=== PATIENT | female | born 1940 | race Caucasian/White ===

== ENCOUNTER 2021-02-04 16:30 | Emergency (ER) | payer OTHER, MEDICARE ==
[~2021-02-04] VITALS: Ht 162 cm; Wt 75.0 kg
[2021-02-04] MEDS ORDERED: ASPIRIN 81 MG CHEW (CHILDREN'S ASA) PO ONE (16:45)
[2021-02-04 16:58] LABS: HEMATOCRIT 46 % (35-52); HEMOGLOBIN 15.5 g/dL (11.5-16.0); MEAN CORPUSCULAR HEMOGLOBIN 29 pg (25-34); MEAN CORPUSCULAR HGB CONC 34 g/dL (32-36); MEAN CORPUSCULAR VOLUME 86 fL (80-99); MEAN PLATELET VOLUME 10.8 fL (9.0-12.2); PLATELET COUNT 238 10^3/uL (130-400); WHITE BLOOD COUNT 13.5 10^3/uL (4.3-11.0)
[2021-02-04 16:59] LABS: BASOPHILS % (AUTO) 0 % (0-10); EOSINOPHILS % (AUTO) 0 % (0-10); LYMPHOCYTES # (AUTO) 1.3 X 10^3 (1.0-4.0); LYMPHOCYTES % (AUTO) 10 % (12-44); MONOCYTES # (AUTO) 1.5 X 10^3 (0.0-1.0); MONOCYTES % (AUTO) 11 % (0-12); NEUTROPHILS # (AUTO) 10.5 X 10^3 (1.8-7.8); NEUTROPHILS % (AUTO) 78 % (42-75)
[2021-02-04] MEDS ORDERED: HEParin 1000 UNIT/ML (10ML VIAL) FOR BOLUS IV ONE (16:59)
--- NOTE | 2021-02-04 16:59 | ED Chest Pain ---
General Chief Complaint: Chest Pain Stated Complaint: CHEST PAIN Source: patient, family (son) Exam Limitations: other (dementia) History of Present Illness Date Seen by Provider: Feb 04, 2021 Time Seen by Provider: 16:31 Initial Comments 80-year-old female presenting from clinic of local physician. She has complaint of chest pain that has been off and on for a while now. She has dementia and cannot be specific about when the pain started. She is complaining of the pain going into her left arm at times. She has no nausea, vomiting, shortness of breath, diaphoresis. She has a history of diabetes, high blood pressure, high cholesterol, dementia. Her son presents with her to help provide history. She is smiling and jovial and does not seem to be having a lot of pain or discomfort from her chest pain. Location: other (Left-sided chest) Radiation: arms (Left arm) ASA po SHEET METAL INSTALLER: No NTG SL SHEET METAL INSTALLER: No Associated Symptoms: No abdominal pain, No back pain, No diaphoresis, No dizziness, No edema; fatigue; No fever/chills, No headache, No heartburn, No nausea/vomiting, No rash, No shortness of breath, No swelling/lump in chest Allergies and Home Medications Allergies Coded Allergies: No Known Drug Allergies (Unverified , 02/04/21) Patient Home Medication List Home Medication List Reviewed: Yes Review of Systems Review of Systems Constitutional: No chills, No fever EENTM: No Symptoms Reported Respiratory: No Symptoms Reported Cardiovascular: See HPI Gastrointestinal: No Symptoms Reported Genitourinary: No Symptoms Reported Musculoskeletal: no symptoms reported Skin: no symptoms reported Psychiatric/Neurological: Other (Dementia) Endocrine: No Symptoms Reported Hematologic/Lymphatic: Denies Blood Clots Past Mcevpfe-Aohyvj-Owpedg Hx Patient Social History Tobacco Use?: No Past Medical History Respiratory: No Cardiac: Yes High Cholesterol, Hypertension Neurological: Yes Dementia Endocrine: Yes Diabetes, Non-Insulin dep Physical Exam Vital Signs Vital Signs - First Documented 02/04/21 02/04/21 16:56 17:00 Temp 36.1 Pulse 105 Resp 20 B/P (MAP) 112/66 (81) Pulse Ox 96 O2 Delivery Room Air O2 Flow Rate 2.00 Capillary Refill : Height, Weight, BMI Height: '" Weight: lbs. oz. kg; BMI Method: General Appearance: No Apparent Distress, WD/WN HEENT: PERRL/EOMI, Pharynx Normal Neck: Full Range of Motion, Normal Inspection, Non Tender, Supple; No Carotid Bruit Respiratory: Chest Non Tender, Lungs Clear, Normal Breath Sounds Cardiovascular: Regular Rate, Rhythm, Normal Peripheral Pulses Gastrointestinal: Normal Bowel Sounds, No Pulsatile Mass, Non Tender, Soft Rectal: Deferred Extremity: Normal Capillary Refill, Normal Inspection, No Pedal Edema Neurologic/Psychiatric: Alert Skin: Normal Color, Warm/Dry Critical Care Note Critical Care Total Time (minutes) 45 minutes Progress 45 minutes of critical care time was spent in direct care of the patient. This time excludes separately billable procedures. The time was spent obtaining history from the patient and family, reviewing records, ordering lab and reviewing results, ordering interventions and reviewing response, discussion with consultants, documentation in the chart. Patient was at risk of cardiovascular compromise and coding or due to acute STEMI. She required immediate and constant care and management of her condition to arrange transfer to the [facility]. Progress/Results/Core Measures Results/Orders Lab Results Laboratory Tests Test 02/04/21 16:50 Range/Units White Blood Count 13.5 H 4.3-11.0 10^3/uL Red Blood Count 5.33 H 3.80-5.11 10^6/uL Hemoglobin 15.5 11.5-16.0 g/dL Hematocrit 46 35-52 % Mean Corpuscular Volume 86 80-99 fL Mean Corpuscular Hemoglobin 29 25-34 pg Mean Corpuscular Hemoglobin Concent 34 32-36 g/dL Red Cell Distribution Width 13.2 10.0-14.5 % Platelet Count 238 130-400 10^3/uL Mean Platelet Volume 10.8 9.0-12.2 fL Immature Granulocyte % (Auto) 0 % Neutrophils (%) (Auto) 78 H 42-75 % Lymphocytes (%) (Auto) 10 L 12-44 % Monocytes (%) (Auto) 11 0-12 % Eosinophils (%) (Auto) 0 0-10 % Basophils (%) (Auto) 0 0-10 % Neutrophils # (Auto) 10.5 H 1.8-7.8 X 10^3 Lymphocytes # (Auto) 1.3 1.0-4.0 X 10^3 Monocytes # (Auto) 1.5 H 0.0-1.0 X 10^3 Eosinophils # (Auto) 0.0 0.0-0.3 10^3/uL Basophils # (Auto) 0.0 0.0-0.1 10^3/uL Immature Granulocyte # (Auto) 0.1 0.0-0.1 10^3/uL Prothrombin Time 12.8 12.2-14.7 SEC INR Comment 0.9 0.8-1.4 Activated Partial Thromboplast Time 26 24-35 SEC Sodium Level 129 L 135-145 MMOL/L Potassium Level 3.6 3.6-5.0 MMOL/L Chloride Level 92 L 98-107 MMOL/L Carbon Dioxide Level 23 21-32 MMOL/L Anion Gap 14 5-14 MMOL/L Blood Urea Nitrogen 26 H 7-18 MG/DL Creatinine 0.66 0.60-1.30 MG/DL Estimat Glomerular Filtration Rate 86 BUN/Creatinine Ratio 39 Glucose Level 198 H 70-105 MG/DL Calcium Level 9.5 8.5-10.1 MG/DL Corrected Calcium 9.7 8.5-10.1 MG/DL Magnesium Level 2.0 1.6-2.4 MG/DL Total Bilirubin 0.8 0.1-1.0 MG/DL Aspartate Amino Transf (AST/SGOT) 42 H 5-34 U/L Alanine Aminotransferase (ALT/SGPT) 28 0-55 U/L Alkaline Phosphatase 96 40-136 U/L Troponin I 4.21 *H <0.30 NG/ML Pro-B-Type Natriuretic Peptide 8391.0 H <75.0 PG/ML Total Protein 7.5 6.4-8.2 GM/DL Albumin 3.7 3.2-4.5 GM/DL My Orders Orders - JC DIXON MD Cbc With Automated Diff (02/04/21 16:43) Magnesium (02/04/21 16:43) Chest 1 View Ap/Pa Only (02/04/21 14:45) Ekg Tracing (02/04/21 16:43) Comprehensive Metabolic Panel (02/04/21 16:43) Protime With Inr (02/04/21 16:43) Partial Thromboplastin Time (02/04/21 16:43) O2 (02/04/21 16:43) Monitor-Rhythm Ecg Trace Only (02/04/21 16:43) Aspirin Chewable Tablet (Baby Aspirin Ch (02/04/21 16:45) Ed Iv/Invasive Line Start (02/04/21 16:43) Troponin I Fs (02/04/21 16:43) Probnp Fs (02/04/21 16:43) Heparin Drip 90486 Unit/500ml (Heparin (02/04/21 17:00) Heparin (Bolus Per Protocol) (Heparin (B (02/04/21 16:59) Morphine Injection (Morphine Injection (02/04/21 17:00) Ondansetron Injection (Zofran Injectio (02/04/21 17:00) Medications Given in ED Current Medications Medications Dose Ordered Sig/Rayray Route Start Time Stop Time Status Last Admin Dose Admin Aspirin 324 mg ONCE ONCE PO 02/04/21 16:45 02/04/21 16:46 DC 02/04/21 16:59 324 MG Heparin Sodium (Porcine) 4,500 unit 1659 ONCE IV 02/04/21 16:59 02/04/21 17:01 DC 02/04/21 17:11 4,500 UNIT Heparin Sodium/ Dextrose 500 ml @ 0 mls/hr Q0M ONCE IV 02/04/21 17:00 02/04/21 17:01 DC 02/04/21 17:11 18 MLS/HR Vital Signs/I&O 02/04/21 02/04/21 02/04/21 02/04/21 16:56 16:56 17:00 17:21 Temp 36.1 36.1 Pulse 105 91 Resp 20 18 B/P (MAP) 112/66 (81) 103/50 Pulse Ox 96 99 99 O2 Delivery Room Air Room Air Nasal Cannula Nasal Cannula O2 Flow Rate 2.00 2.00 Progress Progress Note #1: Progress Note Electrocardiogram shows STEMI with ST elevation in tombstone in leads V1 through V5. When discussed with patient's son he requested to go to [facility] in [place]. Will contact them but in the meantime order heparin, aspirin, labs, chest x-ray. Progress Note #2: Time: 16:45 Progress Note Discussed with die operator on-call Dr. De La Garza at [facility] in [place]. He accepted the patient for transfer to go straight to the [facility] Aud[facility] and have back County Auditor activated. Per Dr. De La Garza Hold off on Plavix or Brilinta but give heparin and aspirin. Progress Note #3: Time: 16:55 Progress Note called back to update transfer center that pt has a history of diabetes in addition to htn and dementia. Helicopter en route for transport and should ar rive around 1720. Order a dose of Morphine 2 mg and Zofran 4 mg for pt. Progress Note #4: Time: 17:32 Progress Note [facility] transport here for patient. Labs show mild elevation of WBC. Chemistry with mild hyponatremia of 129, Glucose of 198. Troponin elevated to 4.21 and proBNP of 8,391. CXR with left pleural effusion and atele ctasis/infiltrate in base. small nodule in right lung that would be helpful to compare to prior imaging if available. Pt reports chest pain is gone when asked by [employer] staff. Initial ECG Impression Date: Feb 04, 2021 Initial ECG Impression Time: 16:34 Initial ECG Rate: 96 Initial ECG Rhythm: Normal Sinus Initial ECG Comparisson: No Previous ECG Available Comment Normal sinus rhythm with left anterior fascicular block and left ventricular hypertrophy. Heart rate is 96 bpm. OH interval 142 ms. Extensive anterior infarction with ST elevation and tombstone appearance in leads V1 through V5. QT interval 352 ms QTc interval 445 ms. There is no prior tracing available for comparison. Diagnostic Imaging Diagonstic Imaging: Xray Plain Films/CT/US/NM/MRI: chest Comments No acute infiltrate on my review of 1 view film of chest. possible mild pleural effusion left base. NAME: CLEM RUEDA REC#: [id number] PT STATUS: REG ER : 1940 PHYSICIAN: JC DIXON MD ADMIT DATE: 02/04/21/ER FS Draft Date of Exam:02/04/21 CHEST 1 VIEW AP/PA ONLY INDICATION: Chest pain. COMPARISON: None available. TECHNIQUE: Single frontal chest dated February 04, 2021. FINDINGS: The cardiac silhouette is within normal limits in size. No significant pulmonary vascular congestion. Calcified mediastinal and right hilar lymph nodes are present. Small left basilar pleural-parenchymal opacity. 6 mm nodular density is noted overlying the right midlung. No significant right pleural effusion. No pneumothorax. Scattered osseous degenerative changes without acute osseous abnormality. IMPRESSION: 1. Small left basilar pleural-parenchymal opacity, felt to relate to a combination of pleural fluid with adjacent atelectasis and/or infiltrate. 2. 6 mm nodular density overlying the right midlung. This is favored to relate to a calcified granuloma. Comparison made to prior imaging is recommended. If no prior imaging is available, nonemergent frontal and lateral radiographs of the chest could help to further evaluate. Dictated on workstation # [id number] Dict: 02/04/21 1735 Trans: 02/04/21 1738 [facility] [id number] Interpreted by: AURY TATE MD Electronically signed by: Reviewed: Reviewed by Me Departure Impression Primary Impression: Acute ST-elevation myocardial infarction Qualified Codes: I21.3 - ST elevation (STEMI) myocardial infarction of unspecified site Disposition: SHT-TRM HOSP Condition: Critical Transfer Transfer Reason: Patient preference Time Spoke to Accepting Phy: 16:45 Transfer Progress Notes d/w Dr. De La Garza, [employer] operations vice president, accepted pt and activated [facility] Aud[facility] for when pt arrives. Give Aspirin and Heparin. Hold off on Plavix or Brilinta for now. Transfer Facility: [facility] in [place], [place] Method of Transfer: Air Departure-Patient Inst. Referrals: TREY DENTON DO (PCP/Family) Primary Care Physician JC DIXON MD Feb 04, 2021 16:59
[2021-02-04] MEDS ORDERED: HEParin DRIP 25000 UNIT/500ML 500 ML IV ONE (17:00)
[2021-02-04] MEDS ORDERED: morphine INJ 10 MG/ML 1ML (SYR OR VIAL) IVP STA (17:00)
[2021-02-04] MEDS ORDERED: ONDANSETRON 4 MG/2 ML (SDV) Z0FRAN IVP STA (17:00)
[2021-02-04 17:21] VITALS: BP 103/50
[2021-02-04 17:26] LABS: INR 0.9 (0.8-1.4); PROTHROMBIN TIME PATIENT 12.8 SEC (12.2-14.7)
[2021-02-04 17:30] LABS: CALCIUM 9.5 MG/DL (8.5-10.1); CREATININE SERUM 0.66 MG/DL (0.60-1.30); POTASSIUM 3.6 MMOL/L (3.6-5.0)
[2021-02-04 17:31] LABS: ALBUMIN 3.7 GM/DL (3.2-4.5); BILIRUBIN,TOTAL 0.8 MG/DL (0.1-1.0); TOTAL PROTEIN 7.5 GM/DL (6.4-8.2)
--- NOTE | 2021-02-04 17:39 | Diagnostic Imaging Report ---
INDICATION: Chest pain. COMPARISON: None available. TECHNIQUE: Single frontal chest dated February 04, 2021. FINDINGS: The cardiac silhouette is within normal limits in size. No significant pulmonary vascular congestion. Calcified mediastinal and right hilar lymph nodes are present. Small left basilar pleural-parenchymal opacity. 6 mm nodular density is noted overlying the right midlung. No significant right pleural effusion. No pneumothorax. Scattered osseous degenerative changes without acute osseous abnormality. IMPRESSION: 1. Small left basilar pleural-parenchymal opacity, felt to relate to a combination of pleural fluid with adjacent atelectasis and/or infiltrate. 2. 6 mm nodular density overlying the right midlung. This is favored to relate to a calcified granuloma. Comparison made to prior imaging is recommended. If no prior imaging is available, nonemergent frontal and lateral radiographs of the chest could help to further evaluate. Dictated by: Dictated on workstation # [id number]
== END 2021-02-04 17:44 | disposition short-term general hospital (02) ==
LOC: ER FS 16:34
DX: I21.3 ST elevation (STEMI) myocardial infarction of unspecified site (principal); I10 Essential (primary) hypertension; E11.9 Type 2 diabetes mellitus without complications; F03.90 Unspecified dementia, unspecified severity, without behavioral disturbance, psychotic disturbance, mood disturbance, and anxiety
CPT/HCPCS: 36415; 71045; 80053; 83735; 83880; 84484; 85025; 85610; 85730; 93005; 93041; 99291

== ENCOUNTER 2021-02-14 12:42 | Emergency (ER) | payer MEDICARE, OTHER ==
[~2021-02-14] VITALS: Ht 167.7 cm; Wt 72.6 kg
[2021-02-14] MEDS ORDERED: ONDANSETRON 4 MG/2 ML (SDV) Z0FRAN ONE (12:54)
[2021-02-14] MEDS ORDERED: ONDANSETRON 4 MG/2 ML (SDV) Z0FRAN IVP ONE (13:00)
[2021-02-14] MEDS ORDERED: NS IV 1000 ML 1,000 ML IV SCH (13:00)
[2021-02-14 13:06] LABS: BASOPHILS # (AUTO) 0.1 10^3/uL (0.0-0.1); BASOPHILS % (AUTO) 1 % (0-10); EOSINOPHILS # (AUTO) 0.1 10^3/uL (0.0-0.3); EOSINOPHILS % (AUTO) 2 % (0-10); HEMATOCRIT 42 % (35-52); HEMOGLOBIN 12.8 g/dL (11.5-16.0); LYMPHOCYTES # (AUTO) 1.4 X 10^3 (1.0-4.0); LYMPHOCYTES % (AUTO) 17 % (12-44); MEAN CORPUSCULAR HEMOGLOBIN 29 pg (25-34); MEAN CORPUSCULAR HGB CONC 31 g/dL (32-36); MEAN CORPUSCULAR VOLUME 94 fL (80-99); MEAN PLATELET VOLUME 11.3 fL (9.0-12.2); MONOCYTES # (AUTO) 0.7 X 10^3 (0.0-1.0); MONOCYTES % (AUTO) 8 % (0-12); NEUTROPHILS % (AUTO) 72 % (42-75); PLATELET COUNT 306 10^3/uL (130-400); WHITE BLOOD COUNT 8.3 10^3/uL (4.3-11.0)
--- NOTE | 2021-02-14 13:24 | ED General ---
General Chief Complaint: Abdominal/GI Problems Stated Complaint: GENERAL WEAKNESS; DIARRHEA History of Present Illness Date Seen by Provider: Feb 14, 2021 Time Seen by Provider: 13:10 Initial Comments 80-year-old female presents by private vehicle (her grandson). Concerned that she is "just not acting right and unable to care for herself. She does not at home. Today was found at home and she had soiled herself from recent diarrhea and had not cleaned herself up. She was unable to make it to the bathroom. Recent past medical history of having a STEMI and [facility] [place] to [facility] and had 3 stents (just discharged home 1 week ago). Grandson states that she has not been acting right since then, is not sure if she is taking her medications but she is certainly not able to do her activities of daily living as she had been previously. Patient denies chest pain or shortness of air. Does admit that she has had some diarrhea and weakness, otherwise is pleasantly confused and not sure why she is her Allergies and Home Medications Allergies Coded Allergies: No Known Drug Allergies (Unverified , 02/04/21) Patient Home Medication List Home Medication List Reviewed: Yes Review of Systems Review of Systems Constitutional: No fever; weakness EENTM: no symptoms reported Respiratory: no symptoms reported; No cough, No short of breath Cardiovascular: No chest pain, No edema, No palpitations Gastrointestinal: abdominal pain (note on exam (pt did not complain of pain)), diarrhea; No jaundice; loss of appetite; No nausea, No vomiting Musculoskeletal: no symptoms reported Skin: No change in color, No rash Psychiatric/Neurological: Depressed; Denies Headache, Denies Seizure; Weakness Past Nrinmxo-Mlcujz-Bguhwy Hx Patient Social History Tobacco Use?: No Past Medical History Respiratory: No Cardiac: Yes High Cholesterol, Hypertension Neurological: Yes Dementia Endocrine: Yes Diabetes, Non-Insulin dep Physical Exam Vital Signs Vital Signs - First Documented 02/14/21 12:45 Temp 35.6 Pulse 111 Resp 13 B/P (MAP) 159/83 (108) Pulse Ox 95 O2 Delivery Room Air Capillary Refill : Height, Weight, BMI Height: '" Weight: lbs. oz. kg; 28.00 BMI Method: General Appearance: No Apparent Distress, Chronically ill HEENT: PERRL/EOMI, Normal ENT Inspection Neck: Non Tender, Supple Respiratory: Chest Non Tender, Lungs Clear, Normal Breath Sounds, No Accessory Muscle Use, No Respiratory Distress Cardiovascular: No Edema, No Gallop, No JVD Gastrointestinal: Non Tender, Soft Back: Normal Inspection, No CVA Tenderness Extremity: Normal Capillary Refill, Normal Inspection, Non Tender Neurologic/Psychiatric: Alert, No Motor/Sensory Deficits, Disoriented, Motor Weakness Skin: Normal Color, Warm/Dry Focused Exam Lactate Level 02/14/21 13:40: Lactic Acid Level 1.63 Lactic Acid Level Laboratory Tests Test 02/14/21 13:40 Lactic Acid Level 1.63 MMOL/L (0.50-2.00) Progress/Results/Core Measures Suspected Sepsis SIRS Temperature: Pulse: Respiratory Rate: Laboratory Tests 02/14/21 13:00: White Blood Count 8.3 Blood Pressure / Mean: 02/14/21 13:40: Lactic Acid Level 1.63 Laboratory Tests 02/14/21 13:00: Creatinine 0.56L, Platelet Count 306, Total Bilirubin 0.6 Results/Orders Lab Results Laboratory Tests Test 02/14/21 13:00 02/14/21 13:10 02/14/21 13:40 02/14/21 14:58 Range/Units White Blood Count 8.3 4.3-11.0 10^3/uL Red Blood Count 4.45 3.80-5.11 10^6/uL Hemoglobin 12.8 11.5-16.0 g/dL Hematocrit 42 35-52 % Mean Corpuscular Volume 94 80-99 fL Mean Corpuscular Hemoglobin 29 25-34 pg Mean Corpuscular Hemoglobin Concent 31 L 32-36 g/dL Red Cell Distribution Width 13.0 10.0-14.5 % Platelet Count 306 130-400 10^3/uL Mean Platelet Volume 11.3 9.0-12.2 fL Immature Granulocyte % (Auto) 0 % Neutrophils (%) (Auto) 72 42-75 % Lymphocytes (%) (Auto) 17 12-44 % Monocytes (%) (Auto) 8 0-12 % Eosinophils (%) (Auto) 2 0-10 % Basophils (%) (Auto) 1 0-10 % Neutrophils # (Auto) 6.0 1.8-7.8 X 10^3 Lymphocytes # (Auto) 1.4 1.0-4.0 X 10^3 Monocytes # (Auto) 0.7 0.0-1.0 X 10^3 Eosinophils # (Auto) 0.1 0.0-0.3 10^3/uL Basophils # (Auto) 0.1 0.0-0.1 10^3/uL Immature Granulocyte # (Auto) 0.0 0.0-0.1 10^3/uL Sodium Level 132 L 135-145 MMOL/L Potassium Level 4.3 3.6-5.0 MMOL/L Chloride Level 99 98-107 MMOL/L Carbon Dioxide Level 21 21-32 MMOL/L Anion Gap 12 5-14 MMOL/L Blood Urea Nitrogen 11 7-18 MG/DL Creatinine 0.56 L 0.60-1.30 MG/DL Estimat Glomerular Filtration Rate 104 BUN/Creatinine Ratio 20 Glucose Level 244 H 70-105 MG/DL Calcium Level 9.0 8.5-10.1 MG/DL Corrected Calcium 9.7 8.5-10.1 MG/DL Total Bilirubin 0.6 0.1-1.0 MG/DL Aspartate Amino Transf (AST/SGOT) 21 5-34 U/L Alanine Aminotransferase (ALT/SGPT) 14 0-55 U/L Alkaline Phosphatase 116 40-136 U/L Troponin I < 0.30 <0.30 NG/ML Total Protein 6.9 6.4-8.2 GM/DL Albumin 3.1 L 3.2-4.5 GM/DL Lipase 65 8-78 U/L Lactic Acid Level 1.63 0.50-2.00 MMOL/L Urine Color YELLOW Urine Clarity SLIGHTLY CLOUDY Urine pH 6.0 5-9 Urine Specific [place] 1.015 L 1.016-1.022 Urine Protein NEGATIVE NEGATIVE Urine Glucose (UA) 2+ H NEGATIVE Urine Ketones TRACE H NEGATIVE Urine Nitrite NEGATIVE NEGATIVE Urine Bilirubin NEGATIVE NEGATIVE Urine Urobilinogen 0.2 < = 1.0 MG/DL Urine Leukocyte Esterase TRACE H NEGATIVE Urine RBC (Auto) 1+ H NEGATIVE Urine RBC NONE /HPF Urine WBC 10-25 H /HPF Urine Squamous Epithelial Cells 10-25 H /HPF Urine Crystals NONE /LPF Urine Bacteria LARGE H /HPF Urine Casts NONE /LPF Urine Mucus LARGE H /LPF Urine Culture Indicated YES My Orders Orders - ROVENSTINEDORIS DO Ed Iv/Invasive Line Start (02/14/21 12:54) Cbc With Automated Diff (02/14/21 12:54) Comprehensive Metabolic Panel (02/14/21 12:54) Ondansetron Injection (Zofran Injectio (02/14/21 13:00) Ns Iv 1000 Ml (Sodium Chloride 0.9%) (02/14/21 13:00) Ondansetron Injection (Zofran Injectio (02/14/21 12:54) Cbc With Automated Diff (02/14/21 13:12) Urinalysis (02/14/21 13:12) Lactic Acid Analyzer (02/14/21 13:12) Lipase (02/14/21 13:12) Coronavirus Sars-Cov-2 So 2019 (02/14/21 13:17) Acute Abd Series (02/14/21 13:23) Troponin I Fs (02/14/21 13:34) Ct Head Wo (02/14/21 14:15) Urine Culture (02/14/21 14:58) Medications Given in ED Current Medications Medications Dose Ordered Sig/Rayray Route Start Time Stop Time Status Last Admin Dose Admin Ondansetron HCl 4 mg ONCE ONCE IVP 02/14/21 13:00 02/14/21 13:01 DC 02/14/21 13:00 4 MG Vital Signs/I&O 02/14/21 12:45 Temp 35.6 Pulse 111 Resp 13 B/P (MAP) 159/83 (108) Pulse Ox 95 O2 Delivery Room Air Capillary Refill : Progress Note : Progress Note Spoke to patient's son who is her POA and knows her very well. He does admit that she has been weak, but states that she is able to care for herself and is able to get up and use the restroom. She does wear depends because she does have urinary accidents and he is aware that she has diarrhea. He does not feel that she needs assisted living or [place] [facility] care at this time. He says he checks on her twice a day every day and that his grandson checks on her twice a week. Discussed relatively normal labs without any acute or significant findings. Recommended follow-up with her PCP this week for physical evaluation and advised discussing possible home health care if deemed necessary. ECG Initial ECG Impression Date: Feb 14, 2021 Initial ECG Impression Time: 13:25 Initial ECG Rate: 75 Initial ECG Rhythm: Normal Sinus Comment anteroseptal infarct- Diagnostic Imaging Diagonstic Imaging: Xray Plain Films/CT/US/NM/MRI: chest Comments COMPARISON: No comparison available. FINDINGS: There is age-related global volume loss. There are microvascular changes in the deep white matter. There is a tiny low-density remote appearing lacune within the deep white matter of the left sommer radiata. There are no findings of territorial loss of mckeon-white differentiation. There is no hemorrhage, mass effect or hydrocephalus. There is no abnormal extra-axial collection. The basilar cisterns appear patent. The posterior fossa demonstrates no acute process. The mastoid air cells appear clear. The middle ears appear clear. The paranasal sinuses are clear, where visualized. Orbital contents are unremarkable. There is no calvarial abnormality. IMPRESSION: Age-related global volume loss with background microvascular changes within the white matter. There are no CT findings of an acute intracranial abnormality. Dictated on workstation # [id number] Dict: 02/14/21 1436 Trans: 02/14/21 1500 [facility] [id number] Interpreted by: SURINDER TORRES MD Electronically signed by: Departure Impression Primary Impression: Weakness Additional Impressions: Physical debility Diarrhea Qualified Codes: R19.7 - Diarrhea, unspecified Disposition: 30 STILL A PATIENT Condition: Stable Admissions Decision to Admit Reason: Admit from ER (General) Decision to Admit/Date: Feb 14, 2021 Time/Decision to Admit Time: 13:23 Departure-Patient Inst. Decision time for Depature: 15:11 Referrals: TREY REGALADO DO (PCP/Family) Primary Care Physician Patient Instructions: Weakness ED Add. Discharge Instructions: Follow up with Dr Regalaod this week for a physical evaluation. Ask Dr Mayorga about any needs for HOME HEALTH assistance or considerations of assisted living. All discharge instructions reviewed with patient and/or family. Voiced understanding. DORIS CARTAGENA DO Feb 14, 2021 13:24
[2021-02-14 13:25] LABS: ALBUMIN 3.1 GM/DL (3.2-4.5); BILIRUBIN,TOTAL 0.6 MG/DL (0.1-1.0); CREATININE SERUM 0.56 MG/DL (0.60-1.30); POTASSIUM 4.3 MMOL/L (3.6-5.0); TOTAL PROTEIN 6.9 GM/DL (6.4-8.2)
--- NOTE | 2021-02-14 14:08 | Diagnostic Imaging Report ---
EXAMINATION: Acute abdominal series with AP chest. Comparison is made with the chest radiograph from 02/04/2021. FINDINGS: There is a calcified granuloma within the right lung. There are stable interstitial changes. There is no new infiltrate or consolidation. There is no effusion or pneumothorax. Heart size is prominent but unchanged. Pulmonary vascularity appears appropriate. The bowel gas pattern appears nonobstructed. There are no findings of unexpected abdominal calcifications. There is a lumbar levoscoliosis. No acute osseous abnormalities are evident IMPRESSION: 1. Stable radiographic appearance of the chest. No acute cardiopulmonary process evident. 2. Nonobstructive bowel gas pattern without free air. Dictated by: Dictated on workstation # [id number]
--- NOTE | 2021-02-14 15:00 | Diagnostic Imaging Report ---
PROCEDURE: CT head without contrast. TECHNIQUE: Multiple contiguous axial images were obtained through the brain without the use of intravenous contrast. Auto Exposure Controls were utilized during the CT exam to meet ALARA standards for radiation dose reduction. INDICATION: Generalized weakness and dizziness. Mental status changes. COMPARISON: No comparison available. FINDINGS: There is age-related global volume loss. There are microvascular changes in the deep white matter. There is a tiny low-density remote appearing lacune within the deep white matter of the left sommer radiata. There are no findings of territorial loss of mckeon-white differentiation. There is no hemorrhage, mass effect or hydrocephalus. There is no abnormal extra-axial collection. The basilar cisterns appear patent. The posterior fossa demonstrates no acute process. The mastoid air cells appear clear. The middle ears appear clear. The paranasal sinuses are clear, where visualized. Orbital contents are unremarkable. There is no calvarial abnormality. IMPRESSION: Age-related global volume loss with background microvascular changes within the white matter. There are no CT findings of an acute intracranial abnormality. Dictated by: Dictated on workstation # [id number]
[2021-02-14 15:08] LABS: BACTERIA,URINE LARGE /HPF; BILIRUBIN,URINE NEGATIVE (NEGATIVE); CLARITY,URINE SLIGHTLY CLOUDY; COLOR,URINE YELLOW; GLUCOSE, URINE (UA) 2+ (NEGATIVE); KETONES,URINE TRACE (NEGATIVE); LEUKOCYTE ESTERASE ,URINE TRACE (NEGATIVE); NITRITE,URINE NEGATIVE (NEGATIVE); PROTEIN,URINE NEGATIVE (NEGATIVE)
[2021-02-14 15:20] VITALS: BP 105/40
== END 2021-02-14 15:20 | disposition still patient (30) ==
LOC: EDUNIT# 12:42 → ER FS 12:44
DX: R53.1 Weakness (principal); R53.81 Other malaise; R19.7 Diarrhea, unspecified; I10 Essential (primary) hypertension; F03.90 Unspecified dementia, unspecified severity, without behavioral disturbance, psychotic disturbance, mood disturbance, and anxiety; E11.9 Type 2 diabetes mellitus without complications; Z20.822 Contact with and (suspected) exposure to COVID-19
CPT/HCPCS: 36415; 70450; 74022; 80053; 81000; 83605; 83690; 84484; 85025; 87077; 87088; 87186; 87635; 87636; 93005

== ENCOUNTER 2021-12-12 18:23 | Emergency (ER) | payer MEDICARE, OTHER ==
[2021-12-12] MEDS ORDERED: CEPHALEXIN 250 MG (KEFLEX) CAP PO STA (19:16)
[2021-12-12] MEDS ORDERED: CEPH500T PO (19:20)
--- NOTE | 2021-12-12 19:20 | ED General ---
General Chief Complaint: Skin/Wound Problems Stated Complaint: LEG WOUNDS Nursing Triage Note: Pt presents with a left leg ulcer that she has been seeing wound care for in [place]. Pt states she removed her dressing that she had on her leg because it had maggots on it. Source of Information: Patient Exam Limitations: No Limitations History of Present Illness Date Seen by Provider: Dec 12, 2021 Time Seen by Provider: 18:35 Initial Comments 81-year-old female coming in due to a left leg wound is been going on for quite some time. She follows with wound care in [place]. She change her dressing today and saw maggots on it so presented here. Denies any fever, redness spreading up her leg that is worsening, but the redness and the wound does seem worse to her and it does have a scent to it. She is not been on any antibiotics for some time. Allergies and Home Medications Allergies Coded Allergies: No Known Drug Allergies (Unverified , 02/04/21) Patient Home Medication List Home Medication List Reviewed: Yes Review of Systems Review of Systems Constitutional: No fever EENTM: No blurred vision Respiratory: no symptoms reported Cardiovascular: no symptoms reported Gastrointestinal: no symptoms reported Genitourinary: no symptoms reported Musculoskeletal: no symptoms reported Skin: see HPI Psychiatric/Neurological: No Symptoms Reported Hematologic/Lymphatic: No Symptoms Reported Immunological/Allergic: no symptoms reported All Other Systems Reviewed Negative Unless Noted: Yes Past Gdvdieu-Ftxfah-Uyiogx Hx Patient Social History Tobacco Use?: No Use of E-Cig and/or Vaping dev: No Substance use?: No Alcohol Use?: No Pt feels they are or have been: No Past Medical History Surgeries: No Respiratory: No Cardiac: Yes High Cholesterol, Hypertension Neurological: Yes Dementia Endocrine: Yes Diabetes, Non-Insulin dep Physical Exam Vital Signs Vital Signs - First Documented 12/12/21 18:47 Temp 36.8 Pulse 90 Resp 18 B/P (MAP) 152/51 (84) Pulse Ox 98 O2 Delivery Room Air Capillary Refill : Less Than 3 Seconds Height, Weight, BMI Height: '" Weight: lbs. oz. kg; 25.00 BMI Method: General Appearance: No Apparent Distress, WD/WN HEENT: PERRL/EOMI, Normal ENT Inspection, Pharynx Normal Neck: Full Range of Motion, Normal Inspection, Non Tender, Supple Respiratory: Chest Non Tender, Lungs Clear, Normal Breath Sounds, No Accessory Muscle Use, No Respiratory Distress Cardiovascular: Regular Rate, Rhythm, No Edema, Normal Peripheral Pulses Gastrointestinal: Normal Bowel Sounds, Non Tender, Soft Back: Normal Inspection Extremity: Normal Capillary Refill, Normal Range of Motion, Non Tender, No Calf Tenderness, No Pedal Edema, Other (Left leg with erythema and superficial ulceration with a foul odor to it with some redness spreading slightly upper calf, no maggots seen) Neurologic/Psychiatric: Alert, No Motor/Sensory Deficits, Normal Mood/Affect Skin: Normal Color, Warm/Dry Lymphatic: No Adenopathy Progress/Results/Core Measures Suspected Sepsis SIRS Temperature: Pulse: 90 Respiratory Rate: 18 Blood Pressure 152 /51 Mean: 84 Results/Orders Vital Signs/I&O 12/12/21 18:47 Temp 36.8 Pulse 90 Resp 18 B/P (MAP) 152/51 (84) Pulse Ox 98 O2 Delivery Room Air Capillary Refill : Less Than 3 Seconds Blood Pressure Mean: 84 Progress Note : Progress Note 81-year-old female presenting for wound check since she saw maggots on her wound on her left leg earlier. I see no maggots today. It does appear like there is some cellulitic changes so we will start her on antibiotics. She has follow-up with her wound doctor in a couple days. Vitals are otherwise within normal limits and she is not systemically ill. Departure Impression Primary Impression: Cellulitis Qualified Codes: L03.116 - Cellulitis of left lower limb Disposition: HOME, SELF-CARE Condition: Stable Departure-Patient Inst. Decision time for Depature: 19:19 Referrals: TREY DENTON DO (PCP) Primary Care Physician Patient Instructions: Cellulitis (Skin Infection), Adult (DC) Add. Discharge Instructions: You will take antibiotics 4 times a day, the prescription is at [facility]. Follow-up with your wound care doctor on Tuesday and they will tell you to either stay on the antibiotics or stop them. Scripts Cephalexin (Cephalexin) 500 Mg Tablet 500 MG PO QID for 7 Days, #28 TAB Prov: JUSTICE JACK MD 12/12/21 JUSTICE JACK MD Dec 12, 2021 19:20
[2021-12-12 19:30] VITALS: BP 152/51
== END 2021-12-12 19:31 | disposition home or self-care (01) ==
LOC: EDUNIT# 18:23 → ER FS 18:24
DX: L03.116 Cellulitis of left lower limb (principal)
CPT/HCPCS: 99283

== ENCOUNTER 2023-04-14 23:48 | Inpatient (IN) | payer MEDICARE, OTHER ==
[~2023-04-14 23:48] MED LIST: CEPH500T PO
[2023-04-15] VITALS (16 sets, daily range): BP systolic 102–183; BP diastolic 56–93
[2023-04-15] MEDS ORDERED: NS IV 1000 ML 1,000 ML IV SCH
[2023-04-15] MEDS ORDERED: LIDOCAINE UROJET 2% GEL 10 ML PKG TOP ONE
[2023-04-15] MEDS ORDERED: fentaNYL INJECTION 100 MCG/2 ML VIAL IVP STA ×2 (01:35)
[2023-04-15 01:43] LABS: ALBUMIN 3.5 GM/DL (3.2-4.5); BASOPHILS # (AUTO) 0.1 10^3/uL (0.0-0.1); BASOPHILS % (AUTO) 0 % (0-10); EOSINOPHILS # (AUTO) 0.1 10^3/uL (0.0-0.3); EOSINOPHILS % (AUTO) 1 % (0-10); HEMATOCRIT 42 % (35-52); HEMOGLOBIN 13.9 g/dL (11.5-16.0); LYMPHOCYTES # (AUTO) 1.5 10^3/uL (1.0-4.0); LYMPHOCYTES % (AUTO) 12 % (12-44); MEAN CORPUSCULAR HEMOGLOBIN 29 pg (25-34); MEAN CORPUSCULAR HGB CONC 33 g/dL (32-36); MEAN CORPUSCULAR VOLUME 88 fL (80-99); MEAN PLATELET VOLUME 10.7 fL (9.0-12.2); MONOCYTES # (AUTO) 0.8 10^3/uL (0.0-1.0); MONOCYTES % (AUTO) 7 % (0-12); NEUTROPHILS # (AUTO) 9.6 10^3/uL (1.8-7.8); NEUTROPHILS % (AUTO) 79 % (42-75); PLATELET COUNT 179 10^3/uL (130-400); WHITE BLOOD COUNT 12.1 10^3/uL (4.3-11.0)
[2023-04-15 01:44] LABS: POTASSIUM 3.6 MMOL/L (3.6-5.0)
[2023-04-15 01:45] LABS: CALCIUM 8.6 MG/DL (8.5-10.1); PROTHROMBIN TIME PATIENT 13.4 SEC (12.2-14.7)
[2023-04-15 01:46] LABS: TOTAL PROTEIN 6.4 GM/DL (6.4-8.2)
[2023-04-15 01:48] LABS: BILIRUBIN,TOTAL 0.5 MG/DL (0.1-1.0)
[2023-04-15 01:50] LABS: CREATININE SERUM 0.8 MG/DL (0.60-1.30)
[2023-04-15 01:52] LABS: MAGNESIUM 1.8 MG/DL (1.6-2.4)
[2023-04-15 02:18] LABS: BILIRUBIN,URINE NEGATIVE (NEGATIVE); CLARITY,URINE CLEAR; COLOR,URINE YELLOW; GLUCOSE, URINE (UA) 3+ (NEGATIVE); KETONES,URINE TRACE (NEGATIVE); LEUKOCYTE ESTERASE ,URINE NEGATIVE (NEGATIVE); NITRITE,URINE NEGATIVE (NEGATIVE); PROTEIN,URINE NEGATIVE (NEGATIVE)
[2023-04-15 02:19] LABS: AMORPHOUS SEDIMENT,UR RARE AMOR PHOSPHATE /LPF; BACTERIA,URINE NEGATIVE /HPF
--- NOTE | 2023-04-15 02:27 | ED Fall/Injury ---
General Chief Complaint: Trauma-Non Activation Stated Complaint: FALL/RT HIP PAIN Nursing Triage Note: TO ED VIA [facility] FROM [facility] IN [place], [place]. NO REPORT FROM THIS FACILITY. PER EMS PT WAS FOUND ON TILE FLOOR C/O RIGHT HIP PAIN. 2OG IV ESTABLISHED TO RIGHT HAND EN ROUTE AND EMS GAVE FENTANYL 50 MCG IV AND ZOFRAN 4 MG IV EN ROUTE. PT ASKED TO DESCRIBE WHAT HAPPENED AND STATES, "I FELL FLAT ON MY ASS ON THE FLOOR". UNKNOWN LAST WELL TIME. Source: patient ([facility]), snf records History of Present Illness Date Seen by Provider: Apr 14, 2023 Time Seen by Provider: 23:50 Initial Comments PT ARRIVES VIA EMS FROM [facility] IN [place], [place] PT C/O RIGHT HIP PAIN PT HAD AN UNWITNESSED FALL AT FACILITY, SHE REPORTEDLY WAS FOUND ON THE FLOOR IN SITTING POSITION BY STAFF. LAST KNOWN WELL TIME IS UNKNOWN PT STATES "I FELL FLAT ON MY ASS ON THE FLOOR" --STATES SHE DOES NOT REMEMBER WHAT SHE WAS DOING WHEN SHE FELL SHE DENIES ANY HEAD OR NECK OR BACK PAIN SHE DENIES HITTING HER HEAD DENIES PARESTHESIAS NO CHEST PAIN OR SHORTNESS OF BREATH NO ABDOMINAL PAIN OR NAUSEA/VOMITING NO HEAD PAIN OR DIZZINESS NO ARM PAIN EMS GAVE 50 MCG FENTANYL AND 4 MG ZOFRAN PRIOR TO ARRIVAL PT WITH DEMENTIA, HTN, HYPERLIPIDEMIA, DIABETES, CEREBROVASCULAR DX WITH PRIOR CVA, EDEMA AND ARTHRITIS SHE IS ON PLAVIX PT KNOWS SHE FELL, DOES NOT RECALL EVENTS PRIOR TO FALLING SHE IS ORIENTED TO PERSON, GROSSLY ORIENTED TO SITUATION, ORIENTED TO PLACE. POOR MEMORY, BUT IS NOT OVERLY CONFUSED. PCP: DR. DENTON [place] Allergies and Home Medications Allergies Coded Allergies: No Known Drug Allergies (Unverified , 02/04/21) Patient Home Medication List Home Medication List Reviewed: Yes Cephalexin (Cephalexin) 500 Mg Tablet, 500 MG PO QID Prescribed by: JUSTICE JACK on 12/12/211919 Review of Systems Review of Systems Constitutional: see HPI Respiratory: no symptoms reported Cardiovascular: no symptoms reported Gastrointestinal: no symptoms reported Genitourinary: no symptoms reported Musculoskeletal: see HPI Skin: no symptoms reported Psychiatric/Neurological: See HPI Past Kuwvrzd-Djvwfj-Lprwko Hx Patient Social History Tobacco Use?: No Smoking Status: Never a Smoker Smokeless Tobacco Frequency: Never a User Use of E-Cig and/or Vaping dev: No Use of E-Cig and/or Vaping Jay: Never a User Substance use?: No Alcohol Use?: No Past Medical History Surgeries: Yes (CARDIAC STENTS 2020) Cardiac, Coronary Stent, Gallbladder Respiratory: No Cardiac: Yes (STEMI 01/2021--[place] [place] [facility]) Coronary Artery Disease, Heart Attack, High Cholesterol, Hypertension 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 oz. kg; 25.00 BMI Method: General Appearance: WD/WN, no apparent distress HEENT: PERRL/EOMI, other (EDENTULOUS) Neck: non-tender, normal inspection Cardiovascular: normal peripheral pulses, regular rate, rhythm, no murmur Respiratory: chest non-tender, normal breath sounds, no respiratory distress, no accessory muscle use Peripheral Pulses: 2+ Dorsalis Pedis (R), 2+ Left Dors-Pedis (L), 2+ Radial Pulses (R), 2+ Radial Pulses (L) Gastrointestinal: normal bowel sounds, non tender, soft Back: no CVA tenderness, no vertebral tenderness Extremities: no calf tenderness, normal capillary refill, other (RIGHT HIP TENDERNESS, WITH SHORTENING AND EXTERNAL ROTATION OF RIGHT LEG; MILD TENDERNESS TO RIGHT KNEE. TRACE EDEMA BILATERALLY. FEET PINK AND WARM WITH 2+ PULSES BILATERALLY AND GOOD CAPILARRY REFILL. DISTAL MOTOR/SENSORY INTACT. ARMS NON- TENDER WITH NORMAL ROM AND SENSORY/VASCULAR INTACT. ) Neurologic/Psychiatric: publicity agent II-XII nml as tested, no motor/sensory deficits, alert, normal mood/affect, other (POOR MEMORY, BUT ORIENTED TO PERSON, PLACE, GROSSLY ORIENTED TO SITUATION. SPEECH CLEAR AND APPROPRIATE. ) Skin: normal color, warm/dry [place] Coma Score Best Eye Response: (4) Open Spontaneously Best Verbal Response: (5) Oriented Best Motor Response: (6) Obeys Commands [place] Total: 15 Progress/Results/Core Measures Results/Orders Lab Results Laboratory Tests Test 04/15/23 01:19 04/15/23 02:00 Range/Units White Blood Count 12.1 H 4.3-11.0 10^3/uL Red Blood Count 4.80 3.80-5.11 10^6/uL Hemoglobin 13.9 11.5-16.0 g/dL Hematocrit 42 35-52 % Mean Corpuscular Volume 88 80-99 fL Mean Corpuscular Hemoglobin 29 25-34 pg Mean Corpuscular Hemoglobin Concent 33 32-36 g/dL Red Cell Distribution Width 13.3 10.0-14.5 % Platelet Count 179 130-400 10^3/uL Mean Platelet Volume 10.7 9.0-12.2 fL Immature Granulocyte % (Auto) 1 % Neutrophils (%) (Auto) 79 H 42-75 % Lymphocytes (%) (Auto) 12 12-44 % Monocytes (%) (Auto) 7 0-12 % Eosinophils (%) (Auto) 1 0-10 % Basophils (%) (Auto) 0 0-10 % Neutrophils # (Auto) 9.6 H 1.8-7.8 10^3/uL Lymphocytes # (Auto) 1.5 1.0-4.0 10^3/uL Monocytes # (Auto) 0.8 0.0-1.0 10^3/uL Eosinophils # (Auto) 0.1 0.0-0.3 10^3/uL Basophils # (Auto) 0.1 0.0-0.1 10^3/uL Immature Granulocyte # (Auto) 0.1 0.0-0.1 10^3/uL Prothrombin Time 13.4 12.2-14.7 SEC INR Comment 1.0 0.8-1.4 Activated Partial Thromboplast Time 26 24-35 SEC Sodium Level 139 135-145 MMOL/L Potassium Level 3.6 3.6-5.0 MMOL/L Chloride Level 103 98-107 MMOL/L Carbon Dioxide Level 22 21-32 MMOL/L Anion Gap 14 5-14 MMOL/L Blood Urea Nitrogen 13 7-18 MG/DL Creatinine 0.80 0.60-1.30 MG/DL Estimat Glomerular Filtration Rate 73 BUN/Creatinine Ratio 16 Glucose Level 206 H 70-105 MG/DL Calcium Level 8.6 8.5-10.1 MG/DL Corrected Calcium 9.0 8.5-10.1 MG/DL Magnesium Level 1.8 1.6-2.4 MG/DL Total Bilirubin 0.5 0.1-1.0 MG/DL Aspartate Amino Transf (AST/SGOT) 25 5-34 U/L Alanine Aminotransferase (ALT/SGPT) 30 0-55 U/L Alkaline Phosphatase 86 40-136 U/L Total Protein 6.4 6.4-8.2 GM/DL Albumin 3.5 3.2-4.5 GM/DL Urine Color YELLOW Urine Clarity CLEAR Urine pH 7.0 5-9 Urine Specific [place] 1.015 L 1.016-1.022 Urine Protein NEGATIVE NEGATIVE Urine Glucose (UA) 3+ H NEGATIVE Urine Ketones TRACE H NEGATIVE Urine Nitrite NEGATIVE NEGATIVE Urine Bilirubin NEGATIVE NEGATIVE Urine Urobilinogen 0.2 < = 1.0 MG/DL Urine Leukocyte Esterase NEGATIVE NEGATIVE Urine RBC (Auto) TRACE H NEGATIVE Urine RBC NONE /HPF Urine WBC NONE /HPF Urine Crystals PRESENT H /LPF Urine Amorphous Sediment RARE DEMARCUS PHOSPHATE H /LPF Urine Bacteria NEGATIVE /HPF Urine Casts NONE /LPF Urine Mucus NEGATIVE /LPF Urine Culture Indicated NO My Orders Orders - ZAC WINTER DO Ct Head/Cervical Spine Wo (04/15/23 00:00) Ct Thoracic/Lumbar Spine Wo (04/15/23 00:00) Chest 1 View, Ap/Pa Only (04/15/23 00:00) Femur, Right, 2 Views (04/15/23 00:00) Pelvis With Right Hip 2-3views (04/15/23:00) Cbc And Automated Diff (04/15/23:00) Comprehensive Metabolic Panel (04/15/23 00:00) Magnesium (04/15/23 00:00) Protime With Inr (04/15/23 00:00) Partial Thromboplastin Time (04/15/23 00:00) Ua Culture If Indicated (04/15/23 00:00) Ed Iv/Invasive Line Start (04/15/23 00:00) Ns Iv 1000 Ml (Ns Iv 1000 Ml) (04/15/23 00:00) Fentanyl Injection (Fentanyl Injection (04/15/23 00:00) Catheter(Urinary) Insert & Ass ,15 (04/15/23 00:00) Lidocaine 2% (Urojet) (Lidocaine 2% (Uro (04/15/23 00:00) Fentanyl Injection (Fentanyl Injection (04/15/23 01:35) Morphine Injection (Morphine Injection (04/15/23 03:15) Medications Given in ED Current Medications Medications Dose Ordered Sig/Rayray Route Start Time Stop Time Status Last Admin Dose Admin Lidocaine HCl 10 ml ONCE ONCE TOP 04/15/23 00:00 04/15/23 00:03 DC 04/15/23 01:08 10 ML Morphine Sulfate 4 mg ONCE ONCE IVP 04/15/23 03:15 04/15/23 03:16 DC 04/15/23 03:22 4 MG Vital Signs/I&O 04/14/23 04/14/23 04/14/23 04/15/23 23:50 23:50 23:50 03:25 Temp 36.0 36.0 36.0 Pulse 69 69 77 Resp 16 16 16 B/P (MAP) 178/77 (110) 178/77 (110) 140/93 Pulse Ox 90 90 96 O2 Delivery Room Air Room Air Room Air Room Air Blood Pressure Mean: 110 Progress Progress Note : Progress Note VITALS ON ARRIVAL: TEMP 36.0=96/8, HR 96, RR 16 BP 178/77, O2 SAT 100% ON ROOM AIR GIVEN: -IV FLUIDS -FENTANYL FOR PAIN LABS: -CBC -CMP -PT/PTT/INR -UA CXR--UNREMARKABLE, PENDING RADIOLOGIST REVIEW PELVIS/RIGHT HIP AND RIGHT FEMUR XRAYS--SUBCAPITAL RIGHT HIP FRACTURE--PENDING RADIOLOGIST REVIEW CT HEAD/CERVICAL SPINE--NO ACUTE PROCESS CT THORACIC /LUMBAR SPINE--, AGE-INDETERMINATE T 2 WEDGE COMPRESSION ; L1 COMPRESSION FRACTURE, DEGENERATIVE CHANGES OF SPINE NO DETERIORATION IN PT'S CONDITION DURING ER STAY REVIEWED INTERMEDIATE PAPERS, PRIOR RECORDS--3 ER VISITS. DISCUSSED TEST RESULTS WITH PT AND SON, WHO IS DPOA, AND NEED FOR ADMIT AND SURGERY AND PT AND SON AGREE TO PLAN Diagnostic Imaging Comments CXR--NO ACUTE PROCESS, PENDING RADIOLOGIST REVIEW PELVIS/RIGHT HIP AND RIGHT FEMUR XRAYS--SUBCAPITAL FRACTURE RIGHT HIP, PENDING RADIOLOGIST REVIEW CT HEAD--NO ACUTE FINDINGS, PER [facility] VIA FAX AT 0205 CT THORACIC/LUMBAR SPINE--PER [facility] VIA FAX AT 0205 -AGE INDETERMINATE WEDGING OF T 2 -L1 VERTEBRAL PLANA WITH RETROPULSION CAUSING MILD SPINAL CANAL STENOSIS -SEVERE BILATERAL L1 AND L1 FORAMINAL STENOSIS FROM THE FRACTURE DEFORMITY OF L1 Reviewed: Reviewed by Me Departure Communication (Admissions) 0206--SPOKE WITH DR. CONNER, ORTHOPEDIC SURGEON. ADVISES TO ADMIT TO MEDICINE, HE WILL PLAN ON TAKING TO SURGERY LATER TODAY 0207--SPOKE WITH DR. BOSTON, HOSPITALIST, ACCEPTS PT FOR ADMIT. Impression Primary Impression: Unwitnessed fall Additional Impressions: Closed right hip fracture NIDDM HTN (hypertension) Dementia History of ST elevation myocardial infarction (STEMI) Hx of heart artery stent History of cerebrovascular disease Compression fracture of L1 vertebra Disposition: ADMITTED INPATIENT Condition: Stable Admissions Decision to Admit Reason: Admit from ER (Trauma) Decision to Admit/Date: Apr 15, 2023 Time/Decision to Admit Time: 02:10 Departure-Patient Inst. Referrals: TREY DENTON DO (PCP/Family) Primary Care Physician ZAC WINTER DO Apr 15, 2023 02:27
[2023-04-15] MEDS ORDERED: morphine INJ 4 MG/ML 1 ML (VIAL/SYRINGE) IVP ONE (03:15)
[2023-04-15] MEDS ORDERED: RT-ALBUTEROL SULF 2.5 MG/3 ML PRE-MIX VIAL INH PRN (04:30)
[2023-04-15] MEDS ORDERED: ONDANSETRON INJECTION 4 MG/2 ML (SDV) IV PRN (04:30)
[2023-04-15] MEDS: D5 1/2NS + KCL 20 MEQ/L 1000ML 1,000 ML IV SCH ×3 (05:21→17:38)
[2023-04-15] MEDS: fentaNYL INJECTION 100 MCG/2 ML VIAL IV PRN ×3 (05:21→11:33)
--- NOTE | 2023-04-15 06:46 | Progress Note-Pre Operative ---
Pre-Operative Progress Note Date of Available H&P: Apr 15, 2023 Date H&P Reviewed: Apr 15, 2023 Time H&P Reviewed: 06:46 Changes from last HP none Pre-Operative Diagnosis: right femoral neck fracture JEFF CONNER MD Apr 15, 2023 06:46
--- NOTE | 2023-04-15 06:47 | Progress Note-Post Operative ---
Post-Operative Progess Note Surgeon (s)/Carton Machine Operator (s) Surgeon JEFF CONNER MD Carton Machine Operator: Mack Garzon Pre-Operative Diagnosis right femoral neck fracture Post-Operative Diagnosis right femoral neck fracture Procedure & Operative Findings Date of Procedure 04/15/23 Procedure Performed/Findings right hip bipolar replacement Anesthesia Type GETA Estimated Blood Loss Estimated blood loss (mL): 100ml Specimens/Packing Specimens Removed femoral head Packing: none JEFF CONNER MD Apr 15, 2023 06:47
--- NOTE | 2023-04-15 08:20 | Diagnostic Imaging Report ---
PROCEDURE: CT head and CT cervical spine without contrast. TECHNIQUE: Multiple contiguous axial images were obtained through the brain and cervical spine without the use of intravenous contrast. Sagittal and coronal reformations through the cervical spine were then performed. Auto Exposure Controls were utilized during the CT exam to meet ALARA standards for radiation dose reduction. INDICATION: Fall, back pain, right hip pain. Compared with the head and cervical CT 02/14/2021. FINDINGS: Head: Stable mild senescent cortical atrophy and periventricular white matter disease unchanged from prior. No hydrocephalus with ventricular calibers remaining congruent with the degree of sulcation. No hemorrhage and no acute extra-axial fluid collection. No focal nor generalized cerebral edema. No findings of an elevation of intracerebral pressures. The basilar cisterns are patent. There is no sulcal effacement. Orbits, sinuses and calvarium nonacute. No change. Cervical spine: There are degenerative changes to the discs, endplates and facets throughout the cervical spine. Alignment within normal limits. No cervical spinal fracture or paravertebral hemorrhage. The carotid, atherosclerotic vascular calcifications, the craniocervical relationship unremarkable. The central skull base intact. There is somewhat well marginated and sclerotic superior endplate concavity at the T2 level without adjacent edema or fluid collection, favored to be old but I have no priors at this level to confirm its chronicity. IMPRESSION: CT head: Stable chronic mild senescent changes with no hemorrhage, fracture or acute finding. Cervical spine: 1. Significant cervical spinal degenerative changes but no cervical spinal fracture or traumatic malalignment. 2. Sclerotic, marginated and likely old mild T2 superior endplate compression. Dictated by: Dictated on workstation # [id number]
--- NOTE | 2023-04-15 08:26 | Diagnostic Imaging Report ---
PROCEDURE: CT thoracic and lumbar spine without contrast. TECHNIQUE: Multiple contiguous axial images were obtained through the thoracic and lumbar spine without the use of intravenous contrast. Sagittal and coronal reformations were then performed. All CT scans use one or more of the following dose optimizing techniques: automated exposure control, MA and/or KvP adjustment based on a patient size and exam type, or iterative reconstruction. INDICATION: Fall, complaining of back pain. CT thoracic spine: There is normal thoracic kyphotic curvature. There appears to be very mild central compression involving the T2 vertebral body, age indeterminate. No retropulsion is identified. Remaining thoracic vertebrae demonstrate normal stature. There is generalized thoracic spondylosis with variable disc space narrowing and marginal spurring. CT lumbar spine: Curvature of the lumbar spine is normal. There is a vertebral plana involving the L1 vertebral body with retropulsion. Age of this is indeterminate. Remaining lumbar vertebrae demonstrate normal stature. There is generalized degenerative disc disease with variable disc space narrowing and marginal spurring. There is vacuum disc at multiple levels. Aorta is heavily calcified but nonaneurysmal. IMPRESSION: 1. Mild central compression T2 vertebral body superior endplate, age indeterminate. If there is concern for acuity, MRI would be useful for further evaluation. 2. Significant compression deformity involving L1 vertebral body which is vertebral plana. There is some retropulsion present. No other significant abnormality is detected. Dictated by: Dictated on workstation # [id number]
--- NOTE | 2023-04-15 08:29 | Diagnostic Imaging Report ---
Indication: Fall, pain. Findings: No focal consolidation, effusion, pneumothorax or convincing free pleural fluid volume. There is trace basilar atelectasis and chronic benign granulomatous calcifications. Impression: No acute-appearing abnormality. Dictated by: Dictated on workstation # [id number]
--- NOTE | 2023-04-15 08:40 | Diagnostic Imaging Report ---
INDICATION: Fall with right hip pain. COMPARISON: None FINDINGS: Frontal radiographic view of the pelvis and 2 dedicated radiograph views of the right hip were obtained. There is acute-appearing subcapital fracture involving the proximal right femur. There is moderate overlap at the fracture site. Femoral acetabular joint space remains intact. Left hip included portions left femur also intact. No additional acute fracture of the osseous pelvis is seen. No unexpected radiopaque foreign bodies are identified. IMPRESSION: Acute fracture of the proximal right femur. Dictated by: Dictated on workstation # [id number]
--- NOTE | 2023-04-15 08:42 | Diagnostic Imaging Report ---
INDICATION: Fall. Hip pain. COMPARISON: None FINDINGS: Multiple radiographic views of the right femur were obtained and show acute appearing subcapital fracture of the proximal right femur. There is moderate overlap of the fracture fragments. Femoral acetabular joint space remains intact. Right knee joint appears appropriate as well. Note is made of diffuse calcified arteriosclerosis. No unexpected radiopaque foreign bodies are seen. IMPRESSION: 1. Acute fracture of the proximal right femur. Dictated by: Dictated on workstation # [id number]
--- NOTE | 2023-04-15 08:48 | History & Physical-Hospitalist ---
SARA HOBBS 04/15/23 0848: History of Present Illness HPI/Chief Complaint Pt is an 82 y/o female presenting to the ER this morning after an unwitnessed fall in the [facility] in [place], [place]. Pt has dementia and can recall some but not all of her past history and events concerning her injury. EMS reported that they found her seated on the tile floor with a complaint of R hip pain. She stated at the time that she fell on her bottom. Today, she reports continued R hip pain, worse where the hip fits into her socket. She has records from her correction stating a past hx of dementia, HTN, hx of STEMI, hx of a CVA, diabetes, and an L1 compression fracture. She is scheduled with Dr. Gaines for R hip surgery today at 2 PM. Her son has durable power of tax associate attorney and was present on pt arrival via EMS. Source: patient, family, EMS notes reviewed Exam Limitations: clinical condition, physical impairment Date Seen 04/15/23 Time Seen by a Provider: 08:47 Attending Physician Gino Regalado DO PCP Admitting Physician: Alejo Hull MD Attending Physician: Alejo Hull MD Referring Physician Date of Admission Apr 15, 2023 at 03:35 Home Medications & Allergies Home Medications Reviewed patient Home Medication Reconciliation performed by pharmacy medication reconciliations blow mold technician and/or nursing. Patients Allergies have been reviewed. Allergies Allergies Coded Allergies No Known Drug Allergies (Unverified02/04/21) Past Frozrfn-Fhopht-Vfqdak Hx Patient Social History Number of Children: 5 Employed/Student: retired Tobacco Use?: No Smoking Status: Never a Smoker Smokeless Tobacco Frequency: Never a User Use of E-Cig and/or Vaping dev: No Use of E-Cig and/or Vaping Jay: Never a User Substance use?: No Alcohol Use?: No Pt feels they are or have been: No Immunizations Up To Date Tetanus Booster (TDap): More Than 5 Years Hepatitis A: No Hepatitis B: No Current Status status: No status: No Advance Directives: Yes Advance Directive Location: [facility] Communicates: Verbally Primary Language: Samoan Preferred Spoken Language: Samoan Is interpretation needed?: No Sensory deficits: Vision impairment Past Medical History Surgeries: Cardiac, Coronary Stent, Gallbladder Coronary Artery Disease, Heart Attack, High Cholesterol, Hypertension Dementia, Stroke 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 History: Menopausal Gall Bladder Disease Arthritis, Chronic Back Pain Diabetes, Non-Insulin dep Blood Disorders: No Family Medical History No Pertinent Family Hx Review of Systems Constitutional: No chills, No fever EENTM: No epistaxis, No nose pain, No throat pain Respiratory: No cough, No hemoptysis, No short of breath Cardiovascular: No chest pain, No palpitations Gastrointestinal: No abdominal pain, No hematemesis Genitourinary: No decreased output, No discharge Musculoskeletal: back pain, joint pain (R hip and R knee) Skin: No dryness, No lesions, No rash Psychiatric/Neurological: Denies Anxiety, Denies Headache Physical Exam Physical Exam Vital Signs Vital Signs - First Documented 04/15/23 03:42 O2 Flow Rate 2.00 Capillary Refill : Less Than 3 Seconds Height, Weight, BMI Height: '" Weight: lbs. oz. kg; 25.00 BMI Method: General Appearance: No Apparent Distress, Chronically ill Eyes: Bilateral Eye Normal Inspection Neck: Normal Inspection, Non Tender Respiratory: Chest Non Tender, Lungs Clear Cardiovascular: Regular Rate, Rhythm, No Gallop, No JVD Gastrointestinal: Non Tender, Soft Extremity: Inflammation, Swelling, Other (Tender R hip to palpation. R leg is externally rotated and shorter than the L leg) Neurologic/Psychiatric: Alert, No Motor/Sensory Deficits, Normal Mood/Affect Skin: Normal Color, Warm/Dry; No Ecchymosis Results Results/Procedures Labs Laboratory Tests 04/15/23 01:19 Patient resulted labs reviewed. Assessment/Plan Assessment and Plan Right subcapital femoral neck fracture - Surgery today with Dr. Gaines - Given 2000 mg cefazolin IV once prior to surgery - Fentanyl 50 mcg every 2 hrs PRN for pain control - PT and OT referrals HTN - On carvedilol Diabetes - Start sliding scale insulin - Continue Farxiga CAD - On Plavix but holding for surgery CVA - On Plavix but holding for surgery KELLY MUSA MD 04/15/23 1157: Assessment/Plan Admission Diagnosis Right hip fracture Admission Status: Inpatient Order (span 2 midnights) Reason for Inpatient Admission: see below Assessment and Plan Patient admitted to the hospital secondary to a right hip fracture from but seems to be a mechanical fall. History is somewhat limited by her dementia but she lives in a facility in [place] was found on the ground as she states she "fell on her ass." In the ER she was found to have a right hip fracture and was admitted for surgical evaluation. Dr. Gaines has been consulted and plans to take patient to the OR later today. Per in NSQIP given her comorbidities she is low to intermediate risk with her biggest risk being discharged to a nursing facility. It seems reasonable to proceed with surgery given this ultimate risk assessment deferred to surgeon and anesthesia team. We will continue pain regimen. We will start physical therapy and Occupational Therapy postop. We will continue her home medicines as appropriate now start sliding scale insulin. She does take Plavix at home and appears but we will stop this for surgery. Supervisory-Addendum Brief Verification & Attestation Participated in pt care: history, MDM, physical Personally performed: exam, history, MDM, supervision of care Care discussed with: Medical Student Procedures: n/a Results interpretation: Verified all documentation Verification and Attestation of Medical Student E/M Service A medical student performed and documented this service in my presence. I revie wed and verified all information documented by the medical student and made modifications to such information, when appropriate. I personally performed the physical exam and medical decision making. Kelly Musa, Apr 15, 2023,11:52 SARA HOBBS Apr 15, 2023 08:48 KELLY MUSA MD Apr 15, 2023 11:57
--- NOTE | 2023-04-15 10:03 | CONSULTATION REPORT ---
DATE OF SERVICE: 04/15/2023 REASON FOR CONSULTATION: Right hip fracture. HISTORY OF PRESENT ILLNESS: The patient is an 82-year-old detention resident, who was brought in from an outside facility and was found to have a right subcapital femoral neck fracture. She reports that she fell. This was unwitnessed. She denies antecedent pain. REVIEW OF SYSTEMS: No recent chest pain, shortness of breath or dysuria. ALLERGIES: No known drug allergies. SOCIAL HISTORY: The patient denies alcohol and tobacco use. PAST MEDICAL HISTORY: Significant for coronary artery disease, hypercholesterolemia, hypertension. PAST SURGICAL HISTORY: Laparoscopic cholecystectomy and coronary stent placement. PHYSICAL EXAMINATION: The right lower extremity is shortened and externally rotated. She has symmetric pulses. She has intact dorsiflexion and plantarflexion of the toes. Sensation is intact to light touch distally. IMPRESSION: Displaced right femoral neck fracture. PLAN: Right hip bipolar replacement. The risks, benefits, options, ramifications and recovery were discussed with the patient. She understands and wishes to proceed. Job ID: [id number] DocumentID: [id number] Dictated Date: 04/15/2023 06:45:47 Granular Operator Date: 04/15/2023 10:01:00 Dictated By: JEFF CONNER MD
[2023-04-15] MEDS ORDERED: BUPIVACAINE 0.5% 30 ML VIAL ONE (12:27)
[2023-04-15] MEDS ORDERED: LIDOCAINE PF 2% 5 ML VIAL ONE (12:55)
[2023-04-15] MEDS ORDERED: ONDANSETRON INJECTION 4 MG/2 ML (SDV) ONE (12:55)
[2023-04-15] MEDS ORDERED: proPOfol INJECTION 200 MG/20 ML VIAL IV ONE (12:55)
[2023-04-15] MEDS ORDERED: SEVOFLURANE (ULTANE) 15 ML INHAL SOLN ONE ×2 (12:55→14:23)
[2023-04-15] MEDS ORDERED: fentaNYL INJECTION 100 MCG/2 ML VIAL ONE (12:56)
[2023-04-15] MEDS ORDERED: ROCURONIUM 50 MG/5 ML VIAL IV ONE (12:56)
[2023-04-15] MEDS ORDERED: LACTATED RINGERS 1,000 ML 1,000 ML IV PRN (13:00)
[2023-04-15] MEDS ORDERED: ONDANSETRON INJECTION 4 MG/2 ML (SDV) IVP PRN ×2 (13:15→14:45)
[2023-04-15] MEDS ORDERED: NALOXONE 0.4 MG/ML 1 ML VIAL IV PRN (13:15)
[2023-04-15] MEDS ORDERED: ceFAZolin INJECTION 2,000 MG ONE (13:15)
[2023-04-15] MEDS ORDERED: fentaNYL INJECTION 100 MCG/2 ML VIAL IVP PRN (13:15)
[2023-04-15] MEDS ORDERED: IBUP-2473 PO (13:22)
[2023-04-15] MEDS ORDERED: ACET-2267 PO (13:22)
[2023-04-15] MEDS ORDERED: DAPA10TA PO (13:22)
[2023-04-15] MEDS ORDERED: LISI2.5T13 PO (13:22)
[2023-04-15] MEDS ORDERED: OLN5T PO (13:22)
[2023-04-15] MEDS ORDERED: CLOP75TA28 PO (13:22)
[2023-04-15] MEDS ORDERED: FURO40TA4 PO (13:22)
[2023-04-15] MEDS ORDERED: ATOR40TA70 PO (13:22)
[2023-04-15] MEDS ORDERED: DONE10TA41 PO (13:22)
[2023-04-15] MEDS ORDERED: MIRT-69 PO (13:22)
[2023-04-15] MEDS ORDERED: LORA-404 PO (13:22)
[2023-04-15] MEDS ORDERED: CARV3.122 PO (13:22)
[2023-04-15] MEDS ORDERED: DULA4.5P SQ (13:22)
[2023-04-15] MEDS ORDERED: GLIP5TAB23 PO (13:22)
[2023-04-15] MEDS ORDERED: POTA15TA PO (13:22)
[2023-04-15] MEDS ORDERED: HYDR-3820 PO (13:22)
[2023-04-15] MEDS ORDERED: BUPIVACAINE 0.5% 30 ML VIAL INJ ONE (13:40)
[2023-04-15] MEDS ORDERED: ceFAZolin INJECTION 2,000 MG in NS (IVPB) 50 ML 50 ML IV ONE (13:45)
[2023-04-15] MEDS ORDERED: MEPERIDINE INJ 50 MG/ML VIAL IVP ONE (14:45)
[2023-04-15] MEDS ORDERED: fentaNYL INJECTION 100 MCG/2 ML VIAL IVP ONE (14:45)
[2023-04-15] MEDS ORDERED: morphine INJ 10 MG/ML 1ML (SYR OR VIAL) IVP ONE (14:45)
--- NOTE | 2023-04-15 15:21 | Diagnostic Imaging Report ---
HIP, RIGHT (SINGLE VIEW) INDICATION: Right hip arthroplasty COMPARISON: Earlier same day at 12:49 AM FINDINGS AND IMPRESSION: Right hip hemiarthroplasty has been performed. The components are in alignment and there is no acute periprosthetic fracture. Dictated by: Dictated on workstation # [id number]
--- NOTE | 2023-04-15 15:23 | Physical Therapy Progress Note ---
Therapy Progress Note Pt still in surgery at 1515 on 04/15/23. Verbal WBAT status received from Mack Garzon. LIZZIE HINTON PT Apr 15, 2023 15:23
[2023-04-15] MEDS: inSUlin ASPART 1 UNIT/0.01 ML (PER UNIT) SC SCH ×2 (17:38→20:30)
[2023-04-15] MEDS: ceFAZolin INJECTION 2,000 MG in NS (IVPB) 50 ML 50 ML IV SCH (20:24)
[2023-04-15] MEDS ORDERED: LORazepam 0.5 MG TABLET PO PRN (20:30)
[2023-04-15] MEDS ORDERED: NON-FORMULARY MEDICATION 1 EA EA (Mirtazapine 30 MG) PO SCH (21:00)
[2023-04-15] MEDS ORDERED: NON-FORMULARY MEDICATION 1 EA EA (Olanzapine 5 MG) PO SCH (21:00)
[2023-04-15] MEDS: DONEPEZIL 10 MG TABLET PO SCH ×2 (21:48→22:56)
--- NOTE | 2023-04-15 22:19 | OPERATIVE REPORT ---
DATE OF SERVICE: 04/15/2023 PREOPERATIVE DIAGNOSIS: Closed displaced right femoral neck fracture. POSTOPERATIVE DIAGNOSIS: Closed displaced right femoral neck fracture. PROCEDURE: Right hip bipolar replacement. SURGEON: Hai Conner MD DOG TRACK KENNEL MANAGER: Mack Garzon, who assisted throughout the procedure and closed the incision. ANESTHESIA: General endotracheal by Mack Stout CRNA. ESTIMATED BLOOD LOSS: 100 mL. DRAINS: None. COMPLICATIONS: None. POSTOPERATIVE PLAN: Routine protocol. MATERIALS: Synthes pressfit 7 stem with a standard neck and 48 mm liner. STATEMENT OF MEDICAL NECESSITY: The patient is an 82-year-old female who fell last evening and presented to the emergency department where she was found to have a displaced right femoral neck fracture. The patient and her son were counseled regarding treatment options and elected to proceed with surgical intervention. DESCRIPTION OF PROCEDURE: After risks and benefits of the procedure were discussed and questions were answered and informed consent was signed and placed on chart, the operative site was confirmed in the preoperative holding area initialed by surgeon. The patient was then transferred to the operating room. After adequate levels of general endotracheal anesthetic were obtained, a timeout was called, confirming the operative site. The patient was carefully placed in the left lateral decubitus position, being careful to place an axillary roll and pad all bony prominences. The right lower extremity was then prepped and draped in the usual sterile fashion. A longitudinal incision was made and the anterior lateral approach was utilized. Iliotibial band was incised in line with the incision. The underlying soft tissues were carefully dissected. The abductor and capsule were released leaving a 2 cm cuff for later reattachment. The femoral neck was cut at the proper length using a broach as a guide. The femoral head was removed without difficulty and sized to a size 48. The joint was copiously irrigated with pulse lavage. The proximal femur was then prepared first with a box chisel followed T-handle reamer and sequential broaches up to a size 7. The 7 was used as a trial with a standard neck and a 48 mm liner. The hip was reduced after inspecting for any loose bodies. The hip was taken through range of motion with no instability noted. Full range of motion noted without any impingement or instability noted. Full range of motion was noted. The hip was then redislocated and the trials were removed. The joint was further irrigated with pulse lavage and the prosthesis was placed in 15 degrees of anteversion with excellent fill obtained. The superior surface was irrigated and dried and the head liner was placed. The joint was further irrigated and inspected for loose bodies. No loose bodies were noted. The hip was reduced and taken through range of motion. No impingement was noted. Full range of motion noted with no instability. Further pulse lavage was used and a total of 450 mL of irrisept was used throughout the procedure. The calcar was closely inspected with no fracture lines noted. The wound was further irrigated. The capsule and abductors were reapproximated using a #5 Tevdek in figure-of-8 interrupted fashion with excellent repair obtained. The wound was further irrigated. The iliotibial band was closed in a running fashion with #1 Vicryl. Subcutaneous tissues were irrigated using a total of 3 liters throughout the procedure. 0 Vicryl was used for deep subcutaneous layer, 3-0 Vicryl for the superficial subcutaneous layer, jevon used on the skin. A soft dressing was applied. The patient was transferred to recovery room awake and stable condition. Job ID: [id number] DocumentID: [id number] Dictated Date: 04/15/2023 14:38:11 Digital Photographer Date: 04/15/2023 22:16:00 Dictated By: HAI CONNER MD
[2023-04-15] MEDS: HYDROcodone/ACETAMINOPHEN 7.5 MG/325 MG TABLET PO PRN (22:57)
[2023-04-16] VITALS (7 sets, daily range): BP systolic 82–107; BP diastolic 41–58
[2023-04-16] MEDS: ceFAZolin INJECTION 2,000 MG in NS (IVPB) 50 ML 50 ML IV SCH (03:50)
[2023-04-16 05:39] LABS: HEMATOCRIT 33 % (35-52); HEMOGLOBIN 10.6 g/dL (11.5-16.0); MEAN CORPUSCULAR HEMOGLOBIN 29 pg (25-34); MEAN CORPUSCULAR HGB CONC 32 g/dL (32-36); MEAN CORPUSCULAR VOLUME 90 fL (80-99); MEAN PLATELET VOLUME 10.7 fL (9.0-12.2); PLATELET COUNT 171 10^3/uL (130-400); WHITE BLOOD COUNT 9.3 10^3/uL (4.3-11.0)
[2023-04-16 05:40] LABS: POTASSIUM 3.9 MMOL/L (3.6-5.0)
[2023-04-16 05:41] LABS: CALCIUM 8.1 MG/DL (8.5-10.1)
[2023-04-16 05:45] LABS: CREATININE SERUM 0.73 MG/DL (0.60-1.30)
[2023-04-16] MEDS: D5 1/2NS + KCL 20 MEQ/L 1000ML 1,000 ML IV SCH (05:45)
[2023-04-16] MEDS: inSUlin ASPART 1 UNIT/0.01 ML (PER UNIT) SC SCH ×4 (05:45→21:41)
--- NOTE | 2023-04-16 07:28 | Progress Note ---
Standard Progress Note Progress Notes/Assess & Plan Date Seen by a Provider: Apr 16, 2023 Time Seen by a Provider: 07:14 Progress/Assessment & Plan no complaints radiograph--HW well positioned without fracture Vital Signs Date Time Temp Pulse Resp B/P (MAP) Pulse Ox O2 Delivery O2 Flow Rate FiO2 04/16/23 07:00 96 04/16/23 04:00 36.2 65 17 97/58 (71) 98 Nasal Cannula 4.00 04/16/23 01:00 80 04/15/23 23:28 37.1 89 16 102/56 (71) 99 Nasal Cannula 4.00 04/15/23 20:34 Nasal Cannula 4.00 04/15/23 19:40 36.1 86 18 104/66 (79) 98 Nasal Cannula 4.00 04/15/23 19:00 86 04/15/23 16:41 36.2 71 19 110/70 (83) 98 Nasal Cannula 4.00 04/15/23 15:40 36.2 20 137/69 (91) 92 Nasal Cannula 4.00 04/15/23 15:40 Nasal Cannula 4.00 04/15/23 15:30 OxyMask 3.00 04/15/23 15:30 20 137/69 (91) 93 OxyMask 3.00 04/15/23 15:20 20 167/76 (106) 97 OxyMask 3.00 04/15/23 15:15 OxyMask 3.00 04/15/23 15:10 20 167/76 (106) 97 OxyMask 3.00 04/15/23 15:00 OxyMask 6.00 04/15/23 15:00 20 171/81 (111) 98 OxyMask 6.00 04/15/23 14:50 20 167/82 (110) 98 OxyMask 6.00 04/15/23 14:45 OxyMask 6.00 04/15/23 14:40 20 148/76 (100) 99 OxyMask 6.00 04/15/23 14:37 36.2 20 133/68 (89) 100 OxyMask 6.00 04/15/23 14:37 OxyMask 6.00 04/15/23 12:40 79 04/15/23 12:07 36.2 67 18 121/64 (83) 95 Nasal Cannula 2.00 04/15/23 08:14 94 Nasal Cannula 2.00 04/15/23 08:00 94 Nasal Cannula 2.00 04/15/23 07:46 36.7 83 16 136/73 (94) 95 Nasal Cannula 2.00 I & O 04/16/23 07:00 Intake Total 2200 ml Output Total 1925 ml Balance 275 ml Laboratory Tests Test 04/15/23 11:15 04/15/23 16:51 04/15/23 20:26 04/16/23 04:56 Range/Units Glucometer 226 H 242 H 196 H 197 H 70-110 MG/DL Test 04/16/23 04:57 Range/Units White Blood Count 9.3 4.3-11.0 10^3/uL Red Blood Count 3.66 L 3.80-5.11 10^6/uL Hemoglobin 10.6 #L 11.5-16.0 g/dL Hematocrit 33 L 35-52 % Mean Corpuscular Volume 90 80-99 fL Mean Corpuscular Hemoglobin 29 25-34 pg Mean Corpuscular Hemoglobin Concent 32 32-36 g/dL Red Cell Distribution Width 13.4 10.0-14.5 % Platelet Count 171 130-400 10^3/uL Mean Platelet Volume 10.7 9.0-12.2 fL Sodium Level 136 135-145 MMOL/L Potassium Level 3.9 3.6-5.0 MMOL/L Chloride Level 105 98-107 MMOL/L Carbon Dioxide Level 21 21-32 MMOL/L Anion Gap 10 5-14 MMOL/L Blood Urea Nitrogen 10 7-18 MG/DL Creatinine 0.73 0.60-1.30 MG/DL Estimat Glomerular Filtration Rate 81 BUN/Creatinine Ratio 14 Glucose Level 200 H 70-105 MG/DL Calcium Level 8.1 L 8.5-10.1 MG/DL RLE--intact DF and PF of toes and ankle intact sensation to light touch throughout pulses equal s/p R hip bipolar mobilize return to [place] when medically able JEFF CONNER MD Apr 16, 2023 07:28
[2023-04-16] MEDS: glipiZIDE 5 MG TABLET PO SCH (07:51)
[2023-04-16] MEDS: ENOXAPARIN 40 MG/0.4 ML SYRINGE SC SCH (07:51)
[2023-04-16] MEDS: carvediloL 3.125 MG TABLET PO SCH ×2 (07:51→17:59)
[2023-04-16] MEDS: HYDROcodone/ACETAMINOPHEN 7.5 MG/325 MG TABLET PO PRN ×3 (07:55→21:39)
[2023-04-16] MEDS: EMPAGLIFLOZIN 10 MG TABLET PO SCH (07:55)
--- NOTE | 2023-04-16 08:14 | Physical Therapy Evaluation ---
PT Evaluation-General Medical Diagnosis Admission Date Apr 15, 2023 at 03:35 Medical Diagnosis: (R) femur fracture Onset Date: Apr 15, 2023 Therapy Diagnosis Therapy Diagnosis: difficulty walking Precautions Precautions/Isolations: Fall Prevention, Standard Precautions Weight Bear Status Weight Bearing/Tolerated Full Weight Bearing Referral Physician: Liana Reason for Referral: Evaluation/Treatment Social History Home: Single Level Current Living Status: Alone PT Steps Into Home: 2 Prior Prior Level of Function SCALE: Activities may be completed with or without assistive devices. 7-Dzaikucggr-zyvfynq completes the activity by him/herself with no assistance fr om a helper. 5-Set-up or Clean-up Assistance-helper sets up or cleans up; patient completes activity. [place] assists only prior to or following the activity. 4-Supervision or Touching Assistance-helper provides verbal cues and/or touching/steadying and/or contact guard assistance as patient completes activity. Assistance may be provided throughout the activity or intermittently. 3-Partial/Moderate Assistance-helper does LESS THAN HALF the effort. [place] lifts, holds or supports trunk or limbs, but provides less than half the effort. 2-Substantial/Maximal Assistance-helper does MORE THAN HALF the effort. [place] lifts or holds trunk or limbs and provides more than half the effort. 7-Ibhupdvmi-oqokmt does ALL the effort. Patient does none of the effort to complete the activity. Or, the assistance of 2 or more helpers is required for the patient to complete the activity. If activity was not attempted, code reason: 7-Patient Refused. 9-Not Applicable-not attempted and the patient did not perform the activity before the current illness, exacerbation or injury. 10-Not Attempted due to Environmental Limitations-(lack of equipment, weather restraints, etc.). 88-Not Attempted due to Medical Conditions or Safety Concerns. Bed Mobility: 6 Transfers (B,C,W/C): 6 Gait: 6 Stairs: 6 Stairs: Independent Prior Devices Use: Walker Prior Device Use: cane and walker PT Evaluation-Current Subjective The patient states that she fell at home however she appears to have some confusion and possibly a poor historian. Pain Numeric Pain Scale: 5-Moderate Pain Location: Right Location Body Site: Hip Objective Patient Orientation: Person, Place, Situation ROM/Strength ROM Upper Extremities WFL ROM Lower Extremities 20 degrees (R) hip flexion, 10 degrees (R) hip abduction Transfers Roll Left to Right (QC): 3 Lying to Sitting/Side of Bed(Q: 3 Sit to Stand (QC): 3 Chair/Mux-os-Niukb Xfer(QC): 3 Gait Does the Patient Walk?: Yes Mode of Locomotion: Walk Anticipated Mode of Locomotion: Walk Walk 10 feet (QC): 88 Walk 50 ft with 2 Turns(QC): 88 Walk 150 ft (QC): 88 Walking 10ft/uneven surface-QC: 88 Distance: 1' Gait Assistive Device: Handheld Assist Comments/Gait Description Patient was only able to transfer to a chair secondary to low blood pressure and lightheadedness. Balance Sitting Static: Fair Sitting Dynamic: Fair Standing Static: Poor Standing Dynamic: Poor Assessment/Needs 82 y.o. female s/p (R) femur fracture and ORIF. The patient has significant functional mobility limitations which require skilled therapy. Rehab Potential: Good PT Short Term Goals Short Term Goals Time Frame: Apr 20, 2023 Roll Left & Right: 4 Sit to lyin Lying to sitting on side of be: 4 Sit to stand: 4 Chair/zqz-lb-aaclt transfer: 4 Toilet transfer: 4 Car transfer: 4 Walk 10 feet: 4 Walk 50 feet with two turns: 4 PT Fdc Goals Heater Planer Operator Goals PT Fdc Goals Time Frame: Apr 23, 2023 Roll Left & Right (QC): 6 Sit to Lying (QC): 6 Lying-Sitting on Side/Bed(QC): 6 Sit to Stand (QC): 6 Chair/Stg-vf-Oygpj Xfer(QC): 6 Toilet Transfer (QC): 6 Car Transfer (QC): 6 Does the Patient Walk: Yes Walk 10 feet (QC): 6 Walk 50ft with 2 Turns (QC): 6 Walk 150 ft (QC): 6 Walking 10ft on Uneven Surface: 6 1 Step (curb) (QC): 6 4 Steps (QC): 6 PT Plan Problem List Problem List: Activity Tolerance, Functional Strength, Safety, Balance, Gait, Transfer, Bed Mobility, ROM Treatment/Plan Treatment Plan: Continue Plan of Care Treatment Plan: Bed Mobility, Education, Functional Activity Madelin, Functional Strength, Gait, Safety, Therapeutic Exercise, Transfers Treatment Duration: Apr 23, 2023 Frequency: 11 times per week Estimated Hrs Per Day: 1 hour per day Patient and/or Family Agrees t: Yes Time Time In: 745 Time Out: 810 DATE: Apr 16, 2023 Total Billed Treatment Time: 25 Total Billed Treatment 1, EV Low complexity x 25' WEST SMITH PT Apr 16, 2023 08:14
[2023-04-16] MEDS ORDERED: DOCUSATE SODIUM 100 MG CAPSULE PO PRN (10:15)
--- NOTE | 2023-04-16 11:19 | Progress Note - Hospitalist ---
SARA HOBBS 04/16/23 1119: Subjective HPI/CC On Admission Pt is an 82 y/o female presenting to the ER this morning after an unwitnessed fall [facility] in [place], [place]. Pt has dementia and can recall some but not all of her past history and events concerning her injury. EMS reported that they found her seated on the tile floor with a complaint of R hip pain. She stated at the time that she fell on her bottom. Today, she reports co ntinued R hip pain, worse where the hip fits into her socket. She has records from her care home stating a past hx of dementia, HTN, hx of STEMI, hx of a CVA, diabetes, and an L1 compression fracture. She is scheduled with Dr. Gaines for R hip surgery today at 2 PM. Her son has durable power of associate attorney and was present on pt arrival via EMS. Subjective/Events-last exam Pt states that her pain is under control following her R hip surgery yesterday w/ Dr. Gaines. Reports that she has been feeling tired, sleepy, and cold lately. D/t patient's dementia, some specifics in her hx are unclear or difficult to obtain. Denies fever, chills, SOB, palpitations or chest pain. PT note indicated that she is only able to walk 1 step and that she was only able to transfer to a chair during their evaluation d/t low BP and dizziness. Her lisinopril was held this morning d/t hypotension (94/57). Objective Exam Vital Signs Vital Signs Date Time Temp Pulse Resp B/P (MAP) Pulse Ox O2 Delivery O2 Flow Rate FiO2 04/16/23 08:19 18 107/58 (74) 93 Room Air 04/16/23 07:46 35.9 81 3.00 Capillary Refill : Less Than 3 SecondsLess Than 3 Seconds General Appearance: No Apparent Distress, Chronically ill HEENT: PERRL/EOMI Neck: Normal Inspection Respiratory: Chest Non Tender, Lungs Clear, Normal Breath Sounds, No Accessory Muscle Use, No Respiratory Distress Cardiovascular: Regular Rate, Rhythm, Normal Peripheral Pulses Gastrointestinal: Non Tender, Soft Extremity: Normal Capillary Refill, Normal Inspection, No Pedal Edema, Swelling (along R lateral hip) Neurologic/Psychiatric: No Alert, No Oriented x3; No Motor/Sensory Deficits, Disoriented Skin: Normal Color, Warm/Dry Results/Procedures Lab Laboratory Tests 04/16/23 04:57 Patient resulted labs reviewed. Assessment/Plan Assessment and Plan Assess & Plan/Chief Complaint Right subcapital femoral neck fracture s/p ORIF with Dr. Gaines 04/15/2023 - Fentanyl 50 mcg every 2 hrs PRN for pain control - Add bowel regimen for constipation control - IS - PT and OT referrals. Encourage activity as tolerated. HTN - Continue carvedilol 3.125 mg BID PO - Hold lisinopril d/t hypotension Diabetes - Continue sliding scale insulin - Continue Glipizide 2.5 mg/d PO - Continue Farxiga 10 mg/d PO Dementia - Continue donepezil 10 mg/d PO Bipolar - Continue Olanzapine 5 mg/d PO - Continue mirtazapine 30 mg/d PO CAD - Restart plavix 75mg/d PO CVA - Restart plavix 75mg/d PO KELLY MUSA MD 04/16/23 1331: Assessment/Plan Assessment and Plan Assess & Plan/Chief Complaint Patient reports being ok just cold and thristy this morning. Helped her get a drink. No other complaints. Sleepier today than yesterday. PT/OT ordered. Will restart her plavix. BPs a little low this AM so will hold home antihypertens norm. Supervisory-Addendum Brief Verification & Attestation Participated in pt care: history, MDM, physical Personally performed: exam, history, MDM, supervision of care Care discussed with: Medical Student Procedures: n/a Results interpretation: Verified all documentation Verification and Attestation of Medical Student E/M Service A medical student performed and documented this service in my presence. I reviewed and verified all information documented by the medical student and made modifications to such information, when appropriate. I personally performed the physical exam and medical decision making. Kelly Musa, Apr 16, 2023,13:29 SARA HOBBS Apr 16, 2023 11:19 KELLY MUSA MD Apr 16, 2023 13:31
[2023-04-16] MEDS ORDERED: CLOPIDOGREL 75 MG TABLET PO NR (14:00)
[2023-04-16] MEDS: NS IV 1000 ML 1,000 ML IV SCH ×2 (14:07→21:42)
--- NOTE | 2023-04-16 16:26 | Anesthesia-General Post-Op ---
General Patient Condition Mental Status/LOC: Same as Preop Cardiovascular: Satisfactory Nausea/Vomiting: Absent Respiratory: Satisfactory Pain: Controlled Complications: Absent Post Op Complications Complications None Follow Up Care/Instructions Patient Instructions None needed. Anesthesia/Patient Condition Patient Condition Patient is doing fair. RN reported soft blood pressure thus fluid bolus was given and they're monitoring. Otherwise, stable vital signs, with no apparent adverse anesthesia problems. Patient drowsy from pain medication and unable to provide clear answers. Report received from KWAKU Dotson. GILBERT MARTIN CRNA Apr 16, 2023 16:26
[2023-04-16] MEDS: DONEPEZIL 10 MG TABLET PO SCH (21:39)
[2023-04-16] MEDS: OLANZapine 2.5 MG TABLET PO SCH (21:39)
[2023-04-16] MEDS: MIRTAZAPINE 15 MG TABLET PO SCH (21:39)
[2023-04-17 03:18] VITALS: BP 101/70
[2023-04-17] MEDS: inSUlin ASPART 1 UNIT/0.01 ML (PER UNIT) SC SCH ×4 (05:33→20:19)
[2023-04-17 06:27] LABS: HEMOGLOBIN 9.1 g/dL (11.5-16.0)
--- NOTE | 2023-04-17 07:24 | Progress Note ---
Standard Progress Note Progress Notes/Assess & Plan Date Seen by a Provider: Apr 17, 2023 Time Seen by a Provider: 07:14 Progress/Assessment & Plan no complaints radiograph--HW well positioned without fracture Vital Signs Date Time Temp Pulse Resp B/P (MAP) Pulse Ox O2 Delivery O2 Flow Rate FiO2 04/16/23 07:00 96 04/16/23 04:00 36.2 65 17 97/58 (71) 98 Nasal Cannula 4.00 04/16/23 01:00 80 04/15/23 23:28 37.1 89 16 102/56 (71) 99 Nasal Cannula 4.00 04/15/23 20:34 Nasal Cannula 4.00 04/15/23 19:40 36.1 86 18 104/66 (79) 98 Nasal Cannula 4.00 04/15/23 19:00 86 04/15/23 16:41 36.2 71 19 110/70 (83) 98 Nasal Cannula 4.00 04/15/23 15:40 36.2 20 137/69 (91) 92 Nasal Cannula 4.00 04/15/23 15:40 Nasal Cannula 4.00 04/15/23 15:30 OxyMask 3.00 04/15/23 15:30 20 137/69 (91) 93 OxyMask 3.00 04/15/23 15:20 20 167/76 (106) 97 OxyMask 3.00 04/15/23 15:15 OxyMask 3.00 04/15/23 15:10 20 167/76 (106) 97 OxyMask 3.00 04/15/23 15:00 OxyMask 6.00 04/15/23 15:00 20 171/81 (111) 98 OxyMask 6.00 04/15/23 14:50 20 167/82 (110) 98 OxyMask 6.00 04/15/23 14:45 OxyMask 6.00 04/15/23 14:40 20 148/76 (100) 99 OxyMask 6.00 04/15/23 14:37 36.2 20 133/68 (89) 100 OxyMask 6.00 04/15/23 14:37 OxyMask 6.00 04/15/23 12:40 79 04/15/23 12:07 36.2 67 18 121/64 (83) 95 Nasal Cannula 2.00 04/15/23 08:14 94 Nasal Cannula 2.00 04/15/23 08:00 94 Nasal Cannula 2.00 04/15/23 07:46 36.7 83 16 136/73 (94) 95 Nasal Cannula 2.00 I & O 04/16/23 07:00 Intake Total 2200 ml Output Total 1925 ml Balance 275 ml Laboratory Tests Test 04/15/23 11:15 04/15/23 16:51 04/15/23 20:26 04/16/23 04:56 Range/Units Glucometer 226 H 242 H 196 H 197 H 70-110 MG/DL Test 04/16/23 04:57 Range/Units White Blood Count 9.3 4.3-11.0 10^3/uL Red Blood Count 3.66 L 3.80-5.11 10^6/uL Hemoglobin 10.6 #L 11.5-16.0 g/dL Hematocrit 33 L 35-52 % Mean Corpuscular Volume 90 80-99 fL Mean Corpuscular Hemoglobin 29 25-34 pg Mean Corpuscular Hemoglobin Concent 32 32-36 g/dL Red Cell Distribution Width 13.4 10.0-14.5 % Platelet Count 171 130-400 10^3/uL Mean Platelet Volume 10.7 9.0-12.2 fL Sodium Level 136 135-145 MMOL/L Potassium Level 3.9 3.6-5.0 MMOL/L Chloride Level 105 98-107 MMOL/L Carbon Dioxide Level 21 21-32 MMOL/L Anion Gap 10 5-14 MMOL/L Blood Urea Nitrogen 10 7-18 MG/DL Creatinine 0.73 0.60-1.30 MG/DL Estimat Glomerular Filtration Rate 81 BUN/Creatinine Ratio 14 Glucose Level 200 H 70-105 MG/DL Calcium Level 8.1 L 8.5-10.1 MG/DL RLE--intact DF and PF of toes and ankle intact sensation to light touch throughout pulses equal s/p R hip bipolar mobilize return to [place] when medically able Final Diagnosis no complaints Vital Signs Date Time Temp Pulse Resp B/P (MAP) Pulse Ox O2 Delivery O2 Flow Rate FiO2 04/17/23 07:00 91 04/17/23 03:18 36.4 77 18 101/70 (80) 98 Nasal Cannula 5.00 04/17/23 00:22 96 04/16/23 23:31 36.8 95 18 82/42 (55) 97 Nasal Cannula 5.00 04/16/23 20:16 37.4 96 18 95/56 (69) 97 Nasal Cannula 3.00 04/16/23 20:00 Room Air 04/16/23 19:35 Nasal Cannula 2.00 04/16/23 19:04 99 04/16/23 16:23 36.4 61 16 93/41 (58) 97 Nasal Cannula 3.00 04/16/23 12:32 86 04/16/23 12:06 36.3 78 16 87/53 (64) 91 Room Air 04/16/23 08:19 18 107/58 (74) 93 Room Air 04/16/23 08:00 Room Air 04/16/23 07:46 35.9 81 16 94/57 (69) 95 Nasal Cannula 3.00 I & O 04/17/23 07:00 Intake Total 620 ml Output Total 1100 ml Balance -480 ml Laboratory Tests Test 04/16/23 11:05 04/16/23 16:41 04/16/23 20:50 04/17/23 05:31 Range/Units Glucometer 226 H 148 H 192 H 139 H 70-110 MG/DL Test 04/17/23 06:05 Range/Units Hemoglobin 9.1 L 11.5-16.0 g/dL Hematocrit 28 L 35-52 % R hip incision without erythema or warmth slight bleeding noted inferiorly no calf tenderness s/p R hip bipolar mobilize to [place] when medically able JEFF CONNER MD Apr 17, 2023 07:24
[2023-04-17 07:38] VITALS: BP 116/72
[2023-04-17] MEDS: glipiZIDE 5 MG TABLET PO SCH (07:52)
[2023-04-17] MEDS: CLOPIDOGREL 75 MG TABLET PO SCH (07:52)
[2023-04-17] MEDS: ENOXAPARIN 40 MG/0.4 ML SYRINGE SC SCH (07:55)
[2023-04-17] MEDS: EMPAGLIFLOZIN 10 MG TABLET PO SCH (08:01)
[2023-04-17] MEDS: carvediloL 3.125 MG TABLET PO SCH (08:05)
--- NOTE | 2023-04-17 08:34 | Physical Therapy Daily Note ---
PT Daily Note-Current Subjective States that she is doing okay. Pain Section J - Health Conditions 1. Rarely or not at all 2. Occasionally 3. Frequently 4. Almost constantly 8. Unable to answer Pain Effect on Sleep: 8 Pain Interference with Therapy: 8 Pain Interference w/Day-to-Day: 8 Mental Status Patient Orientation: Person, Confused Transfers SCALE: Activities may be completed with or without assistive devices. 3-Vrhbiqyryv-foocslw completes the activity by him/herself with no assistance from a helper. 5-Set-up or Clean-up Assistance-helper sets up or cleans up; patient completes activity. [place] assists only prior to or following the activity. 4-Supervision or Touching Assistance-helper provides verbal cues and/or touching/steadying and/or contact guard assistance as patient completes activity. Assistance may be provided throughout the activity or intermittently. 3-Partial/Moderate Assistance-helper does LESS THAN HALF the effort. [place] lifts, holds or supports trunk or limbs, but provides less than half the effort. 2-Substantial/Maximal Assistance-helper does MORE THAN HALF the effort. [place] lifts or holds trunk or limbs and provides more than half the effort. 1-Jivattzzv-tzxckb does ALL the effort. Patient does none of the effort to complete the activity. Or, the assistance of 2 or more helpers is required for the patient to complete the activity. If activity was not attempted, code reason: 7-Patient Refused. 9-Not Applicable-not attempted and the patient did not perform the activity before the current illness, exacerbation or injury. 10-Not Attempted due to Environmental Limitations-(lack of equipment, weather restraints, etc.). 88-Not Attempted due to Medical Conditions or Safety Concerns. Roll Left & Right (QC): 3 Sit to Lying (QC): 3 Lying to Sitting/Side of Bed(Q: 3 Sit to Stand (QC): 3 Chair/Asj-ru-Yvjgw Xfer(QC): 3 Weight Bearing Weight Bearing/Tolerated Full Weight Bearing Gait Training Does the Patient Walk?: Yes Distance: 3' Walk 10 feet (QC): 88 Walk 50 ft with 2 Turns(QC): 88 Walk 150 ft (QC): 88 Gait Persons Needed: 1 Gait Assistive Device: Handheld Assist Exercises Supine Ex: Quad Set, Glut sets Supine Reps: 20 Seated Therapy Exercises: Ankle pumps, Long arc quads Seated Reps: 20 Assessment Current Status: Fair Progress Patient tolerated treatment better today however she continues to be confused. Unable to determine if this is baseline mentation. PT Short Term Goals Short Term Goals Time Frame: Apr 20, 2023 Roll Left & Right: 4 Sit to lyin Lying to sitting on side of be: 4 Sit to stand: 4 Chair/xpx-ve-dxlgg transfer: 4 Toilet transfer: 4 Car transfer: 4 Walk 10 feet: 4 Walk 50 feet with two turns: 4 PT Nursing Home Goals Pressurised Container Filler Goals PT Nursing Home Goals Time Frame: Apr 23, 2023 Roll Left & Right (QC): 6 Sit to Lying (QC): 6 Lying-Sitting on Side/Bed(QC): 6 Sit to Stand (QC): 6 Chair/Jnt-fn-Acbwo Xfer(QC): 6 Toilet Transfer (QC): 6 Car Transfer (QC): 6 Does the Patient Walk: Yes Walk 10 feet (QC): 6 Walk 50ft with 2 Turns (QC): 6 Walk 150 ft (QC): 6 Walking 10ft on Uneven Surface: 6 1 Step (curb) (QC): 6 4 Steps (QC): 6 PT Plan Treatment/Plan Treatment Plan: Continue Plan of Care Treatment Plan: Bed Mobility, Education, Functional Activity Madelin, Functional Strength, Gait, Safety, Therapeutic Exercise, Transfers Treatment Duration: Apr 23, 2023 Frequency: 11 times per week Estimated Hrs Per Day: 1 hour per day Patient and/or Family Agrees t: Yes Time Time In: 810 Time Out: 825 DATE: Apr 17, 2023 Total Billed Treatment Time: 15 Total Billed Treatment Josue, [facility] PT Apr 17, 2023 08:34
[2023-04-17] MEDS: NS IV 1000 ML 1,000 ML IV SCH (08:36)
[2023-04-17] MEDS ORDERED: ACETAMINOPHEN 500 MG TABLET PO PRN (08:45)
--- NOTE | 2023-04-17 10:11 | Progress Note - Hospitalist ---
Subjective HPI/CC On Admission Date Seen by Provider: Apr 17, 2023 Time Seen by Provider: 10:05 Pt is an 82 y/o female presenting to the ER this morning after an unwitnessed fall [facility] [place], [place]. Pt has dementia and can recall some but not all of her past history and events concerning her injury. EMS rep orted that they found her seated on the tile floor with a complaint of R hip pain. She stated at the time that she fell on her bottom. Today, she reports continued R hip pain, worse where the hip fits into her socket. She has records from her [facility] stating a past hx of dementia, HTN, hx of STEMI, hx of a CVA, diabetes, and an L1 compression fracture. She is scheduled with Dr. Gaines for R hip surgery today at 2 PM. Her son has durable power of gardener and was present on pt arrival via EMS. Subjective/Events-last exam Pt reports that her pain is under decent control. Pt appears more alert than yesterday and states that some of the pain medication makes her feel very drowsy. Pt is unable to recall if she has been working with PT and moving around at all. In PT note, it states that she has walked 3 steps. Objective Exam Vital Signs Vital Signs Date Time Temp Pulse Resp B/P (MAP) Pulse Ox O2 Delivery O2 Flow Rate FiO2 04/17/23 07:38 36.4 64 16 116/72 (87) 97 Nasal Cannula 4.50 Capillary Refill : Less Than 3 SecondsLess Than 3 Seconds General Appearance: No Apparent Distress, Chronically ill HEENT: PERRL/EOMI, Normal ENT Inspection Neck: Normal Inspection, Non Tender Respiratory: Lungs Clear, Normal Breath Sounds, No Accessory Muscle Use, No Respiratory Distress Cardiovascular: Regular Rate, Rhythm, No Gallop, No JVD, Normal Peripheral Pulses Gastrointestinal: Normal Bowel Sounds, Non Tender, Soft Extremity: Normal Capillary Refill, Normal Inspection, No Pedal Edema, Inflammation Neurologic/Psychiatric: No Alert, No Oriented x3; No Motor/Sensory Deficits, Disoriented Skin: Normal Color, Warm/Dry; No Ecchymosis, No Erythema, No Rash Lymphatic: No Adenopathy Results/Procedures Lab Laboratory Tests 04/17/23 06:05 Patient resulted labs reviewed. Assessment/Plan Assessment and Plan Assess & Plan/Chief Complaint Right subcapital femoral neck fracture s/p ORIF with Dr. Gaines 04/15/2023 - Fentanyl 50 mcg every 2 hrs PRN for pain control - Add Tylenol 500 mg q4 hrs PRN - Avoid hydrocodone as it increases confusion/drowsiness in patient - Add bowel regimen for constipation control - IS - Continue PT and encourage increased activity as tolerated HTN - Hold carvedilol - Hold lisinopril d/t hypotension Diabetes - Continue sliding scale insulin - Continue Glipizide 2.5 mg/d PO - Continue Farxiga 10 mg/d PO Dementia - Continue donepezil 10 mg/d PO Bipolar - Continue Olanzapine 5 mg/d PO - Continue mirtazapine 30 mg/d PO CAD - Continue plavix 75mg/d PO CVA - Continue plavix 75mg/d PO SARA HOBBS Apr 17, 2023 10:11
[2023-04-17 11:32] VITALS: BP 95/57
[2023-04-17 15:18] VITALS: BP 110/51
[2023-04-17] MEDS: MIRTAZAPINE 15 MG TABLET PO SCH (20:02)
[2023-04-17] MEDS: OLANZapine 2.5 MG TABLET PO SCH (20:02)
[2023-04-17] MEDS: HYDROcodone/ACETAMINOPHEN 7.5 MG/325 MG TABLET PO PRN (20:02)
[2023-04-17] MEDS: DONEPEZIL 10 MG TABLET PO SCH (20:02)
[2023-04-17 20:10] VITALS: BP 115/56
[2023-04-18 00:29] VITALS: BP 128/79
[2023-04-18 04:01] VITALS: BP 98/61
[2023-04-18 05:48] LABS: HEMOGLOBIN 9.3 g/dL (11.5-16.0)
[2023-04-18] MEDS: inSUlin ASPART 1 UNIT/0.01 ML (PER UNIT) SC SCH ×2 (06:40→12:17)
[2023-04-18 08:05] VITALS: BP 122/59
[2023-04-18] MEDS: glipiZIDE 5 MG TABLET PO SCH (08:40)
[2023-04-18] MEDS: CLOPIDOGREL 75 MG TABLET PO SCH (08:40)
[2023-04-18] MEDS: ENOXAPARIN 40 MG/0.4 ML SYRINGE SC SCH (08:40)
[2023-04-18] MEDS: EMPAGLIFLOZIN 10 MG TABLET PO SCH (08:43)
--- NOTE | 2023-04-18 11:32 | Progress Note ---
Standard Progress Note Progress Notes/Assess & Plan Date Seen by a Provider: Apr 18, 2023 Time Seen by a Provider: 11:31 Progress/Assessment & Plan no complaints radiograph--HW well positioned without fracture Vital Signs Date Time Temp Pulse Resp B/P (MAP) Pulse Ox O2 Delivery O2 Flow Rate FiO2 04/16/23 07:00 96 04/16/23 04:00 36.2 65 17 97/58 (71) 98 Nasal Cannula 4.00 04/16/23 01:00 80 04/15/23 23:28 37.1 89 16 102/56 (71) 99 Nasal Cannula 4.00 04/15/23 20:34 Nasal Cannula 4.00 04/15/23 19:40 36.1 86 18 104/66 (79) 98 Nasal Cannula 4.00 04/15/23 19:00 86 04/15/23 16:41 36.2 71 19 110/70 (83) 98 Nasal Cannula 4.00 04/15/23 15:40 36.2 20 137/69 (91) 92 Nasal Cannula 4.00 04/15/23 15:40 Nasal Cannula 4.00 04/15/23 15:30 OxyMask 3.00 04/15/23 15:30 20 137/69 (91) 93 OxyMask 3.00 04/15/23 15:20 20 167/76 (106) 97 OxyMask 3.00 04/15/23 15:15 OxyMask 3.00 04/15/23 15:10 20 167/76 (106) 97 OxyMask 3.00 04/15/23 15:00 OxyMask 6.00 04/15/23 15:00 20 171/81 (111) 98 OxyMask 6.00 04/15/23 14:50 20 167/82 (110) 98 OxyMask 6.00 04/15/23 14:45 OxyMask 6.00 04/15/23 14:40 20 148/76 (100) 99 OxyMask 6.00 04/15/23 14:37 36.2 20 133/68 (89) 100 OxyMask 6.00 04/15/23 14:37 OxyMask 6.00 04/15/23 12:40 79 04/15/23 12:07 36.2 67 18 121/64 (83) 95 Nasal Cannula 2.00 04/15/23 08:14 94 Nasal Cannula 2.00 04/15/23 08:00 94 Nasal Cannula 2.00 04/15/23 07:46 36.7 83 16 136/73 (94) 95 Nasal Cannula 2.00 I & O 04/16/23 07:00 Intake Total 2200 ml Output Total 1925 ml Balance 275 ml Laboratory Tests Test 04/15/23 11:15 04/15/23 16:51 04/15/23 20:26 04/16/23 04:56 Range/Units Glucometer 226 H 242 H 196 H 197 H 70-110 MG/DL Test 04/16/23 04:57 Range/Units White Blood Count 9.3 4.3-11.0 10^3/uL Red Blood Count 3.66 L 3.80-5.11 10^6/uL Hemoglobin 10.6 #L 11.5-16.0 g/dL Hematocrit 33 L 35-52 % Mean Corpuscular Volume 90 80-99 fL Mean Corpuscular Hemoglobin 29 25-34 pg Mean Corpuscular Hemoglobin Concent 32 32-36 g/dL Red Cell Distribution Width 13.4 10.0-14.5 % Platelet Count 171 130-400 10^3/uL Mean Platelet Volume 10.7 9.0-12.2 fL Sodium Level 136 135-145 MMOL/L Potassium Level 3.9 3.6-5.0 MMOL/L Chloride Level 105 98-107 MMOL/L Carbon Dioxide Level 21 21-32 MMOL/L Anion Gap 10 5-14 MMOL/L Blood Urea Nitrogen 10 7-18 MG/DL Creatinine 0.73 0.60-1.30 MG/DL Estimat Glomerular Filtration Rate 81 BUN/Creatinine Ratio 14 Glucose Level 200 H 70-105 MG/DL Calcium Level 8.1 L 8.5-10.1 MG/DL RLE--intact DF and PF of toes and ankle intact sensation to light touch throughout pulses equal s/p R hip bipolar mobilize return to [place] when medically able Final Diagnosis no complaints incision benign no calf tenderness neg Tapan's s/p R hip bipolar PT/OT JEFF CONNER MD Apr 18, 2023 11:32
[2023-04-18 12:00] VITALS: BP 116/57
[2023-04-18 15:25] VITALS: BP 116/57
== END 2023-04-18 15:24 | DRG 522 ==
LOC: EDUNIT# 23:48 → ER 23:49 → 4TH 04-15 03:35
PROVIDERS: ADMIT Internal Medicine; ATTEND Internal Medicine
PROC: 0SRR0JA Replacement of Right Hip Joint, Femoral Surface with Synthetic Substitute, Uncemented, Open Approach (ICD-10-PCS; principal; 2023-04-15 13:08)
DX: S72.011A Unspecified intracapsular fracture of right femur, initial encounter for closed fracture (principal); I25.10 Atherosclerotic heart disease of native coronary artery without angina pectoris; E78.00 Pure hypercholesterolemia, unspecified; I10 Essential (primary) hypertension; F03.90 Unspecified dementia, unspecified severity, without behavioral disturbance, psychotic disturbance, mood disturbance, and anxiety; M19.90 Unspecified osteoarthritis, unspecified site; G89.29 Other chronic pain; M54.9 Dorsalgia, unspecified; E11.9 Type 2 diabetes mellitus without complications; W18.30XA Fall on same level, unspecified, initial encounter; Y92.89 Other specified places as the place of occurrence of the external cause; I25.2 Old myocardial infarction; Z86.73 Personal history of transient ischemic attack (TIA), and cerebral infarction without residual deficits; Z95.5 Presence of coronary angioplasty implant and graft
CPT/HCPCS: 36415; 51702; 70450; 71045; 72125; 72128; 72131; 73501; 73552; 80048; 80053; 81000; 82947; 83735; 85014; 85018; 85025; 85027; 85610; 85730; 87081; 94664; 94760; 96361; 96374; 96375; 96376

== ENCOUNTER 2023-04-18 11:02 | Inpatient (IN) | payer MEDICARE, OTHER ==
[~2023-04-18] VITALS: Ht 165.1 cm; Wt 67.8 kg
[~2023-04-18 11:02] MED LIST changes: +ACET-2267 PO; +ATOR40TA70 PO; +CARV3.122 PO; +CLOP75TA28 PO; +DAPA10TA PO; +DONE10TA41 PO; +DULA4.5P SQ; +FURO40TA4 PO; +GLIP5TAB23 PO; +HYDR-3820 PO; +IBUP-2473 PO; +LISI2.5T13 PO; +LORA-404 PO; +MIRT-69 PO; +OLN5T PO; +POTA15TA PO
[2023-04-18] MEDS ORDERED: DOCUSATE SODIUM 100 MG CAPSULE PO PRN ×2 (12:00→17:00)
[2023-04-18] MEDS ORDERED: BISACODYL 10 MG SUPPOSITORY PR PRN (12:00)
[2023-04-18] MEDS ORDERED: Sodium Phosphate/Sodium Biphosphate ADULT enema PR PRN (12:00)
[2023-04-18] MEDS ORDERED: LOPERAMIDE 2 MG CAPSULE PO PRN (12:00)
[2023-04-18] MEDS ORDERED: MELATONIN 3 MG TABLET PO PRN (12:00)
[2023-04-18] MEDS ORDERED: ALPRAZolam 0.25 MG TABLET PO PRN (12:00)
[2023-04-18] MEDS ORDERED: LACTULOSE SYRUP 10GM/15ML 30ML UDC PO PRN (12:00)
[2023-04-18] MEDS ORDERED: CALCIUM CARBONATE 500 MG CHEW TABLET PO PRN (12:00)
[2023-04-18] MEDS ORDERED: diphenhydrAMINE 25 MG TABLET PO PRN (12:00)
[2023-04-18] MEDS ORDERED: guaiFENesin/CODEINE 10ML UDC PO PRN (12:00)
[2023-04-18] MEDS ORDERED: ACETAMINOPHEN 325 MG TABLET PO PRN (12:00)
[2023-04-18] MEDS ORDERED: ONDANSETRON 4 MG ORAL DISSOLVE TABLET PO PRN (12:00)
--- NOTE | 2023-04-18 12:00 | PM&R Post Admission Assessment ---
PM&R HP Date of Visit: Apr 18, 2023 Time of Visit: 13:00 History of Present Illness CC: Right hip fracture s/p repair HPI: This is an 82yoWF clinic patient of Dr Regalado who presents to ARU for recovery following right hip fracture with repair. PLOF was independent and wants to return home. CC: Right hip pain HPI: Ms. Fernandez is an 82 y/o female who presented to the ER on 04/15 [facility] [place]. She has dementia and is a poor historian. Per EMS, patient was found sitting down on the floor complaining of right hip pain. All she recalls is falling on her bottom. XR of hip demonstrated R supcapital hip fracture. R hemiarthroplasty was performed by Dr. Gaines on 04/15. She has been recovering well and denies any chest pain or SOB. She does report some hip pain today, but states its better than the previous day. She denies any calf pain, headaches, or dizziness. PMH: DM, HTN, Dementia, hyperlipidemia, STEMI, CVA, CAD, L1 compression fx PSH: hysterectomy, coronary stent, gallbladder Allergies: NKDA Meds: atorvastatin, carvedilol, clopidogrel bisulfate, dapagliflozin prpanediol, donepezil, dulaglutide, furosemide, glipizide, hydrocodone/acetaminophen, ibuprofen, lisinopril, lorazepam, mirtazapine, olanzapine, potassium chloride SH: Assisted living home ([facility]), Denies EtOH, tobacco, or illicit drug use FH: Father: NH ROS: lightheaded, No headache, no vision changes, No CP, No SOB, no abdominal pain, joint pain (right hip and anterior thigh) PE: Afebrile. RRR w/ no rubs, murmurs, or gallops. Normal breath sounds, no wheezing. Neurovascularly intact bilaterally in UE and LE. No calf tenderness or swelling. No abdominal TTP. Labs/Imaging: R hip XR 04/15 s/p Right hip hemiarthroplasty: good component alignment, no periprosthetic fracture or subsidence. WBC: 9.3 Hgb: 9.3 Plt: 171 Glucose: 145 Assessment: 82 y/o female s/p R hip hemiarthroplasty with R hip pain, dementia, hx of STEMI, CAD, CVA, HTN, DM Plan: R Hip Pain -s/p R hip hemiarthroplasty -Dr. Gaines to manage -pain control prn -monitor Hgb DM type 2 -home meds -glucose checks -monitor Hx of STEMI, CAD, CVA -home meds -monitor for DVT Anemia: -post surgical -monitor PT/OT PRASAD CASTAÑEDA Past Xgcujwc-Pduysz-Wusrgd Hx Past Med/Social Hx: Reviewed Nursing Past Med/Soc Hx, Reviewed and Corrections made Patient Social History Marrital Status: Employed/Student: retired Alcohol Use: Denies Use Smoking Status: Never a Smoker Immunizations Up To Date Date of Influenza Vaccine: Mar 10, 2023 Past Medical History Surgeries: Cardiac, Coronary Stent, Gallbladder Currently Using CPAP: No Currently Using BIPAP: No Cardiac: Coronary Artery Disease, Heart Attack, High Cholesterol, Hypertension Neurological: Dementia, Stroke Menopausal Gastrointestinal: Gall Bladder Disease Musculoskeletal: Arthritis, Chronic Back Pain Endocrine: Diabetes, Non-Insulin dep History of Blood Disorders: No Family History No Pertinent Family Hx PM&R Allergy/Meds/Data Review Allergies Coded Allergies: No Known Drug Allergies (Unverified , 02/04/21) Home Medications Scheduled Atorvastatin Calcium (Atorvastatin Calcium), 40 MG PO HS, (Reported) Carvedilol (Carvedilol), 3.125 MG PO BID WITH MEALS, (Reported) Clopidogrel Bisulfate (Clopidogrel), 75 MG PO DAILY, (Reported) Dapagliflozin Propanediol (Farxiga), 10 MG PO DAILY, (Reported) Donepezil HCl (Donepezil HCl), 10 MG PO HS, (Reported) Dulaglutide (Trulicity), 4.5 MG SQ MON, (Reported) Furosemide (Furosemide), 40 MG PO DAILY, (Reported) Glipizide (Glipizide), 2.5 MG PO DAILY, (Reported) Lisinopril (Lisinopril), 2.5 MG PO DAILY, (Reported) Mirtazapine (Mirtazapine), 30 MG PO HS, (Reported) Olanzapine (Olanzapine), 5 MG PO HS, (Reported) Potassium Chloride (Klor-Con M15), 15 MEQ PO DAILY, (Reported) Scheduled PRN Acetaminophen (Tylenol Extra Strength), 1,000 MG PO Q6H PRN for PAIN-MILD (1-4), (Reported) Hydrocodone/Acetaminophen (Hydrocodone-Acetamin 10-325 mg), 1 EA PO Q6H PRN for PAIN-MODERATE (5-7), (Reported) Ibuprofen (Ibuprofen), 200-400 MG PO Q6H PRN for PAIN-MILD (1-4) OR TEMPATURE, (Reported) Lorazepam (Ativan), 0.5 MG PO TID PRN for ANXIETY/AGITATION, (Reported) Discontinued Medications Cephalexin (Cephalexin), 500 MG PO QID Discontinued Reason: No Longer Taking Current Medications Current Medications Reviewed Review of Systems Constitutional: see HPI, malaise, weakness EENTM: no symptoms reported Respiratory: no symptoms reported Cardiovascular: no symptoms reported Gastrointestinal: no symptoms reported Genitourinary: no symptoms reported Musculoskeletal: back pain, joint pain Skin: no symptoms reported Psychiatric/Neurological: Depressed All Other Systems Reviewed Negative Unless Noted: Yes Physical Exam Physical Exam Vital Signs Capillary Refill : Height, Weight, BMI Height: '" Weight: lbs. oz. kg; 25.00 BMI Method: General Appearance: No Apparent Distress, WD/WN, Chronically ill, Other (fatigued) Eyes: Bilateral Eye Normal Inspection, Bilateral Eye PERRL HEENT: PERRL/EOMI, Normal ENT Inspection, Pharynx Normal Neck: Full Range of Motion, Normal Inspection, Non Tender, Supple, Carotid Bruit Respiratory: Chest Non Tender, Lungs Clear, Normal Breath Sounds, No Accessory Muscle Use, No Respiratory Distress Cardiovascular: Regular Rate, Rhythm, No Edema, No Gallop, No JVD, No Murmur, Normal Peripheral Pulses Gastrointestinal: Normal Bowel Sounds, No Organomegaly, No Pulsatile Mass, Non Tender, Soft Back: Normal Inspection, No CVA Tenderness, No Vertebral Tenderness Extremity: Normal Capillary Refill, Normal Inspection, Normal Range of Motion (except right leg), Non Tender, No Calf Tenderness, No Pedal Edema Neurologic/Psychiatric: Alert, Oriented x3, No Motor/Sensory Deficits, 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 Norm as Tested, Depressed Affect, Disoriented (subtle) Skin: Normal Color, Warm/Dry Lymphatic: No Adenopathy PM&R Medical Assessment & Plan REHAB/MEDICAL ASSESSMENT AND PLAN: REHAB IMPAIRMENT GROUP: Status post unilateral hip fracture ETIOLOGIC DIAGNOSIS: Acute subcapital femoral neck fracture The comorbidities that impact the patients function and/or functional outcome by: advanced age, CAD, HTN, DM, post op anemia from blood loss REHAB PLAN: The patient is being admitted to our comprehensive inpatient rehabilitation facility and can tolerate the intensity of service consisting of at least: 180 minutes of therapy a day, 5 out of 7 days a week Rehab treatment will consist of: PT OT will focus on regaining function with use of AD in order to regain enough independence to return home to live independently The patient/family has a good understanding of our discharge process and will benefit from an interdisciplinary inpatient rehabilitation program. The patient has potential to make improvement and is in need of at least two of the following multidisciplinary therapies including but not limited to physical, occupational, speech, and prosthetics and orthotics. Additionally the patient will need services from respiratory, nutritional services, wound care, psychology, etc. (Customize this to each patient). Given the patients complex condition and risk of further medical complications, rehabilitation services cannot be safely or effectively provided at a lower level of care such as a shelter facility. BARRIERS TO DISCHARGE: Advanced age and frail status ESTIMATED LOS: 10 days DISPOSITION: Home RELEVANT CHANGES SINCE PREADMISSION SCREENING: I have compared the patients medical and functional status at the time of the preadmission screening and there are: no changes PROGNOSIS: Fair to good REHABILITATION GOALS: 1. PT OT will focus on regaining function with use of AD in order to regain enough independence to return home to live independently All the above goals were reviewed with the patient and he/she is in agreement. By signing this document, I acknowledge that I have personally performed a full physical examination on this patient within 24 hours of admission to this inpatient rehabilitation facility and have determined the patient to be able to tolerate the above course of treatment at an intensive level for a reasonable period of time. I will be completing a detailed individualized Plan of Care for this patient by day #4 of the patients stay based upon the Preadmission Screen, the Post-Admission Evaluation, and the therapy evaluations. Admission Dx/Comorbidities: (1) Closed right hip fracture Status: Acute ICD Codes: S72.001A - Fracture of unspecified part of neck of right femur, initial encounter for closed fracture (2) History of cerebrovascular disease Status: Acute ICD Codes: Z86.79 - Personal history of other diseases of the circulatory system (3) History of ST elevation myocardial infarction (STEMI) Status: Acute ICD Codes: I25.2 - Old myocardial infarction (4) HTN (hypertension) Status: Acute ICD Codes: I10 - Essential (primary) hypertension (5) Dementia Status: Acute ICD Codes: F03.90 - Unspecified dementia, unspecified severity, without behavioral disturbance, psychotic disturbance, mood disturbance, and anxiety (6) Compression fracture of L1 vertebra Status: Acute ICD Codes: S32.010A - Wedge compression fracture of first lumbar vertebra, initial encounter for closed fracture Assessment/Plan Assessment and Plan Assess & Plan/Chief Complaint Assessment: s/p right hip fracture s/p uncomplicated repair DM HTN CAD Dementia Post op anemia from acute blood loss Delirium Plan: Home meds Monitor BP and BS Aggressive PT OT ASHLY VILLEGAS DO Apr 18, 2023 12:00
[2023-04-18 15:27] VITALS: BP 119/58
--- NOTE | 2023-04-18 15:59 | Progress Note ---
PRASAD CASTAÑEDA 04/18/23 1559: Progress Note CC: Right hip pain HPI: Ms. Fernandez is an 82 y/o female who presented to the ER on 04/15 after an unwitnessed fall at the [facility] in [place]. She has dementia and is a poor historian. Per EMS, patient was found sitting down on the floor complaining of right hip pain. All she recalls is falling on her bottom. XR of hip demonstrated R supcapital hip fracture. R hemiarthroplasty was performed by Dr. Gaines on 04/15. She has been recovering well and denies any chest pain or SOB. She does report some hip pain today, but states its better than the p rev day. She denies any calf pain, headaches, or dizziness. PMH: DM, HTN, Dementia, hyperlipidemia, STEMI, CVA, CAD, L1 compression fx PSH: hysterectomy, coronary stent, gallbladder Allergies: NKDA Meds: atorvastatin, carvedilol, clopidogrel bisulfate, dapagliflozin prpanediol, donepezil, dulaglutide, furosemide, glipizide, hydrocodone/acetaminophen, ibuprofen, lisinopril, lorazepam, mirtazapine, olanzapine, potassium chloride SH: Assisted living home ([facility]), Denies EtOH, tobacco, or illicit drug use FH: Father: NH ROS: lightheaded, No headache, no vision changes, No CP, No SOB, no abdominal pain, joint pain (right hip and anterior thigh) PE: Afebrile. RRR w/ no rubs, murmurs, or gallops. Normal breath sounds, no wheezing. Neurovascularly intact bilaterally in UE and LE. No calf tenderness or swelling. No abdominal TTP. Labs/Imaging: R hip XR 04/15 s/p Right hip hemiarthroplasty: good component alignment, no periprosthetic fracture or subsidence. WBC: 9.3 Hgb: 9.3 Plt: 171 Glucose: 145 Assessment: 82 y/o female s/p R hip hemiarthroplasty with R hip pain, dementia, hx of STEMI, CAD, CVA, HTN, DM Plan: R Hip Pain -s/p R hip hemiarthroplasty -Dr. Gaines to manage -pain control prn -monitor Hgb DM type 2 -home meds -glucose checks -monitor Hx of STEMI, CAD, CVA -home meds -monitor for DVT Anemia: -post surgical -monitor PT/OT AMBREEN VILLEGAS DO 04/19/23 1049: Supervisory-Addendum Brief Verification & Attestation Participated in pt care: history, MDM, physical Personally performed: exam, history, MDM, supervision of care Care discussed with: Medical Student Procedures: n/a Results interpretation: Verified all documentation Verification and Attestation of Medical Student E/M Service A medical student performed and documented this service in my presence. I reviewed and verified all information documented by the medical student and made modifications to such information, when appropriate. I personally performed the physical exam and medical decision making. Ambreen Villegas, Apr 19, 2023,10:49 PRASAD CASTAÑEDA Apr 18, 2023 15:59 AMBREEN VILLEGAS DO Apr 19, 2023 10:49
--- NOTE | 2023-04-18 16:16 | Physical Therapy Evaluation ---
PT Evaluation-General Medical Diagnosis Admission Date Apr 18, 2023 at 14:45 Medical Diagnosis: (R) hip fracture, THR Onset Date: Apr 15, 2023 Therapy Diagnosis Therapy Diagnosis: severe mobility impairment, pain, weakness, fall risk Precautions Precautions/Isolations: Fall Prevention Weight Bear Status Right Lower Extremity: Right Weight Bearing/Tolerated Left Lower Extremity: Left Weight Bearing/Tolerated Referral Physician: [email or web address] Reason for Referral: Evaluation/Treatment Medical History Additional Medical History CAD, [place], cardiac stent, HTN, hypercholesterolemia, dementia, stroke, chronic LBP, arthritis, JANINA, cholecystectomy Reviewed History: Yes Social History Home: [facility] - retirement in [place], [place] Current Living Status: in facilit Entry Into Home: Level Entry Prior Prior Level of Function SCALE: Activities may be completed with or without assistive devices. 9-Jaesxqfjsb-gbtyyub completes the activity by him/herself with no assistance from a helper. 5-Set-up or Clean-up Assistance-helper sets up or cleans up; patient completes activity. [place] assists only prior to or following the activity. 4-Supervision or Touching Assistance-helper provides verbal cues and/or touching /steadying and/or contact guard assistance as patient completes activity. Assistance may be provided throughout the activity or intermittently. 3-Partial/Moderate Assistance-helper does LESS THAN HALF the effort. [place] lifts, holds or supports trunk or limbs, but provides less than half the effort. 2-Substantial/Maximal Assistance-helper does MORE THAN HALF the effort. [place] lifts or holds trunk or limbs and provides more than half the effort. 4-Qjslbyaty-oibnbh does ALL the effort. Patient does none of the effort to complete the activity. Or, the assistance of 2 or more helpers is required for the patient to complete the activity. If activity was not attempted, code reason: 7-Patient Refused. 9-Not Applicable-not attempted and the patient did not perform the activity before the current illness, exacerbation or injury. 10-Not Attempted due to Environmental Limitations-(lack of equipment, weather restraints, etc.). 88-Not Attempted due to Medical Conditions or Safety Concerns. Indoor Mobility (Ambulation): Unknown Stairs: Unknown Prior Device Use: Patient unable to recall if she used an AD or not. Patient unable to give any reliable hx - states she lives alone and drives and does own shopping, cooking, etc., when in fact she is a resident at [facility], a [facility] in [place], [place] PT Evaluation-Current Subjective States multiple times "you trying to kill me" to this therapist and nurse who were attempting to clean the patient from incontinent BM episode and during transfers. Pain Comment: (R) hip - unable to rate. Low back - unable to rate. Section J - Health Conditions 1. Rarely or not at all 2. Occasionally 3. Frequently 4. Almost constantly 8. Unable to answer Pain Effect on Sleep: 4 Pain Interference with Therapy: 4 Pain Interference w/Day-to-Day: 4 Pt/Family Goals none verbalized. Objective Patient Orientation: Person, Confused Attachments: Nagy Catheter Incontinent of Bowel ROM/Strength ROM Lower Extremities Impaired (R). Lies with (R) leg externally rotated on mattress - propped pillow at hip to avoid ER. No abduction pillow in patient's room. Strength Lower Extremities grossly 2/5 (L) LE, 2-/5 (R) LE with eval tasks. Integumentary/Posture Bowel Incontinence: Yes Bladder Incontinence: Yes Sensory Vision: Functional Hearing: Functional Transfers Roll Left & Right (QC): 1 Sit to Lying (QC): 1 Lying to Sitting/Side of Bed(Q: 1 Sit to Stand (QC): 1 (2 person assist mod-max) Chair/Hyt-tc-Zhrbe Xfer(QC): 1 (2 person (A) stand pivot. Unable to move feet in standing /c FWW to complete transfer) Toilet Transfer (QC): 88 (Nagy.) Car Transfer (QC): 88 Gait Does the Patient Walk?: No and Walking Goal IS indicated Mode of Locomotion: Both Anticipated Mode of Locomotion: Both Walk 10 feet (QC): 88 (took 1 step to (L) /c FWW. Unable to move legs further. Unable to safely perform /c FWW and assist of 2.) Walk 50 ft with 2 Turns(QC): 88 Walk 150 ft (QC): 88 Walking 10ft/uneven surface-QC: 88 Gait Assistive Device: FWW Wheelchair Training Does the Pt Use a Wheelchair?: Yes Distance: 2 feet Wheel 50 ft with 2 turns (QC): 88 (unable to reach distance due to fatigue) Wheel 150 ft (QC): 88 Stairs 1 Step (curb) (QC): 88 4 Steps (QC): 88 12 Steps (QC): 88 Balance Sitting Static: Fair Sitting Dynamic: Poor Standing Static: Poor Standing Dynamic: Poor Picking up an Object (QC): 88 Assessment/Needs 82 year old female /c hip fx and THR on 04/15. Previously resided at [facility], a retirement in [place], [place]. She is confused. Has diagnosis of dementia. Has severe mobility limitations at this time, pain, safety issues and is a fall risk. Rehab Potential: Fair Equipment Needs To be determined. PT Piercer Operator Goals Correction Goals PT Piercer Operator Goals Time Frame: May 09, 2023 Roll Left to Right (QC): 4 Sit to Lying (QC): 4 Lying-Sitting on Side/Bed(QC): 4 Sit to Stand (QC): 3 Chair/Tzf-az-Cuqpm Xfer(QC): 3 Toilet/Commode Transfer (QC): 3 Car Transfer (QC): 3 Does the Patient Walk: Yes Walk 10 feet (QC): 3 Walk 10ft-Uneven Surface(QC): 3 Walk 50ft with 2 Turns (QC): 3 Walk 150 ft (QC): 9 Does the Pt use WC or Scooter?: Yes Wheel 50 feet with 2 turns (QC: 4 Type: Manual Wheel 150 feet: 4 1 Step (curb) (QC): 3 4 Steps (QC): 9 12 Steps (QC): 9 Picking up an Object (QC): 3 PT Plan Problem List Problem List: Activity Tolerance, Functional Strength, Safety, Balance, Gait, Transfer, Bed Mobility, ROM Treatment/Plan Treatment Plan: Continue Plan of Care Treatment Plan: Bed Mobility, Education, Functional Activity Madelin, Functional Strength, Group Therapy, Gait, Safety, Therapeutic Exercise, Transfers Treatment Duration: May 09, 2023 Frequency: At least 5 of 7 days/Wk (IRF) Estimated Hrs Per Day: 1.5 hours per day Discharge Recommendations Therapy Discharge Recommendati: 24 Hour Supervision Target Placement Return to [facility] Time Time In: 1445 Time Out: 1520 DATE: Apr 18, 2023 Total Billed Treatment Time: 35 Total Billed Treatment [facility] 35 Natalie Little PT Apr 18, 2023 16:16
[2023-04-18] MEDS ORDERED: ONDANSETRON INJECTION 4 MG/2 ML (SDV) IVP PRN (17:00)
[2023-04-18] MEDS ORDERED: RT-ALBUTEROL SULF 2.5 MG/3 ML PRE-MIX VIAL INH PRN (17:00)
[2023-04-18] MEDS ORDERED: LORazepam 0.5 MG TABLET PO PRN (17:00)
[2023-04-18 20:10] VITALS: BP 113/54
[2023-04-18] MEDS ORDERED: OLANZapine 2.5 MG TABLET PO SCH (21:00)
[2023-04-18] MEDS: inSUlin ASPART 1 UNIT/0.01 ML (PER UNIT) SC SCH (21:15)
[2023-04-18] MEDS: DOCUSATE SODIUM 100 MG CAPSULE PO SCH (21:45)
[2023-04-18] MEDS: SENNA W/DOCUSATE TABLET PO SCH (21:45)
[2023-04-18] MEDS: DONEPEZIL 10 MG TABLET PO SCH (21:47)
[2023-04-18] MEDS: MIRTAZAPINE 15 MG TABLET PO SCH (21:47)
[2023-04-18] MEDS: OLANZapine 5 MG ODT TABLET PO SCH (21:47)
[2023-04-19 05:48] LABS: BASOPHILS % (AUTO) 0 % (0-10); EOSINOPHILS # (AUTO) 0.2 10^3/uL (0.0-0.3); EOSINOPHILS % (AUTO) 2 % (0-10); HEMATOCRIT 26 % (35-52); HEMOGLOBIN 8.6 g/dL (11.5-16.0); LYMPHOCYTES # (AUTO) 1.2 10^3/uL (1.0-4.0); LYMPHOCYTES % (AUTO) 11 % (12-44); MEAN CORPUSCULAR HEMOGLOBIN 29 pg (25-34); MEAN CORPUSCULAR HGB CONC 34 g/dL (32-36); MEAN CORPUSCULAR VOLUME 88 fL (80-99); MEAN PLATELET VOLUME 10.6 fL (9.0-12.2); MONOCYTES # (AUTO) 1.2 10^3/uL (0.0-1.0); MONOCYTES % (AUTO) 11 % (0-12); NEUTROPHILS # (AUTO) 8.2 10^3/uL (1.8-7.8); NEUTROPHILS % (AUTO) 75 % (42-75); PLATELET COUNT 226 10^3/uL (130-400); WHITE BLOOD COUNT 10.9 10^3/uL (4.3-11.0)
[2023-04-19 05:59] LABS: ALBUMIN 2.4 GM/DL (3.2-4.5); POTASSIUM 3.1 MMOL/L (3.6-5.0)
[2023-04-19 06:00] LABS: CALCIUM 7.7 MG/DL (8.5-10.1)
[2023-04-19 06:01] LABS: TOTAL PROTEIN 4.8 GM/DL (6.4-8.2)
[2023-04-19 06:05] LABS: CREATININE SERUM 0.57 MG/DL (0.60-1.30)
[2023-04-19] MEDS: inSUlin ASPART 1 UNIT/0.01 ML (PER UNIT) SC SCH ×4 (06:35→20:50)
[2023-04-19 07:45] VITALS: BP 128/60
[2023-04-19] MEDS: glipiZIDE 5 MG TABLET PO SCH (08:04)
[2023-04-19] MEDS: EMPAGLIFLOZIN 10 MG TABLET PO SCH (08:18)
[2023-04-19] MEDS: CLOPIDOGREL 75 MG TABLET PO SCH (08:18)
[2023-04-19] MEDS: ENOXAPARIN 40 MG/0.4 ML SYRINGE SC SCH (08:18)
[2023-04-19] MEDS: ACETAMINOPHEN 500 MG TABLET PO PRN ×2 (08:18→21:20)
[2023-04-19] MEDS: DOCUSATE SODIUM 100 MG CAPSULE PO SCH ×2 (08:18→21:30)
[2023-04-19] MEDS: SENNA W/DOCUSATE TABLET PO SCH ×2 (08:19→21:30)
--- NOTE | 2023-04-19 09:27 | ST Dysphagia Evaluation ---
Speech Evaluation-General Medical Diagnosis (R) hip fracture, THR Onset Date: Apr 15, 2023 Therapy Diagnosis Therapy Diagnosis: Mental status change Precautions Precautions: Fall Precautions/Isolations: Standard Precautions Referral Referring Physician: Dr. Woodson Reason for Referral: Evaluation/Treatment Medical History Pertinent Medical History: CVA, Dementia, HTN, [place] Current History Pt was admitted to [facility] 04/15/23 with R hip fracture s/p fall, surgical repair completed. Reviewed History: Yes Social History Home: Retirement Current Living Status: in facilit Speech PLF/Current-Dysphagia Prior Level of Function Due to dementia, pt is a poor historian, PLOF is unknown at this time. Pt is a resident at [facility] in [place], [place]. Subjective Pt was alert upon WAFER BATTER MIXER arrival, appropriate participation throughout assessment. Cognitive Status Patient Orientation: Confused Oral Motor Skills Dentition: Edentalous Current Food Consistancy: Regular Ability to Follow Directions: Fair Oral Expression Ability: No Impairment Voice Voice Phonatory-Based Quality: Normal Voice Pitch: Normal Voice Loudness: Normal Face Facial Symmetry: Symmetrical Oral-Facial Assessment Labial Seal Description: Normal Smile: Normal Puff Cheeks: Normal Lingual Protrusion: Normal Lingual ROM: Normal Lingual Strength: Normal Dysphagia Evaluation Consistencies Presented: Regular, Thin Liquid, Pureed Unable to masticate cracker due to being edentulous and lack of dentures present in room. WFL Liquid Recommendations: Thin EC7; regular easy to chew Set up and feeding assistance required for all meals Dysphagia Evaluation Summary Pt demonstrates safe swallow for soft foods and thin liquids. Barriers to Learning Dementia Speech-Plan Treatment Plan Speech Therapy Treatment Plan: Modify Plan, See Comments (Cog/ling tx 30 min/day) Frequency: At least 5 of 7 days/Wk (IRF) Estimated Hrs Per Day: .5 hour per day (Cog/ling tx) Rehab Potential: Fair Time Speech Therapy Time In: 08:45 Speech Therapy Time Out: 09:00 DATE: Apr 19, 2023 Total Billed Time: 15 Billed Treatment Time 1 YOSELIN 15 min MERE CH Apr 19, 2023 09:27
--- NOTE | 2023-04-19 09:43 | ST Cognitive Linguistic Eval ---
Speech Evaluation-General Medical Diagnosis (R) hip fracture, THR Onset Date: Apr 15, 2023 Therapy Diagnosis Therapy Diagnosis: Mental status change Precautions Precautions: Fall Precautions/Isolations: Standard Precautions Referral Reason for Referral: Evaluation/Treatment Medical History Pertinent Medical History: CVA, Dementia, HTN, [place] Current History Pt was admitted to [facility] on 04/15/23 for R hip fracture s/p fall, surgery was completed. Reviewed History: Yes Social History Home: Retirement Current Living Status: in facilit Speech PLF-Current Status Prior Level of Function Due to dementia, pt is a poor historian, PLOF is unavailable at this time. Subjective Pt was alert upon PRE [employer] SPECIAL EDUCATION TEACHER arrival, pt participated in all tasks. Language Eval: Auditory Comprehends Simple Yes/No Ques: Functional Follows 1-Step Commands: Functional Language Eval: Verbal Language Completes Spontaneous Greeting: Functional Requests Basic Needs: Functional States Basic Personal Info: Functional Expresses Complex Ideas: Functional Language Evaluation: Writing Writes to Simple Dictation: Functional Cognitive Patient Orientation Pt was not oriented, however, pt was able to look at her board and read the information. Objective Formal/Standardized Tests MMSE Results Pt scores 15/30 on the MMSE. Pt able to recall 3/3 words immediately, but was unable to recall the same words a few minutes later. Pt was not oriented, but was able to locate the board in her room with this information. Reverse spelling 5/5, repetition 0/1, following simple command 1/1. Sentence writing and figure copying were accurate. Oral Motor/Speech Production Speech was clear and intelligible Impression Pt presented with poor orientation to place, time, and self. Pt demonstrates decreased safety awareness due to poor short-term memory. Speech Intermediate Goals Zoology Teacher Goals Pt will utilize environmental cues for orientation to place and time with 80% accuracy. Pt will demonstrate appropriate use of call light with 90% accuracy. Pt will use environmental cues for safety precautions for hip with 80% accuracy. Speech-Plan Treatment Plan Speech Therapy Treatment Plan: Continue Plan of Care Frequency: At least 5 of 7 days/Wk (IRF) Estimated Hrs Per Day: .5 hour per day (Cog/ling tx) Rehab Potential: Fair Barriers to Learning: Dementia Pt/Family Agrees to Plan: Yes Discharge Recommendations Other, See Comments (Prior facility ) Time Speech Therapy Time In: 09:00 Speech Therapy Time Out: 09:15 DATE: Apr 19, 2023 Total Billed Time: 15 Billed Treatment Time 1 SPSNDCOMP 15 min MERE CH Apr 19, 2023 09:43
--- NOTE | 2023-04-19 10:49 | PM&R Progress Note ---
Subjective HPI/CC On Admission Date Seen by Provider: Apr 19, 2023 Time Seen by Provider: 12:00 Subjective/Events-last exam 04/19/2023: Patient doing better Confusion times Pain is controlled Labs reviewed Giving iron and B12 supplement empirically Review of Systems General: Fatigue, Malaise Musculoskeletal: leg pain Neurological: Confusion Objective Exam Vital Signs Vital Signs Date Time Temp Pulse Resp B/P (MAP) Pulse Ox O2 Delivery O2 Flow Rate FiO2 04/19/23 20:15 36.3 86 18 125/58 (80) 93 Room Air Capillary Refill : General Appearance: No Apparent Distress, WD/WN, Chronically ill, Other (fatigued) HEENT: PERRL/EOMI, Normal ENT Inspection, Pharynx Normal Neck: Full Range of Motion, Normal Inspection, Non Tender, Supple, Carotid Bruit Respiratory: Chest Non Tender, Lungs Clear, Normal Breath Sounds, No Accessory Muscle Use, No Respiratory Distress Cardiovascular: Regular Rate, Rhythm, No Edema, No Gallop, No JVD, No Murmur, Normal Peripheral Pulses Gastrointestinal: Normal Bowel Sounds, No Organomegaly, No Pulsatile Mass, Non Tender, Soft Back: Normal Inspection, No CVA Tenderness, No Vertebral Tenderness Extremity: Normal Capillary Refill, Normal Inspection, Normal Range of Motion (except right leg), Non Tender, No Calf Tenderness, No Pedal Edema Neurologic/Psychiatric: Alert, Oriented x3, No Motor/Sensory Deficits, milk house worker II- XII Norm as Tested, Depressed Affect, Disoriented (subtle) Skin: Normal Color, Warm/Dry Lymphatic: No Adenopathy Results/Procedures Lab Laboratory Tests 04/19/23 05:28 Patient resulted labs reviewed. FIM Transfers Therapy Code Descriptions/Definitions Functional [place] Measure: 0=Not Assessed/NA 4=Minimal Assistance 1=Total Assistance 5=Supervision or Setup 2=Maximal Assistance 6=Modified [place] 3=Moderate Assistance 7=Complete IndependenceSCALE: Activities may be completed with or without assistive devices. 6-Fvfxmewbdz-iobuxxf completes the activity by him/herself with no assistance from a helper. 5-Set-up or Clean-up Assistance-helper sets up or cleans up; patient completes activity. [place] assists only prior to or following the activity. 4-Supervision or Touching Assistance-helper provides verbal cues and/or touching/steadying and/or contact guard assistance as patient completes activity. Assistance may be provided throughout the activity or intermittently. 3-Partial/Moderate Assistance-helper does LESS THAN HALF the effort. [place] lifts, holds or supports trunk or limbs, but provides less than half the effort. 2-Substantial/Maximal Assistance-helper does MORE THAN HALF the effort. [place] lifts or holds trunk or limbs and provides more than half the effort. 9-Bfqisgbsz-zfyxex does ALL the effort. Patient does none of the effort to complete the activity. Or, the assistance of 2 or more helpers is required for the patient to complete the activity. If activity was not attempted, code reason: 7-Patient Refused. 9-Not Applicable-not attempted and the patient did not perform the activity before the current illness, exacerbation or injury. 10-Not Attempted due to Environmental Limitations-(lack of equipment, weather restraints, etc.). 88-Not Attempted due to Medical Conditions or Safety Concerns. Roll Left to Right (QC): 1 Sit to Lying (QC): 1 Sit to Stand (QC): 1 (2 person assist mod-max) Chair/Fuc-vb-Utcnk Xfer(QC): 1 (2 person (A) stand pivot. Unable to move feet in standing /c FWW to complete transfer) Car Transfer (QC): 88 Gait Training Does the Patient Walk?: No and Walking Goal IS indicated Walk 10 feet (QC): 88 (took 1 step to (L) /c FWW. Unable to move legs further. Unable to safely perform /c FWW and assist of 2.) Walk 50 ft with 2 Turns(QC): 88 Walk 150 ft (QC): 88 Walking 10ft/uneven surface-QC: 88 Gait Assistive Device: FWW Wheelchair Training Does the Pt Use a Wheelchair?: Yes Distance: 2 feet Wheel 50 ft with 2 turns (QC): 88 (unable to reach distance due to fatigue) Wheel 150 ft (QC): 88 Stair Training 1 Step (curb) (QC): 88 4 Steps (QC): 88 12 Steps (QC): 88 Balance Picking up an Object (QC): 88 Assessment/Plan Assessment and Plan Assess & Plan/Chief Complaint Assessment: s/p right hip fracture s/p uncomplicated repair DM HTN CAD Dementia Post op anemia from acute blood loss Delirium Plan: Home meds Monitor BP and BS Aggressive PT OT 04/19/2023: Iron infusion B12 supplement (1) Closed right hip fracture Status: Acute (2) History of cerebrovascular disease Status: Acute (3) History of ST elevation myocardial infarction (STEMI) Status: Acute (4) HTN (hypertension) Status: Acute (5) Dementia Status: Acute (6) Compression fracture of L1 vertebra Status: Acute ASHLY VILLEGAS DO Apr 19, 2023 10:49
--- NOTE | 2023-04-19 10:49 | Individualized Plan of Care ---
Individualized Plan of Care Rehab Nursing IPOC Order Admission Date Apr 18, 2023 at 14:45 Current Orders Orders Admission Order(Inpt,Obs,Sdc) (04/18/23 11:55) Vital Signs: Per Unit Policy ( 08,16,00 (04/18/23 11:55) Darryl Zuluaga , (04/18/23 11:55) Sequential Compression Device Q12HX1 (04/18/23 11:55) Bag Valver-Inpt Rehab Con (04/18/23 11:55) Rehab Nursing Orders-Ipoc (04/18/23 11:55) Physical Therapy Rehab Orders (04/18/23 11:55) Occupational Therapy Rehab Ord (04/18/23 11:55) Speech Therapy Rehab Orders (04/18/23 11:55) Cbc And Automated Diff (04/19/23 06:00) Comprehensive Metabolic Panel (04/19/23 06:00) Precautions (Aru) (04/18/23 11:55) Weekly Weight WEEK (04/18/23 11:55) Rehab-Intensity Of Therapy (04/18/23 11:55) Initiate Admission Nursing Pro .admission (04/18/23 11:55) Alprazolam Tablet (Alprazolam Tablet) (04/18/23 12:00) Calcium Carbonate Chew Tablet (Calcium C (04/18/23 12:00) Diphenhydramine Tablet (Diphenhydramine (04/18/23 12:00) Docusate Sodium Capsule (Docusate Sodium (04/18/23 21:00) Docusate Sodium Capsule (Docusate Sodium (04/18/23 12:00) Bisacodyl Suppository (Bisacodyl Supposi (04/18/23 12:00) Lactulose Oral Solution (Enulose Oral So (04/18/23 12:00) Na Phos/Na Biphos Adult Enema (Na Phos/N (04/18/23 12:00) Guaifenesin/Codeine Syrup (Guaifenesin/C (04/18/23 12:00) Loperamide Capsule (Loperamide Capsule) (04/18/23 12:00) Melatonin Tablet (Melatonin Tablet) (04/18/23 12:00) Polyethylene Glycol Powder (Polyethylen (04/18/23 21:00) Ondansetron Oral Dissolve Tab (Ondanset (04/18/23 12:00) Senna W/Docusate Tablet (Senna W/Docusat (04/18/23 21:00) Acetaminophen Tablet (Acetaminophen Ta (04/18/23 12:00) Initiate Admission Nursing Pro .admission (04/18/23 11:55) Iv Convert To Heplock (Order) (04/18/23 11:55) Admission Arrival Bed Request (04/18/23 15:18) Code/Resuscitation (04/18/23 17:00) Accucheck Achs ACHS (04/18/23 17:00) Dressing Order (Intervention) DAILY PRN (04/18/23 17:00) Incentive Spirometry (Nursing) Q2H (04/18/23 17:00) Oxygen-Administer 07,19 (04/18/23 17:00) Sequential Compression Device Q12HX1 (04/18/23 17:00) General/Regular (04/18/23 Dinner) Acetaminophen Tablet (Acetaminophen Ta (04/18/23 17:00) Clopidogrel Tablet (Clopidogrel Tablet) (04/19/23 09:00) Docusate Sodium Capsule (Docusate Sodium (04/18/23 17:00) Donepezil Tablet (Donepezil Tablet) (04/18/23 21:00) Empagliflozin Tablet (Empagliflozin Tabl (04/19/23 09:00) Hydrocodone/Apap 7.5/325 Tab (Hydrocodon (04/18/23 17:00) Lorazepam Tablet (Lorazepam Tablet) (04/18/23 17:00) Mirtazapine Tablet (Mirtazapine Tablet) (04/18/23 21:00) Insulin Aspart (Per Unit) (Insulin Aspar (04/18/23 21:00) Olanzapine Tablet (Olanzapine Tablet) (04/18/23 21:00) Ondansetron Injection (Ondansetron Inj (04/18/23 17:00) Glipizide Tablet (Glipizide Tablet) (04/19/23 07:00) Incentive Spirometry Initial (04/18/23 17:00) Mat Initiate Protocol (04/18/23 17:00) Svn Small Volume Nebulizer (04/18/23 17:00) Elevate Affected Extremity (04/18/23 17:00) Oxygen Delivery Set Up (04/18/23 17:00) Svn Small Volume Nebulizer (04/18/23 17:00) Incentive Spirometry (Nursing) Q2H (04/18/23 17:00) Albuterol Pre-Mix Nebs (Rt) (Albuterol (04/18/23 17:00) Atorvastatin Tablet (Atorvastatin Tablet (04/18/23 21:00) Olanzapine Orally Dissolve Tab (Olanzapi (04/18/23 21:00) Enoxaparin Injection (Enoxaparin Injecti (04/19/23 08:00) Potassium Chloride (Tablet) (Potassium C (04/19/23 11:30) Potassium Chloride (Tablet) (Potassium C (04/20/23 07:00) Iron Test (Fe) (04/19/23 10:33) Vitamin B 12 (04/19/23 10:33) Iron Sucrose Injection (Venofer Injectio (04/19/23 10:45) Venous Access Request Order (04/19/23 11:45) Cyanocobalamin Injection (Cyanocobalamin (04/19/23 12:15) Cyanocobalamin Tablet (Cyanocobalamin Ta (04/20/23 07:00) Potassium Chloride (Tablet) (Potassium C (04/19/23 12:15) Potassium Chloride (Tablet) (Potassium C (04/20/23 07:00) Venous Access Request Order (04/19/23 12:07) Midline Cap Change Q7D (04/26/23 13:00) Midline Dressing Change Q7D (04/26/23 13:00) Rehab Nursing Orders: Ongoing Assess. of Cognitive Status, Ongoing Assess. of Function Status, Bladder Management, Bladder Scan, Bladder Training, Bowel Management, Bowel Training, Disease Management & Educaiton, DVT Prophylaxis, Fal l Prevention, Fluid/Electrolyte/Nutrition Mgmt, Infection Prevention, Medication Management & Education, Management of Risks & Complications, Management of Skin Intergrity, Nutrition Management, Pain Management, Patient/Family Support, Safety Management, Wound Management Intensity of Therapy to be met Patient to be seen: Min.3h per day/5 of 7d PT IPOC Problem List: Activity Tolerance, Functional Strength, Safety, Balance, Gait, Transfer, Bed Mobility, ROM Treatment Plan: Continue Plan of Care Bed Mobility, Education, Functional Activity Madelin, Functional Strength, Group Therapy, Gait, Safety, Therapeutic Exercise, Transfers Treatment Duration: May 09, 2023 Frequency: At least 5 of 7 days/Wk (IRF) Estimated Hrs Per Day: 1.5 hours per day OT IPOC Problems: Decreased Activ Tolerance, Decreased Safety Aware, Decreased UE Stren gth, Dependent Transfers, Impaired Cognition, Impaired Coordination OT Treatment, Training and Edu: Yes OT Problems decreased functional strength, decrease ADL independence Plan of Care: ADL Retraining, Cognitive Retraining, Concurrent Therapy, Functional Mobility Treatment Duration: Apr 19, 2023 Frequency: 5 times per week Estimated Hrs Per Day: 1.[address] IPOC Speech Therapy Treatment Plan: Continue Plan of Care Treatment Duration: Apr 19, 2023 Frequency: At least 5 of 7 days/Wk (IRF) Estimated Hrs Per Day: .5 hour per day (Cog/ling tx) Bag Valver/Case Mgmt Bag Valver/Case Managemen: Discharge Planning Dietitian/Director Business Integration Dietitian/Director Business Integration to monitor nutritional status and make changes and/or recommendations as needed and work with speech pathology on dietary upgrades as the occur. Physician IPOC Medical Issues being managed closely and that require the 24 hour availability of a physician: Recent hip fracture with advanced age and history of dementia with high risk of increased confusion and delirium and falls will require close monitoring from physician due to high risk for decompensation Medical Issues: Bowel/Bladder Function, DVT Prophylaxis, Falls Precautions, Fluid/Electrolyte/Nutrition Balance, Infection Protection, Pain Management, Weight Bearing Precautions, Wound Care Brief Synthesis of Preadmission Screen, Post-Admission Evaluation, and Therapy Evaluations: PT and OT will focus on regaining function in order to increase stamina with ambulation and decrease risk of falls when she returns back to assisted living Medical Prognosis: Fair Anticipated Length of Stay: 14 days ASHLY VILLEGAS DO Apr 19, 2023 10:49
--- NOTE | 2023-04-19 10:53 | Occupational Therapy Eval ---
OT Evaluation-General/PLF Medical Diagnosis Admission Date Apr 18, 2023 at 14:45 Medical Diagnosis: (R) hip fracture, THR Onset Date: Apr 15, 2023 Therapy Diagnosis Therapy Diagnosis: decreased functional strength, decrease ADL independence Precautions Precautions/Isolations: Fall Prevention, Standard Precautions Weight Bear Status Weight Bearing Restriction: Weight Bearing/Tolerated Location Restriction: R LE Referral Physician: bhargavi Medical History Pertinent Medical History: CVA, Dementia, HTN, [place] Reviewed History: Yes Social History [facility] [place] [place] Current Living Status: in facilit Entry Into Home: Level Entry ADL-Prior Level of Function SCALE: Activities may be completed with or without assistive devices. 9-Mhsfmbddat-xdxhpzn completes the activity by him/herself with no assistance from a helper. 5-Set-up or Clean-up Assistance-helper sets up or cleans up; patient completes activity. [place] assists only prior to or following the activity. 4-Supervision or Touching Assistance-helper provides verbal cues and/or touching/steadying and/or contact guard assistance as patient completes activity. Assistance may be provided throughout the activity or intermittently. 3-Partial/Moderate Assistance-helper does LESS THAN HALF the effort. [place] lifts, holds or supports trunk or limbs, but provides less than half the effort. 2-Substantial/Maximal Assistance-helper does MORE THAN HALF the effort. [place] lifts or holds trunk or limbs and provides more than half the effort. 8-Heodzytjm-zupubr does ALL the effort. Patient does none of the effort to complete the activity. Or, the assistance of 2 or more helpers is required for the patient to complete the activity. If activity was not attempted, code reason: 7-Patient Refused. 9-Not Applicable-not attempted and the patient did not perform the activity before the current illness, exacerbation or injury. 10-Not Attempted due to Environmental Limitations-(lack of equipment, weather restraints, etc.). 88-Not Attempted due to Medical Conditions or Safety Concerns. ADL PLOF Comments PLOF information provided from pt, though pt may not be accurate historian due to decreased cognition Self Care: Independent Functional Cognition: Needed Some Help DME/Equipment: Bath Chair, Shower Hose Cup Trimming Machine Operator, Tall Toilet Occupation: retired Drive Self: No Leisure Interests: coloring, reading and watching television OT Current Status Subjective Pt received lying supine in bed. Pt very pleasant and agreeable to therapy. Pt A&Ox3 throughout session, though confused and requiring increased cueing to stay on task and for sequencing. Pain Numeric Pain Scale: 0-No Pain Location: No Pain Reported Mental Status/Objective Patient Orientation: Person, Place, Situation Attachments: IV Current Glasses/Contacts: Yes Hearing Aids: No Dentures/Partials: Yes (though reports they are home) Hand Dominance: Right Upper Extremity ROM WFL in bilateral shoulders, elbows and hands Upper Extremity Coordination bilaterally WFL Upper Extremity Sensation bilaterally WFL Upper Extremity Strength Bilateral Measurements: Shoulder: 3+/5 Elbow: 4-/5 Medical Billing Coder: 3+/5 ADL-Treatment Eating (QC): 5 (to complete drinking water) Oral Hygiene (QC): 4 Shower/Bathe Self (QC): 2 (to complete bed bath in sitting ) Upper Body Dressing (QC): 3 (to don/doff night gown ) Lower Body Dressing (QC): 1 (to don/doff brief) On/Off Footwear (QC): 1 (to don/doff ELVIS hose and socks ) Toileting Hygiene (QC): 1 Other Treatments Pt completed functional UE strengthening activity in supported sitting with 1# wrist weight. PT/OT co-treatment completed due to the need for two skilled therapists due to pt's high level of needs. PT prioritizing LE function, mobility and sitting balance; please resort to PT note for more detailed information. OT prioritizing activity tolerance, UE strengthening, functional balance and independence with ADLs. Education OT Patient Education: Correct positioning, Energy conservation, Home exercise program, Modified ADL techniques, Progress toward Goal/Update tx plan, Purpose of tx/functional activities, Reviewed precautions, Rehab process, Safety issues, Transfer techniques, Use of adapted equipment Teaching Recipient: Patient Teaching Methods: Demonstration, Discussion Response to Teaching: Verbalize Understanding, Return Demonstration, Reinforcement Needed Pt with severe short term memory deficit and requiring max verbal and tactile cueing to put education into practice. BIMS CAM BIMS Expression of Ideas and Wants: Frequently Understanding Verbal Content: Usually Understands Brief Interview/Mental Status: Yes IRF MIRYAM BIMS: IRF MIRYAM BIMS Response (Comments) Value Repitition of Three Words Three 3 Recalls Socks No, Could Not Recall 0 Recalls Blue Yes, After Cueing (Color) 1 Recalls Bed No, Could Not Recall 0 Year Correct 3 Month Missed by 1 Mo/No Answer 0 Day Incorrect or No Answer 0 Total 7 Patient Normally Able to Recal: Current Session, Location of own room, That he/she in a hsp Should Staff Asses. Mental St.: Yes Memory/Recall Ability: Current Season, That He[facility]She in [facility] Mental Status Change/Baseline: 1 Inattention: 0 Disorganized thinkin Altered level of consciousness: 0 OT Short Term Goals Short Term Goals Time Frame: Apr 29, 2023 Eatin Oral hygiene: 5 Toileting hygiene: 3 Shower/bathe self: 3 Upper body dressin Lower body dressin Putting on/taking off footwear: 3 OT Transfusion Nurse Goals Transfusion Nurse Goals Time Frame: May 06, 2023 Acute change in mental status: 0 Inattention: 0 Disorganized thinkin Altered level of consciousness: 0 Eating (QC): 6 Oral Hygiene (QC): 5 Toileting Hygiene (QC): 4 Shower/Bathe Self (QC): 4 Upper Body Dressing (QC): 4 Lower Body Dressing (QC): 4 On/Off Footwear (QC): 4 1=Demonstrate adherence to instructed precautions during ADL tasks. 2=Patient will verbalize/demonstrate understanding of assistive devices/modifications for ADL. 3=Patient will improve strength/tolerance for activity to enable patient to perform ADL's. OT Education/Plan Problem List/Assessment Assessment: Decreased Activ Tolerance, Decreased Safety Aware, Decreased UE Strength, Impaired Bed Mobility, Impaired Cognition, Impaired Funct Balance, Impaired I ADL's, Impaired Self-Care Skills Discharge Recommendations Plan/Recommendations: Continue POC Therapy Discharge Recommendati: Other, See Comments (Back to nursing facility in [place] ) Comment Will recommend equipment closer to d/c date Barriers to Progress pain, cognition, hip precautions Treatment Plan/Plan of Care Treatment,Training & Education: Yes Patient would benefit from OT for education, treatment and training to promote independence in ADL's, mobility, safety and/or upper extremity function for ADL's. Plan of Care: ADL Retraining, Cognitive Retraining, Concurrent Therapy, Functional Mobility, Group Exercise/Act as Ind, UE Funct Exercise/Act, W/C Management Training Treatment Duration: May 06, 2023 Frequency: 2 times per week Estimated Hrs Per Day: Other (75mins/day ) Rehab Potential: Fair Time Start Time: 09:30 ([id number] OT eval/individual treat ) Stop Time: 10:45 ([id number] [place] with PT ) DATE: Apr 19, 2023 Total Time Billed (hr/min): 75 Billed Treatment Time 1, EVH, ADL 3, EX 1 Jennifer Ferraro OTR/L Apr 19, 2023 10:53
[2023-04-19] MEDS: IRON SUCROSE 200 MG/10 ML VIAL IV SCH (11:24)
[2023-04-19] MEDS ORDERED: POTASSIUM CHLORIDE 20 MEQ TABLET PO NR (11:30)
[2023-04-19] MEDS ORDERED: POTASSIUM CHLORIDE 20 MEQ TABLET PO ONE (12:15)
[2023-04-19] MEDS ORDERED: CYANOCOBALAMIN 1000 MCG/ML 1 ML VIAL IM ONE (12:15)
--- NOTE | 2023-04-19 13:03 | Progress Note ---
PRASAD CASTAÑEDA 04/19/23 1303: Progress Note Ms. Fernandez is a 82 y/o female w/ PMH dementia, STEMI, CVA, CAD, DM, HTN, here for recovery from R femoral neck fracture s/p hemiarthroplasty. She is currently dependent for all transfers. She has poor dynamic sitting stability, and standing stability. She was only able to walk 1 step yesterday. She is dependent for toilet hygeine, lower body don/doff, and shoe/sock don/doff. For ADLs, she is able to eat on her own without requiring verbal cues, and requires some cues to stay on task with her oral hygeine. Her goals are to be moderate assist on all transfers as she is currently a fall risk, and to be touch assist/verbal cue only for ADLs. Today she is doing well, and reports no pain in her hip or leg. Incision site looks clean, and both legs are neurovascularly intact. AMBREEN VILLEGAS DO 04/19/236: Supervisory-Addendum Brief Verification & Attestation Participated in pt care: history, MDM, physical Personally performed: exam, history, MDM, supervision of care Care discussed with: Medical Student Procedures: n/a Results interpretation: Verified all documentation Verification and Attestation of Medical Student E/M Service A medical student performed and documented this service in my presence. I reviewed and verified all information documented by the medical student and made modifications to such information, when appropriate. I personally performed the physical exam and medical decision making. Ambreen Villegas Apr 19, 2023,21:16 PRASAD CASTAÑEDA Apr 19, 2023 13:03 AMBREEN VILLEGAS DO Apr 19, 2023 21:16
--- NOTE | 2023-04-19 16:39 | Physical Therapy Daily Note ---
PT Daily Note-Current Subjective Pt working w/OT upon arrival. Pt agrees to PT/OT co-treat. Pain Location: Right Location Body Site: Hip Comment: Reported through facial grimaces during tx, not rated Section J - Health Conditions 1. Rarely or not at all 2. Occasionally 3. Frequently 4. Almost constantly 8. Unable to answer Pain Effect on Sleep: 3 Pain Interference with Therapy: 4 Pain Interference w/Day-to-Day: 3 Mental Status Patient Orientation: Person, Place, Situation Transfers SCALE: Activities may be completed with or without assistive devices. 2-Cezabnmkoz-xirpvfu completes the activity by him/herself with no assistance from a helper. 5-Set-up or Clean-up Assistance-helper sets up or cleans up; patient completes activity. [place] assists only prior to or following the activity. 4-Supervision or Touching Assistance-helper provides verbal cues and/or touching/steadying and/or contact guard assistance as patient completes activity. Assistance may be provided throughout the activity or intermittently. 3-Partial/Moderate Assistance-helper does LESS THAN HALF the effort. [place] lifts, holds or supports trunk or limbs, but provides less than half the effort. 2-Substantial/Maximal Assistance-helper does MORE THAN HALF the effort. [place] lifts or holds trunk or limbs and provides more than half the effort. 1-Ftplxdkwl-bqsohv does ALL the effort. Patient does none of the effort to complete the activity. Or, the assistance of 2 or more helpers is required for the patient to complete the activity. If activity was not attempted, code reason: 7-Patient Refused. 9-Not Applicable-not attempted and the patient did not perform the activity before the current illness, exacerbation or injury. 10-Not Attempted due to Environmental Limitations-(lack of equipment, weather restraints, etc.). 88-Not Attempted due to Medical Conditions or Safety Concerns. Sit to Lying (QC): 1 Lying to Sitting/Side of Bed(Q: 1 Weight Bearing Right Lower Extremity: Right Weight Bearing/Tolerated Left Lower Extremity: Left Weight Bearing/Tolerated Exercises Supine Ex: Ankle pumps, Quad Set, Glut sets, Heel Slides, Hip abd/add Supine Reps: 10 Treatments PT/OT co-treatment completed due to the need for two skilled therapists due to pt's high level of needs. PT prioritizing LE function, mobility and sitting balance. OT prioritizing activity tolerance, UE strengthening, functional balance and independence with ADLs. Pt transfers from Supine to EOB for Sponge bath at Max A x2. Pt works on sitting balance and core strengthening during dynamic activity. Pt returns from EOB to Supine after Sponge bath. OT departs at this time. COAL SCREENER works with Pt on Supine Ex for strengthening. All needs met, call light in hand at end of tx. Assessment Current Status: Fair Progress Pt needs assistance for transfer and at times for balance. PT Retirement Goals Retirement Goals PT Retirement Goals Time Frame: May 09, 2023 Roll Left & Right (QC): 4 Sit to Lying (QC): 4 Lying-Sitting on Side/Bed(QC): 4 Sit to Stand (QC): 3 Chair/Zyw-ii-Kcwzb Xfer(QC): 3 Toilet Transfer (QC): 3 Car Transfer (QC): 3 Does the Patient Walk: Yes Walk 10 feet (QC): 3 Walk 50ft with 2 Turns (QC): 3 Walk 150 ft (QC): 9 Walking 10ft on Uneven Surface: 3 1 Step (curb) (QC): 3 4 Steps (QC): 9 12 Steps (QC): 9 Picking up an Object (QC): 3 Does the Pt use WC or Scooter?: Yes Wheel 50 feet with 2 turns (QC: 4 Type: Manual Wheel 150 feet: 4 PT Plan Problem List Problem List: Activity Tolerance, Functional Strength, Balance, Transfer Treatment/Plan Treatment Plan: Continue Plan of Care Treatment Plan: Bed Mobility, Education, Functional Activity Madelin, Functional Strength, Group Therapy, Gait, Safety, Therapeutic Exercise, Transfers Treatment Duration: May 09, 2023 Frequency: At least 5 of 7 days/Wk (IRF) Estimated Hrs Per Day: 1.5 hours per day Patient and/or Family Agrees t: Yes Safety Risks/Education Patient Education: Transfer Techniques, Correct Positioning Teaching Recipient: Patient Teaching Methods: Discussion Response to Teaching: Verbalize Understanding Time Time In: 1000 Time Out: 1100 DATE: Apr 19, 2023 Total Billed Treatment Time: 60 Total Billed Treatment 1, FA x3 (40m) & EX (20m) RENATE PRICE PTA Apr 19, 2023 16:39
--- NOTE | 2023-04-19 16:55 | Physical Therapy Daily Note ---
PT Daily Note-Current Subjective Pt laying Supine in bed as she had come back from recliner. Pt agrees to additional Ex. Pain Section J - Health Conditions 1. Rarely or not at all 2. Occasionally 3. Frequently 4. Almost constantly 8. Unable to answer Pain Effect on Sleep: 3 Pain Interference with Therapy: 4 Pain Interference w/Day-to-Day: 3 Mental Status Patient Orientation: Person, Place, Situation Transfers SCALE: Activities may be completed with or without assistive devices. 5-Zroxclgrns-jucocbz completes the activity by him/herself with no assistance from a helper. 5-Set-up or Clean-up Assistance-helper sets up or cleans up; patient completes activity. [place] assists only prior to or following the activity. 4-Supervision or Touching Assistance-helper provides verbal cues and/or touching/steadying and/or contact guard assistance as patient completes activity. Assistance may be provided throughout the activity or intermittently. 3-Partial/Moderate Assistance-helper does LESS THAN HALF the effort. [place] lifts, holds or supports trunk or limbs, but provides less than half the effort. 2-Substantial/Maximal Assistance-helper does MORE THAN HALF the effort. [place] lifts or holds trunk or limbs and provides more than half the effort. 2-Cvkwuuxbd-dsbajb does ALL the effort. Patient does none of the effort to complete the activity. Or, the assistance of 2 or more helpers is required for the patient to complete the activity. If activity was not attempted, code reason: 7-Patient Refused. 9-Not Applicable-not attempted and the patient did not perform the activity b efore the current illness, exacerbation or injury. 10-Not Attempted due to Environmental Limitations-(lack of equipment, weather restraints, etc.). 88-Not Attempted due to Medical Conditions or Safety Concerns. Weight Bearing Right Lower Extremity: Right Weight Bearing/Tolerated Left Lower Extremity: Left Weight Bearing/Tolerated Exercises Supine Ex: Ankle pumps, Quad Set, Glut sets, Heel Slides, Hip abd/add Supine Reps: 10 Treatments Pt completes Supine EX before resting. All needs met, call light in hand. Assessment Current Status: Fair Progress Pt fatigues easily and asks to to rest frequently. PT Plastics Patternmaker Goals Plastics Patternmaker Goals PT Skilled Nursing Goals Time Frame: May 09, 2023 Roll Left & Right (QC): 4 Sit to Lying (QC): 4 Lying-Sitting on Side/Bed(QC): 4 Sit to Stand (QC): 3 Chair/Rva-oq-Mxphy Xfer(QC): 3 Toilet Transfer (QC): 3 Car Transfer (QC): 3 Does the Patient Walk: Yes Walk 10 feet (QC): 3 Walk 50ft with 2 Turns (QC): 3 Walk 150 ft (QC): 9 Walking 10ft on Uneven Surface: 3 1 Step (curb) (QC): 3 4 Steps (QC): 9 12 Steps (QC): 9 Picking up an Object (QC): 3 Does the Pt use WC or Scooter?: Yes Wheel 50 feet with 2 turns (QC: 4 Type: Manual Wheel 150 feet: 4 PT Plan Problem List Problem List: Activity Tolerance, Functional Strength, Transfer Treatment/Plan Treatment Plan: Continue Plan of Care Treatment Plan: Bed Mobility, Education, Functional Activity Madelin, Functional Strength, Group Therapy, Gait, Safety, Therapeutic Exercise, Transfers Treatment Duration: May 09, 2023 Frequency: At least 5 of 7 days/Wk (IRF) Estimated Hrs Per Day: 1.5 hours per day Patient and/or Family Agrees t: Yes Safety Risks/Education Patient Education: Correct Positioning Teaching Recipient: Patient Teaching Methods: Discussion Response to Teaching: Verbalize Understanding Time Time In: 1430 Time Out: 1445 DATE: Apr 19, 2023 Total Billed Treatment Time: 15 Total Billed Treatment 1, EX (15m) RENATE PRICE SCHOOL LIBRARIAN Apr 19, 2023 16:55
[2023-04-19 20:15] VITALS: BP 125/58
[2023-04-19] MEDS: DONEPEZIL 10 MG TABLET PO SCH (21:20)
[2023-04-19] MEDS: OLANZapine 5 MG ODT TABLET PO SCH (21:20)
[2023-04-19] MEDS: MIRTAZAPINE 15 MG TABLET PO SCH (21:20)
[2023-04-20] MEDS: POTASSIUM CHLORIDE 10 MEQ TABLET PO SCH (06:30)
[2023-04-20] MEDS: inSUlin ASPART 1 UNIT/0.01 ML (PER UNIT) SC SCH ×4 (06:35→21:35)
[2023-04-20] MEDS: glipiZIDE 5 MG TABLET PO SCH (06:36)
[2023-04-20] MEDS: CYANOCOBALAMIN 1,000 MCG TABLET PO SCH (06:36)
[2023-04-20] MEDS ORDERED: POTASSIUM CHLORIDE 10 MEQ TABLET PO SCH (07:00)
[2023-04-20 08:03] VITALS: BP 138/62
[2023-04-20] MEDS: EMPAGLIFLOZIN 10 MG TABLET PO SCH (08:14)
[2023-04-20] MEDS: ACETAMINOPHEN 500 MG TABLET PO PRN ×2 (08:14→21:35)
[2023-04-20] MEDS: CLOPIDOGREL 75 MG TABLET PO SCH (08:14)
[2023-04-20] MEDS: SENNA W/DOCUSATE TABLET PO SCH ×2 (08:15→21:35)
[2023-04-20] MEDS: DOCUSATE SODIUM 100 MG CAPSULE PO SCH ×2 (08:15→21:35)
[2023-04-20] MEDS: ENOXAPARIN 40 MG/0.4 ML SYRINGE SC SCH (08:15)
--- NOTE | 2023-04-20 11:40 | PM&R Progress Note ---
Subjective HPI/CC On Admission Date Seen by Provider: Apr 20, 2023 Time Seen by Provider: 15:00 Subjective/Events-last exam 04/20/2023: Doing better Pain is controlled Confusion improved Requires a lot of cues No falls 04/19/2023: Patient doing better Confusion times Pain is controlled Labs reviewed Giving iron and B12 supplement empirically Review of Systems General: Fatigue, Malaise Musculoskeletal: leg pain Neurological: Confusion Objective Exam Vital Signs Vital Signs Date Time Temp Pulse Resp B/P (MAP) Pulse Ox O2 Delivery O2 Flow Rate FiO2 04/20/23 09:00 98 Room Air 04/20/23 08:03 36.5 87 18 138/62 (87) Capillary Refill : General Appearance: No Apparent Distress, WD/WN, Chronically ill, Other (fatigued) HEENT: PERRL/EOMI, Normal ENT Inspection, Pharynx Normal Neck: Full Range of Motion, Normal Inspection, Non Tender, Supple, Carotid Bruit Respiratory: Chest Non Tender, Lungs Clear, Normal Breath Sounds, No Accessory Muscle Use, No Respiratory Distress Cardiovascular: Regular Rate, Rhythm, No Edema, No Gallop, No JVD, No Murmur, Normal Peripheral Pulses Gastrointestinal: Normal Bowel Sounds, No Organomegaly, No Pulsatile Mass, Non Tender, Soft Back: Normal Inspection, No CVA Tenderness, No Vertebral Tenderness Extremity: Normal Capillary Refill, Normal Inspection, Normal Range of Motion (except right leg), Non Tender, No Calf Tenderness, No Pedal Edema Neurologic/Psychiatric: Alert, Oriented x3, No Motor/Sensory Deficits, 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 FIM Transfers Therapy Code Descriptions/Definitions Functional [place] Measure: 0=Not Assessed/NA 4=Minimal Assistance 1=Total Assistance 5=Supervision or Setup 2=Maximal Assistance 6=Modified [place] 3=Moderate Assistance 7=Complete IndependenceSCALE: Activities may be completed with or without assistive devices. 5-Hwedizsckf-ravibpo completes the activity by him/herself with no assistance from a helper. 5-Set-up or Clean-up Assistance-helper sets up or cleans up; patient completes activity. [place] assists only prior to or following the activity. 4-Supervision or Touching Assistance-helper provides verbal cues and/or touching/steadying and/or contact guard assistance as patient completes activity. Assistance may be provided throughout the activity or intermittently. 3-Partial/Moderate Assistance-helper does LESS THAN HALF the effort. [place] lifts, holds or supports trunk or limbs, but provides less than half the effort. 2-Substantial/Maximal Assistance-helper does MORE THAN HALF the effort. [place] lifts or holds trunk or limbs and provides more than half the effort. 3-Fmnlkehsy-xfjazw does ALL the effort. Patient does none of the effort to complete the activity. Or, the assistance of 2 or more helpers is required for the patient to complete the activity. If activity was not attempted, code reason: 7-Patient Refused. 9-Not Applicable-not attempted and the patient did not perform the activity before the current illness, exacerbation or injury. 10-Not Attempted due to Environmental Limitations-(lack of equipment, weather restraints, etc.). 88-Not Attempted due to Medical Conditions or Safety Concerns. Roll Left to Right (QC): 1 Sit to Lying (QC): 1 Sit to Stand (QC): 1 (2 person assist mod-max) Chair/Vsm-em-Bpybv Xfer(QC): 1 (2 person (A) stand pivot. Unable to move feet in standing /c FWW to complete transfer) Car Transfer (QC): 88 Gait Training Does the Patient Walk?: No and Walking Goal IS indicated Walk 10 feet (QC): 88 (took 1 step to (L) /c FWW. Unable to move legs further. Unable to safely perform /c FWW and assist of 2.) Walk 50 ft with 2 Turns(QC): 88 Walk 150 ft (QC): 88 Walking 10ft/uneven surface-QC: 88 Gait Assistive Device: FWW Wheelchair Training Does the Pt Use a Wheelchair?: Yes Distance: 2 feet Wheel 50 ft with 2 turns (QC): 88 (unable to reach distance due to fatigue) Wheel 150 ft (QC): 88 Stair Training 1 Step (curb) (QC): 88 4 Steps (QC): 88 12 Steps (QC): 88 Balance Picking up an Object (QC): 88 ADL-Treatment Eating (QC): 5 (to complete drinking water) Oral Hygiene (QC): 4 Shower/Bathe Self (QC): 2 (to complete bed bath in sitting ) Upper Body Dressing (QC): 3 (to don/doff night gown ) Lower Body Dressing (QC): 1 (to don/doff brief) On/Off Footwear (QC): 1 (to don/doff ELVIS hose and socks ) Toileting Hygiene (QC): 1 Assessment/Plan Assessment and Plan Assess & Plan/Chief Complaint Assessment: s/p right hip fracture s/p uncomplicated repair DM HTN CAD Dementia Post op anemia from acute blood loss Delirium Plan: Home meds Monitor BP and BS Aggressive PT OT 04/19/2023: Iron infusion B12 supplement 04/20/2023: Iron and B12 empirically Monitor closely SNF at risk (1) Closed right hip fracture Status: Acute (2) History of cerebrovascular disease Status: Acute (3) History of ST elevation myocardial infarction (STEMI) Status: Acute (4) HTN (hypertension) Status: Acute (5) Dementia Status: Acute (6) Compression fracture of L1 vertebra Status: Acute ASHLY VILLEGAS DO Apr 20, 2023 11:40
--- NOTE | 2023-04-20 15:09 | Speech Therapy Daily Note ---
Speech Daily Progress Note Subjective Date Seen by Provider: Apr 20, 2023 Time Seen by Provider: 13:10 Pt was sitting in chair by bedside upon VASCULAR RADIOLOGIST arrival. Pt was cooperative in all tasks. Objective Pt participated in space retrieval tasks regarding orientation and safety information. Pt was asked at differing time intervals (30 sec, 2 min, 4 min, and 8 min) "What do you do when (you need to know where you are/if you need your nurse)?". Pt displayed 75% accuracy when answering each question and required min to mod verbal cues. Pt was given a visual cue for recall of information regarding living information and hip precautions. Pt locates information with 45% accuracy and requires mod verbal cues. Assessment Assessment Current Status: Good Progress Treatment Plan Continue Plan of Care Speech Jumpbasting Armhole Baster Goals Intermediate Goals Pt will utilize environmental cues for orientation to place and time with 80% accuracy. Pt will demonstrate appropriate use of call light with 90% accuracy. Pt will use environmental cues for safety precautions for hip with 80% accuracy. Speech-Plan Treatment Plan Speech Therapy Treatment Plan: Continue Plan of Care Treatment Duration: Apr 19, 2023 Frequency: At least 5 of 7 days/Wk (IRF) Estimated Hrs Per Day: .5 hour per day (Cog/ling tx) Rehab Potential: Fair Time Speech Therapy Time In: 13:10 Speech Therapy Time Out: 13:40 DATE: Apr 20, 2023 Total Billed Time: 30 Billed Treatment Time 1 SLTS 30 min Lin Osborne Apr 20, 2023 15:09
--- NOTE | 2023-04-20 15:19 | Occupational Ther Daily Note ---
OT Current Status-Daily Note Subjective Pt recieved sitting in recliner. Pt very pleasant and willing to participate in therapy, though states "I will only leave my room if I can color." Pain Numeric Pain Scale: 2 Location: Right Location Body Site: Hip Pain Description: Dull Mental Status/Objective Patient Orientation: Person, Place, Situation Attachments: IV ADL-Treatment Therapy Code Descriptions/Definitions Functional [place] Measure: 0=Not Assessed/NA 4=Minimal Assistance 1=Total Assistance 5=Supervision or Setup 2=Maximal Assistance 6=Modified [place] 3=Moderate Assistance 7=Complete IndependenceSCALE: Activities may be completed with or without assistive devices. 0-Rujrhfjmgw-fnhmdah completes the activity by him/herself with no assistance from a helper. 5-Set-up or Clean-up Assistance-helper sets up or cleans up; patient completes activity. [place] assists only prior to or following the activity. 4-Supervision or Touching Assistance-helper provides verbal cues and/or touching/steadying and/or contact guard assistance as patient completes activit y. Assistance may be provided throughout the activity or intermittently. 3-Partial/Moderate Assistance-helper does LESS THAN HALF the effort. [place] lifts, holds or supports trunk or limbs, but provides less than half the effort. 2-Substantial/Maximal Assistance-helper does MORE THAN HALF the effort. [place] lifts or holds trunk or limbs and provides more than half the effort. 5-Cdevgndiv-dktxij does ALL the effort. Patient does none of the effort to complete the activity. Or, the assistance of 2 or more helpers is required for the patient to complete the activity. If activity was not attempted, code reason: 7-Patient Refused. 9-Not Applicable-not attempted and the patient did not perform the activity before the current illness, exacerbation or injury. 10-Not Attempted due to Environmental Limitations-(lack of equipment, weather restraints, etc.). 88-Not Attempted due to Medical Conditions or Safety Concerns. On/Off Footwear: 1 (to don/doff socks) Other Treatment Pt completed face hygiene in sitting with supervision and no cues for completion. Pt completed 1 functional transfer from recliner to wheelchair utilizing FWW with max A for balance and max verbal and tactile cueing for sequencing and safety. Attempted to educate pt on wheelchair management and self propulsion, though pt was unable to sequence and demonstrate task effectively. Pt completed functional dynamic sitting activity for ~30 mins with bilateral #1 wrist weights (5 mins on, 5 min break). Pt completed functional sitting balance and cognition activity in order to improve balance as well as sequencing, memory, problem-solving and perceptual skills. Education OT Patient Education: Correct positioning, Energy conservation, Modified ADL techniques, Progress toward Goal/Update tx plan, Purpose of tx/functional activities, Reviewed precautions, Rehab process, Safety issues, Transfer techniques, W/C management Teaching Recipient: Patient Teaching Methods: Demonstration, Discussion Response to Teaching: Verbalize Understanding, Return Demonstration, Reinforcement Needed OT Short Term Goals Short Term Goals Time Frame: Apr 29, 2023 Eatin Oral hygiene: 5 Toileting hygiene: 3 Shower/bathe self: 3 Upper body dressin Lower body dressin Putting on/taking off footwear: 3 OT Seat Builder Goals Longterm Goals Time Frame: May 06, 2023 Acute change in mental status: 0 Inattention: 0 Disorganized thinkin Altered level of consciousness: 0 Eating (QC): 6 Oral Hygiene (QC): 5 Toileting Hygiene (QC): 4 Shower/Bathe Self (QC): 4 Upper Body Dressing (QC): 4 Lower Body Dressing (QC): 4 On/Off Footwear (QC): 4 1=Demonstrate adherence to instructed precautions during ADL tasks. 2=Patient will verbalize/demonstrate understanding of assistive devices/modifications for ADL. 3=Patient will improve strength/tolerance for activity to enable patient to perform ADL's. OT Education/Plan Problem List/Assessment Assessment: Decreased Activ Tolerance, Decreased Safety Aware, Decreased UE Strength, Impaired Bed Mobility, Impaired Cognition, Impaired Coordination, Impaired Funct Balance, Impaired I ADL's, Impaired Self-Care Skills decreased functional strength, decrease ADL independence Discharge Recommendations Plan/Recommendations: Continue POC Treatment Plan/Plan of Care Treatment,Training & Education: Yes Patient would benefit from OT for education, treatment and training to promote independence in ADL's, mobility, safety and/or upper extremity function for ADL's. Plan of Care: ADL Retraining, Cognitive Retraining, Concurrent Therapy, Functional Mobility Treatment Duration: Apr 19, 2023 Frequency: 5 times per week Estimated Hrs Per Day: 1.5 hours per day Agreement: Yes Rehab Potential: Fair Time Start Time: 09:15 Stop Time: 10:30 DATE: Apr 20, 2023 Total Time Billed (hr/min): 75 Billed Treatment Time 1, ADL 1, FA 4 Jennifer Ferraro OTR/L Apr 20, 2023 15:19
--- NOTE | 2023-04-20 16:21 | Physical Therapy Daily Note ---
PT Daily Note-Current Subjective Pt sitting at [facility] table coloring upon arrival. Pt agrees to PT. Pain Numeric Pain Scale: 5-Moderate Pain Location: Right Location Body Site: Hip Pain Description: Ache Section J - Health Conditions 1. Rarely or not at all 2. Occasionally 3. Frequently 4. Almost constantly 8. Unable to answer Pain Effect on Sleep: 3 Pain Interference with Therapy: 3 Pain Interference w/Day-to-Day: 3 Mental Status Patient Orientation: Person, Place, Situation Transfers SCALE: Activities may be completed with or without assistive devices. 8-Cvltqdgjhc-ezrtdma completes the activity by him/herself with no assistance from a helper. 5-Set-up or Clean-up Assistance-helper sets up or cleans up; patient completes activity. [place] assists only prior to or following the activity. 4-Supervision or Touching Assistance-helper provides verbal cues and/or touching/steadying and/or contact guard assistance as patient completes activity. Assistance may be provided throughout the activity or intermittently. 3-Partial/Moderate Assistance-helper does LESS THAN HALF the effort. [place] lifts, holds or supports trunk or limbs, but provides less than half the effort. 2-Substantial/Maximal Assistance-helper does MORE THAN HALF the effort. [place] lifts or holds trunk or limbs and provides more than half the effort. 2-Lhhhnkwkc-gxfnzo does ALL the effort. Patient does none of the effort to complete the activity. Or, the assistance of 2 or more helpers is required for the patient to complete the activity. If activity was not attempted, code reason: 7-Patient Refused. 9-Not Applicable-not attempted and the patient did not perform the activity before the current illness, exacerbation or injury. 10-Not Attempted due to Environmental Limitations-(lack of equipment, weather restraints, etc.). 88-Not Attempted due to Medical Conditions or Safety Concerns. Sit to Stand (QC): 2 Weight Bearing Right Lower Extremity: Right Weight Bearing/Tolerated Left Lower Extremity: Left Weight Bearing/Tolerated Wheelchair Training Does the Pt Use a Wheelchair?: Yes Type of Wheelchair: Manual Exercises Seated Therapy Exercises: Ankle pumps, Long arc quads, Hip flexion, Hip abd/add, Glut set Seated Reps: 15 Treatments Pt tries to propels w/c in hallway but PAPERBACK MACHINE OPERATOR assists. Pt completes EX w/RB as needed then PAPERBACK MACHINE OPERATOR attempted again w/education & w/c mobility. Pt returns to room to rest & TF to recliner at Max A for VC & TC and assitance at times to advance LE & FWW as needed from w/c to recliner. Pt resting w/all needs met, call light in hand. Assessment Current Status: Fair Progress Pt fatigues easily and needs frequent RB. PT Nursing Home Goals [place] [employer] Goals PT Nursing Home Goals Time Frame: May 09, 2023 Roll Left & Right (QC): 4 Sit to Lying (QC): 4 Lying-Sitting on Side/Bed(QC): 4 Sit to Stand (QC): 3 Chair/Edk-jo-Yogfc Xfer(QC): 3 Toilet Transfer (QC): 3 Car Transfer (QC): 3 Does the Patient Walk: Yes Walk 10 feet (QC): 3 Walk 50ft with 2 Turns (QC): 3 Walk 150 ft (QC): 9 Walking 10ft on Uneven Surface: 3 1 Step (curb) (QC): 3 4 Steps (QC): 9 12 Steps (QC): 9 Picking up an Object (QC): 3 Does the Pt use WC or Scooter?: Yes Wheel 50 feet with 2 turns (QC: 4 Type: Manual Wheel 150 feet: 4 PT Plan Problem List Problem List: Activity Tolerance, Functional Strength, Safety, Gait, Transfer Treatment/Plan Treatment Plan: Continue Plan of Care Treatment Plan: Bed Mobility, Education, Functional Activity [place], Functional Strength, Group Therapy, Gait, Safety, Therapeutic Exercise, Transfers Treatment Duration: May 09, 2023 Frequency: At least 5 of 7 days/Wk (IRF) Estimated Hrs Per Day: 1.5 hours per day Patient and/or Family Agrees t: Yes Safety Risks/Education Patient Education: Gait Training, Transfer Techniques, Correct Positioning, Safety Issues Teaching Recipient: Patient Teaching Methods: Discussion Response to Teaching: Verbalize Understanding Time Time In: 1050 Time Out: 1205 DATE: Apr 20, 2023 Total Billed Treatment Time: 75 Total Billed Treatment 1, [facility] (30m), EX x2 (30m) & FA (15m) RENATE PRICE PAPERBACK MACHINE OPERATOR Apr 20, 2023 16:21
[2023-04-20 19:40] VITALS: BP 106/56
[2023-04-20] MEDS: DONEPEZIL 10 MG TABLET PO SCH (21:35)
[2023-04-20] MEDS: MIRTAZAPINE 15 MG TABLET PO SCH (21:35)
[2023-04-20] MEDS: OLANZapine 5 MG ODT TABLET PO SCH (21:35)
--- NOTE | 2023-04-21 05:04 | PM&R Progress Note ---
Subjective HPI/CC On Admission Date Seen by Provider: Apr 21, 2023 Time Seen by Provider: 12:00 Subjective/Events-last exam 04/21/2023: Patient doing a lot better Less confusion Participation is good Incontinence 04/20/2023: Doing better Pain is controlled Confusion improved Requires a lot of cues No falls 04/19/2023: Patient doing better Confusion times Pain is controlled Labs reviewed Giving iron and B12 supplement empirically Review of Systems General: Fatigue, Malaise Musculoskeletal: leg pain Neurological: Confusion Objective Exam Vital Signs Vital Signs Date Time Temp Pulse Resp B/P (MAP) Pulse Ox O2 Delivery O2 Flow Rate FiO2 04/21/23 20:24 36.5 77 20 112/69 (83) 98 Room Air 04/21/23 09:35 21 04/21/23 08:59 0.00 Capillary Refill : General Appearance: No Apparent Distress, WD/WN, Chronically ill, Other (fatigued) HEENT: PERRL/EOMI, Normal ENT Inspection, Pharynx Normal Neck: Full Range of Motion, Normal Inspection, Non Tender, Supple, Carotid Br uit Respiratory: Chest Non Tender, Lungs Clear, Normal Breath Sounds, No Accessory Muscle Use, No Respiratory Distress Cardiovascular: Regular Rate, Rhythm, No Edema, No Gallop, No JVD, No Murmur, Normal Peripheral Pulses Gastrointestinal: Normal Bowel Sounds, No Organomegaly, No Pulsatile Mass, Non Tender, Soft Back: Normal Inspection, No CVA Tenderness, No Vertebral Tenderness Extremity: Normal Capillary Refill, Normal Inspection, Normal Range of Motion (except right leg), Non Tender, No Calf Tenderness, No Pedal Edema Neurologic/Psychiatric: Alert, Oriented x3, No Motor/Sensory Deficits, rn medical surgical II- XII Norm as Tested, Depressed Affect, Disoriented (subtle) Skin: Normal Color, Warm/Dry Lymphatic: No Adenopathy Results/Procedures Lab Patient resulted labs reviewed. FIM Transfers Therapy Code Descriptions/Definitions Functional [place] Measure: 0=Not Assessed/NA 4=Minimal Assistance 1=Total Assistance 5=Supervision or Setup 2=Maximal Assistance 6=Modified [place] 3=Moderate Assistance 7=Complete IndependenceSCALE: Activities may be completed with or without assistive devices. 4-Uktwgfhfvt-ggfrfun completes the activity by him/herself with no assistance from a helper. 5-Set-up or Clean-up Assistance-helper sets up or cleans up; patient completes activity. [place] assists only prior to or following the activity. 4-Supervision or Touching Assistance-helper provides verbal cues and/or touching/steadying and/or contact guard assistance as patient completes activity. Assistance may be provided throughout the activity or intermittently. 3-Partial/Moderate Assistance-helper does LESS THAN HALF the effort. [place] lifts, holds or supports trunk or limbs, but provides less than half the effort. 2-Substantial/Maximal Assistance-helper does MORE THAN HALF the effort. [place] lifts or holds trunk or limbs and provides more than half the effort. 9-Peeruwlmo-jfuwwh does ALL the effort. Patient does none of the effort to complete the activity. Or, the assistance of 2 or more helpers is required for the patient to complete the activity. If activity was not attempted, code reason: 7-Patient Refused. 9-Not Applicable-not attempted and the patient did not perform the activity before the current illness, exacerbation or injury. 10-Not Attempted due to Environmental Limitations-(lack of equipment, weather restraints, etc.). 88-Not Attempted due to Medical Conditions or Safety Concerns. Roll Left to Right (QC): 1 Sit to Lying (QC): 1 Sit to Stand (QC): 2 Chair/Kxr-pp-Qijzs Xfer(QC): 1 (2 person (A) stand pivot. Unable to move feet in standing /c FWW to complete transfer) Car Transfer (QC): 88 Gait Training Does the Patient Walk?: No and Walking Goal IS indicated Walk 10 feet (QC): 88 (took 1 step to (L) /c FWW. Unable to move legs further. Unable to safely perform /c FWW and assist of 2.) Walk 50 ft with 2 Turns(QC): 88 Walk 150 ft (QC): 88 Walking 10ft/uneven surface-QC: 88 Gait Assistive Device: FWW Wheelchair Training Does the Pt Use a Wheelchair?: Yes Distance: 2 feet Wheel 50 ft with 2 turns (QC): 88 (unable to reach distance due to fatigue) Wheel 150 ft (QC): 88 Type of Wheelchair: Manual Stair Training 1 Step (curb) (QC): 88 4 Steps (QC): 88 12 Steps (QC): 88 Balance Picking up an Object (QC): 88 ADL-Treatment Eating (QC): 5 (to complete drinking water) Oral Hygiene (QC): 4 Shower/Bathe Self (QC): 2 (to complete bed bath in sitting ) Upper Body Dressing (QC): 3 (to don/doff night gown ) Lower Body Dressing (QC): 1 (to don/doff brief) On/Off Footwear (QC): 1 (to don/doff socks) Toileting Hygiene (QC): 1 Assessment/Plan Assessment and Plan Assess & Plan/Chief Complaint Assessment: s/p right hip fracture s/p uncomplicated repair DM HTN CAD Dementia Post op anemia from acute blood loss Delirium Plan: Home meds Monitor BP and BS Aggressive PT OT 04/19/2023: Iron infusion B12 supplement 04/20/2023: Iron and B12 empirically Monitor closely SNF at risk 04/21/2023: Supportive care Aggressive therapy (1) Closed right hip fracture Status: Acute (2) History of cerebrovascular disease Status: Acute (3) History of ST elevation myocardial infarction (STEMI) Status: Acute (4) HTN (hypertension) Status: Acute (5) Dementia Status: Acute (6) Compression fracture of L1 vertebra Status: Acute ASHLY VILLEGAS DO Apr 21, 2023 05:04
[2023-04-21] MEDS: inSUlin ASPART 1 UNIT/0.01 ML (PER UNIT) SC SCH ×4 (05:49→20:39)
[2023-04-21] MEDS: CYANOCOBALAMIN 1,000 MCG TABLET PO SCH (06:35)
[2023-04-21] MEDS: ACETAMINOPHEN 500 MG TABLET PO PRN ×3 (06:35→20:45)
[2023-04-21] MEDS: POTASSIUM CHLORIDE 10 MEQ TABLET PO SCH (06:35)
[2023-04-21] MEDS: glipiZIDE 5 MG TABLET PO SCH (06:35)
[2023-04-21 07:41] VITALS: BP 118/58
[2023-04-21] MEDS: CLOPIDOGREL 75 MG TABLET PO SCH (08:21)
[2023-04-21] MEDS: EMPAGLIFLOZIN 10 MG TABLET PO SCH (08:21)
[2023-04-21] MEDS: ENOXAPARIN 40 MG/0.4 ML SYRINGE SC SCH (08:22)
--- NOTE | 2023-04-21 09:32 | Speech Therapy Daily Note ---
Speech Daily Progress Note Subjective Date Seen by Provider: Apr 21, 2023 Time Seen by Provider: 08:50 Pt was sitting in bedside chair upon INSPECTOR REPAIRER arrival. Nrsing staff was present in room for the first few minutes. Objective Pt completes spaced retrieval tasks of "What do you do...?" (board, call light, orientation paper, and hip precautions). After asking, pt recalled 3/4 immediately. Pt unable to recall call light immediately, but after review pt able to recall. Pt participated in an attention task and completes with 100% accuracy and required min verbal cues. Pt demonstrates good attention to details during this task. Assessment Assessment Current Status: Good Progress Treatment Plan Continue Plan of Care Speech Intermediate Goals Tax Director Goals Pt will utilize environmental cues for orientation to place and time with 80% accuracy. Pt will demonstrate appropriate use of call light with 90% accuracy. Pt will use environmental cues for safety precautions for hip with 80% accuracy. Speech-Plan Treatment Plan Speech Therapy Treatment Plan: Continue Plan of Care Treatment Duration: Apr 19, 2023 Frequency: At least 5 of 7 days/Wk (IRF) Estimated Hrs Per Day: .5 hour per day (Cog/ling tx) Rehab Potential: Good Time Speech Therapy Time In: 08:50 Speech Therapy Time Out: 09:20 DATE: Apr 21, 2023 Total Billed Time: 30 Billed Treatment Time 1 SLTS 30 min Lin Osborne Apr 21, 2023 09:32
[2023-04-21 09:35] VITALS: BP 118/58
[2023-04-21] MEDS: DOCUSATE SODIUM 100 MG CAPSULE PO SCH ×2 (10:37→19:59)
[2023-04-21] MEDS: SENNA W/DOCUSATE TABLET PO SCH ×2 (10:38→20:00)
--- NOTE | 2023-04-21 10:41 | Occupational Ther Daily Note ---
OT Current Status-Daily Note Subjective Pt agreeable to OT Tx. Requests to use toilet. ADL-Treatment Therapy Code Descriptions/Definitions Functional [place] Measure: 0=Not Assessed/NA 4=Minimal Assistance 1=Total Assistance 5=Supervision or Setup 2=Maximal Assistance 6=Modified [place] 3=Moderate Assistance 7=Complete IndependenceSCALE: Activities may be completed with or without assistive devices. 3-Ptfvcdgdzh-blowywj completes the activity by him/herself with no assistance from a helper. 5-Set-up or Clean-up Assistance-helper sets up or cleans up; patient completes activity. [place] assists only prior to or following the activity. 4-Supervision or Touching Assistance-helper provides verbal cues and/or touching/steadying and/or contact guard assistance as patient completes activity. Assistance may be provided throughout the activity or intermittently. 3-Partial/Moderate Assistance-helper does LESS THAN HALF the effort. [place] lifts, holds or supports trunk or limbs, but provides less than half the effort. 2-Substantial/Maximal Assistance-helper does MORE THAN HALF the effort. [place] lifts or holds trunk or limbs and provides more than half the effort. 2-Sssjdcrkg-jlditt does ALL the effort. Patient does none of the effort to complete the activity. Or, the assistance of 2 or more helpers is required for the patient to complete the activity. If activity was not attempted, code reason: 7-Patient Refused. 9-Not Applicable-not attempted and the patient did not perform the activity before the current illness, exacerbation or injury. 10-Not Attempted due to Environmental Limitations-(lack of equipment, weather restraints, etc.). 88-Not Attempted due to Medical Conditions or Safety Concerns. Lower Body Dressing (QC): 1 Toileting Hygiene (QC): 1 Toilet Transfer (QC): 1 Other Treatment Pt in recliner, pt stood from recliner with max A. Pt did not feel safe transferring to [facility] with this therapist. balance staff inspector assisted, pt stood from w/c with max A, then assist x2 to transfer from recliner to [facility]. Pt compelted toileting, x2 in standing for clothing management and hygiene, assist all parts. OT/PT cotreat due to skill of 2 clinicians required which a rn rehab could not perform in order to coordinate UE/LEs, decrease fall risk, and due to pt's limitations in strength, activity tolerance, mobility, and transfers. OT focused on UE placement, cues for sequencing and safety and ADLS, PT focused on LE placement, gross overall movement, transfers and mobility. Pt performed w/c mobility towards therapy gym, mod-max A required, frequent rest breaks, and mod- max VCs for technique. Pt taken to parallel bars and stood with max A in order for w/c to be changed out to a more narrow w/c. Pt took rest break, then performed w/c mobility with narrower w/c, min-mod A required to avoid obstacles and navigate through doorways, mod VCs required for technique. Post tx, pt in w/c, PT present, all needs met. Education OT Patient Education: Correct positioning, Energy conservation, Modified ADL techniques, Progress toward Goal/Update tx plan, Purpose of tx/functional activities, Rehab process Teaching Recipient: Patient Teaching Methods: Discussion Response to Teaching: Verbalize Understanding OT Short Term Goals Short Term Goals Time Frame: Apr 29, 2023 Eatin Oral hygiene: 5 Toileting hygiene: 3 Shower/bathe self: 3 Upper body dressin Lower body dressin Putting on/taking off footwear: 3 OT Frozen Pie Maker Goals Frozen Pie Maker Goals Time Frame: May 06, 2023 Acute change in mental status: 0 Inattention: 0 Disorganized thinkin Altered level of consciousness: 0 Eating (QC): 6 Oral Hygiene (QC): 5 Toileting Hygiene (QC): 4 Shower/Bathe Self (QC): 4 Upper Body Dressing (QC): 4 Lower Body Dressing (QC): 4 On/Off Footwear (QC): 4 1=Demonstrate adherence to instructed precautions during ADL tasks. 2=Patient will verbalize/demonstrate understanding of assistive devices/modifications for ADL. 3=Patient will improve strength/tolerance for activity to enable patient to perform ADL's. OT Education/Plan Problem List/Assessment Assessment: Decreased Activ Tolerance, Decreased Safety Aware, Decreased UE Strength, Dependent Transfers, Impaired Funct Balance, Impaired I ADL's, Impaired Self-Care Skills, Restricted Funct UE ROM decreased functional strength, decrease ADL independence Discharge Recommendations Plan/Recommendations: Continue POC Treatment Plan/Plan of Care Patient would benefit from OT for education, treatment and training to promote independence in ADL's, mobility, safety and/or upper extremity function for ADL's. Plan of Care: ADL Retraining, Cognitive Retraining, Concurrent Therapy, Functional Mobility Treatment Duration: Apr 19, 2023 Frequency: 5 times per week Estimated Hrs Per Day: 1.5 hours per day Agreement: Yes Rehab Potential: Good Time Start Time: 10:00 Stop Time: 11:15 DATE: Apr 21, 2023 Total Time Billed (hr/min): 75 Billed Treatment Time cotreat x45' 1, ADL 2 (30'), FA 3 (45') RENEE BINGHAM OT Apr 21, 2023 10:40
[2023-04-21] MEDS: IRON SUCROSE 200 MG/10 ML VIAL IV SCH (13:32)
--- NOTE | 2023-04-21 15:27 | Physical Therapy Daily Note ---
PT Daily Note-Current Pain Section J - Health Conditions 1. Rarely or not at all 2. Occasionally 3. Frequently 4. Almost constantly 8. Unable to answer Pain Effect on Sleep: 3 Pain Interference with Therapy: 3 Pain Interference w/Day-to-Day: 3 Transfers SCALE: Activities may be completed with or without assistive devices. 0-Dzwcuednmr-zmjdiwl completes the activity by him/herself with no assistance from a helper. 5-Set-up or Clean-up Assistance-helper sets up or cleans up; patient completes activity. [place] assists only prior to or following the activity. 4-Supervision or Touching Assistance-helper provides verbal cues and/or touching/steadying and/or contact guard assistance as patient completes activity. Assistance may be provided throughout the activity or intermittently. 3-Partial/Moderate Assistance-helper does LESS THAN HALF the effort. [place] lifts, holds or supports trunk or limbs, but provides less than half the effort. 2-Substantial/Maximal Assistance-helper does MORE THAN HALF the effort. [place] lifts or holds trunk or limbs and provides more than half the effort. 6-Nunqalwht-iatewe does ALL the effort. Patient does none of the effort to complete the activity. Or, the assistance of 2 or more helpers is required for the patient to complete the activity. If activity was not attempted, code reason: 7-Patient Refused. 9-Not Applicable-not attempted and the patient did not perform the activity before the current illness, exacerbation or injury. 10-Not Attempted due to Environmental Limitations-(lack of equipment, weather restraints, etc.). 88-Not Attempted due to Medical Conditions or Safety Concerns. Weight Bearing Right Lower Extremity: Right Weight Bearing/Tolerated Left Lower Extremity: Left Weight Bearing/Tolerated Treatments OT/PT cotreat due to skill of 2 clinicians required which a vocational rehabilitation counselor could not perform in order to coordinate UE/LEs, decrease fall risk, and due to pt's limitations in strength, activity tolerance, mobility, and transfers. OT focused on UE placement, cues for sequencing and safety and ADLS, PT focused on LE placement, gross overall movement, transfers and mobility. Pt performed w/c mobility towards therapy gym, mod-max A required, frequent rest breaks, and mod- max VCs for technique. Pt taken to parallel bars and stood with max A in order for w/c to be changed out to a more narrow w/c. Pt took rest break, then performed w/c mobility with narrower w/c, min-mod A required to avoid obstacles and navigate through doorways, mod VCs required for technique. OT departs. Pt TF at Mod-Max (depending on fatigue) to recliner using FWW at Max VC for sequencing. Pt completes EX sitting. Pt repositioned to comfort & resting for lunch. All needs met, call light in hand. Assessment Current Status: Fair Progress Pt fatigues easily and needs frequent RB as well as Max VC for sequencing. PT Prison Goals [employer] Sales Representative Goals PT Prison Goals Time Frame: May 09, 2023 Roll Left & Right (QC): 4 Sit to Lying (QC): 4 Lying-Sitting on Side/Bed(QC): 4 Sit to Stand (QC): 3 Chair/Vkn-az-Jcpqp Xfer(QC): 3 Toilet Transfer (QC): 3 Car Transfer (QC): 3 Does the Patient Walk: Yes Walk 10 feet (QC): 3 Walk 50ft with 2 Turns (QC): 3 Walk 150 ft (QC): 9 Walking 10ft on Uneven Surface: 3 1 Step (curb) (QC): 3 4 Steps (QC): 9 12 Steps (QC): 9 Picking up an Object (QC): 3 Does the Pt use WC or Scooter?: Yes Wheel 50 feet with 2 turns (QC: 4 Type: Manual Wheel 150 feet: 4 PT Plan Problem List Problem List: Activity Tolerance, Functional Strength, Gait, Transfer Treatment/Plan Treatment Plan: Continue Plan of Care Treatment Plan: Bed Mobility, Education, Functional Activity [place], Functional Strength, Group Therapy, Gait, Safety, Therapeutic Exercise, Transfers Treatment Duration: May 09, 2023 Frequency: At least 5 of 7 days/Wk (IRF) Estimated Hrs Per Day: 1.5 hours per day Patient and/or Family Agrees t: Yes Safety Risks/Education Patient Education: Gait Training, Transfer Techniques, Correct Positioning, Safety Issues Teaching Recipient: Patient Teaching Methods: Discussion Response to Teaching: Reinforcement Needed Time Time In: 1030 Time Out: 1145 DATE: Apr 21, 2023 Total Billed Treatment Time: 75 Total Billed Treatment Co-treat w/OT for 45m (2412-0389) 1, [facility] x2 (30m), EX (15m) & FA x2 (30m) RENATE PRICE PUBLICITY AGENT Apr 21, 2023 15:27
[2023-04-21 20:24] VITALS: BP 112/69
[2023-04-21] MEDS: MIRTAZAPINE 15 MG TABLET PO SCH (20:45)
[2023-04-21] MEDS: OLANZapine 5 MG ODT TABLET PO SCH (20:45)
[2023-04-21] MEDS: DONEPEZIL 10 MG TABLET PO SCH (20:45)
[2023-04-21] MEDS: HYDROcodone/ACETAMINOPHEN 7.5 MG/325 MG TABLET PO PRN (22:27)
[2023-04-22] MEDS: inSUlin ASPART 1 UNIT/0.01 ML (PER UNIT) SC SCH ×4 (06:10→20:54)
[2023-04-22] MEDS: CYANOCOBALAMIN 1,000 MCG TABLET PO SCH (06:28)
[2023-04-22] MEDS: glipiZIDE 5 MG TABLET PO SCH (06:28)
[2023-04-22] MEDS: POTASSIUM CHLORIDE 10 MEQ TABLET PO SCH (06:28)
[2023-04-22 07:36] VITALS: BP 113/54
[2023-04-22] MEDS: EMPAGLIFLOZIN 10 MG TABLET PO SCH (08:24)
[2023-04-22] MEDS: CLOPIDOGREL 75 MG TABLET PO SCH (08:24)
[2023-04-22] MEDS: ENOXAPARIN 40 MG/0.4 ML SYRINGE SC SCH (08:25)
[2023-04-22] MEDS: DOCUSATE SODIUM 100 MG CAPSULE PO SCH ×2 (08:25→19:44)
[2023-04-22] MEDS: SENNA W/DOCUSATE TABLET PO SCH ×2 (08:26→19:45)
--- NOTE | 2023-04-22 10:24 | Progress Note ---
PRASAD CASTAÑEDA 04/22/23 1024: Progress Note Ms. Fernandez is an 82 y/o female who reports doing well today. She has no complaints. On admission 04/18/23, Ms. Fernandez was completely dependent for all transfers, requiring 2 person assist for sit to stand transfer and bed to chair transfer. She was only able to take one step with her left foot and 2 person assist with FWW. She does use a wheelchair at home as well but was only able to ambulate with wheelchair for 2 ft due to fatigue. She had poor sitting dynamic balance and poor standing balance. Ms. Fernandez was able to eat and perform oral hygiene with verbal cues. She required max assist for sitting bed bathing, moderate assistance for don/doffing her night gown, and is dependent for lower body dressing, footwear, and toileting hygiene. Today, sit to stand transfers require max assitance. Ms. Fernandez tried to move wheelchair in hallway but required assistance. Toilet transfer required two person assist. Patient has increased endurance and was able to perform wheelchair mobility with min-mod assist to avoid obstacles/navigate through doorways. She is still dependent for lower body dressing, toilet hygiene, and toilet transfers. She is making fair progress overall. AMBREEN VILLEGAS DO 04/23/23 0651: Supervisory-Addendum Brief Verification & Attestation Participated in pt care: history, MDM, physical Personally performed: exam, history, MDM, supervision of care Care discussed with: Medical Student Procedures: n/a Results interpretation: Verified all documentation Verification and Attestation of Medical Student E/M Service A medical student performed and documented this service in my presence. I reviewed and verified all information documented by the medical student and made modifications to such information, when appropriate. I personally performed the physical exam and medical decision making. Ambreen Villegas Apr 23, 2023,06:51 PRASAD CASTAÑEDA Apr 22, 2023 10:24 AMBREEN VILLEGAS DO Apr 23, 2023 06:51
--- NOTE | 2023-04-22 10:29 | Speech Therapy Daily Note ---
Speech Daily Progress Note Subjective Date Seen by Provider: Apr 22, 2023 Time Seen by Provider: 09:00 Pt was sitting in bedside chair and reports that she is tired this AM. Pt was able to stay awake and participate in tx. Objective Pt demonstrates good recall when spaced retrieval is implemented and when pt is asked the same question to answer regarding orientation, where she lives, and what her precautions are. Pt requires mod cues for recall of location of call light. Pt participates in locating and recall of 2 units of information in a task, completes with 100% accuracy. Pt demonstrates 100% accuracy during simple matching task, sustained attention and focus are good. Speech Assistant Food Service Director Goals Assistant Food Service Director Goals Pt will utilize environmental cues for orientation to place and time with 80% accuracy. Pt will demonstrate appropriate use of call light with 90% accuracy. Pt will use environmental cues for safety precautions for hip with 80% accuracy. Speech-Plan Treatment Plan Speech Therapy Treatment Plan: Continue Plan of Care Treatment Duration: Apr 19, 2023 Frequency: At least 5 of 7 days/Wk (IRF) Estimated Hrs Per Day: .5 hour per day (Cog/ling tx) Rehab Potential: Good Time Speech Therapy Time In: 09:00 Speech Therapy Time Out: 09:30 DATE: Apr 22, 2023 Total Billed Time: 30 Billed Treatment Time 1 SLVEENA 30 min Lin Osborne Apr 22, 2023 10:29
[2023-04-22] MEDS: HYDROcodone/ACETAMINOPHEN 7.5 MG/325 MG TABLET PO PRN ×2 (10:47→20:56)
--- NOTE | 2023-04-22 12:46 | PM&R Progress Note ---
Subjective HPI/CC On Admission Date Seen by Provider: Apr 22, 2023 Time Seen by Provider: 12:00 Subjective/Events-last exam 04/22/2023: No new issues Participation is good Skilled care still a strong possibility Lives in [place] Saturation of the dressing due to bleeding so will hold Lovenox 04/21/2023: Patient doing a lot better Less confusion Participation is good Incontinence 04/20/2023: Doing better Pain is controlled Confusion improved Requires a lot of cues No falls 04/19/2023: Patient doing better Confusion times Pain is controlled Labs reviewed Giving iron and B12 supplement empirically Review of Systems General: Fatigue, Malaise Musculoskeletal: leg pain Neurological: Weakness, Confusion Objective Exam Vital Signs Vital Signs Date Time Temp Pulse Resp B/P (MAP) Pulse Ox O2 Delivery O2 Flow Rate FiO2 04/22/23 20:40 Room Air 04/22/23 19:26 35.9 80 18 133/61 (85) 95 04/21/23 09:35 21 04/21/23 08:59 0.00 Capillary Refill : General Appearance: No Apparent Distress, WD/WN, Chronically ill, Other (fatigued) HEENT: PERRL/EOMI, Normal ENT Inspection, Pharynx Normal Neck: Full Range of Motion, Normal Inspection, Non Tender, Supple, Carotid Bruit Respiratory: Chest Non Tender, Lungs Clear, Normal Breath Sounds, No Accessory Muscle Use, No Respiratory Distress Cardiovascular: Regular Rate, Rhythm, No Edema, No Gallop, No JVD, No Murmur, Normal Peripheral Pulses Gastrointestinal: Normal Bowel Sounds, No Organomegaly, No Pulsatile Mass, Non Tender, Soft Back: Normal Inspection, No CVA Tenderness, No Vertebral Tenderness Extremity: Normal Capillary Refill, Normal Inspection, Normal Range of Motion (except right leg), Non Tender, No Calf Tenderness, No Pedal Edema Neurologic/Psychiatric: Alert, Oriented x3, No Motor/Sensory Deficits, naturopath II- XII Norm as Tested, Depressed Affect, Disoriented (subtle) Skin: Normal Color, Warm/Dry Lymphatic: No Adenopathy Results/Procedures Lab Patient resulted labs reviewed. FIM Transfers Therapy Code Descriptions/Definitions Functional [place] Measure: 0=Not Assessed/NA 4=Minimal Assistance 1=Total Assistance 5=Supervision or Setup 2=Maximal Assistance 6=Modified [place] 3=Moderate Assistance 7=Complete IndependenceSCALE: Activities may be completed with or without assistive devices. 7-Sefeaaidzt-ydwulvw completes the activity by him/herself with no assistance from a helper. 5-Set-up or Clean-up Assistance-helper sets up or cleans up; patient completes activity. [place] assists only prior to or following the activity. 4-Supervision or Touching Assistance-helper provides verbal cues and/or touching/steadying and/or contact guard assistance as patient completes activity. Assistance may be provided throughout the activity or intermittently. 3-Partial/Moderate Assistance-helper does LESS THAN HALF the effort. [place] lifts, holds or supports trunk or limbs, but provides less than half the effort. 2-Substantial/Maximal Assistance-helper does MORE THAN HALF the effort. [place] lifts or holds trunk or limbs and provides more than half the effort. 7-Icgluhtpx-abylzj does ALL the effort. Patient does none of the effort to complete the activity. Or, the assistance of 2 or more helpers is required for the patient to complete the activity. If activity was not attempted, code reason: 7-Patient Refused. 9-Not Applicable-not attempted and the patient did not perform the activity before the current illness, exacerbation or injury. 10-Not Attempted due to Environmental Limitations-(lack of equipment, weather restraints, etc.). 88-Not Attempted due to Medical Conditions or Safety Concerns. Roll Left to Right (QC): 1 Sit to Lying (QC): 1 Sit to Stand (QC): 2 Chair/Qbk-me-Ypuwu Xfer(QC): 1 (2 person (A) stand pivot. Unable to move feet in standing /c FWW to complete transfer) Car Transfer (QC): 88 Gait Training Does the Patient Walk?: No and Walking Goal IS indicated Walk 10 feet (QC): 88 (took 1 step to (L) /c FWW. Unable to move legs further. Unable to safely perform /c FWW and assist of 2.) Walk 50 ft with 2 Turns(QC): 88 Walk 150 ft (QC): 88 Walking 10ft/uneven surface-QC: 88 Gait Assistive Device: FWW Wheelchair Training Does the Pt Use a Wheelchair?: Yes Distance: 2 feet Wheel 50 ft with 2 turns (QC): 88 (unable to reach distance due to fatigue) Wheel 150 ft (QC): 88 Type of Wheelchair: Manual Stair Training 1 Step (curb) (QC): 88 4 Steps (QC): 88 12 Steps (QC): 88 Balance Picking up an Object (QC): 88 ADL-Treatment Eating (QC): 5 (to complete drinking water) Oral Hygiene (QC): 4 Shower/Bathe Self (QC): 2 (to complete bed bath in sitting ) Upper Body Dressing (QC): 3 (to don/doff night gown ) Lower Body Dressing (QC): 1 On/Off Footwear (QC): 1 (to don/doff socks) Toileting Hygiene (QC): 1 Toilet Transfer (QC): 1 Assessment/Plan Assessment and Plan Assess & Plan/Chief Complaint Assessment: s/p right hip fracture s/p uncomplicated repair DM HTN CAD Dementia Post op anemia from acute blood loss Delirium Incision bleeding holding Lovenox due to risks outweigh benefits Plan: Home meds Monitor BP and BS Aggressive PT OT 04/19/2023: Iron infusion B12 supplement 04/20/2023: Iron and B12 empirically Monitor closely SNF at risk 04/21/2023: Supportive care Aggressive therapy 04/22/2023: Pain control Hold Lovenox for saturation of the incision (1) Closed right hip fracture Status: Acute (2) History of cerebrovascular disease Status: Acute (3) History of ST elevation myocardial infarction (STEMI) Status: Acute (4) HTN (hypertension) Status: Acute (5) Dementia Status: Acute (6) Compression fracture of L1 vertebra Status: Acute ASHLY VILLEGAS DO Apr 22, 2023 12:46
--- NOTE | 2023-04-22 13:17 | Occupational Ther Daily Note ---
OT Current Status-Daily Note Subjective Pt received sitting in recliner. Pt pleasant and agreeable to therapy. Pain Numeric Pain Scale: 3 Location: Right Location Body Site: Hip Pain Description: Ache Mental Status/Objective Patient Orientation: Person, Place, Situation Attachments: IV ADL-Treatment Therapy Code Descriptions/Definitions Functional [place] Measure: 0=Not Assessed/NA 4=Minimal Assistance 1=Total Assistance 5=Supervision or Setup 2=Maximal Assistance 6=Modified [place] 3=Moderate Assistance 7=Complete IndependenceSCALE: Activities may be completed with or without assistive devices. 6-Tuurkdyqrb-ocwnuvq completes the activity by him/herself with no assistance from a helper. 5-Set-up or Clean-up Assistance-helper sets up or cleans up; patient completes activity. [place] assists only prior to or following the activity. 4-Supervision or Touching Assistance-helper provides verbal cues and/or touching/steadying and/or contact guard assistance as patient completes activity. Assistance may be provided throughout the activity or intermittently. 3-Partial/Moderate Assistance-helper does LESS THAN HALF the effort. [place] lifts, holds or supports trunk or limbs, but provides less than half the effort. 2-Substantial/Maximal Assistance-helper does MORE THAN HALF the effort. [place] lifts or holds trunk or limbs and provides more than half the effort. 5-Hlpthqvjw-dymess does ALL the effort. Patient does none of the effort to complete the activity. Or, the assistance of 2 or more helpers is required for the patient to complete the activity. If activity was not attempted, code reason: 7-Patient Refused. 9-Not Applicable-not attempted and the patient did not perform the activity before the current illness, exacerbation or injury. 10-Not Attempted due to Environmental Limitations-(lack of equipment, weather restraints, etc.). 88-Not Attempted due to Medical Conditions or Safety Concerns. Lower Body Dressing (QC): 1 (to don/doff brief in supine) Other Treatment PT/OT cotreatment utilized due to the need for two skilled clinicians to increased safety due to the complexity of this pt with higher level functional balance and mobility activities. OT main focus on safety awareness, activity tolerance and functional balance. Pt report to PT note for PT focus and more details of PT involvement in session. Pt received sitting in chair and was very pleasant, reporting minimal pain in hip area. Pt completed functional sit to stand with Mod A x2 and use of FWW with mod cueing for safety. Upon standing, therapists noted blood dripping out of incision dressing and the peter beneath pt was soiled with blood. RN was notified of findings and requested pt transfer to supine in bed for a incision check. Pt completed functional squat pivot transfer from chair to bed with mod A x2 and min cues for safety. Pt reclined into supine with max A, requiring assistance to lift both legs and guide trunk down while maintaining hip precautions. Pt completed 2 log rolls supine in bed with spacer between her knees to maintain precautions with mod Ax2, requiring min cues for hand placement. Pt requiring total assistance to don new brief in supine. Medical hold has been placed on pt due to continued incision bleeding until cleared by surgeon and RN. OT will reattempt therapy as medically appropriate and as time allows. Education OT Patient Education: Correct positioning, Energy conservation, Progress toward Goal/Update tx plan, Purpose of tx/functional activities, Reviewed precautions, Rehab process, Safety issues, Transfer techniques Teaching Recipient: Patient Teaching Methods: Demonstration, Discussion Response to Teaching: Verbalize Understanding, Return Demonstration, Reinforcement Needed OT Short Term Goals Short Term Goals Time Frame: Apr 29, 2023 Eatin Oral hygiene: 5 Toileting hygiene: 3 Shower/bathe self: 3 Upper body dressin Lower body dressin Putting on/taking off footwear: 3 OT Capacity Planner Goals Capacity Planner Goals Time Frame: May 06, 2023 Acute change in mental status: 0 Inattention: 0 Disorganized thinkin Altered level of consciousness: 0 Eating (QC): 6 Oral Hygiene (QC): 5 Toileting Hygiene (QC): 4 Shower/Bathe Self (QC): 4 Upper Body Dressing (QC): 4 Lower Body Dressing (QC): 4 On/Off Footwear (QC): 4 1=Demonstrate adherence to instructed precautions during ADL tasks. 2=Patient will verbalize/demonstrate understanding of assistive devices/modifications for ADL. 3=Patient will improve strength/tolerance for activity to enable patient to perform ADL's. OT Education/Plan Problem List/Assessment Assessment: Decreased Activ Tolerance, Decreased Safety Aware, Decreased UE Strength, Impaired Bed Mobility, Impaired Cognition, Impaired Coordination, Impaired Funct Balance, Impaired I ADL's, Impaired Self-Care Skills decreased functional strength, decrease ADL independence Discharge Recommendations Plan/Recommendations: Continue POC Treatment Plan/Plan of Care Treatment,Training & Education: Yes Patient would benefit from OT for education, treatment and training to promote independence in ADL's, mobility, safety and/or upper extremity function for ADL's. Plan of Care: ADL Retraining, Cognitive Retraining, Concurrent Therapy, Functional Mobility Treatment Duration: Apr 19, 2023 Frequency: 5 times per week Estimated Hrs Per Day: 1.5 hours per day Agreement: Yes Rehab Potential: Good Time Start Time: 10:30 (Cotx with PT) Stop Time: 10:50 DATE: Apr 22, 2023 Total Time Billed (hr/min): 20 Billed Treatment Time 1, FA 1 Jennifer Ferraro OTR/L Apr 22, 2023 13:17
--- NOTE | 2023-04-22 15:04 | Occupational Ther Daily Note ---
OT Current Status-Daily Note Subjective Pt in bed, agreeable to OT tx with some encouragement. Pt states she is very tired ADL-Treatment Therapy Code Descriptions/Definitions Functional [place] Measure: 0=Not Assessed/NA 4=Minimal Assistance 1=Total Assistance 5=Supervision or Setup 2=Maximal Assistance 6=Modified [place] 3=Moderate Assistance 7=Complete IndependenceSCALE: Activities may be completed with or without assistive devices. 9-Ujdyexndql-hropaff completes the activity by him/herself with no assistance from a helper. 5-Set-up or Clean-up Assistance-helper sets up or cleans up; patient completes activity. [place] assists only prior to or following the activity. 4-Supervision or Touching Assistance-helper provides verbal cues and/or touching/steadying and/or contact guard assistance as patient completes activity. Assistance may be provided throughout the activity or intermittently. 3-Partial/Moderate Assistance-helper does LESS THAN HALF the effort. [place] lifts, holds or supports trunk or limbs, but provides less than half the effort. 2-Substantial/Maximal Assistance-helper does MORE THAN HALF the effort. [place] lifts or holds trunk or limbs and provides more than half the effort. 3-Fiyrtofcw-kmxfxy does ALL the effort. Patient does none of the effort to complete the activity. Or, the assistance of 2 or more helpers is required for the patient to complete the activity. If activity was not attempted, code reason: 7-Patient Refused. 9-Not Applicable-not attempted and the patient did not perform the activity before the current illness, exacerbation or injury. 10-Not Attempted due to Environmental Limitations-(lack of equipment, weather restraints, etc.). 88-Not Attempted due to Medical Conditions or Safety Concerns. Shower/Bathe Self (QC): 1 Lower Body Dressing (QC): 1 Toileting Hygiene (QC): 1 Other Treatment Pt in bed, assist x2 to roll side to side to change soiled linens, complete LBD (pt incontinent bowel and bladder). Pt completed sponge bath at bed level (assist x2 to roll for posterior hygiene), pt able to wash upper body, but declines completing full upper body bath at this time. Pt states difficulty with picking up cup off of tray table on R side due to RUE weakness. Pt able to take a drink after cup handed to her. OT positioned tray table on pt's L side, pt able to take a drink using LUE independently. Post tx, pt in bed, call light in reach and all needs met OT Short Term Goals Short Term Goals Time Frame: Apr 29, 2023 Eatin Oral hygiene: 5 Toileting hygiene: 3 Shower/bathe self: 3 Upper body dressin Lower body dressin Putting on/taking off footwear: 3 OT Senior Living Goals Physiological Chemist Goals Time Frame: May 06, 2023 Acute change in mental status: 0 Inattention: 0 Disorganized thinkin Altered level of consciousness: 0 Eating (QC): 6 Oral Hygiene (QC): 5 Toileting Hygiene (QC): 4 Shower/Bathe Self (QC): 4 Upper Body Dressing (QC): 4 Lower Body Dressing (QC): 4 On/Off Footwear (QC): 4 1=Demonstrate adherence to instructed precautions during ADL tasks. 2=Patient will verbalize/demonstrate understanding of assistive devices/modifications for ADL. 3=Patient will improve strength/tolerance for activity to enable patient to perform ADL's. OT Education/Plan Problem List/Assessment Assessment: Decreased Activ Tolerance, Decreased Safety Aware, Decreased UE Strength, Dependent Transfers, Impaired Bed Mobility, Impaired Coordination, Impaired Funct Balance, Impaired I ADL's, Impaired Self-Care Skills, Restricted Funct UE ROM decreased functional strength, decrease ADL independence Discharge Recommendations Plan/Recommendations: Continue POC Treatment Plan/Plan of Care Patient would benefit from OT for education, treatment and training to promote independence in ADL's, mobility, safety and/or upper extremity function for ADL's. Plan of Care: ADL Retraining, Cognitive Retraining, Concurrent Therapy, Functional Mobility Treatment Duration: Apr 19, 2023 Frequency: 5 times per week Estimated Hrs Per Day: 1.5 hours per day Agreement: Yes Rehab Potential: Good Time Start Time: 14:00 Stop Time: 15:05 DATE: Apr 22, 2023 Total Time Billed (hr/min): 65 Billed Treatment Time 1, ADL 4 RENEE BINGHAM OT Apr 22, 2023 15:04
--- NOTE | 2023-04-22 16:20 | Physical Therapy Daily Note ---
PT Daily Note-Current Subjective Pt presents utilizing bedside commode with administrative nursing supervisor present. Pt states she "doesn't feel good" but she's "not sure why". Pt agreeable to PT/OT CoTx. Pain Section J - Health Conditions 1. Rarely or not at all 2. Occasionally 3. Frequently 4. Almost constantly 8. Unable to answer Pain Effect on Sleep: 3 Pain Interference with Therapy: 3 Pain Interference w/Day-to-Day: 3 Transfers SCALE: Activities may be completed with or without assistive devices. 8-Lwxrjtdawj-lhduksw completes the activity by him/herself with no assistance from a helper. 5-Set-up or Clean-up Assistance-helper sets up or cleans up; patient completes activity. [place] assists only prior to or following the activity. 4-Supervision or Touching Assistance-helper provides verbal cues and/or touching/steadying and/or contact guard assistance as patient completes activity. Assistance may be provided throughout the activity or intermittently. 3-Partial/Moderate Assistance-helper does LESS THAN HALF the effort. [place] lifts, holds or supports trunk or limbs, but provides less than half the effort. 2-Substantial/Maximal Assistance-helper does MORE THAN HALF the effort. [place] lifts or holds trunk or limbs and provides more than half the effort. 9-Cjwkncagm-jearyc does ALL the effort. Patient does none of the effort to complete the activity. Or, the assistance of 2 or more helpers is required for the patient to complete the activity. If activity was not attempted, code reason: 7-Patient Refused. 9-Not Applicable-not attempted and the patient did not perform the activity before the current illness, exacerbation or injury. 10-Not Attempted due to Environmental Limitations-(lack of equipment, weather restraints, etc.). 88-Not Attempted due to Medical Conditions or Safety Concerns. Roll Left & Right (QC): 2 Sit to Lying (QC): 2 Sit to Stand (QC): 2 Weight Bearing Right Lower Extremity: Right Weight Bearing/Tolerated Left Lower Extremity: Left Weight Bearing/Tolerated Gait Training Does the Patient Walk?: No and Walking Goal IS indicated Treatments Pt utilizing bedside commode with administrative nursing supervisor present. Pt completed toilet xfer <> recliner with ModA and FWW. PT/OT cotreatment utilized due to the need for two skilled clinicians to increased safety due to the complexity of this pt with higher level functional balance and mobility activities. OT main focus on safety awareness, activity tolerance and functional balance. PT main focus on transfer ability, ambulation, strength and endurance. Pt received sitting in chair and was very pleasant, reporting minimal pain in hip area. Pt completed functional sit to stand with Mod A x2 and use of FWW with mod cueing for safety. Upon standing, therapists noted blood dripping out of incision dressing and the peter beneath pt was soiled with blood. RN was notified of findings and requested pt transfer to supine in bed for a incision check. Pt completed functional squat pivot transfer from chair to bed with mod A x2 and min cues for safety. Pt reclined into supine with max A, requiring assistance to lift both legs and guide trunk down while maintaining hip precautions. Pt completed 2 log rolls supine in bed with spacer between her knees to maintain precautions with mod Ax2, requiring min cues for hand placement. Pt requiring total assistance to don new brief in supine. Medical hold has been placed on pt due to continued incision bleeding until cleared by surgeon and RN. ULTRASOUND SONOGRAPHER will reattempt therapy as medically appropriate and as time allows. Assessment Current Status: Fair Progress Pt placed on med hold until confirmation for continuance of tx by surgeon and RN. PT Marketing And Development Coordinator Goals Retirement Goals PT Marketing And Development Coordinator Goals Time Frame: May 09, 2023 Roll Left & Right (QC): 4 Sit to Lying (QC): 4 Lying-Sitting on Side/Bed(QC): 4 Sit to Stand (QC): 3 Chair/Stk-ca-Lghom Xfer(QC): 3 Toilet Transfer (QC): 3 Car Transfer (QC): 3 Does the Patient Walk: Yes Walk 10 feet (QC): 3 Walk 50ft with 2 Turns (QC): 3 Walk 150 ft (QC): 9 Walking 10ft on Uneven Surface: 3 1 Step (curb) (QC): 3 4 Steps (QC): 9 12 Steps (QC): 9 Picking up an Object (QC): 3 Does the Pt use WC or Scooter?: Yes Wheel 50 feet with 2 turns (QC: 4 Type: Manual Wheel 150 feet: 4 PT Plan Problem List Problem List: Activity Tolerance, Functional Strength, Safety Treatment/Plan Treatment Plan: Continue Plan of Care Treatment Plan: Bed Mobility, Education, Functional Activity [place], Functional Strength, Group Therapy, Gait, Safety, Therapeutic Exercise, Transfers Treatment Duration: May 09, 2023 Frequency: At least 5 of 7 days/Wk (IRF) Estimated Hrs Per Day: 1.5 hours per day Patient and/or Family Agrees t: Yes Discharge Recommendations Plan Continue with tx per pt POC as situation allows. Time Time In: 1015 Time Out: 1050 DATE: Apr 22, 2023 Total Billed Treatment Time: 35 Total Billed Treatment 1, FA2 (35m). CoTx /c PT/OT ([id number]) (20m). ALVA VARGHESE ULTRASOUND SONOGRAPHER Apr 22, 2023 16:20
--- NOTE | 2023-04-22 16:35 | Physical Therapy Daily Note ---
PT Daily Note-Current Subjective Pt presents supine in bed. Pt reports 7/10 pain in (R) hip. Pt states she doesn't remember why her hip hurts or why nursing applied ice to incision site. Pt agreeable to PT tx. Pain Section J - Health Conditions 1. Rarely or not at all 2. Occasionally 3. Frequently 4. Almost constantly 8. Unable to answer Pain Effect on Sleep: 3 Pain Interference with Therapy: 3 Pain Interference w/Day-to-Day: 3 Transfers SCALE: Activities may be completed with or without assistive devices. 1-Awwkdpggrg-iqhkmby completes the activity by him/herself with no assistance from a helper. 5-Set-up or Clean-up Assistance-helper sets up or cleans up; patient completes activity. [place] assists only prior to or following the activity. 4-Supervision or Touching Assistance-helper provides verbal cues and/or touching/steadying and/or contact guard assistance as patient completes activity. Assistance may be provided throughout the activity or intermittently. 3-Partial/Moderate Assistance-helper does LESS THAN HALF the effort. [place] lifts, holds or supports trunk or limbs, but provides less than half the effort. 2-Substantial/Maximal Assistance-helper does MORE THAN HALF the effort. [place] lifts or holds trunk or limbs and provides more than half the effort. 2-Kbevduzoe-kdiijl does ALL the effort. Patient does none of the effort to complete the activity. Or, the assistance of 2 or more helpers is required for the patient to complete the activity. If activity was not attempted, code reason: 7-Patient Refused. 9-Not Applicable-not attempted and the patient did not perform the activity before the current illness, exacerbation or injury. 10-Not Attempted due to Environmental Limitations-(lack of equipment, weather restraints, etc.). 88-Not Attempted due to Medical Conditions or Safety Concerns. Weight Bearing Right Lower Extremity: Right Weight Bearing/Tolerated Left Lower Extremity: Left Weight Bearing/Tolerated Gait Training Does the Patient Walk?: No and Walking Goal IS indicated Exercises THER EX: B LE x 10: Ankle/achilles stretch x 10s x 5reps, Ankle pumps, Heel slides, Hip ABD x 5 (R side modA). [employer] SUPERINTENDENT conducted manual hip rotation of (R) hip to median (center) and back to ER (external rotation). Treatments Pt conducted supine ther ex in bed, with modA on R hip. [employer] SUPERINTENDENT manually stretched pt achilles x 10s x 5reps. [employer] SUPERINTENDENT also medially rotated R hip to center (avoiding IR), and back to ER. Post tx with pt in bed, call light within reach and all needs met. Assessment Current Status: Fair Progress Pt conducted ther ex in bed, secondary to R hip pain and AM tx conduction. PT Low Pressure Kettle Operator Goals Detention Goals PT Detention Goals Time Frame: May 09, 2023 Roll Left & Right (QC): 4 Sit to Lying (QC): 4 Lying-Sitting on Side/Bed(QC): 4 Sit to Stand (QC): 3 Chair/Dak-jm-Ohtgz Xfer(QC): 3 Toilet Transfer (QC): 3 Car Transfer (QC): 3 Does the Patient Walk: Yes Walk 10 feet (QC): 3 Walk 50ft with 2 Turns (QC): 3 Walk 150 ft (QC): 9 Walking 10ft on Uneven Surface: 3 1 Step (curb) (QC): 3 4 Steps (QC): 9 12 Steps (QC): 9 Picking up an Object (QC): 3 Does the Pt use WC or Scooter?: Yes Wheel 50 feet with 2 turns (QC: 4 Type: Manual Wheel 150 feet: 4 PT Plan Problem List Problem List: Activity Tolerance, Functional Strength, Safety Treatment/Plan Treatment Plan: Continue Plan of Care Treatment Plan: Bed Mobility, Education, Functional Activity [place], Functional Strength, Group Therapy, Gait, Safety, Therapeutic Exercise, Transfers Treatment Duration: May 09, 2023 Frequency: At least 5 of 7 days/Wk (IRF) Estimated Hrs Per Day: 1.5 hours per day Patient and/or Family Agrees t: Yes Discharge Recommendations Plan Continue with tx per pt POC. Time Time In: 1530 Time Out: 1600 DATE: Apr 22, 2023 Total Billed Treatment Time: 30 Total Billed Treatment 1, EX2 (30m) ALVA VARGHESE [employer] SUPERINTENDENT Apr 22, 2023 16:35
[2023-04-22 19:26] VITALS: BP 133/61
[2023-04-22] MEDS: MIRTAZAPINE 15 MG TABLET PO SCH (20:55)
[2023-04-22] MEDS: DONEPEZIL 10 MG TABLET PO SCH (20:55)
[2023-04-22] MEDS: OLANZapine 5 MG ODT TABLET PO SCH (20:55)
[2023-04-23] MEDS: inSUlin ASPART 1 UNIT/0.01 ML (PER UNIT) SC SCH ×4 (05:35→21:00)
[2023-04-23] MEDS: POTASSIUM CHLORIDE 10 MEQ TABLET PO SCH ×2 (06:35→16:09)
[2023-04-23] MEDS: glipiZIDE 5 MG TABLET PO SCH (06:35)
[2023-04-23] MEDS: CYANOCOBALAMIN 1,000 MCG TABLET PO SCH (06:35)
[2023-04-23 07:44] LABS: HEMATOCRIT 28 % (35-52); MEAN CORPUSCULAR HEMOGLOBIN 29 pg (25-34); MEAN CORPUSCULAR HGB CONC 33 g/dL (32-36); MEAN CORPUSCULAR VOLUME 89 fL (80-99); MEAN PLATELET VOLUME 9.7 fL (9.0-12.2); PLATELET COUNT 344 10^3/uL (130-400); WHITE BLOOD COUNT 12.1 10^3/uL (4.3-11.0)
[2023-04-23 07:52] LABS: ALBUMIN 2.5 GM/DL (3.2-4.5); POTASSIUM 3.4 MMOL/L (3.6-5.0)
[2023-04-23 07:53] LABS: CALCIUM 7.9 MG/DL (8.5-10.1)
[2023-04-23 07:54] LABS: TOTAL PROTEIN 5.1 GM/DL (6.4-8.2)
[2023-04-23 07:58] LABS: CREATININE SERUM 0.55 MG/DL (0.60-1.30)
[2023-04-23 08:00] VITALS: BP 130/62
[2023-04-23] MEDS: HYDROcodone/ACETAMINOPHEN 7.5 MG/325 MG TABLET PO PRN ×2 (09:36→21:04)
[2023-04-23] MEDS: EMPAGLIFLOZIN 10 MG TABLET PO SCH (09:36)
[2023-04-23] MEDS: CLOPIDOGREL 75 MG TABLET PO SCH (09:36)
[2023-04-23] MEDS: IRON SUCROSE 200 MG/10 ML VIAL IV SCH (09:36)
[2023-04-23] MEDS: SENNA W/DOCUSATE TABLET PO SCH ×2 (09:36→21:00)
[2023-04-23] MEDS: DOCUSATE SODIUM 100 MG CAPSULE PO SCH ×2 (09:38→21:00)
--- NOTE | 2023-04-23 11:37 | PM&R Progress Note ---
Subjective HPI/CC On Admission Date Seen by Provider: Apr 23, 2023 Time Seen by Provider: 11:30 Subjective/Events-last exam 04/23/2023: Potassium low so will increase regular potassium to BID No falls No pain Reviewed meds and labs Dressing not saturated any longer since holding Lovenox 04/22/2023: No new issues Participation is good Skilled care still a strong possibility Lives in [place] Saturation of the dressing due to bleeding so will hold Lovenox 04/21/2023: Patient doing a lot better Less confusion Participation is good Incontinence 04/20/2023: Doing better Pain is controlled Confusion improved Requires a lot of cues No falls 04/19/2023: Patient doing better Confusion times Pain is controlled Labs reviewed Giving iron and B12 supplement empirically Review of Systems General: Fatigue, Malaise Neurological: Confusion Objective Exam Vital Signs Vital Signs Date Time Temp Pulse Resp B/P (MAP) Pulse Ox O2 Delivery O2 Flow Rate FiO2 04/23/23 09:18 95 Room Air 0.00 04/23/23 08:00 35.0 78 16 130/62 (84) 04/21/23 09:35 21 Capillary Refill : General Appearance: No Apparent Distress, WD/WN, Chronically ill, Other (fatigued) HEENT: PERRL/EOMI, Normal ENT Inspection, Pharynx Normal Neck: Full Range of Motion, Normal Inspection, Non Tender, Supple, Carotid Bruit Respiratory: Chest Non Tender, Lungs Clear, Normal Breath Sounds, No Accessory Muscle Use, No Respiratory Distress Cardiovascular: Regular Rate, Rhythm, No Edema, No Gallop, No JVD, No Murmur, Normal Peripheral Pulses Gastrointestinal: Normal Bowel Sounds, No Organomegaly, No Pulsatile Mass, Non Tender, Soft Back: Normal Inspection, No CVA Tenderness, No Vertebral Tenderness Extremity: Normal Capillary Refill, Normal Inspection, Normal Range of Motion (except right leg), Non Tender, No Calf Tenderness, No Pedal Edema Neurologic/Psychiatric: Alert, Oriented x3, No Motor/Sensory Deficits, 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 FIM Transfers Therapy Code Descriptions/Definitions Functional [place] Measure: 0=Not Assessed/NA 4=Minimal Assistance 1=Total Assistance 5=Supervision or Setup 2=Maximal Assistance 6=Modified [place] 3=Moderate Assistance 7=Complete IndependenceSCALE: Activities may be completed with or without assistive devices. 2-Gaprszbyod-lpsmyab completes the activity by him/herself with no assistance from a helper. 5-Set-up or Clean-up Assistance-helper sets up or cleans up; patient completes activity. [place] assists only prior to or following the activity. 4-Supervision or Touching Assistance-helper provides verbal cues and/or touching/steadying and/or contact guard assistance as patient completes activity. Assistance may be provided throughout the activity or intermittently. 3-Partial/Moderate Assistance-helper does LESS THAN HALF the effort. [place] lift s, holds or supports trunk or limbs, but provides less than half the effort. 2-Substantial/Maximal Assistance-helper does MORE THAN HALF the effort. [place] lifts or holds trunk or limbs and provides more than half the effort. 2-Hldjviroa-gcldbe does ALL the effort. Patient does none of the effort to complete the activity. Or, the assistance of 2 or more helpers is required for the patient to complete the activity. If activity was not attempted, code reason: 7-Patient Refused. 9-Not Applicable-not attempted and the patient did not perform the activity before the current illness, exacerbation or injury. 10-Not Attempted due to Environmental Limitations-(lack of equipment, weather restraints, etc.). 88-Not Attempted due to Medical Conditions or Safety Concerns. Roll Left to Right (QC): 2 Sit to Lying (QC): 2 Sit to Stand (QC): 2 Chair/Uaq-iv-Xdbag Xfer(QC): 1 (2 person (A) stand pivot. Unable to move feet in standing /c FWW to complete transfer) Car Transfer (QC): 88 Gait Training Does the Patient Walk?: No and Walking Goal IS indicated Walk 10 feet (QC): 88 (took 1 step to (L) /c FWW. Unable to move legs further. Unable to safely perform /c FWW and assist of 2.) Walk 50 ft with 2 Turns(QC): 88 Walk 150 ft (QC): 88 Walking 10ft/uneven surface-QC: 88 Gait Assistive Device: FWW Wheelchair Training Does the Pt Use a Wheelchair?: Yes Distance: 2 feet Wheel 50 ft with 2 turns (QC): 88 (unable to reach distance due to fatigue) Wheel 150 ft (QC): 88 Type of Wheelchair: Manual Stair Training 1 Step (curb) (QC): 88 4 Steps (QC): 88 12 Steps (QC): 88 Balance Picking up an Object (QC): 88 ADL-Treatment Eating (QC): 5 (to complete drinking water) Oral Hygiene (QC): 4 Shower/Bathe Self (QC): 1 Upper Body Dressing (QC): 3 (to don/doff night gown ) Lower Body Dressing (QC): 1 On/Off Footwear (QC): 1 (to don/doff socks) Toileting Hygiene (QC): 1 Toilet Transfer (QC): 1 Assessment/Plan Assessment and Plan Assess & Plan/Chief Complaint Assessment: s/p right hip fracture s/p uncomplicated repair DM HTN CAD Dementia Post op anemia from acute blood loss Delirium Incision bleeding holding Lovenox due to risks outweigh benefits Plan: Home meds Monitor BP and BS Aggressive PT OT 04/19/2023: Iron infusion B12 supplement 04/20/2023: Iron and B12 empirically Monitor closely SNF at risk 04/21/2023: Supportive care Aggressive therapy 04/22/2023: Pain control Hold Lovenox for saturation of the incision 04/23/2023: Continue holding Lovenox Monitor incision (1) Closed right hip fracture Status: Acute (2) History of cerebrovascular disease Status: Acute (3) History of ST elevation myocardial infarction (STEMI) Status: Acute (4) HTN (hypertension) Status: Acute (5) Dementia Status: Acute (6) Compression fracture of L1 vertebra Status: Acute ASHLY VILLEGAS DO Apr 23, 2023 11:36
--- NOTE | 2023-04-23 12:15 | Occupational Ther Daily Note ---
OT Current Status-Daily Note Subjective Pt was received lying supine in bed. Pt very pleasant and agreeable to therapy. Pain Numeric Pain Scale: 3 Location: Posterior Location Body Site: Hip Pain Description: Dull Mental Status/Objective Patient Orientation: Person, Place, Time, Situation Attachments: IV ADL-Treatment Therapy Code Descriptions/Definitions Functional [place] Measure: 0=Not Assessed/NA 4=Minimal Assistance 1=Total Assistance 5=Supervision or Setup 2=Maximal Assistance 6=Modified [place] 3=Moderate Assistance 7=Complete IndependenceSCALE: Activities may be completed with or without assistive devices. 8-Tzphdtnqzo-vfaynnq completes the activity by him/herself with no assistance from a helper. 5-Set-up or Clean-up Assistance-helper sets up or cleans up; patient completes activity. [place] assists only prior to or following the activity. 4-Supervision or Touching Assistance-helper provides verbal cues and/or touching /steadying and/or contact guard assistance as patient completes activity. Assistance may be provided throughout the activity or intermittently. 3-Partial/Moderate Assistance-helper does LESS THAN HALF the effort. [place] lifts, holds or supports trunk or limbs, but provides less than half the effort. 2-Substantial/Maximal Assistance-helper does MORE THAN HALF the effort. [place] lifts or holds trunk or limbs and provides more than half the effort. 2-Jagjwdmzh-twxuef does ALL the effort. Patient does none of the effort to complete the activity. Or, the assistance of 2 or more helpers is required for the patient to complete the activity. If activity was not attempted, code reason: 7-Patient Refused. 9-Not Applicable-not attempted and the patient did not perform the activity before the current illness, exacerbation or injury. 10-Not Attempted due to Environmental Limitations-(lack of equipment, weather restraints, etc.). 88-Not Attempted due to Medical Conditions or Safety Concerns. Eating (QC): 5 Upper Body Dressing (QC): 3 (to [facility]/do hospital gown and cardigan ) On/Off Footwear: 1 (to don/doff socks) Other Treatment Pt completed functional mobility for ~5ft with FWW and min to max A for balance, requiring extensive verbal and tactile cueing for sequencing and safety. Pt completed breakfast in supported sitting with set up A, requiring assistance to open small containers, though able to bring utensils to mouth independently. Pt completed UE strengthening exercises with 2# weight, prioritizing shoulder flexion/extension/abduction/adduction; elbow flexion/extension and queen[employer] counsel strengthening. Education OT Patient Education: Correct positioning, Energy conservation, Exercise program, Modified ADL techniques, Progress toward Goal/Update tx plan, Purpose of tx/functional activities, Reviewed precautions, Rehab process, Safety issues, Transfer techniques Teaching Recipient: Patient Teaching Methods: Demonstration, Discussion Response to Teaching: Verbalize Understanding, Return Demonstration, Reinforcement Needed OT Short Term Goals Short Term Goals Time Frame: Apr 29, 2023 Eatin Oral hygiene: 5 Toileting hygiene: 3 Shower/bathe self: 3 Upper body dressin Lower body dressin Putting on/taking off footwear: 3 OT Shelter Goals Air Brake Adjuster Goals Time Frame: May 06, 2023 Acute change in mental status: 0 Inattention: 0 Disorganized thinkin Altered level of consciousness: 0 Eating (QC): 6 Oral Hygiene (QC): 5 Toileting Hygiene (QC): 4 Shower/Bathe Self (QC): 4 Upper Body Dressing (QC): 4 Lower Body Dressing (QC): 4 On/Off Footwear (QC): 4 1=Demonstrate adherence to instructed precautions during ADL tasks. 2=Patient will verbalize/demonstrate understanding of assistive devices/modifications for ADL. 3=Patient will improve strength/tolerance for activity to enable patient to perform ADL's. OT Education/Plan Problem List/Assessment Assessment: Decreased Activ Tolerance, Decreased Safety Aware, Decreased UE Strength, Impaired Bed Mobility, Impaired Cognition, Impaired Coordination, Impaired Funct Balance, Impaired I ADL's, Impaired Self-Care Skills decreased functional strength, decrease ADL independence Discharge Recommendations Plan/Recommendations: Continue POC Barriers to Progress pain, decreased cognition Treatment Plan/Plan of Care Patient would benefit from OT for education, treatment and training to promote independence in ADL's, mobility, safety and/or upper extremity function for ADL's. Plan of Care: ADL Retraining, Cognitive Retraining, Concurrent Therapy, Functional Mobility Treatment Duration: Apr 19, 2023 Frequency: 5 times per week Estimated Hrs Per Day: 1.5 hours per day Agreement: Yes Rehab Potential: Good Time Start Time: 08:00 Stop Time: 09:30 DATE: Apr 23, 2023 Total Time Billed (hr/min): 90 Billed Treatment Time 1, ADL 3, FA1, EX 2 Jennifer Ferraro/Franck Apr 23, 2023 12:15
--- NOTE | 2023-04-23 12:16 | Physical Therapy Daily Note ---
PT Daily Note-Current Subjective Pt sitting up in bed upon arrival. Pt agrees to PT/OT co-treat. Pain Numeric Pain Scale: 5-Moderate Pain Location: Right Location Body Site: Hip Pain Description: Ache Section J - Health Conditions 1. Rarely or not at all 2. Occasionally 3. Frequently 4. Almost constantly 8. Unable to answer Pain Effect on Sleep: 3 Pain Interference with Therapy: 3 Pain Interference w/Day-to-Day: 3 Mental Status Patient Orientation: Person, Place, Situation Transfers SCALE: Activities may be completed with or without assistive devices. 5-Iycdplurgg-xzdupjc completes the activity by him/herself with no assistance from a helper. 5-Set-up or Clean-up Assistance-helper sets up or cleans up; patient completes activity. [place] assists only prior to or following the activity. 4-Supervision or Touching Assistance-helper provides verbal cues and/or touching/steadying and/or contact guard assistance as patient completes activity. Assistance may be provided throughout the activity or intermittently. 3-Partial/Moderate Assistance-helper does LESS THAN HALF the effort. [place] lifts, holds or supports trunk or limbs, but provides less than half the effort. 2-Substantial/Maximal Assistance-helper does MORE THAN HALF the effort. [place] lifts or holds trunk or limbs and provides more than half the effort. 1-Xdafgawwt-vfvvag does ALL the effort. Patient does none of the effort to complete the activity. Or, the assistance of 2 or more helpers is required for the patient to complete the activity. If activity was not attempted, code reason: 7-Patient Refused. 9-Not Applicable-not attempted and the patient did not perform the activity before the current illness, exacerbation or injury. 10-Not Attempted due to Environmental Limitations-(lack of equipment, weather restraints, etc.). 88-Not Attempted due to Medical Conditions or Safety Concerns. Lying to Sitting/Side of Bed(Q: 2 (Max) Sit to Stand (QC): 2 (Max) Chair/Ohs-au-Zggcg Xfer(QC): 2 (Max) Weight Bearing Right Lower Extremity: Right Weight Bearing/Tolerated Left Lower Extremity: Left Weight Bearing/Tolerated Gait Training Does the Patient Walk?: Yes Distance: 5' Gait Persons Needed: 2 Gait Assistive Device: FWW VC for sequencing and safety as pt fatigues easily and needs VC for safety to not sit to early. Exercises Seated Therapy Exercises: Ankle pumps, Long arc quads, Hip flexion, Hip a bd/add, Glut set Seated Reps: 10 Treatments Pt completed functional mobility for ~5ft with FWW and min to max A for balance, requiring extensive verbal and tactile cueing for sequencing and safety. Pt completed breakfast in supported sitting with set up A, requiring assistance to open small containers, though able to bring utensils to mouth independently. Pt completed UE strengthening exercises with 2# weight, prioritizing shoulder flexion/extension/abduction/adduction; elbow flexion/extension and cnc mill operator strengthening. Pt alternates Seated LE & UE EX (see above for PT EX). PT resting in recliner at end of tx. All needs met, call light in hand. Assessment Current Status: Fair Progress Pt very fatigued and needs frequent RB. PT Senior Living Goals Senior Living Goals PT Senior Living Goals Time Frame: May 09, 2023 Roll Left & Right (QC): 4 Sit to Lying (QC): 4 Lying-Sitting on Side/Bed(QC): 4 Sit to Stand (QC): 3 Chair/Tol-km-Hxmnl Xfer(QC): 3 Toilet Transfer (QC): 3 Car Transfer (QC): 3 Does the Patient Walk: Yes Walk 10 feet (QC): 3 Walk 50ft with 2 Turns (QC): 3 Walk 150 ft (QC): 9 Walking 10ft on Uneven Surface: 3 1 Step (curb) (QC): 3 4 Steps (QC): 9 12 Steps (QC): 9 Picking up an Object (QC): 3 Does the Pt use WC or Scooter?: Yes Wheel 50 feet with 2 turns (QC: 4 Type: Manual Wheel 150 feet: 4 PT Plan Problem List Problem List: Activity Tolerance, Functional Strength, Safety, Gait, Transfer Treatment/Plan Treatment Plan: Continue Plan of Care Treatment Plan: Bed Mobility, Education, Functional Activity [place], Functional Strength, Group Therapy, Gait, Safety, Therapeutic Exercise, Transfers Treatment Duration: May 09, 2023 Frequency: At least 5 of 7 days/Wk (IRF) Estimated Hrs Per Day: 1.5 hours per day Patient and/or Family Agrees t: Yes Safety Risks/Education Patient Education: Gait Training, Transfer Techniques, Correct Positioning, Safety Issues Teaching Recipient: Patient Teaching Methods: Discussion Response to Teaching: Reinforcement Needed Time Time In: 0800 Time Out: 929 DATE: Apr 23, 2023 Total Billed Treatment Time: 90 Total Billed Treatment Co-treat w/OT for 90m 1, FA x4 (60m) & EX x2 (30m) RENATE PRICE MAILROOM COORDINATOR Apr 23, 2023 12:16
[2023-04-23 19:25] VITALS: BP 111/55
[2023-04-23] MEDS: DONEPEZIL 10 MG TABLET PO SCH (21:04)
[2023-04-23] MEDS: MIRTAZAPINE 15 MG TABLET PO SCH (21:04)
[2023-04-23] MEDS: OLANZapine 5 MG ODT TABLET PO SCH (21:04)
[2023-04-24] MEDS: inSUlin ASPART 1 UNIT/0.01 ML (PER UNIT) SC SCH ×4 (06:11→21:14)
[2023-04-24] MEDS: POTASSIUM CHLORIDE 10 MEQ TABLET PO SCH ×2 (06:38→16:19)
[2023-04-24] MEDS: HYDROcodone/ACETAMINOPHEN 7.5 MG/325 MG TABLET PO PRN ×3 (06:39→18:40)
[2023-04-24] MEDS: CYANOCOBALAMIN 1,000 MCG TABLET PO SCH (06:39)
[2023-04-24] MEDS: glipiZIDE 5 MG TABLET PO SCH (06:39)
[2023-04-24] MEDS: SENNA W/DOCUSATE TABLET PO SCH ×2 (07:22→21:14)
[2023-04-24] MEDS: DOCUSATE SODIUM 100 MG CAPSULE PO SCH ×2 (07:22→21:14)
[2023-04-24] MEDS: EMPAGLIFLOZIN 10 MG TABLET PO SCH (07:22)
[2023-04-24] MEDS: CLOPIDOGREL 75 MG TABLET PO SCH (07:22)
[2023-04-24 07:39] VITALS: BP 111/52
--- NOTE | 2023-04-24 08:14 | PM&R Progress Note ---
Subjective HPI/CC On Admission Date Seen by Provider: Apr 24, 2023 Time Seen by Provider: 12:00 Subjective/Events-last exam 04/24/2023: Doing well Requires 2 person assist most of the time Likely will need skilled Pain is not reported 04/23/2023: Potassium low so will increase regular potassium to BID No falls No pain Reviewed meds and labs Dressing not saturated any longer since holding Lovenox 04/22/2023: No new issues Participation is good Skilled care still a strong possibility Lives in [place] Saturation of the dressing due to bleeding so will hold Lovenox 04/21/2023: Patient doing a lot better Less confusion Participation is good Incontinence 04/20/2023: Doing better Pain is controlled Confusion improved Requires a lot of cues No falls 04/19/2023: Patient doing better Confusion times Pain is controlled Labs reviewed Giving iron and B12 supplement empirically Review of Systems General: Fatigue, Malaise Neurological: Weakness, Confusion Objective Exam Vital Signs Vital Signs Date Time Temp Pulse Resp B/P (MAP) Pulse Ox O2 Delivery O2 Flow Rate FiO2 04/24/23 09:12 35.7 76 95 04/24/23 09:09 Room Air 0.00 04/24/23 07:39 18 111/52 (71) 04/21/23 09:35 21 Capillary Refill : General Appearance: No Apparent Distress, WD/WN, Chronically ill, Other (fatigued) HEENT: PERRL/EOMI, Normal ENT Inspection, Pharynx Normal Neck: Full Range of Motion, Normal Inspection, Non Tender, Supple, Carotid Bruit Respiratory: Chest Non Tender, Lungs Clear, Normal Breath Sounds, No Accessory Muscle Use, No Respiratory Distress Cardiovascular: Regular Rate, Rhythm, No Edema, No Gallop, No JVD, No Murmur, Normal Peripheral Pulses Gastrointestinal: Normal Bowel Sounds, No Organomegaly, No Pulsatile Mass, Non Tender, Soft Back: Normal Inspection, No CVA Tenderness, No Vertebral Tenderness Extremity: Normal Capillary Refill, Normal Inspection, Normal Range of Motion (except right leg), Non Tender, No Calf Tenderness, No Pedal Edema Neurologic/Psychiatric: Alert, Oriented x3, No Motor/Sensory Deficits, religious leader II- XII Norm as Tested, Depressed Affect, Disoriented (subtle) Skin: Normal Color, Warm/Dry Lymphatic: No Adenopathy Results/Procedures Lab Patient resulted labs reviewed. FIM Transfers Therapy Code Descriptions/Definitions Functional [place] Measure: 0=Not Assessed/NA 4=Minimal Assistance 1=Total Assistance 5=Supervision or Setup 2=Maximal Assistance 6=Modified [place] 3=Moderate Assistance 7=Complete IndependenceSCALE: Activities may be completed with or without assistive devices. 9-Faygfjlrdz-ycuzgif completes the activity by him/herself with no assistance from a helper. 5-Set-up or Clean-up Assistance-helper sets up or cleans up; patient completes activity. [place] assists only prior to or following the activity. 4-Supervision or Touching Assistance-helper provides verbal cues and/or touching/steadying and/or contact guard assistance as patient completes activity. Assistance may be provided throughout the activity or intermittently. 3-Partial/Moderate Assistance-helper does LESS THAN HALF the effort. [place] lifts, holds or supports trunk or limbs, but provides less than half the effort. 2-Substantial/Maximal Assistance-helper does MORE THAN HALF the effort. [place] lifts or holds trunk or limbs and provides more than half the effort. 2-Fhrzpgglu-thjvqv does ALL the effort. Patient does none of the effort to complete the activity. Or, the assistance of 2 or more helpers is required for the patient to complete the activity. If activity was not attempted, code reason: 7-Patient Refused. 9-Not Applicable-not attempted and the patient did not perform the activity before the current illness, exacerbation or injury. 10-Not Attempted due to Environmental Limitations-(lack of equipment, weather restraints, etc.). 88-Not Attempted due to Medical Conditions or Safety Concerns. Roll Left to Right (QC): 2 Sit to Lying (QC): 2 Sit to Stand (QC): 2 (Max) Chair/Nls-qi-Dgxvb Xfer(QC): 2 (Max) Car Transfer (QC): 88 Gait Training Does the Patient Walk?: Yes Distance: 5' Walk 10 feet (QC): 88 (took 1 step to (L) /c FWW. Unable to move legs further. Unable to safely perform /c FWW and assist of 2.) Walk 50 ft with 2 Turns(QC): 88 Walk 150 ft (QC): 88 Walking 10ft/uneven surface-QC: 88 Gait Persons Needed: 2 Gait Assistive Device: FWW Wheelchair Training Does the Pt Use a Wheelchair?: Yes Distance: 2 feet Wheel 50 ft with 2 turns (QC): 88 (unable to reach distance due to fatigue) Wheel 150 ft (QC): 88 Type of Wheelchair: Manual Stair Training 1 Step (curb) (QC): 88 4 Steps (QC): 88 12 Steps (QC): 88 Balance Picking up an Object (QC): 88 ADL-Treatment Eating (QC): 5 Oral Hygiene (QC): 4 Shower/Bathe Self (QC): 1 Upper Body Dressing (QC): 3 (to [facility] gown and [facility] ) Lower Body Dressing (QC): 1 On/Off Footwear (QC): 1 (to [facility] socks) Toileting Hygiene (QC): 1 Toilet Transfer (QC): 1 Assessment/Plan Assessment and Plan Assess & Plan/Chief Complaint Assessment: s/p right hip fracture s/p uncomplicated repair DM HTN CAD Dementia Post op anemia from acute blood loss Delirium Incision bleeding holding Lovenox due to risks outweigh benefits Plan: Home meds Monitor BP and BS Aggressive PT OT 04/19/2023: Iron infusion B12 supplement 04/20/2023: Iron and B12 empirically Monitor closely SNF at risk 04/21/2023: Supportive care Aggressive therapy 04/22/2023: Pain control Hold Lovenox for saturation of the incision 04/23/2023: Continue holding Lovenox Monitor incision 04/24/2023: Monitor closely Fall risk SNF? (1) Closed right hip fracture Status: Acute (2) History of cerebrovascular disease Status: Acute (3) History of ST elevation myocardial infarction (STEMI) Status: Acute (4) HTN (hypertension) Status: Acute (5) Dementia Status: Acute (6) Compression fracture of L1 vertebra Status: Acute ASHLY VILLEGAS DO Apr 24, 2023 08:13
[2023-04-24 09:12] VITALS: BP 111/52
[2023-04-24 19:32] VITALS: BP 116/53
[2023-04-24] MEDS: DONEPEZIL 10 MG TABLET PO SCH (21:14)
[2023-04-24] MEDS: MIRTAZAPINE 15 MG TABLET PO SCH (21:14)
[2023-04-24] MEDS: OLANZapine 5 MG ODT TABLET PO SCH (21:14)
--- NOTE | 2023-04-25 05:03 | PM&R Progress Note ---
Subjective HPI/CC On Admission Date Seen by Provider: Apr 25, 2023 Time Seen by Provider: 08:30 Subjective/Events-last exam 04/25/2023: Doing well No falls No pain reported Labs stable No bleeding today thus far 04/24/2023: Doing well Requires 2 person assist most of the time Likely will need skilled Pain is not reported 04/23/2023: Potassium low so will increase regular potassium to BID No falls No pain Reviewed meds and labs Dressing not saturated any longer since holding Lovenox 04/22/2023: No new issues Participation is good Skilled care still a strong possibility Lives in [place] Saturation of the dressing due to bleeding so will hold Lovenox 04/21/2023: Patient doing a lot better Less confusion Participation is good Incontinence 04/20/2023: Doing better Pain is controlled Confusion improved Requires a lot of cues No falls 04/19/2023: Patient doing better Confusion times Pain is controlled Labs reviewed Giving iron and B12 supplement empirically Review of Systems General: Fatigue, Malaise Neurological: Confusion Objective Exam Vital Signs Vital Signs Date Time Temp Pulse Resp B/P (MAP) Pulse Ox O2 Delivery O2 Flow Rate FiO2 04/25/23 09:00 Room Air 04/25/23 08:00 35.8 71 16 113/54 (73) 96 04/24/23 09:09 0.00 04/21/23 09:35 21 Capillary Refill : General Appearance: No Apparent Distress, WD/WN, Chronically ill, Other (fatigued) HEENT: PERRL/EOMI, Normal ENT Inspection, Pharynx Normal Neck: Full Range of Motion, Normal Inspection, Non Tender, Supple, Carotid Bruit Respiratory: Chest Non Tender, Lungs Clear, Normal Breath Sounds, No Accessory Muscle Use, No Respiratory Distress Cardiovascular: Regular Rate, Rhythm, No Edema, No Gallop, No JVD, No Murmur, Normal Peripheral Pulses Gastrointestinal: Normal Bowel Sounds, No Organomegaly, No Pulsatile Mass, Non Tender, Soft Back: Normal Inspection, No CVA Tenderness, No Vertebral Tenderness Extremity: Normal Capillary Refill, Normal Inspection, Normal Range of Motion (except right leg), Non Tender, No Calf Tenderness, No Pedal Edema Neurologic/Psychiatric: Alert, Oriented x3, No Motor/Sensory Deficits, communications tech II- XII Norm as Tested, Depressed Affect, Disoriented (subtle) Skin: Normal Color, Warm/Dry Lymphatic: No Adenopathy Results/Procedures Lab Laboratory Tests 04/25/23 05:06 Patient resulted labs reviewed. FIM Transfers Therapy Code Descriptions/Definitions Functional [place] Measure: 0=Not Assessed/NA 4=Minimal Assistance 1=Total Assistance 5=Supervision or Setup 2=Maximal Assistance 6=Modified [place] 3=Moderate Assistance 7=Complete IndependenceSCALE: Activities may be completed with or without assistive devices. 5-Yeibqucvle-ywueyvc completes the activity by him/herself with no assistance from a helper. 5-Set-up or Clean-up Assistance-helper sets up or cleans up; patient completes activity. [place] assists only prior to or following the activity. 4-Supervision or Touching Assistance-helper provides verbal cues and/or touching/steadying and/or contact guard assistance as patient completes activity. Assistance may be provided throughout the activity or intermittently. 3-Partial/Moderate Assistance-helper does LESS THAN HALF the effort. [place] lifts, holds or supports trunk or limbs, but provides less than half the effort. 2-Substantial/Maximal Assistance-helper does MORE THAN HALF the effort. [place] lifts or holds trunk or limbs and provides more than half the effort. 9-Rsixycusj-ujmqxb does ALL the effort. Patient does none of the effort to complete the activity. Or, the assistance of 2 or more helpers is required for the patient to complete the activity. If activity was not attempted, code reason: 7-Patient Refused. 9-Not Applicable-not attempted and the patient did not perform the activity before the current illness, exacerbation or injury. 10-Not Attempted due to Environmental Limitations-(lack of equipment, weather restraints, etc.). 88-Not Attempted due to Medical Conditions or Safety Concerns. Roll Left to Right (QC): 2 Sit to Lying (QC): 2 Sit to Stand (QC): 2 (Max) Chair/Cyi-hm-Jzkde Xfer(QC): 2 (Max) Car Transfer (QC): 88 Gait Training Does the Patient Walk?: Yes Distance: 5' Walk 10 feet (QC): 88 (took 1 step to (L) /c FWW. Unable to move legs further. Unable to safely perform /c FWW and assist of 2.) Walk 50 ft with 2 Turns(QC): 88 Walk 150 ft (QC): 88 Walking 10ft/uneven surface-QC: 88 Gait Persons Needed: 2 Gait Assistive Device: FWW Wheelchair Training Does the Pt Use a Wheelchair?: Yes Distance: 2 feet Wheel 50 ft with 2 turns (QC): 88 (unable to reach distance due to fatigue) Wheel 150 ft (QC): 88 Type of Wheelchair: Manual Stair Training 1 Step (curb) (QC): 88 4 Steps (QC): 88 12 Steps (QC): 88 Balance Picking up an Object (QC): 88 ADL-Treatment Eating (QC): 5 Oral Hygiene (QC): 4 Shower/Bathe Self (QC): 1 Upper Body Dressing (QC): 3 (to [facility] ) Lower Body Dressing (QC): 1 On/Off Footwear (QC): 1 (to [facility] socks) Toileting Hygiene (QC): 1 Toilet Transfer (QC): 1 Assessment/Plan Assessment and Plan Assess & Plan/Chief Complaint Assessment: s/p right hip fracture s/p uncomplicated repair DM HTN CAD Dementia Post op anemia from acute blood loss Delirium Incision bleeding holding Lovenox due to risks outweigh benefits Plan: Home meds Monitor BP and BS Aggressive PT OT 04/19/2023: Iron infusion B12 supplement 04/20/2023: Iron and B12 empirically Monitor closely SNF at risk 04/21/2023: Supportive care Aggressive therapy 04/22/2023: Pain control Hold Lovenox for saturation of the incision 04/23/2023: Continue holding Lovenox Monitor incision 04/24/2023: Monitor closely Fall risk SNF? 04/25/2023: Continue to hold Lovenox due to bleeding Monitor BP (1) Closed right hip fracture Status: Acute (2) History of cerebrovascular disease Status: Acute (3) History of ST elevation myocardial infarction (STEMI) Status: Acute (4) HTN (hypertension) Status: Acute (5) Dementia Status: Acute (6) Compression fracture of L1 vertebra Status: Acute ASHLY VILLEGAS DO Apr 25, 2023 05:03
[2023-04-25 05:44] LABS: BASOPHILS # (AUTO) 0.1 10^3/uL (0.0-0.1); BASOPHILS % (AUTO) 1 % (0-10); EOSINOPHILS # (AUTO) 0.4 10^3/uL (0.0-0.3); EOSINOPHILS % (AUTO) 3 % (0-10); HEMATOCRIT 28 % (35-52); HEMOGLOBIN 9.3 g/dL (11.5-16.0); LYMPHOCYTES # (AUTO) 1.4 10^3/uL (1.0-4.0); LYMPHOCYTES % (AUTO) 12 % (12-44); MEAN CORPUSCULAR HEMOGLOBIN 30 pg (25-34); MEAN CORPUSCULAR HGB CONC 33 g/dL (32-36); MEAN CORPUSCULAR VOLUME 90 fL (80-99); MEAN PLATELET VOLUME 9.7 fL (9.0-12.2); MONOCYTES % (AUTO) 9 % (0-12); NEUTROPHILS # (AUTO) 8.6 10^3/uL (1.8-7.8); NEUTROPHILS % (AUTO) 73 % (42-75); PLATELET COUNT 387 10^3/uL (130-400); WHITE BLOOD COUNT 11.8 10^3/uL (4.3-11.0)
[2023-04-25 06:05] LABS: ALBUMIN 2.5 GM/DL (3.2-4.5); BILIRUBIN,TOTAL 0.7 MG/DL (0.1-1.0); CALCIUM 8.1 MG/DL (8.5-10.1); CREATININE SERUM 0.57 MG/DL (0.60-1.30); POTASSIUM 4.1 MMOL/L (3.6-5.0); TOTAL PROTEIN 5.1 GM/DL (6.4-8.2)
[2023-04-25] MEDS: inSUlin ASPART 1 UNIT/0.01 ML (PER UNIT) SC SCH ×4 (06:08→20:44)
[2023-04-25] MEDS: glipiZIDE 5 MG TABLET PO SCH (06:40)
[2023-04-25] MEDS: CYANOCOBALAMIN 1,000 MCG TABLET PO SCH (06:40)
[2023-04-25] MEDS: HYDROcodone/ACETAMINOPHEN 7.5 MG/325 MG TABLET PO PRN ×2 (06:40→20:37)
[2023-04-25] MEDS: POTASSIUM CHLORIDE 10 MEQ TABLET PO SCH ×2 (06:40→16:00)
[2023-04-25] MEDS: DOCUSATE SODIUM 100 MG CAPSULE PO SCH ×2 (07:46→20:36)
[2023-04-25] MEDS: SENNA W/DOCUSATE TABLET PO SCH ×2 (07:47→21:47)
[2023-04-25] MEDS: EMPAGLIFLOZIN 10 MG TABLET PO SCH (07:48)
[2023-04-25] MEDS: IRON SUCROSE 200 MG/10 ML VIAL IV SCH (07:49)
[2023-04-25 08:00] VITALS: BP 113/54
--- NOTE | 2023-04-25 09:32 | Occupational Ther Daily Note ---
OT Current Status-Daily Note Subjective Pt. alert sitting in recliner. No c/o pain. Pt. agreed to therapy. Mental Status/Objective Patient Orientation: Person, Place, Time, Situation ADL-Treatment Min A for sit<-->stands. Pt educated on using dressing stick and sock aide to complete footwear. Pt will need continued skilled instruction to become proficient. After session, pt in recliner with call light and phone in reach and all needs met. Therapy Code Descriptions/Definitions Functional [place] Measure: 0=Not Assessed/NA 4=Minimal Assistance 1=Total Assistance 5=Supervision or Setup 2=Maximal Assistance 6=Modified [place] 3=Moderate Assistance 7=Complete IndependenceSCALE: Activities may be completed with or without assistive devices. 5-Xjvaqqmixw-zbpacfr completes the activity by him/herself with no assistance from a helper. 5-Set-up or Clean-up Assistance-helper sets up or cleans up; patient completes activity. [place] assists only prior to or following the activity. 4-Supervision or Touching Assistance-helper provides verbal cues and/or touching/steadying and/or contact guard assistance as patient completes activity. Assistance may be provided throughout the activity or intermittently. 3-Partial/Moderate Assistance-helper does LESS THAN HALF the effort. [place] lifts, holds or supports trunk or limbs, but provides less than half the effort. 2-Substantial/Maximal Assistance-helper does MORE THAN HALF the effort. [place] lifts or holds trunk or limbs and provides more than half the effort. 4-Dxovryzrg-hedccz does ALL the effort. Patient does none of the effort to complete the activity. Or, the assistance of 2 or more helpers is required for the patient to complete the activity. If activity was not attempted, code reason: 7-Patient Refused. 9-Not Applicable-not attempted and the patient did not perform the activity before the current illness, exacerbation or injury. 10-Not Attempted due to Environmental Limitations-(lack of equipment, weather restraints, etc.). 88-Not Attempted due to Medical Conditions or Safety Concerns. Oral Hygiene (QC): 5 (Pt declines to complete oral care at sink. Supplies gathered for pt then pt able to complete rest of sequence by self.) Bathing Location: L Arm, R Arm, Chest, Abdomen Shower/Bathe Self (QC): 1 (Pt. completed sponge bath while sitting in recliner, bathed upper body by self then assist x2 to stand and cleanse buttocks and dominick area, assist to bathe lower legs/feet. ) Upper Body Dressing (QC): 3 (Pt. able doff night gown by self then dons shirt with v/c and assist to pull shirt down. ) Lower Body Dressing (QC): 1 (Assist with donning/doffing brief/pants while sitting then stands CGAx2 for safety while assist to hike pants over hips.) On/Off Footwear: 1 (Assist with donning/doffing socks.) OT Short Term Goals Short Term Goals Time Frame: Apr 29, 2023 Eatin Oral hygiene: 5 Toileting hygiene: 3 Shower/bathe self: 3 Upper body dressin Lower body dressin Putting on/taking off footwear: 3 OT Snf Goals Snf Goals Time Frame: May 06, 2023 Acute change in mental status: 0 Inattention: 0 Disorganized thinkin Altered level of consciousness: 0 Eating (QC): 6 Oral Hygiene (QC): 5 Toileting Hygiene (QC): 4 Shower/Bathe Self (QC): 4 Upper Body Dressing (QC): 4 Lower Body Dressing (QC): 4 On/Off Footwear (QC): 4 1=Demonstrate adherence to instructed precautions during ADL tasks. 2=Patient will verbalize/demonstrate understanding of assistive devices/modifications for ADL. 3=Patient will improve strength/tolerance for activity to enable patient to perform ADL's. OT Education/Plan Problem List/Assessment Assessment: Decreased Safety Aware, Decreased UE Strength, Impaired Coordination, Impaired Funct Balance, Impaired I ADL's, Impaired Self-Care Skills decreased functional strength, decrease ADL independence Discharge Recommendations Plan/Recommendations: Continue POC Treatment Plan/Plan of Care Patient would benefit from OT for education, treatment and training to promote independence in ADL's, mobility, safety and/or upper extremity function for ADL's. Plan of Care: ADL Retraining, Cognitive Retraining, Concurrent Therapy, Functional Mobility Treatment Duration: Apr 19, 2023 Frequency: 5 times per week Estimated Hrs Per Day: 1.5 hours per day Agreement: Yes Rehab Potential: Good Time Start Time: 08:45 Stop Time: 09:30 DATE: Apr 25, 2023 Total Time Billed (hr/min): 45 Billed Treatment Time 1 visit- ADL 3 (45 mins) PEREZ CHAUDHRY Apr 25, 2023 09:32
--- NOTE | 2023-04-25 09:48 | Physical Therapy Daily Note ---
PT Daily Note-Current Subjective Patient alert and up in recliner finishing her breakfast. Requests more mild - ordered for patient thru room service phone#. Patient receiving IV infusion this a.m. Pain Section J - Health Conditions 1. Rarely or not at all 2. Occasionally 3. Frequently 4. Almost constantly 8. Unable to answer Pain Effect on Sleep: 2 Pain Interference with Therapy: 2 Pain Interference w/Day-to-Day: 2 Transfers SCALE: Activities may be completed with or without assistive devices. 5-Hqhwtbgrsu-cuethge completes the activity by him/herself with no assistance from a helper. 5-Set-up or Clean-up Assistance-helper sets up or cleans up; patient completes activity. [place] assists only prior to or following the activity. 4-Supervision or Touching Assistance-helper provides verbal cues and/or touching/steadying and/or contact guard assistance as patient completes activity. Assistance may be provided throughout the activity or intermittently. 3-Partial/Moderate Assistance-helper does LESS THAN HALF the effort. [place] lifts, holds or supports trunk or limbs, but provides less than half the effort. 2-Substantial/Maximal Assistance-helper does MORE THAN HALF the effort. [place] lifts or holds trunk or limbs and provides more than half the effort. 8-Apcgrcjxl-sudzer does ALL the effort. Patient does none of the effort to complete the activity. Or, the assistance of 2 or more helpers is required for the patient to complete the activity. If activity was not attempted, code reason: 7-Patient Refused. 9-Not Applicable-not attempted and the patient did not perform the activity before the current illness, exacerbation or injury. 10-Not Attempted due to Environmental Limitations-(lack of equipment, weather restraints, etc.). 88-Not Attempted due to Medical Conditions or Safety Concerns. Weight Bearing Right Lower Extremity: Right Weight Bearing/Tolerated Left Lower Extremity: Left Weight Bearing/Tolerated Exercises (B) LE exercise in sittin x 10 reps LAQ to target, limited ext ROM on (R). 1 x 10 reps AP x 10 with LE supported by PT. Static heel cord stretches 2 x :30 PROM. Active hip flexion to target x 10 (B) AROM. Isometric hip adductio n/pillow squeeze x 10 AROM. Isometric hip adduction into PT's hands x 10 AROM. Static (R) hamstring stretching 5 x :30 holds /c no c/o pain -- extension improved to ~ 10 degree lag following with AAROM. PF presses into floor x 10. Assessment Tolerated ex well. PT Mcfp Goals Assistant Produce Manager Goals PT Mcfp Goals Time Frame: May 09, 2023 Roll Left & Right (QC): 4 Sit to Lying (QC): 4 Lying-Sitting on Side/Bed(QC): 4 Sit to Stand (QC): 3 Chair/Emy-hp-Rrkrg Xfer(QC): 3 Toilet Transfer (QC): 3 Car Transfer (QC): 3 Does the Patient Walk: Yes Walk 10 feet (QC): 3 Walk 50ft with 2 Turns (QC): 3 Walk 150 ft (QC): 9 Walking 10ft on Uneven Surface: 3 1 Step (curb) (QC): 3 4 Steps (QC): 9 12 Steps (QC): 9 Picking up an Object (QC): 3 Does the Pt use WC or Scooter?: Yes Wheel 50 feet with 2 turns (QC: 4 Type: Manual Wheel 150 feet: 4 PT Plan Treatment/Plan Treatment Plan: Continue Plan of Care Treatment Plan: Bed Mobility, Education, Functional Activity [place], Functional Strength, Group Therapy, Gait, Safety, Therapeutic Exercise, Transfers Treatment Duration: May 09, 2023 Frequency: At least 5 of 7 days/Wk (IRF) Estimated Hrs Per Day: 1.5 hours per day Patient and/or Family Agrees t: Yes Time Time In: 800 Time Out: 830 DATE: Apr 25, 2023 Total Billed Treatment Time: 30 Total Billed Treatment 2 EX Natalie Little PT Apr 25, 2023 09:48
--- NOTE | 2023-04-25 10:22 | Speech Therapy Daily Note ---
Speech Daily Progress Note Subjective Date Seen by Provider: Apr 25, 2023 Time Seen by Provider: 09:45 Pt was sitting in bedside chair upon HEAD OF ART arrival. Pt agreed to participate, but states that she is tired. Objective Pt participates in spaced retrieval task at 3 different time intervals, for recall of orientation information, call light, and d/c information. Pt is able to recall to look at her board for orientation information after HEAD OF ART asks here where to look, however, pt does not recall which button is her call light and does not recall where to look for d/c information. Pt completes recall task with mod cues for recall of simple instructions given. Pt states that she is tired and her right hand hurts, affecting progress this date. Assessment Assessment Current Status: Good Progress Speech Real Time Analyst Goals Real Time Analyst Goals Pt will utilize environmental cues for orientation to place and time with 80% accuracy. Pt will demonstrate appropriate use of call light with 90% accuracy. Pt will use environmental cues for safety precautions for hip with 80% accuracy. Speech-Plan Treatment Plan Speech Therapy Treatment Plan: Continue Plan of Care Treatment Duration: Apr 19, 2023 Frequency: At least 5 of 7 days/Wk (IRF) Estimated Hrs Per Day: .5 hour per day (Cog/ling tx) Rehab Potential: Good Time Speech Therapy Time In: 09:45 Speech Therapy Time Out: 10:15 DATE: Apr 25, 2023 Total Billed Time: 30 Billed Treatment Time 1 SLTS 30 min Lin Osborne Apr 25, 2023 10:22
[2023-04-25] MEDS: NYSTATIN CREAM 30 GM TUBE TP SCH ×3 (10:31→20:44)
[2023-04-25] MEDS: MICONAZOLE 2% POWDER 90 GM TOP SCH ×2 (10:31→20:44)
[2023-04-25] MEDS: CLOPIDOGREL 75 MG TABLET PO SCH (11:08)
--- NOTE | 2023-04-25 14:30 | Physical Therapy Daily Note ---
PT Daily Note-Current Subjective Patient states she had a nice lunch. Agreeable to work with PT. Pain Section J - Health Conditions 1. Rarely or not at all 2. Occasionally 3. Frequently 4. Almost constantly 8. Unable to answer Pain Effect on Sleep: 2 Pain Interference with Therapy: 2 Pain Interference w/Day-to-Day: 2 Transfers SCALE: Activities may be completed with or without assistive devices. 3-Gmizphcpmu-vtgzivt completes the activity by him/herself with no assistance from a helper. 5-Set-up or Clean-up Assistance-helper sets up or cleans up; patient completes activity. [place] assists only prior to or following the activity. 4-Supervision or Touching Assistance-helper provides verbal cues and/or touching/steadying and/or contact guard assistance as patient completes activity. Assistance may be provided throughout the activity or intermittently. 3-Partial/Moderate Assistance-helper does LESS THAN HALF the effort. [place] lifts, holds or supports trunk or limbs, but provides less than half the effort. 2-Substantial/Maximal Assistance-helper does MORE THAN HALF the effort. [place] lifts or holds trunk or limbs and provides more than half the effort. 4-Jwvueqlec-evfofp does ALL the effort. Patient does none of the effort to complete the activity. Or, the assistance of 2 or more helpers is required for the patient to complete the activity. If activity was not attempted, code reason: 7-Patient Refused. 9-Not Applicable-not attempted and the patient did not perform the activity before the current illness, exacerbation or injury. 10-Not Attempted due to Environmental Limitations-(lack of equipment, weather restraints, etc.). 88-Not Attempted due to Medical Conditions or Safety Concerns. Sit to Stand (QC): 1 (Patient able to scoot to the edge of recliner with mod (A), however required 2 person mod-max (A) to stand to FWW. In standing leaned heavily to left with therapist providing max (A) to keep patient standing upright. ) Weight Bearing Right Lower Extremity: Right Weight Bearing/Tolerated Left Lower Extremity: Left Weight Bearing/Tolerated Gait Training Distance: 3' Gait Assistive Device: FWW Max (A) of 2, leaning heavily on therapist on (L) vs walker, /c w/c backup, unable to extend knees fully to come into standing. Non-functional gait. Wheelchair Training Does the Pt Use a Wheelchair?: Yes Wheel 50 ft with 2 turns (QC): 1 Patient unable to assist with w/c mobility - is dependent for wc propulsion this date. Assessment Nil functional progress with transfers/gait. PT Quickbooks Bookkeeper Goals Quickbooks Bookkeeper Goals PT Skilled Nursing Goals Time Frame: May 09, 2023 Roll Left & Right (QC): 4 Sit to Lying (QC): 4 Lying-Sitting on Side/Bed(QC): 4 Sit to Stand (QC): 3 Chair/Ufu-bk-Nzysi Xfer(QC): 3 Toilet Transfer (QC): 3 Car Transfer (QC): 3 Does the Patient Walk: Yes Walk 10 feet (QC): 3 Walk 50ft with 2 Turns (QC): 3 Walk 150 ft (QC): 9 Walking 10ft on Uneven Surface: 3 1 Step (curb) (QC): 3 4 Steps (QC): 9 12 Steps (QC): 9 Picking up an Object (QC): 3 Does the Pt use WC or Scooter?: Yes Wheel 50 feet with 2 turns (QC: 4 Type: Manual Wheel 150 feet: 4 PT Plan Treatment/Plan Treatment Plan: Continue Plan of Care Treatment Plan: Bed Mobility, Education, Functional Activity [place], Functional Strength, Group Therapy, Gait, Safety, Therapeutic Exercise, Transfers Treatment Duration: May 09, 2023 Frequency: At least 5 of 7 days/Wk (IRF) Estimated Hrs Per Day: 1.5 hours per day Patient and/or Family Agrees t: Yes Time Time In: 1300 Time Out: 1315 DATE: Apr 25, 2023 Total Billed Treatment Time: 15 Total Billed Treatment 1, 1 FA Natalie Little PT Apr 25, 2023 14:29
--- NOTE | 2023-04-25 14:37 | Therapy Group Daily Note ---
Therapy Daily Group Note Patient Education Topic Home Safety, Exercises Exercises LE Seated Exercise, UE Exercise Session Ratio (pt:therapist): 4:1 Goal of Session: Education on ARU Expectations, Home Safety Strategies, UE/LE Strengthing Goal Met for this Session: Yes Pt Benefit of Group: Contributions to Others, F/U Use of Strategies @Home, Increased Functional Safety, Increased Functional Strength, Improved Cognition, Recognition of Peers, Socialization Other/Notes Group completed with Francia Macias. Took over pt care from PT. OT/PT group consisted of introductions (name,place living, favorite Thanksgiving food), socialization, B UE/LE seated exercises and educational topic of home safety with activity. Pt introduced self appropriately and actively listened to peers. Pt able to complete B UE/LE seated exercises with minimal cues and modifications to maintain hip precautions. Pt demonstrated understanding of educational topic by voicing personal experiences and using information gathered during discussion. After therapy, pt requested to use toilet. Pt transferred to toilet and call light in hand. Nrsg aware of Pt's position. All needs met. Start Time: 13:15 Stop Time: 14:15 Total Billed Treatment Time: 60 Total Billed Treatment 1-GRP PEREZ CHAUDHRY Apr 25, 2023 14:37
[2023-04-25] MEDS: ACETAMINOPHEN 500 MG TABLET PO PRN (16:00)
[2023-04-25 19:40] VITALS: BP 129/85
[2023-04-25] MEDS: MIRTAZAPINE 15 MG TABLET PO SCH (20:36)
[2023-04-25] MEDS: DONEPEZIL 10 MG TABLET PO SCH (20:36)
[2023-04-25] MEDS: OLANZapine 5 MG ODT TABLET PO SCH (20:37)
[2023-04-26] MEDS: POTASSIUM CHLORIDE 10 MEQ TABLET PO SCH ×2 (06:03→17:05)
[2023-04-26] MEDS: glipiZIDE 5 MG TABLET PO SCH (06:03)
[2023-04-26] MEDS: CYANOCOBALAMIN 1,000 MCG TABLET PO SCH (06:03)
[2023-04-26] MEDS: inSUlin ASPART 1 UNIT/0.01 ML (PER UNIT) SC SCH ×4 (06:20→20:15)
--- NOTE | 2023-04-26 06:59 | PM&R Progress Note ---
Subjective HPI/CC On Admission Date Seen by Provider: Apr 26, 2023 Time Seen by Provider: 12:00 Subjective/Events-last exam 04/26/2023: Doing well Improved ambulation Slow recovery Very dependent overall but improved 04/25/2023: Doing well No falls No pain reported Labs stable No bleeding today thus far 04/24/2023: Doing well Requires 2 person assist most of the time Likely will need skilled Pain is not reported 04/23/2023: Potassium low so will increase regular potassium to BID No falls No pain Reviewed meds and labs Dressing not saturated any longer since holding Lovenox 04/22/2023: No new issues Participation is good Skilled care still a strong possibility Lives in [place] Saturation of the dressing due to bleeding so will hold Lovenox 04/21/2023: Patient doing a lot better Less confusion Participation is good Incontinence 04/20/2023: Doing better Pain is controlled Confusion improved Requires a lot of cues No falls 04/19/2023: Patient doing better Confusion times Pain is controlled Labs reviewed Giving iron and B12 supplement empirically Review of Systems General: Fatigue, Malaise Objective Exam Vital Signs Vital Signs Date Time Temp Pulse Resp B/P (MAP) Pulse Ox O2 Delivery O2 Flow Rate FiO2 04/26/23 11:28 35.6 91 18 120/56 (77) 97 Room Air 04/24/23 09:09 0.00 04/21/23 09:35 21 Capillary Refill : General Appearance: No Apparent Distress, WD/WN, Chronically ill, Other (fatigued) HEENT: PERRL/EOMI, Normal ENT Inspection, Pharynx Normal Neck: Full Range of Motion, Normal Inspection, Non Tender, Supple, Carotid Bruit Respiratory: Chest Non Tender, Lungs Clear, Normal Breath Sounds, No Accessory Muscle Use, No Respiratory Distress Cardiovascular: Regular Rate, Rhythm, No Edema, No Gallop, No JVD, No Murmur, Normal Peripheral Pulses Gastrointestinal: Normal Bowel Sounds, No Organomegaly, No Pulsatile Mass, Non Tender, Soft Back: Normal Inspection, No CVA Tenderness, No Vertebral Tenderness Extremity: Normal Capillary Refill, Normal Inspection, Normal Range of Motion (except right leg), Non Tender, No Calf Tenderness, No Pedal Edema Neurologic/Psychiatric: Alert, Oriented x3, No Motor/Sensory Deficits, stone cutter II- XII Norm as Tested, Depressed Affect, Disoriented (subtle) Skin: Normal Color, Warm/Dry Lymphatic: No Adenopathy Results/Procedures Lab Patient resulted labs reviewed. FIM Transfers Therapy Code Descriptions/Definitions Functional [place] Measure: 0=Not Assessed/NA 4=Minimal Assistance 1=Total Assistance 5=Supervision or Setup 2=Maximal Assistance 6=Modified [place] 3=Moderate Assistance 7=Complete IndependenceSCALE: Activities may be completed with or without assistive devices. 0-Hsxukdmgjp-wjzbooo completes the activity by him/herself with no assistance from a helper. 5-Set-up or Clean-up Assistance-helper sets up or cleans up; patient completes activity. [place] assists only prior to or following the activity. 4-Supervision or Touching Assistance-helper provides verbal cues and/or touching/steadying and/or contact guard assistance as patient completes activity. Assistance may be provided throughout the activity or intermittently. 3-Partial/Moderate Assistance-helper does LESS THAN HALF the effort. [place] lifts, holds or supports trunk or limbs, but provides less than half the effort. 2-Substantial/Maximal Assistance-helper does MORE THAN HALF the effort. [place] lifts or holds trunk or limbs and provides more than half the effort. 0-Ykzgypktj-etfnso does ALL the effort. Patient does none of the effort to complete the activity. Or, the assistance of 2 or more helpers is required for the patient to complete the activity. If activity was not attempted, code reason: 7-Patient Refused. 9-Not Applicable-not attempted and the patient did not perform the activity before the current illness, exacerbation or injury. 10-Not Attempted due to Environmental Limitations-(lack of equipment, weather restraints, etc.). 88-Not Attempted due to Medical Conditions or Safety Concerns. Roll Left to Right (QC): 2 Sit to Lying (QC): 2 Sit to Stand (QC): 1 (Patient able to scoot to the edge of recliner with mod (A), however required 2 person mod-max (A) to stand to FWW. In standing leaned heavily to left with therapist providing max (A) to keep patient standing upright. ) Chair/Rku-xc-Ghoir Xfer(QC): 2 (Max) Car Transfer (QC): 88 Gait Training Does the Patient Walk?: Yes Distance: 3' Walk 10 feet (QC): 88 (took 1 step to (L) /c FWW. Unable to move legs further. Unable to safely perform /c FWW and assist of 2.) Walk 50 ft with 2 Turns(QC): 88 Walk 150 ft (QC): 88 Walking 10ft/uneven surface-QC: 88 Gait Persons Needed: 2 Gait Assistive Device: FWW Wheelchair Training Does the Pt Use a Wheelchair?: Yes Distance: 2 feet Wheel 50 ft with 2 turns (QC): 1 Wheel 150 ft (QC): 88 Type of Wheelchair: Manual Stair Training 1 Step (curb) (QC): 88 4 Steps (QC): 88 12 Steps (QC): 88 Balance Picking up an Object (QC): 88 ADL-Treatment Eating (QC): 5 Oral Hygiene (QC): 5 (Pt declines to complete oral care at sink. Supplies gathered for pt then pt able to complete rest of sequence by self.) Bathing Location: L Arm, R Arm, Chest, Abdomen Shower/Bathe Self (QC): 1 (Pt. completed sponge bath while sitting in recliner, bathed upper body by self then assist x2 to stand and cleanse buttocks and dominick area, assist to bathe lower legs/feet. ) Upper Body Dressing (QC): 3 (Pt. able doff night gown by self then dons shirt with v/c and assist to pull shirt down. ) Lower Body Dressing (QC): 1 (Assist with donning/doffing brief/pants while sitting then stands CGAx2 for safety while assist to hike pants over hips.) On/Off Footwear (QC): 1 (Assist with donning/doffing socks.) Toileting Hygiene (QC): 1 Toilet Transfer (QC): 1 Assessment/Plan Assessment and Plan Assess & Plan/Chief Complaint Assessment: s/p right hip fracture s/p uncomplicated repair DM HTN CAD Dementia Post op anemia from acute blood loss Delirium Incision bleeding holding Lovenox due to risks outweigh benefits Plan: Home meds Monitor BP and BS Aggressive PT OT 04/19/2023: Iron infusion B12 supplement 04/20/2023: Iron and B12 empirically Monitor closely SNF at risk 04/21/2023: Supportive care Aggressive therapy 04/22/2023: Pain control Hold Lovenox for saturation of the incision 04/23/2023: Continue holding Lovenox Monitor incision 04/24/2023: Monitor closely Fall risk SNF? 04/25/2023: Continue to hold Lovenox due to bleeding Monitor BP 04/26/2023: Doing well No issues Improved but slow recovery (1) Closed right hip fracture Status: Acute (2) History of cerebrovascular disease Status: Acute (3) History of ST elevation myocardial infarction (STEMI) Status: Acute (4) HTN (hypertension) Status: Acute (5) Dementia Status: Acute (6) Compression fracture of L1 vertebra Status: Acute ASHLY VILLEGAS DO Apr 26, 2023 06:58
[2023-04-26 08:00] VITALS: BP 109/54
[2023-04-26] MEDS: EMPAGLIFLOZIN 10 MG TABLET PO SCH (08:26)
[2023-04-26] MEDS: HYDROcodone/ACETAMINOPHEN 7.5 MG/325 MG TABLET PO PRN (08:27)
[2023-04-26] MEDS: NYSTATIN CREAM 30 GM TUBE TP SCH ×3 (08:28→20:19)
[2023-04-26] MEDS: SENNA W/DOCUSATE TABLET PO SCH ×2 (08:30→20:06)
[2023-04-26] MEDS: MICONAZOLE 2% POWDER 90 GM TOP SCH ×2 (08:30→20:19)
[2023-04-26] MEDS: DOCUSATE SODIUM 100 MG CAPSULE PO SCH ×2 (08:30→20:05)
--- NOTE | 2023-04-26 09:28 | Physical Therapy Daily Note ---
PT Daily Note-Current Subjective Patient states she does not want to have therapy this morning. States "my leg is killing me". Nursing notified and pain pill dispensed. Patient verbalized to both PT and tech that we were "squeezing the hell" out of her right arm when we applied tactile cues for walker and w/c use. Pain Section J - Health Conditions 1. Rarely or not at all 2. Occasionally 3. Frequently 4. Almost constantly 8. Unable to answer Pain Effect on Sleep: 2 Pain Interference with Therapy: 2 Pain Interference w/Day-to-Day: 2 Appearance Patient sitting up in recliner in shirt and brief - no pants. Pants obtained from clothing closet - dependent to don. Mental Status Patient Orientation: Person Transfers SCALE: Activities may be completed with or without assistive devices. 7-Fvngpstmwe-ktsyrqq completes the activity by him/herself with no assistance from a helper. 5-Set-up or Clean-up Assistance-helper sets up or cleans up; patient completes activity. [place] assists only prior to or following the activity. 4-Supervision or Touching Assistance-helper provides verbal cues and/or touching/steadying and/or contact guard assistance as patient completes activity. Assistance may be provided throughout the activity or intermittently. 3-Partial/Moderate Assistance-helper does LESS THAN HALF the effort. [place] lifts, holds or supports trunk or limbs, but provides less than half the effort. 2-Substantial/Maximal Assistance-helper does MORE THAN HALF the effort. [place] lifts or holds trunk or limbs and provides more than half the effort. 6-Vnsxmgqyg-ymqvsr does ALL the effort. Patient does none of the effort to complete the activity. Or, the assistance of 2 or more helpers is required for the patient to complete the activity. If activity was not attempted, code reason: 7-Patient Refused. 9-Not Applicable-not attempted and the patient did not perform the activity before the current illness, exacerbation or injury. 10-Not Attempted due to Environmental Limitations-(lack of equipment, weather restraints, etc.). 88-Not Attempted due to Medical Conditions or Safety Concerns. Sit to Stand (QC): 1 (mod-max (A) of 2 /c v.c., multiple sit>stands from rec liner and w/c. Max cues to prep prior to standing. No retention) Chair/Nkq-oh-Pgiac Xfer(QC): 1 (mod (A) of 2 /c FWW with max cues for safety) Weight Bearing Right Lower Extremity: Right Weight Bearing/Tolerated Left Lower Extremity: Left Weight Bearing/Tolerated Gait Training Does the Patient Walk?: Yes Distance: 4' x 3 Gait Persons Needed: 2 Gait Assistive Device: FWW extremely short stride (B), flexed knee gait, max vc/tc for posture mod (A) of 2 (2nd person for w/c f/u) Wheelchair Training Does the Pt Use a Wheelchair?: Yes 15' to cover 5' distance with max cues to use UE's and LE's. Assessment Current Status: Poor Progress (Patient reluctant to particiapte in upright mobility and w/c propulsion. ) PT Alf Goals [employer] System Administrator Goals PT Alf Goals Time Frame: May 09, 2023 Roll Left & Right (QC): 4 Sit to Lying (QC): 4 Lying-Sitting on Side/Bed(QC): 4 Sit to Stand (QC): 3 Chair/Dno-bz-Onyfl Xfer(QC): 3 Toilet Transfer (QC): 3 Car Transfer (QC): 3 Does the Patient Walk: Yes Walk 10 feet (QC): 3 Walk 50ft with 2 Turns (QC): 3 Walk 150 ft (QC): 9 Walking 10ft on Uneven Surface: 3 1 Step (curb) (QC): 3 4 Steps (QC): 9 12 Steps (QC): 9 Picking up an Object (QC): 3 Does the Pt use WC or Scooter?: Yes Wheel 50 feet with 2 turns (QC: 4 Type: Manual Wheel 150 feet: 4 PT Plan Treatment/Plan Treatment Plan: Continue Plan of Care Treatment Plan: Bed Mobility, Education, Functional Activity [place], Functional Strength, Group Therapy, Gait, Safety, Therapeutic Exercise, Transfers Treatment Duration: May 09, 2023 Frequency: At least 5 of 7 days/Wk (IRF) Estimated Hrs Per Day: 1.5 hours per day Patient and/or Family Agrees t: Yes Time Time In: 800 Time Out: 845 DATE: Apr 26, 2023 Total Billed Treatment Time: 45 Total Billed Treatment 1FA, 1GT, 1 Natalie Santa PT Apr 26, 2023 09:28
[2023-04-26 11:28] VITALS: BP 120/56
[2023-04-26] MEDS: ACETAMINOPHEN 500 MG TABLET PO PRN (11:51)
--- NOTE | 2023-04-26 12:08 | Occupational Ther Daily Note ---
OT Current Status-Daily Note Subjective Pt. alert sitting in w/c. C/o pain in R LE nrsg aware. Pt. agreed to therapy. Mental Status/Objective Patient Orientation: Person, Place, Time, Situation ADL-Treatment Pt. agreed to shower. Max A for sit to stands requiring x2 clinicians with v/c to push up with w/c. SPT from w/c to shower using FWW and grabbars Mod A with v/c to keep turning to be align with BSC. Pt. adheres to hip precautions when bathing and dressing LE. After session, pt in w/c with call light and phone in reach and all needs met. Therapy Code Descriptions/Definitions Functional [place] Measure: 0=Not Assessed/NA 4=Minimal Assistance 1=Total Assistance 5=Supervision or Setup 2=Maximal Assistance 6=Modified [place] 3=Moderate Assistance 7=Complete IndependenceSCALE: Activities may be completed with or without assistive devices. 9-Vybkfhaewh-weffuty completes the activity by him/herself with no assistance from a helper. 5-Set-up or Clean-up Assistance-helper sets up or cleans up; patient completes activity. [place] assists only prior to or following the activity. 4-Supervision or Touching Assistance-helper provides verbal cues and/or touching/steadying and/or contact guard assistance as patient completes activity. Assistance may be provided throughout the activity or intermittently. 3-Partial/Moderate Assistance-helper does LESS THAN HALF the effort. [place] lifts, holds or supports trunk or limbs, but provides less than half the effort. 2-Substantial/Maximal Assistance-helper does MORE THAN HALF the effort. [place] lifts or holds trunk or limbs and provides more than half the effort. 4-Brxzpusqh-rmczkb does ALL the effort. Patient does none of the effort to complete the activity. Or, the assistance of 2 or more helpers is required for the patient to complete the activity. If activity was not attempted, code reason: 7-Patient Refused. 9-Not Applicable-not attempted and the patient did not perform the activity before the current illness, exacerbation or injury. 10-Not Attempted due to Environmental Limitations-(lack of equipment, weather restraints, etc.). 88-Not Attempted due to Medical Conditions or Safety Concerns. Oral Hygiene (QC): 7 Bathing Location: L Arm, R Arm, L Upper Leg, R Upper Leg, Chest, Abdomen, Perineal Area Shower/Bathe Self (QC): 3 (Pt. able to bathe UE, dominick area and upper legs while sitting on BSC 100% of the time using LH sponge, hand held shower, and grabbars requires cues to initate whats next. Assist with cleaning/drying buttocks and drying LE. ) Upper Body Dressing (QC): 5 (Pt. able to doff/don UB clothing after set up. ) Lower Body Dressing (QC): 1 (Assist x2 to doff LB clothing then stands CGA stabilizing with walker for safety while assist to hike brief over hips. ) On/Off Footwear: 1 (Assist with donning/doffing tedhose and socks. ) Other Treatment Pt. completed 6 UE exercises without resistance, 1 set of 10 reps to increase UE strength. Skilled instructions for correct technique and modifications when needed. OT Short Term Goals Short Term Goals Time Frame: Apr 29, 2023 Eatin Oral hygiene: 5 Toileting hygiene: 3 Shower/bathe self: 3 Upper body dressin Lower body dressin Putting on/taking off footwear: 3 OT Long-Term Goals Long-Term Goals Time Frame: May 06, 2023 Acute change in mental status: 0 Inattention: 0 Disorganized thinkin Altered level of consciousness: 0 Eating (QC): 6 Oral Hygiene (QC): 5 Toileting Hygiene (QC): 4 Shower/Bathe Self (QC): 4 Upper Body Dressing (QC): 4 Lower Body Dressing (QC): 4 On/Off Footwear (QC): 4 1=Demonstrate adherence to instructed precautions during ADL tasks. 2=Patient will verbalize/demonstrate understanding of assistive devices/modifications for ADL. 3=Patient will improve strength/tolerance for activity to enable patient to perform ADL's. OT Education/Plan Problem List/Assessment Assessment: Decreased Safety Aware, Decreased UE Strength, Impaired Coordination, Impaired Funct Balance, Impaired I ADL's, Impaired Self-Care Skills decreased functional strength, decrease ADL independence Discharge Recommendations Plan/Recommendations: Continue POC Treatment Plan/Plan of Care Patient would benefit from OT for education, treatment and training to promote independence in ADL's, mobility, safety and/or upper extremity function for ADL's. Plan of Care: ADL Retraining, Cognitive Retraining, Concurrent Therapy, Functional Mobility Treatment Duration: Apr 19, 2023 Frequency: 5 times per week Estimated Hrs Per Day: 1.5 hours per day Agreement: Yes Rehab Potential: Good Time Start Time: 10:45 Stop Time: 12:00 DATE: Apr 26, 2023 Total Time Billed (hr/min): 75 Billed Treatment Time 1 visit- ADL 3 (50 mins) EX 2 (25 mins) PEREZ CHAUDHRY Apr 26, 2023 12:08
--- NOTE | 2023-04-26 14:09 | Occupational Ther Daily Note ---
OT Current Status-Daily Note Subjective Pt dozing in w/c, woke easily to name. Pt agrees to therapy. No c/o pain. Mental Status/Objective Patient Orientation: Person Attachments: IV ADL-Treatment Therapy Code Descriptions/Definitions Functional [place] Measure: 0=Not Assessed/NA 4=Minimal Assistance 1=Total Assistance 5=Supervision or Setup 2=Maximal Assistance 6=Modified [place] 3=Moderate Assistance 7=Complete IndependenceSCALE: Activities may be completed with or without assistive devices. 4-Wxqmbxqggn-q[place]fa completes the activity by him/herself with no assistance from a helper. 5-Set-up or Clean-up Assistance-helper sets up or cleans up; patient completes activity. [place] assists only prior to or following the activity. 4-Supervision or Touching Assistance-helper provides verbal cues and/or touching/steadying and/or contact guard assistance as patient completes activity. Assistance may be provided throughout the activity or intermittently. 3-Partial/Moderate Assistance-helper does LESS THAN HALF the effort. [place] lifts, holds or supports trunk or limbs, but provides less than half the effort. 2-Substantial/Maximal Assistance-helper does MORE THAN HALF the effort. [place] lifts or holds trunk or limbs and provides more than half the effort. 0-Zmdihdbtl-dfefru does ALL the effort. Patient does none of the effort to complete the activity. Or, the assistance of 2 or more helpers is required for the patient to complete the activity. If activity was not attempted, code reason: 7-Patient Refused. 9-Not Applicable-not attempted and the patient did not perform the activity before the current illness, exacerbation or injury. 10-Not Attempted due to Environmental Limitations-(lack of equipment, weather restraints, etc.). 88-Not Attempted due to Medical Conditions or Safety Concerns. Other Treatment Attempted ambulate using FWW 3x's with pt, 3 shuffling steps with each. Attempted to walk pt with hand hold assist x2, pt unable to manage steps. Pt transported to therapy gym using w/c. 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 After therapy, pt sitting in w/c with call light/phone in reach. All needs met in room. OT Short Term Goals Short Term Goals Time Frame: Apr 29, 2023 Eatin Oral hygiene: 5 Toileting hygiene: 3 Shower/bathe self: 3 Upper body dressin Lower body dressin Putting on/taking off footwear: 3 OT Fci Goals Fci Goals Time Frame: May 06, 2023 Acute change in mental status: 0 Inattention: 0 Disorganized thinkin Altered level of consciousness: 0 Eating (QC): 6 Oral Hygiene (QC): 5 Toileting Hygiene (QC): 4 Shower/Bathe Self (QC): 4 Upper Body Dressing (QC): 4 Lower Body Dressing (QC): 4 On/Off Footwear (QC): 4 1=Demonstrate adherence to instructed precautions during ADL tasks. 2=Patient will verbalize/demonstrate understanding of assistive devices/modifications for ADL. 3=Patient will improve strength/tolerance for activity to enable patient to perform ADL's. OT Education/Plan Problem List/Assessment Assessment: Decreased Activ Tolerance, Decreased UE Strength, Impaired Cognition, Impaired Funct Balance, Impaired Self-Care Skills decreased functional strength, decrease ADL independence Discharge Recommendations Plan/Recommendations: Continue POC Treatment Plan/Plan of Care Patient would benefit from OT for education, treatment and training to promote independence in ADL's, mobility, safety and/or upper extremity function for ADL's. Plan of Care: ADL Retraining, Cognitive Retraining, Concurrent Therapy, Functional Mobility Treatment Duration: Apr 19, 2023 Frequency: 5 times per week Estimated Hrs Per Day: 1.5 hours per day Agreement: Yes Rehab Potential: Good Time Start Time: 13:30 Stop Time: 14:00 DATE: Apr 26, 2023 Total Time Billed (hr/min): 30 Billed Treatment Time 1 visit-FA 1 (15 min) EX 1 (15 min) PEREZ CHAUDHRY Apr 26, 2023 14:09
--- NOTE | 2023-04-26 15:12 | Speech Therapy Daily Note ---
Speech Daily Progress Note Subjective Date Seen by Provider: Apr 26, 2023 Time Seen by Provider: 09:45 Pt was asleep in wheelchair upon [employer] CONVERTER HELPER arrival. Pt rouses and is agreeable to session. Objective Pt participates in spaced retrieval tasks, involving information regarding orientation, call light, dc plan, and hip precautions. After review, pt is able to recall 3/4, however, pt continues to struggle with location of call light. After a delay of 5 and 10 minutes pt recalls 2/4. Pt demonstrates good attention to tasks, but continues to require cues for recall of directions after an extended period of time. Speech Densitometer Reader Goals Long-Term Goals Pt will utilize environmental cues for orientation to place and time with 80% accuracy. Pt will demonstrate appropriate use of call light with 90% accuracy. Pt will use environmental cues for safety precautions for hip with 80% accuracy. Speech-Plan Treatment Plan Speech Therapy Treatment Plan: Continue Plan of Care Treatment Duration: Apr 19, 2023 Frequency: At least 5 of 7 days/Wk (IRF) Estimated Hrs Per Day: .5 hour per day (Cog/ling tx) Rehab Potential: Good Time Speech Therapy Time In: 09:45 Speech Therapy Time Out: 10:15 DATE: Apr 26, 2023 Total Billed Time: 30 Billed Treatment Time 1 SLTS 30 min Lin Osborne Apr 26, 2023 15:12
[2023-04-26 20:06] VITALS: BP 105/60
[2023-04-26] MEDS: MIRTAZAPINE 15 MG TABLET PO SCH (20:15)
[2023-04-26] MEDS: OLANZapine 5 MG ODT TABLET PO SCH (20:15)
[2023-04-26] MEDS: DONEPEZIL 10 MG TABLET PO SCH (20:15)
--- NOTE | 2023-04-27 04:52 | PM&R Progress Note ---
Subjective HPI/CC On Admission Date Seen by Provider: Apr 27, 2023 Time Seen by Provider: 13:00 Subjective/Events-last exam 04/27/2023: Patient doing well Denies any new issues Discharge will be back to [facility] Reviewed meds and labs Making some progress 04/26/2023: Doing well Improved ambulation Slow recovery Very dependent overall but improved 04/25/2023: Doing well No falls No pain reported Labs stable No bleeding today thus far 04/24/2023: Doing well Requires 2 person assist most of the time Likely will need skilled Pain is not reported 04/23/2023: Potassium low so will increase regular potassium to BID No falls No pain Reviewed meds and labs Dressing not saturated any longer since holding Lovenox 04/22/2023: No new issues Participation is good Skilled care still a strong possibility Lives in [place] Saturation of the dressing due to bleeding so will hold Lovenox 04/21/2023: Patient doing a lot better Less confusion Participation is good Incontinence 04/20/2023: Doing better Pain is controlled Confusion improved Requires a lot of cues No falls 04/19/2023: Patient doing better Confusion times Pain is controlled Labs reviewed Giving iron and B12 supplement empirically Review of Systems General: Fatigue, Malaise Objective Exam Vital Signs Vital Signs Date Time Temp Pulse Resp B/P (MAP) Pulse Ox O2 Delivery O2 Flow Rate FiO2 04/27/23 09:26 Room Air 04/27/23 09:21 36.5 108 96 21 04/27/23 09:18 0.00 04/27/23 08:00 16 90/49 (63) Capillary Refill : General Appearance: No Apparent Distress, WD/WN, Chronically ill, Other (fatigued) HEENT: PERRL/EOMI, Normal ENT Inspection, Pharynx Normal Neck: Full Range of Motion, Normal Inspection, Non Tender, Supple, Carotid Bruit Respiratory: Chest Non Tender, Lungs Clear, Normal Breath Sounds, No Accessory Muscle Use, No Respiratory Distress Cardiovascular: Regular Rate, Rhythm, No Edema, No Gallop, No JVD, No Murmur, Normal Peripheral Pulses Gastrointestinal: Normal Bowel Sounds, No Organomegaly, No Pulsatile Mass, Non Tender, Soft Back: Normal Inspection, No CVA Tenderness, No Vertebral Tenderness Extremity: Normal Capillary Refill, Normal Inspection, Normal Range of Motion ( except right leg), Non Tender, No Calf Tenderness, No Pedal Edema Neurologic/Psychiatric: Alert, Oriented x3, No Motor/Sensory Deficits, 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 FIM Transfers Therapy Code Descriptions/Definitions Functional [place] Measure: 0=Not Assessed/NA 4=Minimal Assistance 1=Total Assistance 5=Supervision or Setup 2=Maximal Assistance 6=Modified [place] 3=Moderate Assistance 7=Complete IndependenceSCALE: Activities may be completed with or without assistive devices. 5-Dlqpevlnon-sjthoie completes the activity by him/herself with no assistance from a helper. 5-Set-up or Clean-up Assistance-helper sets up or cleans up; patient completes activity. [place] assists only prior to or following the activity. 4-Supervision or Touching Assistance-helper provides verbal cues and/or touching/steadying and/or contact guard assistance as patient completes activity. Assistance may be provided throughout the activity or intermittently. 3-Partial/Moderate Assistance-helper does LESS THAN HALF the effort. [place] lifts, holds or supports trunk or limbs, but provides less than half the effort. 2-Substantial/Maximal Assistance-helper does MORE THAN HALF the effort. [place] lifts or holds trunk or limbs and provides more than half the effort. 8-Szzzuseqa-qtyuph does ALL the effort. Patient does none of the effort to complete the activity. Or, the assistance of 2 or more helpers is required for the patient to complete the activity. If activity was not attempted, code reason: 7-Patient Refused. 9-Not Applicable-not attempted and the patient did not perform the activity before the current illness, exacerbation or injury. 10-Not Attempted due to Environmental Limitations-(lack of equipment, weather restraints, etc.). 88-Not Attempted due to Medical Conditions or Safety Concerns. Roll Left to Right (QC): 2 Sit to Lying (QC): 2 Sit to Stand (QC): 1 (mod-max (A) of 2 /c v.c., multiple sit>stands from recliner and w/c. Max cues to prep prior to standing. No retention) Chair/Xri-ub-Thldy Xfer(QC): 1 (mod (A) of 2 /c FWW with max cues for safety) Car Transfer (QC): 88 Gait Training Does the Patient Walk?: Yes Distance: 4' x 3 Walk 10 feet (QC): 88 (took 1 step to (L) /c FWW. Unable to move legs further. Unable to safely perform /c FWW and assist of 2.) Walk 50 ft with 2 Turns(QC): 88 Walk 150 ft (QC): 88 Walking 10ft/uneven surface-QC: 88 Gait Persons Needed: 2 Gait Assistive Device: FWW Wheelchair Training Does the Pt Use a Wheelchair?: Yes Distance: 2 feet Wheel 50 ft with 2 turns (QC): 1 Wheel 150 ft (QC): 88 Type of Wheelchair: Manual Stair Training 1 Step (curb) (QC): 88 4 Steps (QC): 88 12 Steps (QC): 88 Balance Picking up an Object (QC): 88 ADL-Treatment Eating (QC): 5 Oral Hygiene (QC): 7 Bathing Location: L Arm, R Arm, L Upper Leg, R Upper Leg, Chest, Abdomen, Perineal Area Shower/Bathe Self (QC): 3 (Pt. able to bathe UE, dominick area and upper legs while sitting on BSC 100% of the time using LH sponge, hand held shower, and grabbars requires cues to initate whats next. Assist with cleaning/drying buttocks and drying LE. ) Upper Body Dressing (QC): 5 (Pt. able to doff/don UB clothing after set up. ) Lower Body Dressing (QC): 1 (Assist x2 to doff LB clothing then stands CGA stabilizing with walker for safety while assist to hike brief over hips. ) On/Off Footwear (QC): 1 (Assist with donning/doffing tedhose and socks. ) Toileting Hygiene (QC): 1 Toilet Transfer (QC): 1 Assessment/Plan Assessment and Plan Assess & Plan/Chief Complaint Assessment: s/p right hip fracture s/p uncomplicated repair DM HTN CAD Dementia Post op anemia from acute blood loss Delirium Incision bleeding holding Lovenox due to risks outweigh benefits Plan: Home meds Monitor BP and BS Aggressive PT OT 04/19/2023: Iron infusion B12 supplement 04/20/2023: Iron and B12 empirically Monitor closely SNF at risk 04/21/2023: Supportive care Aggressive therapy 04/22/2023: Pain control Hold Lovenox for saturation of the incision 04/23/2023: Continue holding Lovenox Monitor incision 04/24/2023: Monitor closely Fall risk SNF? 04/25/2023: Continue to hold Lovenox due to bleeding Monitor BP 04/26/2023: Doing well No issues Improved but slow recovery 04/27/2023: Continue to hold Lovenox due to bleeding risk Supportive care (1) Closed right hip fracture Status: Acute (2) History of cerebrovascular disease Status: Acute (3) History of ST elevation myocardial infarction (STEMI) Status: Acute (4) HTN (hypertension) Status: Acute (5) Dementia Status: Acute (6) Compression fracture of L1 vertebra Status: Acute ASHLY VILLEGAS DO Apr 27, 2023 04:52
[2023-04-27] MEDS: inSUlin ASPART 1 UNIT/0.01 ML (PER UNIT) SC SCH ×4 (05:41→21:12)
[2023-04-27] MEDS: glipiZIDE 5 MG TABLET PO SCH (06:11)
[2023-04-27] MEDS: CYANOCOBALAMIN 1,000 MCG TABLET PO SCH (06:11)
[2023-04-27] MEDS: POTASSIUM CHLORIDE 10 MEQ TABLET PO SCH ×2 (06:11→16:50)
[2023-04-27 08:00] VITALS: BP 90/49
--- NOTE | 2023-04-27 08:13 | Physical Therapy Daily Note ---
PT Daily Note-Current Subjective No new complaints this a.m. She states she has no pain this morning neither in her hip nor her (R) arm that was painful yesterday. Pain Section J - Health Conditions 1. Rarely or not at all 2. Occasionally 3. Frequently 4. Almost constantly 8. Unable to answer Pain Effect on Sleep: 2 Pain Interference with Therapy: 2 Pain Interference w/Day-to-Day: 2 Transfers SCALE: Activities may be completed with or without assistive devices. 8-Uurgyicylh-ujxbuai completes the activity by him/herself with no assistance from a helper. 5-Set-up or Clean-up Assistance-helper sets up or cleans up; patient completes activity. [place] assists only prior to or following the activity. 4-Supervision or Touching Assistance-helper provides verbal cues and/or touching/steadying and/or contact guard assistance as patient completes activity. Assistance may be provided throughout the activity or intermittently. 3-Partial/Moderate Assistance-helper does LESS THAN HALF the effort. [place] lifts, holds or supports trunk or limbs, but provides less than half the effort. 2-Substantial/Maximal Assistance-helper does MORE THAN HALF the effort. [place] lifts or holds trunk or limbs and provides more than half the effort. 2-Nzsxwhqnl-gfaqcn does ALL the effort. Patient does none of the effort to complete the activity. Or, the assistance of 2 or more helpers is required for the patient to complete the activity. If activity was not attempted, code reason: 7-Patient Refused. 9-Not Applicable-not attempted and the patient did not perform the activity before the current illness, exacerbation or injury. 10-Not Attempted due to Environmental Limitations-(lack of equipment, weather restraints, etc.). 88-Not Attempted due to Medical Conditions or Safety Concerns. Roll Left & Right (QC): 3 (min (A) to (R) and (L), protecting (R) hip when rolling (R)) Sit to Lying (QC): 1 (mod-max (A) of 2) Lying to Sitting/Side of Bed(Q: 3 (mod (A) of 1 /c max cues.) Sit to Stand (QC): 1 (mod-max (A) of 3) Chair/Gbu-vu-Zxgsk Xfer(QC): 1 (Unable to perform stand pivot with walker - could not move feet to complete transfer - chair brought up behind patient and she suddenly sat down without warning - unsafe. Max (A) of 2 w/c>bed and bed>w/c for st pivot /s device.) Difficulty initiating all tasks. Weight Bearing Right Lower Extremity: Right Weight Bearing/Tolerated Left Lower Extremity: Left Weight Bearing/Tolerated Wheelchair Training Does the Pt Use a Wheelchair?: Yes Wheel 50 ft with 2 turns (QC): 88 (Could not make 50' due to fatigue) Type of Wheelchair: Manual Used new w/c that was delivered yesterday. Needed max t.c. and v.c. to complete (L) turns. Was then able to propel 30' /c (B) UE, min (A) to navigate door way, max v.c. for remainder of propulsion including one 180 degree turn. Assessment No appreciable progress with transfer ability. Recommend continued use of 2 people for safety. Did exhibit ability to self-propel new w/c delivered yesterday with max verbal/tactile cues, but did require min (A) to navigate doorway safely. PT Custodial Goals Checkering Machine Operator Goals PT Custodial Goals Time Frame: May 09, 2023 Roll Left & Right (QC): 4 Sit to Lying (QC): 4 Lying-Sitting on Side/Bed(QC): 4 Sit to Stand (QC): 3 Chair/Dso-cz-Dibvy Xfer(QC): 3 Toilet Transfer (QC): 3 Car Transfer (QC): 3 Does the Patient Walk: Yes Walk 10 feet (QC): 3 Walk 50ft with 2 Turns (QC): 3 Walk 150 ft (QC): 9 Walking 10ft on Uneven Surface: 3 1 Step (curb) (QC): 3 4 Steps (QC): 9 12 Steps (QC): 9 Picking up an Object (QC): 3 Does the Pt use WC or Scooter?: Yes Wheel 50 feet with 2 turns (QC: 4 Type: Manual Wheel 150 feet: 4 PT Plan Treatment/Plan Treatment Plan: Continue Plan of Care Treatment Plan: Bed Mobility, Education, Functional Activity [place], Functional Strength, Group Therapy, Gait, Safety, Therapeutic Exercise, Transfers Treatment Duration: May 09, 2023 Frequency: At least 5 of 7 days/Wk (IRF) Estimated Hrs Per Day: 1.5 hours per day Patient and/or Family Agrees t: Yes Discharge Recommendations Therapy Discharge Recommendati: 24 Hour Supervision Equpiment Recommendations-D/C: Manual Wheelchair (delivered 04/26/23.) Time Time In: 800 Time Out: 845 DATE: Apr 27, 2023 Total Billed Treatment Time: 45 Total Billed Treatment 1, 2FA, 1 Natalie Santa PT Apr 27, 2023 08:13
[2023-04-27] MEDS: EMPAGLIFLOZIN 10 MG TABLET PO SCH (09:12)
[2023-04-27] MEDS: DOCUSATE SODIUM 100 MG CAPSULE PO SCH ×2 (09:12→21:10)
[2023-04-27] MEDS: SENNA W/DOCUSATE TABLET PO SCH ×2 (09:12→21:10)
[2023-04-27] MEDS: MICONAZOLE 2% POWDER 90 GM TOP SCH ×2 (09:13→21:11)
[2023-04-27] MEDS: NYSTATIN CREAM 30 GM TUBE TP SCH ×3 (09:13→21:11)
[2023-04-27 09:21] VITALS: BP 90/49
--- NOTE | 2023-04-27 09:30 | Progress Note ---
Standard Progress Note Progress Notes/Assess & Plan Date Seen by a Provider: Apr 27, 2023 Time Seen by a Provider: 09:20 Progress/Assessment & Plan no complaints right hip wound with scant bloody DC no erythema or warmth s/p R hip bipolar continue PT/OT JEFF CONNER MD Apr 27, 2023 09:30
--- NOTE | 2023-04-27 09:45 | Occupational Ther Daily Note ---
OT Current Status-Daily Note Subjective Pt. alert sitting in w/c, No c/o pain. Pt. agreed to therapy. Mental Status/Objective Patient Orientation: Person, Place, Time, Situation ADL-Treatment Sit to stands Max A with v/c to push up with chair and to reach for walker once standing then to stand up tall and to reach back before sitting. After session, pt in w/c with call light and phone in reach and all needs met. Therapy Code Descriptions/Definitions Functional [place] Measure: 0=Not Assessed/NA 4=Minimal Assistance 1=Total Assistance 5=Supervision or Setup 2=Maximal Assistance 6=Modified [place] 3=Moderate Assistance 7=Complete IndependenceSCALE: Activities may be completed with or without assistive devices. 9-Cuvonltqna-faigrll completes the activity by him/herself with no assistance from a helper. 5-Set-up or Clean-up Assistance-helper sets up or cleans up; patient completes activity. [place] assists only prior to or following the activity. 4-Supervision or Touching Assistance-helper provides verbal cues and/or touching/steadying and/or contact guard assistance as patient completes activity. Assistance may be provided throughout the activity or intermittently. 3-Partial/Moderate Assistance-helper does LESS THAN HALF the effort. [place] lifts, holds or supports trunk or limbs, but provides less than half the effort. 2-Substantial/Maximal Assistance-helper does MORE THAN HALF the effort. [place] lifts or holds trunk or limbs and provides more than half the effort. 3-[place]-jakupo does ALL the effort. Patient does none of the effort to complete the activity. Or, the assistance of 2 or more helpers is required for the patient to complete the activity. If activity was not attempted, code reason: 7-Patient Refused. 9-Not Applicable-not attempted and the patient did not perform the activity before the current illness, exacerbation or injury. 10-Not Attempted due to Environmental Limitations-(lack of equipment, weather restraints, etc.). 88-Not Attempted due to Medical Conditions or Safety Concerns. Upper Body Dressing (QC): 5 (Pt. able doff/don UB clothing by self after set up. ) Lower Body Dressing (QC): 2 (Pt. needed assist with donning pants while sitting then needed assist with hiking over hips while pt stabilize self with FWW. ) On/Off Footwear: 2 (Pt. was able to thread L foot through sock aide but needed assist half way due to sock aide getting stuck on heal guze then needed assist with rest of sequence with R foot.) Other Treatment Pt. educated with dressing stick and sock aide to facilitate with LB footwear then was able to demonstrate. Will continue to educate Pt. with the use of adaptive equipment. Education OT Patient Education: Use of adapted equipment Teaching Recipient: Patient Teaching Methods: Demonstration, Discussion Response to Teaching: Verbalize Understanding, Return Demonstration OT Short Term Goals Short Term Goals Time Frame: Apr 29, 2023 Eatin Oral hygiene: 5 Toileting hygiene: 3 Shower/bathe self: 3 Upper body dressin Lower body dressin Putting on/taking off footwear: 3 OT Airfreight Loading Supervisor Goals Airfreight Loading Supervisor Goals Time Frame: May 06, 2023 Acute change in mental status: 0 Inattention: 0 Disorganized thinkin Altered level of consciousness: 0 Eating (QC): 6 Oral Hygiene (QC): 5 Toileting Hygiene (QC): 4 Shower/Bathe Self (QC): 4 Upper Body Dressing (QC): 4 Lower Body Dressing (QC): 4 On/Off Footwear (QC): 4 1=Demonstrate adherence to instructed precautions during ADL tasks. 2=Patient will verbalize/demonstrate understanding of assistive devices/modifications for ADL. 3=Patient will improve strength/tolerance for activity to enable patient to perform ADL's. OT Education/Plan Problem List/Assessment Assessment: Decreased Safety Aware, Decreased UE Strength, Impaired Coordination, Impaired Funct Balance, Impaired I ADL's, Impaired Self-Care Skills decreased functional strength, decrease ADL independence Discharge Recommendations Plan/Recommendations: Continue POC Treatment Plan/Plan of Care Patient would benefit from OT for education, treatment and training to promote independence in ADL's, mobility, safety and/or upper extremity function for ADL's. Plan of Care: ADL Retraining, Cognitive Retraining, Concurrent Therapy, Functional Mobility Treatment Duration: Apr 19, 2023 Frequency: 5 times per week Estimated Hrs Per Day: 1.5 hours per day Agreement: Yes Rehab Potential: Good Time Start Time: 08:45 Stop Time: 09:30 DATE: Apr 27, 2023 Total Time Billed (hr/min): 45 Billed Treatment Time 1 visit- ADL 3 (45 mins) PEREZ CHAUDHRY Apr 27, 2023 09:45
[2023-04-27] MEDS: IRON SUCROSE 200 MG/10 ML VIAL IV SCH (10:45)
--- NOTE | 2023-04-27 13:46 | Speech Therapy Daily Note ---
Speech Daily Progress Note Subjective Date Seen by Provider: Apr 27, 2023 Time Seen by Provider: 09:50 Pt was sitting in wheelchair and was agreeable to session. Objective Pt was unable to recall orientation information immediately, after review, pt was able to recall 50% of orientation information. A delay of 10 minutes was given and pt was asked to recall orientation information and completes with 80% accuracy. Pt demonstrates ability to recall orientation information to answer questions regarding lunch and dinner menu of hospital. Assessment Assessment Current Status: Good Progress Treatment Plan Continue Plan of Care Speech Intermediate Goals Dust Control Engineer Goals Pt will utilize environmental cues for orientation to place and time with 80% accuracy. Pt will demonstrate appropriate use of call light with 90% accuracy. Pt will use environmental cues for safety precautions for hip with 80% accuracy. Speech-Plan Treatment Plan Speech Therapy Treatment Plan: Continue Plan of Care Treatment Duration: Apr 19, 2023 Frequency: At least 5 of 7 days/Wk (IRF) Estimated Hrs Per Day: .5 hour per day (Cog/ling tx) Rehab Potential: Good Time Speech Therapy Time In: 09:50 Speech Therapy Time Out: 10:20 DATE: Apr 27, 2023 Total Billed Time: 30 Billed Treatment Time 1 SLTS 30 min Lin Osborne Apr 27, 2023 13:46
--- NOTE | 2023-04-27 14:51 | Therapy Group Daily Note ---
Therapy Daily Group Note Patient Education Topic Other List Below (memory) Exercises LE Seated Exercise, UE Exercise Session Ratio (pt:therapist): 3:1 Goal of Session: Memory Strategies, UE/LE Strengthing Goal Met for this Session: Yes Pt Benefit of Group: Contributions to Others, F/U Use of Strategies @Home, Increased Functional Safety, Increased Functional Strength, Improved Cognition, Recognition of Peers, Socialization Other/Notes Pt transported via w/c to OT/PT group in therapy gym. Group consisted of introductions(name, place living, Thanksgiving family traditions), socializati on, B UE/LE seated exercises, education and activities on memory strategies. Pt introduced self appropriately and actively listened to peers. Pt able to complete B UE seated exercises with encouragement and modifications due to limited ROM and fatigue. Pt participated in activities and demonstrated understanding of memory education by vocalizing own strategies. After therapy, pt requested to use toilet, left in care of nrsg. All needs met. Start Time: 13:00 Stop Time: 14:15 Total Billed Treatment Time: 75 Total Billed Treatment 1-GRP PEREZ CHAUDHRY Apr 27, 2023 14:51
[2023-04-27] MEDS: HYDROcodone/ACETAMINOPHEN 7.5 MG/325 MG TABLET PO PRN (18:24)
[2023-04-27 19:43] VITALS: BP 131/72
[2023-04-27] MEDS: DONEPEZIL 10 MG TABLET PO SCH (21:11)
[2023-04-27] MEDS: OLANZapine 5 MG ODT TABLET PO SCH (21:12)
[2023-04-27] MEDS: MIRTAZAPINE 15 MG TABLET PO SCH (21:12)
[2023-04-28] MEDS: inSUlin ASPART 1 UNIT/0.01 ML (PER UNIT) SC SCH ×4 (06:00→21:18)
[2023-04-28] MEDS: glipiZIDE 5 MG TABLET PO SCH (06:54)
[2023-04-28] MEDS: POTASSIUM CHLORIDE 10 MEQ TABLET PO SCH ×2 (06:54→17:03)
[2023-04-28] MEDS: CYANOCOBALAMIN 1,000 MCG TABLET PO SCH (06:54)
[2023-04-28 08:00] VITALS: BP 120/67
--- NOTE | 2023-04-28 08:30 | PM&R Progress Note ---
Subjective HPI/CC On Admission Date Seen by Provider: Apr 28, 2023 Time Seen by Provider: 12:00 Subjective/Events-last exam 04/28/2023: Patient doing well No pain Discharge is planned soon Reviewed meds and labs Had a bit of bleeding from incision again 04/27/2023: Patient doing well Denies any new issues Discharge will be back to [facility] Reviewed meds and labs Making some progress 04/26/2023: Doing well Improved ambulation Slow recovery Very dependent overall but improved 04/25/2023: Doing well No falls No pain reported Labs stable No bleeding today thus far 04/24/2023: Doing well Requires 2 person assist most of the time Likely will need skilled Pain is not reported 04/23/2023: Potassium low so will increase regular potassium to BID No falls No pain Reviewed meds and labs Dressing not saturated any longer since holding Lovenox 04/22/2023: No new issues Participation is good Skilled care still a strong possibility Lives in [place] Saturation of the dressing due to bleeding so will hold Lovenox 04/21/2023: Patient doing a lot better Less confusion Participation is good Incontinence 04/20/2023: Doing better Pain is controlled Confusion improved Requires a lot of cues No falls 04/19/2023: Patient doing better Confusion times Pain is controlled Labs reviewed Giving iron and B12 supplement empirically Review of Systems General: Fatigue, Malaise Objective Exam Vital Signs Vital Signs Date Time Temp Pulse Resp B/P (MAP) Pulse Ox O2 Delivery O2 Flow Rate FiO2 04/28/23 20:00 Room Air 04/28/23 19:41 36.2 84 18 133/64 (87) 94 04/27/23 09:21 21 04/27/23 09:18 0.00 Capillary Refill : General Appearance: No Apparent Distress, WD/WN, Chronically ill, Other (fatigued) HEENT: PERRL/EOMI, Normal ENT Inspection, Pharynx Normal Neck: Full Range of Motion, Normal Inspection, Non Tender, Supple, Carotid Bruit Respiratory: Chest Non Tender, Lungs Clear, Normal Breath Sounds, No Accessory Muscle Use, No Respiratory Distress Cardiovascular: Regular Rate, Rhythm, No Edema, No Gallop, No JVD, No Murmur, Normal Peripheral Pulses Gastrointestinal: Normal Bowel Sounds, No Organomegaly, No Pulsatile Mass, Non Tender, Soft Back: Normal Inspection, No CVA Tenderness, No Vertebral Tenderness Extremity: Normal Capillary Refill, Normal Inspection, Normal Range of Motion (except right leg), Non Tender, No Calf Tenderness, No Pedal Edema Neurologic/Psychiatric: Alert, Oriented x3, No Motor/Sensory Deficits, pegger II- XII Norm as Tested, Depressed Affect, Disoriented (subtle) Skin: Normal Color, Warm/Dry Lymphatic: No Adenopathy Results/Procedures Lab Patient resulted labs reviewed. FIM Transfers Therapy Code Descriptions/Definitions Functional [place] Measure: 0=Not Assessed/NA 4=Minimal Assistance 1=Total Assistance 5=Supervision or Setup 2=Maximal Assistance 6=Modified [place] 3=Moderate Assistance 7=Complete IndependenceSCALE: Activities may be completed with or without assistive devices. 7-Tkttdrpxxj-uywqrbj completes the activity by him/herself with no assistance from a helper. 5-Set-up or Clean-up Assistance-helper sets up or cleans up; patient completes activity. [place] assists only prior to or following the activity. 4-Supervision or Touching Assistance-helper provides verbal cues and/or touching/steadying and/or contact guard assistance as patient completes activity. Assistance may be provided throughout the activity or intermittently. 3-Partial/Moderate Assistance-helper does LESS THAN HALF the effort. [place] lifts, holds or supports trunk or limbs, but provides less than half the effort. 2-Substantial/Maximal Assistance-helper does MORE THAN HALF the effort. [place] lifts or holds trunk or limbs and provides more than half the effort. 3-Ajalllqqb-zsjqxi does ALL the effort. Patient does none of the effort to complete the activity. Or, the assistance of 2 or more helpers is required for the patient to complete the activity. If activity was not attempted, code reason: 7-Patient Refused. 9-Not Applicable-not attempted and the patient did not perform the activity before the current illness, exacerbation or injury. 10-Not Attempted due to Environmental Limitations-(lack of equipment, weather restraints, etc.). 88-Not Attempted due to Medical Conditions or Safety Concerns. Roll Left to Right (QC): 3 (min (A) to (R) and (L), protecting (R) hip when rolling (R)) Sit to Lying (QC): 1 (mod-max (A) of 2) Sit to Stand (QC): 1 (mod-max (A) of 3) Chair/Hmr-yy-Jbort Xfer(QC): 1 (Unable to perform stand pivot with walker - could not move feet to complete transfer - chair brought up behind patient and she suddenly sat down without warning - unsafe. Max (A) of 2 w/c>bed and bed>w/c for st pivot /s device.) Car Transfer (QC): 88 Gait Training Does the Patient Walk?: Yes Distance: 4' x 3 Walk 10 feet (QC): 88 (took 1 step to (L) /c FWW. Unable to move legs further. Unable to safely perform /c FWW and assist of 2.) Walk 50 ft with 2 Turns(QC): 88 Walk 150 ft (QC): 88 Walking 10ft/uneven surface-QC: 88 Gait Persons Needed: 2 Gait Assistive Device: FWW Wheelchair Training Does the Pt Use a Wheelchair?: Yes Distance: 2 feet Wheel 50 ft with 2 turns (QC): 88 (Could not make 50' due to fatigue) Wheel 150 ft (QC): 88 Type of Wheelchair: Manual Stair Training 1 Step (curb) (QC): 88 4 Steps (QC): 88 12 Steps (QC): 88 Balance Picking up an Object (QC): 88 ADL-Treatment Eating (QC): 5 Oral Hygiene (QC): 7 Bathing Location: L Arm, R Arm, L Upper Leg, R Upper Leg, Chest, Abdomen, Perineal Area Shower/Bathe Self (QC): 3 (Pt. able to bathe UE, [place] area and upper legs while sitting on BSC 100% of the time using LH sponge, hand held shower, and grabbars requires cues to initate whats next. Assist with cleaning/drying buttocks and drying LE. ) Upper Body Dressing (QC): 5 (Pt. able doff/don UB clothing by self after set up. ) Lower Body Dressing (QC): 2 (Pt. needed assist with donning pants while sitting then needed assist with hiking over hips while pt stabilize self with FWW. ) On/Off Footwear (QC): 2 (Pt. was able to thread L foot through sock aide but needed assist half way due to sock aide getting stuck on heal guze then needed assist with rest of sequence with R foot.) Toileting Hygiene (QC): 1 Toilet Transfer (QC): 1 Assessment/Plan Assessment and Plan Assess & Plan/Chief Complaint Assessment: s/p right hip fracture s/p uncomplicated repair DM HTN CAD Dementia Post op anemia from acute blood loss Delirium Incision bleeding holding Lovenox due to risks outweigh benefits Plan: Home meds Monitor BP and BS Aggressive PT OT 04/19/2023: Iron infusion B12 supplement 04/20/2023: Iron and B12 empirically Monitor closely SNF at risk 04/21/2023: Supportive care Aggressive therapy 04/22/2023: Pain control Hold Lovenox for saturation of the incision 04/23/2023: Continue holding Lovenox Monitor incision 04/24/2023: Monitor closely Fall risk SNF? 04/25/2023: Continue to hold Lovenox due to bleeding Monitor BP 04/26/2023: Doing well No issues Improved but slow recovery 04/27/2023: Continue to hold Lovenox due to bleeding risk Supportive care 04/28/2023: Check labs in a.m. Reviewed meds and labs (1) Closed right hip fracture Status: Acute (2) History of cerebrovascular disease Status: Acute (3) History of ST elevation myocardial infarction (STEMI) Status: Acute (4) HTN (hypertension) Status: Acute (5) Dementia Status: Acute (6) Compression fracture of L1 vertebra Status: Acute ASHLY VILLEGAS DO Apr 28, 2023 08:30
[2023-04-28] MEDS: SENNA W/DOCUSATE TABLET PO SCH ×2 (09:05→20:27)
[2023-04-28] MEDS: DOCUSATE SODIUM 100 MG CAPSULE PO SCH ×2 (09:05→20:27)
[2023-04-28] MEDS: MICONAZOLE 2% POWDER 90 GM TOP SCH ×2 (09:05→20:31)
[2023-04-28] MEDS: EMPAGLIFLOZIN 10 MG TABLET PO SCH (09:05)
[2023-04-28] MEDS: NYSTATIN CREAM 30 GM TUBE TP SCH ×3 (09:06→20:31)
--- NOTE | 2023-04-28 12:23 | Physical Therapy Daily Note ---
PT Daily Note-Current Subjective Little conversation/interaction. States her breakfast was "fine" - ate 50%. Cannot recall any specifics of her time at [facility] - does not know if she walked there or was in a w/c; cannot remember which side of the bed she sits up on when getting out of bed. States she has no pain when laying in bed, but w hen even lightest touch is placed on (R) hand/arm she cusses "dammit stop touching that". Pain Section J - Health Conditions 1. Rarely or not at all 2. Occasionally 3. Frequently 4. Almost constantly 8. Unable to answer Pain Effect on Sleep: 2 Pain Interference with Therapy: 2 Pain Interference w/Day-to-Day: 2 Appearance Patient in bed with no pants on, brief in place but it is not secured. (L) hip dressing with bloody drainage - per nursing, orthopedic surgeon has been notified and believes it is a hematoma - cleared to work with therapy. Transfers SCALE: Activities may be completed with or without assistive devices. 4-Hvkiaijtbg-pphvtap completes the activity by him/herself with no assistance from a helper. 5-Set-up or Clean-up Assistance-helper sets up or cleans up; patient completes activity. [place] assists only prior to or following the activity. 4-Supervision or Touching Assistance-helper provides verbal cues and/or touching/steadying and/or contact guard assistance as patient completes activity. Assistance may be provided throughout the activity or intermittently. 3-Partial/Moderate Assistance-helper does LESS THAN HALF the effort. [place] lifts, holds or supports trunk or limbs, but provides less than half the effort. 2-Substantial/Maximal Assistance-helper does MORE THAN HALF the effort. [place] lifts or holds trunk or limbs and provides more than half the effort. 0-Akpzwktks-keanzk does ALL the effort. Patient does none of the effort to complete the activity. Or, the assistance of 2 or more helpers is required for the patient to complete the activity. If activity was not attempted, code reason: 7-Patient Refused. 9-Not Applicable-not attempted and the patient did not perform the activity before the current illness, exacerbation or injury. 10-Not Attempted due to Environmental Limitations-(lack of equipment, weather restraints, etc.). 88-Not Attempted due to Medical Conditions or Safety Concerns. Roll Left & Right (QC): 3 (mod (A) /c max cues and assist to place hands on bed rails. Rolling (R)/(L) to don Depends and pants. ) Sit to Lying (QC): 1 (max (A) of 2 - patient unable to initiate) Lying to Sitting/Side of Bed(Q: 3 (mod (A) of 1 /c max verbal and tactile cues) Sit to Stand (QC): 1 (Varies from mod (A) of 2 to mod (A) of 1 /c cues for hand placement) Chair/Kjh-nl-Jlias Xfer(QC): 1 (mod (A) of 2 /s device) Weight Bearing Right Lower Extremity: Right Weight Bearing/Tolerated Left Lower Extremity: Left Weight Bearing/Tolerated Gait Training Distance: 4' in // bars x 2, mod(A) of 1 /c w/c backup - tried to sit spontaneouslyx2 Walk 10 feet (QC): 88 (unable to make 10' distance) Gait Persons Needed: 2 Gait Assistive Device: Parallel Bars Wheelchair Training Does the Pt Use a Wheelchair?: Yes 35' (15 minutes to complete) using (B) UE's and v.c. for turns, avoiding (R) obstacles Assessment Bloody drainage noted on dressing/pants. Patient transferred back to supine (max (A) of 2) so that nursing could attend to dressing - nsg notified. PT Alf Goals Search Engineer Goals PT Search Engineer Goals Time Frame: May 09, 2023 Roll Left & Right (QC): 4 Sit to Lying (QC): 4 Lying-Sitting on Side/Bed(QC): 4 Sit to Stand (QC): 3 Chair/Pfs-su-Dgekq Xfer(QC): 3 Toilet Transfer (QC): 3 Car Transfer (QC): 3 Does the Patient Walk: Yes Walk 10 feet (QC): 3 Walk 50ft with 2 Turns (QC): 3 Walk 150 ft (QC): 9 Walking 10ft on Uneven Surface: 3 1 Step (curb) (QC): 3 4 Steps (QC): 9 12 Steps (QC): 9 Picking up an Object (QC): 3 Does the Pt use WC or Scooter?: Yes Wheel 50 feet with 2 turns (QC: 4 Type: Manual Wheel 150 feet: 4 PT Plan Treatment/Plan Treatment Plan: Continue Plan of Care Treatment Plan: Bed Mobility, Education, Functional Activity Mad[place], Functional Strength, Group Therapy, Gait, Safety, Therapeutic Exercise, Transfers Treatment Duration: May 09, 2023 Frequency: At least 5 of 7 days/Wk (IRF) Estimated Hrs Per Day: 1.5 hours per day Patient and/or Family Agrees t: Yes Time Time In: 800 Time Out: 845 DATE: Apr 28, 2023 Total Billed Treatment Time: 45 Total Billed Treatment 1, 2FA, W/C Natalie Little PT Apr 28, 2023 12:23
--- NOTE | 2023-04-28 12:35 | Therapy Group Daily Note ---
Therapy Daily Group Note Patient Education Topic Fall Prevention, Exercises Exercises Balance, ROM, Stretching, UE Exercise Session Ratio (pt:therapist): 3:1 Goal of Session: Energy Conservation Tech., UE/LE Strengthing Goal Met for this Session: Yes Pt Benefit of Group: Contributions to Others, Increased Functional Safety, Increased Functional Strength, Socialization Other/Notes Pt transported via w/c to OT group in therapy gym. Group consisted of introduc tions(name, place living), socialization, bilateral UE seated exercises, dynamic functional balance activity (in sitting) and UE/LE stretching. Pt introduced self appropriately and actively listened to peers. Pt able to complete B UE seated exercises and tolerated well. Pt participated in activities and demonstrated need for continued education of HEP due to performing exercises requiring moderate cueing for proper form. After therapy pt sitting in recliner with lunch and call light/phone in reach. All needs met. Start Time: 11:15 Stop Time: 12:15 Total Billed Treatment Time: 60 Total Billed Treatment 1, GRP Jennifer Ferraro OTR/Franck Apr 28, 2023 12:34
--- NOTE | 2023-04-28 12:40 | Occupational Ther Daily Note ---
OT Current Status-Daily Note Subjective Pt received lying supine in bed. Pt pleasant and agreeable to therapy. Pain Numeric Pain Scale: 2 Location: Incisional Location Body Site: Hip Mental Status/Objective Patient Orientation: Person, Place, Situation Attachments: IV ADL-Treatment Therapy Code Descriptions/Definitions Functional [place] Measure: 0=Not Assessed/NA 4=Minimal Assistance 1=Total Assistance 5=Supervision or Setup 2=Maximal Assistance 6=Modified [place] 3=Moderate Assistance 7=Complete IndependenceSCALE: Activities may be completed with or without assistive devices. 4-Bivwdrngdy-aejoiqd completes the activity by him/herself with no assistance from a helper. 5-Set-up or Clean-up Assistance-helper sets up or cleans up; patient completes activity. [place] assists only prior to or following the activity. 4-Supervision or Touching Assistance-helper provides verbal cues and/or touching/steadying and/or contact guard assistance as patient completes activity. Assistance may be provided throughout the activity or intermittently. 3-Partial/Moderate Assistance-helper does LESS THAN HALF the effort. [place] lifts, holds or supports trunk or limbs, but provides less than half the effort. 2-Substantial/Maximal Assistance-helper does MORE THAN HALF the effort. [place] lifts or holds trunk or limbs and provides more than half the effort. 2-Owqzfqvxo-fnkquz does ALL the effort. Patient does none of the effort to complete the activity. Or, the assistance of 2 or more helpers is required for the patient to complete the activity. If activity was not attempted, code reason: 7-Patient Refused. 9-Not Applicable-not attempted and the patient did not perform the activity before the current illness, exacerbation or injury. 10-Not Attempted due to Environmental Limitations-(lack of equipment, weather restraints, etc.). 88-Not Attempted due to Medical Conditions or Safety Concerns. Eating (QC): 3 Other Treatment Pt completed functional activity in sitting with 1# wrist weights bilaterally for ~15 minutes. Pt completed bed mobility from supine to sitting EOB with mod A, requiring assistance moving her surgical leg and scooting to EOB. Pt completed functional squat pivot transfer from bed to wheelchair with Max A for strength and balance, requiring max cues for step progression. Pt completed hair care with mod A and face hygiene with setup A. Education OT Patient Education: Correct positioning, Energy conservation, Modified ADL techniques, Progress toward Goal/Update tx plan, Purpose of tx/functional activities, Rehab process, Safety issues, Transfer techniques Teaching Recipient: Patient Teaching Methods: Demonstration, Discussion Response to Teaching: Verbalize Understanding, Return Demonstration, Reinforcement Needed OT Short Term Goals Short Term Goals Time Frame: Apr 29, 2023 Eatin Oral hygiene: 5 Toileting hygiene: 3 Shower/bathe self: 3 Upper body dressin Lower body dressin Putting on/taking off footwear: 3 OT Client Technical Support Associate Goals Client Technical Support Associate Goals Time Frame: May 06, 2023 Acute change in mental status: 0 Inattention: 0 Disorganized thinkin Altered level of consciousness: 0 Eating (QC): 6 Oral Hygiene (QC): 5 Toileting Hygiene (QC): 4 Shower/Bathe Self (QC): 4 Upper Body Dressing (QC): 4 Lower Body Dressing (QC): 4 On/Off Footwear (QC): 4 1=Demonstrate adherence to instructed precautions during ADL tasks. 2=Patient will verbalize/demonstrate understanding of assistive devices/modifications for ADL. 3=Patient will improve strength/tolerance for activity to enable patient to perform ADL's. OT Education/Plan Problem List/Assessment Assessment: Decreased Activ Tolerance, Decreased Safety Aware, Decreased UE Strength, Impaired Bed Mobility, Impaired Cognition, Impaired Coordination, Impaired Funct Balance, Impaired I ADL's, Impaired Self-Care Skills decreased functional strength, decrease ADL independence Discharge Recommendations Plan/Recommendations: Continue POC Treatment Plan/Plan of Care Treatment,Training & Education: Yes Patient would benefit from OT for education, treatment and training to promote independence in ADL's, mobility, safety and/or upper extremity function for ADL's. Plan of Care: ADL Retraining, Cognitive Retraining, Concurrent Therapy, Functional Mobility Treatment Duration: Apr 19, 2023 Frequency: 5 times per week Estimated Hrs Per Day: 1.5 hours per day Agreement: Yes Rehab Potential: Good Time Start Time: 10:15 Stop Time: 10:45 DATE: Apr 28, 2023 Total Time Billed (hr/min): 30 Billed Treatment Time 1, FA 2 Jennifer Ferraro OTR/L Apr 28, 2023 12:40
[2023-04-28] MEDS: HYDROcodone/ACETAMINOPHEN 7.5 MG/325 MG TABLET PO PRN (14:02)
--- NOTE | 2023-04-28 14:11 | Speech Therapy Daily Note ---
Speech Daily Progress Note Subjective Date Seen by Provider: Apr 28, 2023 Time Seen by Provider: 09:20 Pt was laying in bed upon GROCERY BUYER arrival. Pt states she is very tired and had a difficult time keeping her eyes open throughout session. Objective Pt demonstrates poor recall of immediate information, such as lunch order. Pt was fatigued and had a difficult time keeping her eyes open. Session was suspended and GROCERY BUYER decide to come back to finish session at a later time this date. Assessment Assessment Current Status: Fair Progress Treatment Plan Continue Plan of Care Speech Custodial Goals Custodial Goals Pt will utilize environmental cues for orientation to place and time with 80% accuracy. Pt will demonstrate appropriate use of call light with 90% accuracy. Pt will use environmental cues for safety precautions for hip with 80% accuracy. Speech-Plan Treatment Plan Speech Therapy Treatment Plan: Continue Plan of Care Treatment Duration: Apr 19, 2023 Frequency: At least 5 of 7 days/Wk (IRF) Estimated Hrs Per Day: .5 hour per day (Cog/ling tx) Rehab Potential: Fair Time Speech Therapy Time In: 09:20 Speech Therapy Time Out: 09:30 DATE: Apr 28, 2023 Total Billed Time: 10 Billed Treatment Time 1 SLTS 10 min Lin Osborne Apr 28, 2023 14:11
--- NOTE | 2023-04-28 14:14 | Speech Therapy Daily Note ---
Speech Daily Progress Note Subjective Date Seen by Provider: Apr 28, 2023 Time Seen by Provider: 09:45 Pt was laying in bed upon CAR SPOTTER arrival and appears to be more alert. Objective Pt completes immediate and short-term delay recall of orientation information, completes with 70% accuracy and requires review of information. Pt participates in recall of long-term information and completes with 60% accuracy. Pt continues to be fatigued throughout session and this reflects in her accuracy of her answers. Assessment Assessment Current Status: Fair Progress Treatment Plan Continue Plan of Care Speech Operations Support Professionals Goals Senior Living Goals Pt will utilize environmental cues for orientation to place and time with 80% accuracy. Pt will demonstrate appropriate use of call light with 90% accuracy. Pt will use environmental cues for safety precautions for hip with 80% accuracy. Speech-Plan Treatment Plan Speech Therapy Treatment Plan: Continue Plan of Care Treatment Duration: Apr 19, 2023 Frequency: At least 5 of 7 days/Wk (IRF) Estimated Hrs Per Day: .5 hour per day (Cog/ling tx) Rehab Potential: Fair Time Speech Therapy Time In: 09:45 Speech Therapy Time Out: 10:05 DATE: Apr 28, 2023 Total Billed Time: 20 Billed Treatment Time 1 SLTS 20 min Lin Osborne Apr 28, 2023 14:14
--- NOTE | 2023-04-28 16:29 | Physical Therapy Daily Note ---
PT Daily Note-Current Subjective Pt sitting in recliner upon arrival. Pt agrees to work w/PT but reports needing to go to [facility] quickly. Pain Numeric Pain Scale: 5-Moderate Pain Location: Right Location Body Site: Hip Pain Description: Ache Comment: R hip & upper thigh pain, incisional drainage after toileting Section J - Health Conditions 1. Rarely or not at all 2. Occasionally 3. Frequently 4. Almost constantly 8. Unable to answer Pain Effect on Sleep: 2 Pain Interference with Therapy: 2 Pain Interference w/Day-to-Day: 2 Mental Status Patient Orientation: Person, Place Transfers SCALE: Activities may be completed with or without assistive devices. 7-Uvbtvlwqkh-dyewytx completes the activity by him/herself with no assistance from a helper. 5-Set-up or Clean-up Assistance-helper sets up or cleans up; patient completes activity. [place] assists only prior to or following the activity. 4-Supervision or Touching Assistance-helper provides verbal cues and/or touching/steadying and/or contact guard assistance as patient completes activity. Assistance may be provided throughout the activity or intermittently. 3-Partial/Moderate Assistance-helper does LESS THAN HALF the effort. [place] lifts, holds or supports trunk or limbs, but provides less than half the effort. 2-Substantial/Maximal Assistance-helper does MORE THAN HALF the effort. [place] lifts or holds trunk or limbs and provides more than half the effort. 5-Rqjnehbng-cuwsab does ALL the effort. Patient does none of the effort to complete the activity. Or, the assistance of 2 or more helpers is required for the patient to complete the activity. If activity was not attempted, code reason: 7-Patient Refused. 9-Not Applicable-not attempted and the patient did not perform the activity before the current illness, exacerbation or injury. 10-Not Attempted due to Environmental Limitations-(lack of equipment, weather restraints, etc.). 88-Not Attempted due to Medical Conditions or Safety Concerns. Sit to Lying (QC): 1 (Mod A x2 for max cuing for sequencing & safety & lifting B LE into bed) Sit to Stand (QC): 3 (Mod A) Toilet Transfer (QC): 1 (Mod A x2 as pt needs max cuing & retropulsive at times) Weight Bearing Right Lower Extremity: Right Weight Bearing/Tolerated Left Lower Extremity: Left Weight Bearing/Tolerated Gait Training Does the Patient Walk?: Yes Distance: 5' Gait Persons Needed: 2 Gait Assistive Device: FWW Pt tries to sit w/o warning before she should and needs VC for sequencing & safety Treatments TF from sit to stand to sit on BSC. Pt's brief was already soiled w/urine & BM. Pt given time on BSC then stands w/Mod A x1 as another completes pericare. Pt reports feeling the need to urinate again so sits again. After urinating & completing pericare again, pt amb to EOB. TF from EOB to Supine reveals incisional drainage so pt rolls to L side & wound care completed. Pt reposit ioned to L sidelying w/all needs met, call light in hand. Assessment Pt needs VC for sequencing and safety of tasks. PT Jail Goals Refrigeration System Installer Goals PT Jail Goals Time Frame: May 09, 2023 Roll Left & Right (QC): 4 Sit to Lying (QC): 4 Lying-Sitting on Side/Bed(QC): 4 Sit to Stand (QC): 3 Chair/Usi-wu-Sdkmp Xfer(QC): 3 Toilet Transfer (QC): 3 Car Transfer (QC): 3 Does the Patient Walk: Yes Walk 10 feet (QC): 3 Walk 50ft with 2 Turns (QC): 3 Walk 150 ft (QC): 9 Walking 10ft on Uneven Surface: 3 1 Step (curb) (QC): 3 4 Steps (QC): 9 12 Steps (QC): 9 Picking up an Object (QC): 3 Does the Pt use WC or Scooter?: Yes Wheel 50 feet with 2 turns (QC: 4 Type: Manual Wheel 150 feet: 4 PT Plan Problem List Problem List: Activity Tolerance, Functional Strength, Safety, Gait, Transfer, Bed Mobility Treatment/Plan Treatment Plan: Continue Plan of Care Treatment Plan: Bed Mobility, Education, Functional Activity Madelin, Functional Strength, Group Therapy, Gait, Safety, Therapeutic Exercise, Transfers Treatment Duration: May 09, 2023 Frequency: At least 5 of 7 days/Wk (IRF) Estimated Hrs Per Day: 1.5 hours per day Patient and/or Family Agrees t: Yes Safety Risks/Education Patient Education: Gait Training, Transfer Techniques, Correct Positioning, Safety Issues Teaching Recipient: Patient Teaching Methods: Discussion Response to Teaching: Reinforcement Needed Time Time In: 1415 Time Out: 1445 DATE: Apr 28, 2023 Total Billed Treatment Time: 30 Total Billed Treatment 1, FA x2 (30m) RENATE PRICE NEWSPAPER ILLUSTRATOR Apr 28, 2023 16:28
[2023-04-28 19:41] VITALS: BP 133/64
[2023-04-28] MEDS: OLANZapine 5 MG ODT TABLET PO SCH (20:31)
[2023-04-28] MEDS: DONEPEZIL 10 MG TABLET PO SCH (20:31)
[2023-04-28] MEDS: MIRTAZAPINE 15 MG TABLET PO SCH (20:31)
--- NOTE | 2023-04-29 05:22 | PM&R Progress Note ---
Subjective HPI/CC On Admission Date Seen by Provider: Apr 29, 2023 Time Seen by Provider: 12:00 Subjective/Events-last exam 04/29/2023: Doing well Participation in therapy is good We will check UA due to elevated white count and cloudiness of the urine since she did have Nagy 04/28/2023: Patient doing well No pain Discharge is planned soon Reviewed meds and labs Had a bit of bleeding from incision again 04/27/2023: Patient doing well Denies any new issues [facility] and labs Making some progress 04/26/2023: Doing well Improved ambulation Slow recovery Very dependent overall but improved 04/25/2023: Doing well No falls No pain reported Labs stable No bleeding today thus far 04/24/2023: Doing well Requires 2 person assist most of the time Likely will need skilled Pain is not reported 04/23/2023: Potassium low so will increase regular potassium to BID No falls No pain Reviewed meds and labs Dressing not saturated any longer since holding Lovenox 04/22/2023: No new issues Participation is good Skilled care still a strong possibility Lives in [place] Saturation of the dressing due to bleeding so will hold Lovenox 04/21/2023: Patient doing a lot better Less confusion Participation is good Incontinence 04/20/2023: Doing better Pain is controlled Confusion improved Requires a lot of cues No falls 04/19/2023: Patient doing better Confusion times Pain is controlled Labs reviewed Giving iron and B12 supplement empirically Review of Systems General: Fatigue, Malaise Objective Exam Vital Signs Vital Signs Date Time Temp Pulse Resp B/P (MAP) Pulse Ox O2 Delivery O2 Flow Rate FiO2 04/29/23 21:45 96 Room Air 04/29/23 20:29 36.2 74 20 120/58 (78) 04/27/23 09:21 21 04/27/23 09:18 0.00 Capillary Refill : General Appearance: No Apparent Distress, WD/WN, Chronically ill, Other (fatigued) HEENT: PERRL/EOMI, Normal ENT Inspection, Pharynx Normal Neck: Full Range of Motion, Normal Inspection, Non Tender, Supple, Carotid Bruit Respiratory: Chest Non Tender, Lungs Clear, Normal Breath Sounds, No Accessory Muscle Use, No Respiratory Distress Cardiovascular: Regular Rate, Rhythm, No Edema, No Gallop, No JVD, No Murmur, Normal Peripheral Pulses Gastrointestinal: Normal Bowel Sounds, No Organomegaly, No Pulsatile Mass, Non Tender, Soft Back: Normal Inspection, No CVA Tenderness, No Vertebral Tenderness Extremity: Normal Capillary Refill, Normal Inspection, Normal Range of Motion (except right leg), Non Tender, No Calf Tenderness, No Pedal Edema Neurologic/Psychiatric: Alert, Oriented x3, No Motor/Sensory Deficits, 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 FIM Transfers Therapy Code Descriptions/Definitions Functional [place] Measure: 0=Not Assessed/NA 4=Minimal Assistance 1=Total Assistance 5=Supervision or Setup 2=Maximal Assistance 6=Modified [place] 3=Moderate Assistance 7=Complete IndependenceSCALE: Activities may be completed with or without assistive devices. 9-Itnydmyggx-fwjprwk completes the activity by him/herself with no assistance from a helper. 5-Set-up or Clean-up Assistance-helper sets up or cleans up; patient completes activity. [place] assists only prior to or following the activity. 4-Supervision or Touching Assistance-helper provides verbal cues and/or touching/steadying and/or contact guard assistance as patient completes activity. Assistance may be provided throughout the activity or intermittently. 3-Partial/Moderate Assistance-helper does LESS THAN HALF the effort. [place] lifts, holds or supports trunk or limbs, but provides less than half the effort. 2-Substantial/Maximal Assistance-helper does MORE THAN HALF the effort. [place] lifts or holds trunk or limbs and provides more than half the effort. 6-Uokeezjzo-rgafjp does ALL the effort. Patient does none of the effort to complete the activity. Or, the assistance of 2 or more helpers is required for the patient to complete the activity. If activity was not attempted, code reason: 7-Patient Refused. 9-Not Applicable-not attempted and the patient did not perform the activity before the current illness, exacerbation or injury. 10-Not Attempted due to Environmental Limitations-(lack of equipment, weather restraints, etc.). 88-Not Attempted due to Medical Conditions or Safety Concerns. Roll Left to Right (QC): 3 (mod (A) /c max cues and assist to place hands on bed rails. Rolling (R)/(L) to don Depends and pants. ) Sit to Lying (QC): 1 (Mod A x2 for max cuing for sequencing & safety & lifting B LE into bed) Sit to Stand (QC): 3 (Mod A) Chair/Fxr-yi-Ttpnh Xfer(QC): 1 (mod (A) of 2 /s device) Car Transfer (QC): 88 Gait Training Does the Patient Walk?: Yes Distance: 5' Walk 10 feet (QC): 88 (unable to make 10' distance) Walk 50 ft with 2 Turns(QC): 88 Walk 150 ft (QC): 88 Walking 10ft/uneven surface-QC: 88 Gait Persons Needed: 2 Gait Assistive Device: FWW Wheelchair Training Does the Pt Use a Wheelchair?: Yes Distance: 2 feet Wheel 50 ft with 2 turns (QC): 88 (Could not make 50' due to fatigue) Wheel 150 ft (QC): 88 Type of Wheelchair: Manual Stair Training 1 Step (curb) (QC): 88 4 Steps (QC): 88 12 Steps (QC): 88 Balance Picking up an Object (QC): 88 ADL-Treatment Eating (QC): 3 Oral Hygiene (QC): 7 Bathing Location: L Arm, R Arm, L Upper Leg, R Upper Leg, Chest, Abdomen, Perineal Area Shower/Bathe Self (QC): 3 (Pt. able to bathe UE, dominick area and upper legs while sitting on BSC 100% of the time using LH sponge, hand held shower, and grabbars requires cues to initate whats next. Assist with cleaning/drying buttocks and drying LE. ) Upper Body Dressing (QC): 5 (Pt. able doff/don UB clothing by self after set up. ) Lower Body Dressing (QC): 2 (Pt. needed assist with donning pants while sitting then needed assist with hiking over hips while pt stabilize self with FWW. ) On/Off Footwear (QC): 2 (Pt. was able to thread L foot through sock aide but needed assist half way due to sock aide getting stuck on heal guze then needed assist with rest of sequence with R foot.) Toileting Hygiene (QC): 1 Toilet Transfer (QC): 1 Assessment/Plan Assessment and Plan Assess & Plan/Chief Complaint Assessment: s/p right hip fracture s/p uncomplicated repair DM HTN CAD Dementia Post op anemia from acute blood loss Delirium Incision bleeding holding Lovenox due to risks outweigh benefits Mild leukocytosis with abnormal UA starting on Omnicef Plan: Home meds Monitor BP and BS Aggressive PT OT 04/19/2023: Iron infusion B12 supplement 04/20/2023: Iron and B12 empirically Monitor closely SNF at risk 04/21/2023: Supportive care Aggressive therapy 04/22/2023: Pain control Hold Lovenox for saturation of the incision 04/23/2023: Continue holding Lovenox Monitor incision 04/24/2023: Monitor closely Fall risk SNF? 04/25/2023: Continue to hold Lovenox due to bleeding Monitor BP 04/26/2023: Doing well No issues Improved but slow recovery 04/27/2023: Continue to hold Lovenox due to bleeding risk Supportive care 04/28/2023: Check labs in a.m. Reviewed meds and labs 04/29/2023: Started on Omnicef Continue aggressive therapy (1) Closed right hip fracture Status: Acute (2) History of cerebrovascular disease Status: Acute (3) History of ST elevation myocardial infarction (STEMI) Status: Acute (4) HTN (hypertension) Status: Acute (5) Dementia Status: Acute (6) Compression fracture of L1 vertebra Status: Acute ASHLY VILLEGAS DO Apr 29, 2023 05:22
[2023-04-29 06:07] LABS: BASOPHILS # (AUTO) 0.1 10^3/uL (0.0-0.1); BASOPHILS % (AUTO) 0 % (0-10); EOSINOPHILS % (AUTO) 0 % (0-10); HEMATOCRIT 34 % (35-52); LYMPHOCYTES # (AUTO) 1.3 10^3/uL (1.0-4.0); LYMPHOCYTES % (AUTO) 9 % (12-44); MEAN CORPUSCULAR HEMOGLOBIN 30 pg (25-34); MEAN CORPUSCULAR HGB CONC 33 g/dL (32-36); MEAN CORPUSCULAR VOLUME 93 fL (80-99); MEAN PLATELET VOLUME 9.5 fL (9.0-12.2); MONOCYTES % (AUTO) 7 % (0-12); NEUTROPHILS # (AUTO) 12.1 10^3/uL (1.8-7.8); NEUTROPHILS % (AUTO) 83 % (42-75); PLATELET COUNT 535 10^3/uL (130-400); WHITE BLOOD COUNT 14.5 10^3/uL (4.3-11.0)
[2023-04-29] MEDS: glipiZIDE 5 MG TABLET PO SCH (06:10)
[2023-04-29] MEDS: CYANOCOBALAMIN 1,000 MCG TABLET PO SCH (06:10)
[2023-04-29] MEDS: POTASSIUM CHLORIDE 10 MEQ TABLET PO SCH ×2 (06:10→16:57)
[2023-04-29 06:23] LABS: ALBUMIN 2.9 GM/DL (3.2-4.5)
[2023-04-29 06:24] LABS: POTASSIUM 4.5 MMOL/L (3.6-5.0)
[2023-04-29 06:25] LABS: CALCIUM 8.2 MG/DL (8.5-10.1)
[2023-04-29 06:28] LABS: BILIRUBIN,TOTAL 0.8 MG/DL (0.1-1.0)
[2023-04-29] MEDS: inSUlin ASPART 1 UNIT/0.01 ML (PER UNIT) SC SCH ×4 (06:28→21:45)
[2023-04-29 06:30] LABS: CREATININE SERUM 0.63 MG/DL (0.60-1.30)
[2023-04-29 06:53] LABS: EOSINOPHILS % (MANUAL) 1 %; LYMPHOCYTES % (MANUAL) 9 %; MONOCYTES % (MANUAL) 3 %; NEUTROPHILS % (MANUAL) 87 %
[2023-04-29 06:54] LABS: ANISOCYTOSIS SLIGHT
[2023-04-29] MEDS: DOCUSATE SODIUM 100 MG CAPSULE PO SCH ×2 (07:57→21:45)
[2023-04-29] MEDS: SENNA W/DOCUSATE TABLET PO SCH ×2 (07:57→21:45)
[2023-04-29] MEDS: EMPAGLIFLOZIN 10 MG TABLET PO SCH (07:57)
[2023-04-29] MEDS: HYDROcodone/ACETAMINOPHEN 7.5 MG/325 MG TABLET PO PRN ×2 (07:57→14:11)
[2023-04-29] MEDS: MICONAZOLE 2% POWDER 90 GM TOP SCH ×2 (07:57→21:44)
[2023-04-29] MEDS: NYSTATIN CREAM 30 GM TUBE TP SCH ×3 (07:58→21:44)
[2023-04-29 08:00] VITALS: BP 123/68
[2023-04-29 11:19] LABS: CLARITY,URINE CLOUDY; COLOR,URINE YELLOW; GLUCOSE, URINE (UA) 3+ (NEGATIVE); PROTEIN,URINE 1+ (NEGATIVE)
[2023-04-29 11:20] LABS: BACTERIA,URINE FEW /HPF; KETONES,URINE 2+ (NEGATIVE); LEUKOCYTE ESTERASE ,URINE TRACE (NEGATIVE); NITRITE,URINE NEGATIVE (NEGATIVE); YEAST,URINE LARGE /HPF
[2023-04-29 11:22] LABS: BILIRUBIN,URINE 1+ (NEGATIVE)
--- NOTE | 2023-04-29 12:28 | Physical Therapy Daily Note ---
PT Daily Note-Current Subjective States she has no pain this a.m. Dressing changed on incision prior to PT - no profuse bleeding from incision /p today's treatment Pain Section J - Health Conditions 1. Rarely or not at all 2. Occasionally 3. Frequently 4. Almost constantly 8. Unable to answer Pain Effect on Sleep: 1 Pain Interference with Therapy: 1 Pain Interference w/Day-to-Day: 1 Transfers SCALE: Activities may be completed with or without assistive devices. 6-Vmezyhsprm-zehldas completes the activity by him/herself with no assistance from a helper. 5-Set-up or Clean-up Assistance-helper sets up or cleans up; patient completes activity. [place] assists only prior to or following the activity. 4-Supervision or Touching Assistance-helper provides verbal cues and/or touching/steadying and/or contact guard assistance as patient completes activity. Assistance may be provided throughout the activity or intermittently. 3-Partial/Moderate Assistance-helper does LESS THAN HALF the effort. [place] lifts, holds or supports trunk or limbs, but provides less than half the effort. 2-Substantial/Maximal Assistance-helper does MORE THAN HALF the effort. [place] lifts or holds trunk or limbs and provides more than half the effort. 5-Orglunayq-meihme does ALL the effort. Patient does none of the effort to complete the activity. Or, the assistance of 2 or more helpers is required for the patient to complete the activity. If activity was not attempted, code reason: 7-Patient Refused. 9-Not Applicable-not attempted and the patient did not perform the activity before the current illness, exacerbation or injury. 10-Not Attempted due to Environmental Limitations-(lack of equipment, weather restraints, etc.). 88-Not Attempted due to Medical Conditions or Safety Concerns. Lying to Sitting/Side of Bed(Q: 3 (min-mod (A) with use of bed rail) Sit to Stand (QC): 3 (mod (A) of 1 /c max cues from w/c) Chair/Tlr-uh-Qbhcj Xfer(QC): 2 (max (A) of 1 to stand pivot (no walker.) Weight Bearing Right Lower Extremity: Right Weight Bearing/Tolerated Left Lower Extremity: Left Weight Bearing/Tolerated Gait Training Distance: 4' x 1, 5' x 1. Gait Persons Needed: 2 ((A) and w/c follow) Patient walks 4', then 5' and states she has to sit. Starts to sit before w/c is secured, requiring mod-max (A) to prevent sitting before w/c is available. Wheelchair Training Wheel 50 ft with 2 turns (QC): 4 (max cues for UE use and to avoid (R) obstacles and complete turns) PT Harness Rigger Goals Harness Rigger Goals PT Harness Rigger Goals Time Frame: May 09, 2023 Roll Left & Right (QC): 4 Sit to Lying (QC): 4 Lying-Sitting on Side/Bed(QC): 4 Sit to Stand (QC): 3 Chair/Gqc-eu-Qqbqw Xfer(QC): 3 Toilet Transfer (QC): 3 Car Transfer (QC): 3 Does the Patient Walk: Yes Walk 10 feet (QC): 3 Walk 50ft with 2 Turns (QC): 3 Walk 150 ft (QC): 9 Walking 10ft on Uneven Surface: 3 1 Step (curb) (QC): 3 4 Steps (QC): 9 12 Steps (QC): 9 Picking up an Object (QC): 3 Does the Pt use WC or Scooter?: Yes Wheel 50 feet with 2 turns (QC: 4 Type: Manual Wheel 150 feet: 4 PT Plan Treatment/Plan Treatment Plan: Continue Plan of Care Treatment Plan: Bed Mobility, Education, Functional Activity Madelin, Functional Strength, Group Therapy, Gait, Safety, Therapeutic Exercise, Transfers Treatment Duration: May 09, 2023 Frequency: At least 5 of 7 days/Wk (IRF) Estimated Hrs Per Day: 1.5 hours per day Patient and/or Family Agrees t: Yes Time Time In: 815 Time Out: 845 DATE: Apr 29, 2023 Total Billed Treatment Time: 30 Total Billed Treatment 1, GT, Natalie Santa PT Apr 29, 2023 12:28
--- NOTE | 2023-04-29 15:09 | Occupational Ther Daily Note ---
OT Current Status-Daily Note Subjective Pt received lying supine in bed with MANAGER SOCIAL RESPONSIBILITY at bedside. Pt very pleasant and willing to participate in therapy. Pain Numeric Pain Scale: 0-No Pain Mental Status/Objective Patient Orientation: Person, Place, Time, Situation ADL-Treatment Therapy Code Descriptions/Definitions Functional [place] Measure: 0=Not Assessed/NA 4=Minimal Assistance 1=Total Assistance 5=Supervision or Setup 2=Maximal Assistance 6=Modified [place] 3=Moderate Assistance 7=Complete IndependenceSCALE: Activities may be completed with or without assistive devices. 5-Ioueebpopr-zkymvyv completes the activity by him/herself with no assistance from a helper. 5-Set-up or Clean-up Assistance-helper sets up or cleans up; patient completes activity. [place] assists only prior to or following the activity. 4-Supervision or Touching Assistance-helper provides verbal cues and/or touching/steadying and/or contact guard assistance as patient completes activity. Assistance may be provided throughout the activity or intermittently. 3-Partial/Moderate Assistance-helper does LESS THAN HALF the effort. [place] lifts, holds or supports trunk or limbs, but provides less than half the effort. 2-Substantial/Maximal Assistance-helper does MORE THAN HALF the effort. [place] lifts or holds trunk or limbs and provides more than half the effort. 3-Hixjndxam-nwhste does ALL the effort. Patient does none of the effort to complete the activity. Or, the assistance of 2 or more helpers is required for the patient to complete the activity. If activity was not attempted, code reason: 7-Patient Refused. 9-Not Applicable-not attempted and the patient did not perform the activity before the current illness, exacerbation or injury. 10-Not Attempted due to Environmental Limitations-(lack of equipment, weather restraints, etc.). 88-Not Attempted due to Medical Conditions or Safety Concerns. Eating (QC): 4 (with setup assistance ) Upper Body Dressing (QC): 3 (to don/doff shirt, requiring assistance to pull shirt down back ) On/Off Footwear: 1 (to don/doff socks ) Toileting Hygiene (QC): 2 Other Treatment Pt completed functional transfer x2 with max A to complete squat pivot transfer from bed to chair and chair to wheelchair, requiring max cues for sequencing and step progression. Pt completed functional dynamic sitting balance activity in supported sitting with supervision. Pt sitting forward and reaching outside of her base of support to complete activity with supervision. Education OT Patient Education: Correct positioning, Energy conservation, Modified ADL techniques, Progress toward Goal/Update tx plan, Purpose of tx/functional activities, Reviewed precautions, Rehab process, Safety issues, Transfer techniques Teaching Recipient: Patient Teaching Methods: Demonstration, Discussion Response to Teaching: Verbalize Understanding, Return Demonstration, Reinforcement Needed OT Short Term Goals Short Term Goals Time Frame: Apr 29, 2023 Eatin Oral hygiene: 5 Toileting hygiene: 3 Shower/bathe self: 3 Upper body dressin Lower body dressin Putting on/taking off footwear: 3 OT Cigarette Filter Inspector Goals Cigarette Filter Inspector Goals Time Frame: May 06, 2023 Acute change in mental status: 0 Inattention: 0 Disorganized thinkin Altered level of consciousness: 0 Eating (QC): 6 Oral Hygiene (QC): 5 Toileting Hygiene (QC): 4 Shower/Bathe Self (QC): 4 Upper Body Dressing (QC): 4 Lower Body Dressing (QC): 4 On/Off Footwear (QC): 4 1=Demonstrate adherence to instructed precautions during ADL tasks. 2=Patient will verbalize/demonstrate understanding of assistive devices/modifications for ADL. 3=Patient will improve strength/tolerance for activity to enable patient to perform ADL's. OT Education/Plan Problem List/Assessment Assessment: Decreased Activ Tolerance, Decreased Safety Aware, Decreased UE Strength, Impaired Bed Mobility, Impaired Cognition, Impaired Coordination, Impaired Funct Balance, Impaired I ADL's, Impaired Self-Care Skills decreased functional strength, decrease ADL independence Discharge Recommendations Plan/Recommendations: Continue POC Treatment Plan/Plan of Care Treatment,Training & Education: Yes Patient would benefit from OT for education, treatment and training to promote independence in ADL's, mobility, safety and/or upper extremity function for ADL's. Plan of Care: ADL Retraining, Cognitive Retraining, Concurrent Therapy, Functional Mobility Treatment Duration: Apr 19, 2023 Frequency: 5 times per week Estimated Hrs Per Day: 1.5 hours per day Agreement: Yes Rehab Potential: Fair Time Start Time: 11:00 Stop Time: 12:00 DATE: Apr 29, 2023 Total Time Billed (hr/min): 60 Billed Treatment Time 1, ADL 1, FA 3 Jennifer Ferraro OTR/L Apr 29, 2023 15:09
--- NOTE | 2023-04-29 15:19 | Speech Therapy Daily Note ---
Speech Daily Progress Note Subjective Date Seen by Provider: Apr 29, 2023 Time Seen by Provider: 14:00 Pt was agreeable to session, however, reports pain in R leg. Nrsing is made aware and pt is given pain medication. Objective Pt completes delayed recall tasks with 85% accuracy and requires min verbal cues. Pt participates in money sorting and simple calculation tasks, pt completes with 85% accuracy. Assessment Assessment Current Status: Good Progress Treatment Plan Continue Plan of Care Speech Hand Tube Bender Goals Hand Tube Bender Goals Pt will utilize environmental cues for orientation to place and time with 80% accuracy. Pt will demonstrate appropriate use of call light with 90% accuracy. Pt will use environmental cues for safety precautions for hip with 80% accuracy. Speech-Plan Treatment Plan Speech Therapy Treatment Plan: Continue Plan of Care Treatment Duration: Apr 19, 2023 Frequency: At least 5 of 7 days/Wk (IRF) Estimated Hrs Per Day: .5 hour per day (Cog/ling tx) Rehab Potential: Fair Time Speech Therapy Time In: 14:00 Speech Therapy Time Out: 14:30 DATE: Apr 29, 2023 Total Billed Time: 30 Billed Treatment Time 1 SLTS 30 min Lin Osborne Apr 29, 2023 15:19
--- NOTE | 2023-04-29 15:26 | Therapy Group Daily Note ---
Therapy Daily Group Note Patient Education Topic Fall Prevention, Energy Cons, Exercises Exercises LE Seated Exercise, ROM, Stretching, Gross Motor, UE Exercise Session Ratio (pt:therapist): 5:1 Goal of Session: Energy Conservation Tech., UE/LE Strengthing Goal Met for this Session: Yes Pt Benefit of Group: Contributions to Others, Increased Functional Strength, Recognition of Peers, Socialization Other/Notes OT group consisted of introductions (name, place living, favorite holiday), socialization, BUE dowel exercises seated, and education on benefits of exercises. Pt introduced self appropriately and actively listened to peers. Pt able to complete BUE dowel exercises, 2x10 reps with minimal cues. Pt then able to use dowel manoj in UEs to "bat" balloons and balls around the group, and used BLEs to "kick" balls around group. Pt demonstrated understanding of educational topic, though required increased verbal cueing for participation and sequencing. After therapy, pt up in recliner, call light in reach and all needs met. Chair alarm activated. Start Time: 13:00 Stop Time: 14:00 Total Billed Treatment Time: 60 Total Billed Treatment 1, GRP Jennifer Ferraro OTR/L Apr 29, 2023 15:26
[2023-04-29 20:29] VITALS: BP 120/58
[2023-04-29] MEDS: DONEPEZIL 10 MG TABLET PO SCH (21:44)
[2023-04-29] MEDS: MIRTAZAPINE 15 MG TABLET PO SCH (21:44)
[2023-04-29] MEDS: OLANZapine 5 MG ODT TABLET PO SCH (21:44)
[2023-04-30] MEDS: inSUlin ASPART 1 UNIT/0.01 ML (PER UNIT) SC SCH ×4 (05:59→21:09)
[2023-04-30] MEDS: CYANOCOBALAMIN 1,000 MCG TABLET PO SCH (06:19)
[2023-04-30] MEDS: POTASSIUM CHLORIDE 10 MEQ TABLET PO SCH ×2 (06:19→16:29)
[2023-04-30] MEDS: glipiZIDE 5 MG TABLET PO SCH (06:19)
--- NOTE | 2023-04-30 06:22 | PM&R Progress Note ---
Subjective HPI/CC On Admission Date Seen by Provider: Apr 30, 2023 Time Seen by Provider: 12:00 Subjective/Events-last exam 04/30/2023: Doing the same Participation with therapy is good UTI treated with abx 04/29/2023: Doing well Participation in therapy is good We will check UA due to elevated white count and cloudiness of the urine since she did have Nagy 04/28/2023: Patient doing well No pain Discharge is planned soon Reviewed meds and labs Had a bit of bleeding from incision again 04/27/2023: Patient doing well Denies any new issues Discharge [place] Reviewed meds and labs Making some progress 04/26/2023: Doing well Improved ambulation Slow recovery Very dependent overall but improved 04/25/2023: Doing well No falls No pain reported Labs stable No bleeding today thus far 04/24/2023: Doing well Requires 2 person assist most of the time Likely will need skilled Pain is not reported 04/23/2023: Potassium low so will increase regular potassium to BID No falls No pain Reviewed meds and labs Dressing not saturated any longer since holding Lovenox 04/22/2023: No new issues Participation is good Skilled care still a strong possibility Lives in [place] Saturation of the dressing due to bleeding so will hold Lovenox 04/21/2023: Patient doing a lot better Less confusion Participation is good Incontinence 04/20/2023: Doing better Pain is controlled Confusion improved Requires a lot of cues No falls 04/19/2023: Patient doing better Confusion times Pain is controlled Labs reviewed Giving iron and B12 supplement empirically Review of Systems General: Fatigue, Malaise Objective Exam Vital Signs Vital Signs Date Time Temp Pulse Resp B/P (MAP) Pulse Ox O2 Delivery O2 Flow Rate FiO2 04/30/23 09:00 Room Air 04/30/23 08:00 36.6 89 18 116/58 (77) 94 04/27/23 09:21 21 04/27/23 09:18 0.00 Capillary Refill : General Appearance: No Apparent Distress, WD/WN, Chronically ill, Other (fa tigued) HEENT: PERRL/EOMI, Normal ENT Inspection, Pharynx Normal Neck: Full Range of Motion, Normal Inspection, Non Tender, Supple, Carotid Bruit Respiratory: Chest Non Tender, Lungs Clear, Normal Breath Sounds, No Accessory Muscle Use, No Respiratory Distress Cardiovascular: Regular Rate, Rhythm, No Edema, No Gallop, No JVD, No Murmur, Normal Peripheral Pulses Gastrointestinal: Normal Bowel Sounds, No Organomegaly, No Pulsatile Mass, Non Tender, Soft Back: Normal Inspection, No CVA Tenderness, No Vertebral Tenderness Extremity: Normal Capillary Refill, Normal Inspection, Normal Range of Motion (except right leg), Non Tender, No Calf Tenderness, No Pedal Edema Neurologic/Psychiatric: Alert, Oriented x3, No Motor/Sensory Deficits, ict security specialist II- XII Norm as Tested, Depressed Affect, Disoriented (subtle) Skin: Normal Color, Warm/Dry Lymphatic: No Adenopathy Results/Procedures Lab Patient resulted labs reviewed. FIM Transfers Therapy Code Descriptions/Definitions Functional [place] Measure: 0=Not Assessed/NA 4=Minimal Assistance 1=Total Assistance 5=Supervision or Setup 2=Maximal Assistance 6=Modified [place] 3=Moderate Assistance 7=Complete IndependenceSCALE: Activities may be completed with or without assistive devices. 1-Azzmrglrii-ssukvta completes the activity by him/herself with no assistance from a helper. 5-Set-up or Clean-up Assistance-helper sets up or cleans up; patient completes activity. [place] assists only prior to or following the activity. 4-Supervision or Touching Assistance-helper provides verbal cues and/or touching/steadying and/or contact guard assistance as patient completes activity. Assistance may be provided throughout the activity or intermittently. 3-Partial/Moderate Assistance-helper does LESS THAN HALF the effort. [place] lifts, holds or supports trunk or limbs, but provides less than half the effort. 2-Substantial/Maximal Assistance-helper does MORE THAN HALF the effort. [place] lifts or holds trunk or limbs and provides more than half the effort. 1-Onqubyqvz-isizai does ALL the effort. Patient does none of the effort to complete the activity. Or, the assistance of 2 or more helpers is required for the patient to complete the activity. If activity was not attempted, code reason: 7-Patient Refused. 9-Not Applicable-not attempted and the patient did not perform the activity before the current illness, exacerbation or injury. 10-Not Attempted due to Environmental Limitations-(lack of equipment, weather restraints, etc.). 88-Not Attempted due to Medical Conditions or Safety Concerns. Roll Left to Right (QC): 3 (mod (A) /c max cues and assist to place hands on bed rails. Rolling (R)/(L) to don Depends and pants. ) Sit to Lying (QC): 1 (Mod A x2 for max cuing for sequencing & safety & lifting B LE into bed) Sit to Stand (QC): 3 (mod (A) of 1 /c max cues from w/c) Chair/Nhd-cy-Cfstq Xfer(QC): 2 (max (A) of 1 to stand pivot (no walker.) Car Transfer (QC): 88 Gait Training Does the Patient Walk?: Yes Distance: 4' x 1, 5' x 1. Walk 10 feet (QC): 88 (unable to make 10' distance) Walk 50 ft with 2 Turns(QC): 88 Walk 150 ft (QC): 88 Walking 10ft/uneven surface-QC: 88 Gait Persons Needed: 2 ((A) and w/c follow) Gait Assistive Device: FWW Wheelchair Training Does the Pt Use a Wheelchair?: Yes Distance: 2 feet Wheel 50 ft with 2 turns (QC): 4 (max cues for UE use and to avoid (R) obstacles and complete turns) Wheel 150 ft (QC): 88 Type of Wheelchair: Manual Stair Training 1 Step (curb) (QC): 88 4 Steps (QC): 88 12 Steps (QC): 88 Balance Picking up an Object (QC): 88 ADL-Treatment Eating (QC): 4 (with setup assistance ) Oral Hygiene (QC): 7 Bathing Location: L Arm, R Arm, L Upper Leg, R Upper Leg, Chest, Abdomen, Perineal Area Shower/Bathe Self (QC): 3 (Pt. able to bathe UE, dominick area and upper legs while sitting on BSC 100% of the time using LH sponge, hand held shower, and grabbars requires cues to initate whats next. Assist with cleaning/drying buttocks and drying LE. ) Upper Body Dressing (QC): 3 (to don/doff shirt, requiring assistance to pull shirt down back ) Lower Body Dressing (QC): 2 (Pt. needed assist with donning pants while sitting then needed assist with hiking over hips while pt stabilize self with FWW. ) On/Off Footwear (QC): 1 (to don/doff socks ) Toileting Hygiene (QC): 2 Toilet Transfer (QC): 1 Assessment/Plan Assessment and Plan Assess & Plan/Chief Complaint Assessment: s/p right hip fracture s/p uncomplicated repair DM HTN CAD Dementia Post op anemia from acute blood loss Delirium Incision bleeding holding Lovenox due to risks outweigh benefits Mild leukocytosis with abnormal UA starting on Omnicef Plan: Home meds Monitor BP and BS Aggressive PT OT 04/19/2023: Iron infusion B12 supplement 04/20/2023: Iron and B12 empirically Monitor closely SNF at risk 04/21/2023: Supportive care Aggressive therapy 04/22/2023: Pain control Hold Lovenox for saturation of the incision 04/23/2023: Continue holding Lovenox Monitor incision 04/24/2023: Monitor closely Fall risk SNF? 04/25/2023: Continue to hold Lovenox due to bleeding Monitor BP 04/26/2023: Doing well No issues Improved but slow recovery 04/27/2023: Continue to hold Lovenox due to bleeding risk Supportive care 04/28/2023: Check labs in a.m. Reviewed meds and labs 04/29/2023: Started on Omnicef Continue aggressive therapy 04/30/2023: Abx Monitor closely (1) Closed right hip fracture Status: Acute (2) History of cerebrovascular disease Status: Acute (3) History of ST elevation myocardial infarction (STEMI) Status: Acute (4) HTN (hypertension) Status: Acute (5) Dementia Status: Acute (6) Compression fracture of L1 vertebra Status: Acute ASHLY VILLEGAS DO Apr 30, 2023 06:22
[2023-04-30] MEDS: CEFDINIR 300 MG CAPSULE PO SCH ×2 (07:56→21:07)
[2023-04-30] MEDS: DOCUSATE SODIUM 100 MG CAPSULE PO SCH ×2 (07:56→21:08)
[2023-04-30] MEDS: EMPAGLIFLOZIN 10 MG TABLET PO SCH (07:56)
[2023-04-30] MEDS: MICONAZOLE 2% POWDER 90 GM TOP SCH ×2 (07:57→21:08)
[2023-04-30] MEDS: NYSTATIN CREAM 30 GM TUBE TP SCH ×3 (07:57→21:08)
[2023-04-30] MEDS: SENNA W/DOCUSATE TABLET PO SCH ×2 (07:58→21:08)
[2023-04-30 08:00] VITALS: BP 116/58
[2023-04-30] MEDS: ACETAMINOPHEN 500 MG TABLET PO PRN (13:38)
[2023-04-30 20:32] VITALS: BP 119/53
[2023-04-30] MEDS: MIRTAZAPINE 15 MG TABLET PO SCH (21:07)
[2023-04-30] MEDS: DONEPEZIL 10 MG TABLET PO SCH (21:07)
[2023-04-30] MEDS: OLANZapine 5 MG ODT TABLET PO SCH (21:07)
[2023-05-01] MEDS: inSUlin ASPART 1 UNIT/0.01 ML (PER UNIT) SC SCH ×4 (05:31→21:36)
[2023-05-01] MEDS: POTASSIUM CHLORIDE 10 MEQ TABLET PO SCH ×2 (06:19→17:11)
[2023-05-01] MEDS: glipiZIDE 5 MG TABLET PO SCH (06:19)
[2023-05-01] MEDS: CYANOCOBALAMIN 1,000 MCG TABLET PO SCH (06:19)
[2023-05-01] MEDS: CEFDINIR 300 MG CAPSULE PO SCH ×2 (07:43→20:51)
[2023-05-01] MEDS: NYSTATIN CREAM 30 GM TUBE TP SCH ×3 (07:43→20:50)
[2023-05-01] MEDS: SENNA W/DOCUSATE TABLET PO SCH ×2 (07:43→20:51)
[2023-05-01] MEDS: EMPAGLIFLOZIN 10 MG TABLET PO SCH (07:43)
[2023-05-01] MEDS: MICONAZOLE 2% POWDER 90 GM TOP SCH ×2 (07:43→20:50)
[2023-05-01] MEDS: DOCUSATE SODIUM 100 MG CAPSULE PO SCH ×2 (07:43→20:51)
[2023-05-01 08:00] VITALS: BP 132/61
[2023-05-01] MEDS: ACETAMINOPHEN 500 MG TABLET PO PRN (08:59)
--- NOTE | 2023-05-01 13:35 | PM&R Progress Note ---
Subjective HPI/CC On Admission Date Seen by Provider: May 01, 2023 Time Seen by Provider: 08:15 Subjective/Events-last exam 05/01/2023: Patient doing about the same Labs due tomorrow Discharge is planned soon Participation is good 04/30/2023: Doing the same Participation with therapy is good UTI treated with abx 04/29/2023: Doing well Participation in therapy is good We will check UA due to elevated white count and cloudiness of the urine since she did have Nagy 04/28/2023: Patient doing well No pain Discharge is planned soon Reviewed meds and labs Had a bit of bleeding from incision again 04/27/2023: Patient doing well Denies any new issues Discharge will be back to [facility] [place] Reviewed meds and labs Making some progress 04/26/2023: Doing well Improved ambulation Slow recovery Very dependent overall but improved 04/25/2023: Doing well No falls No pain reported Labs stable No bleeding today thus far 04/24/2023: Doing well Requires 2 person assist most of the time Likely will need skilled Pain is not reported 04/23/2023: Potassium low so will increase regular potassium to BID No falls No pain Reviewed meds and labs Dressing not saturated any longer since holding Lovenox 04/22/2023: No new issues Participation is good Skilled care still a strong possibility Lives in [place] Saturation of the dressing due to bleeding so will hold Lovenox 04/21/2023: Patient doing a lot better Less confusion Participation is good Incontinence 04/20/2023: Doing better Pain is controlled Confusion improved Requires a lot of cues No falls 04/19/2023: Patient doing better Confusion times Pain is controlled Labs reviewed Giving iron and B12 supplement empirically Review of Systems General: Fatigue, Malaise Neurological: Weakness Objective Exam Vital Signs Vital Signs Date Time Temp Pulse Resp B/P (MAP) Pulse Ox O2 Delivery O2 Flow Rate FiO2 05/01/23 09:00 Room Air 05/01/23 08:00 36.5 80 19 132/61 (84) 94 04/27/23 09:21 21 04/27/23 09:18 0.00 Capillary Refill : General Appearance: No Apparent Distress, WD/WN, Chronically ill, Other (fatigued) HEENT: PERRL/EOMI, Normal ENT Inspection, Pharynx Normal Neck: Full Range of Motion, Normal Inspection, Non Tender, Supple, Carotid Bruit Respiratory: Chest Non Tender, Lungs Clear, Normal Breath Sounds, No Accessory Muscle Use, No Respiratory Distress Cardiovascular: Regular Rate, Rhythm, No Edema, No Gallop, No JVD, No Murmur, Normal Peripheral Pulses Gastrointestinal: Normal Bowel Sounds, No Organomegaly, No Pulsatile Mass, Non Tender, Soft Back: Normal Inspection, No CVA Tenderness, No Vertebral Tenderness Extremity: Normal Capillary Refill, Normal Inspection, Normal Range of Motion (except right leg), Non Tender, No Calf Tenderness, No Pedal Edema Neurologic/Psychiatric: Alert, Oriented x3, No Motor/Sensory Deficits, pricing director II- XII Norm as Tested, Depressed Affect, Disoriented (subtle) Skin: Normal Color, Warm/Dry Lymphatic: No Adenopathy Results/Procedures Lab Patient resulted labs reviewed. FIM Transfers Therapy Code Descriptions/Definitions Functional [place] Measure: 0=Not Assessed/NA 4=Minimal Assistance 1=Total Assistance 5=Supervision or Setup 2=Maximal Assistance 6=Modified [place] 3=Moderate Assistance 7=Complete IndependenceSCALE: Activities may be completed with or without assistive devices. 6-Iaxlyqztjv-shfdzes completes the activity by him/herself with no assistance from a helper. 5-Set-up or Clean-up Assistance-helper sets up or cleans up; patient completes activity. [place] assists only prior to or following the activity. 4-Supervision or Touching Assistance-helper provides verbal cues and/or touching/steadying and/or contact guard assistance as patient completes activity. Assistance may be provided throughout the activity or intermittently. 3-Partial/Moderate Assistance-helper does LESS THAN HALF the effort. [place] lifts, holds or supports trunk or limbs, but provides less than half the effort. 2-Substantial/Maximal Assistance-helper does MORE THAN HALF the effort. [place] lifts or holds trunk or limbs and provides more than half the effort. 8-Wifisfgwk-dtoqid does ALL the effort. Patient does none of the effort to complete the activity. Or, the assistance of 2 or more helpers is required for the patient to complete the activity. If activity was not attempted, code reason: 7-Patient Refused. 9-Not Applicable-not attempted and the patient did not perform the activity before the current illness, exacerbation or injury. 10-Not Attempted due to Environmental Limitations-(lack of equipment, weather restraints, etc.). 88-Not Attempted due to Medical Conditions or Safety Concerns. Roll Left to Right (QC): 3 (mod (A) /c max cues and assist to place hands on bed rails. Rolling (R)/(L) to don Depends and pants. ) Sit to Lying (QC): 1 (Mod A x2 for max cuing for sequencing & safety & lifting B LE into bed) Sit to Stand (QC): 3 (mod (A) of 1 /c max cues from w/c) Chair/Med-ti-Rurko Xfer(QC): 2 (max (A) of 1 to stand pivot (no walker.) Car Transfer (QC): 88 Gait Training Does the Patient Walk?: Yes Distance: 4' x 1, 5' x 1. Walk 10 feet (QC): 88 (unable to make 10' distance) Walk 50 ft with 2 Turns(QC): 88 Walk 150 ft (QC): 88 Walking 10ft/uneven surface-QC: 88 Gait Persons Needed: 2 ((A) and w/c follow) Gait Assistive Device: FWW Wheelchair Training Does the Pt Use a Wheelchair?: Yes Distance: 2 feet Wheel 50 ft with 2 turns (QC): 4 (max cues for UE use and to avoid (R) obstacles and complete turns) Wheel 150 ft (QC): 88 Type of Wheelchair: Manual Stair Training 1 Step (curb) (QC): 88 4 Steps (QC): 88 12 Steps (QC): 88 Balance Picking up an Object (QC): 88 ADL-Treatment Eating (QC): 4 (with setup assistance ) Oral Hygiene (QC): 7 Bathing Location: L Arm, R Arm, L Upper Leg, R Upper Leg, Chest, Abdomen, Perineal Area Shower/Bathe Self (QC): 3 (Pt. able to bathe UE, dominick area and upper legs while sitting on BSC 100% of the time using LH sponge, hand held shower, and grabbars requires cues to initate whats next. Assist with cleaning/drying buttocks and drying LE. ) Upper Body Dressing (QC): 3 (to don/doff shirt, requiring assistance to pull shirt down back ) Lower Body Dressing (QC): 2 (Pt. needed assist with donning pants while sitting then needed assist with hiking over hips while pt stabilize self with FWW. ) On/Off Footwear (QC): 1 (to don/doff socks ) Toileting Hygiene (QC): 2 Toilet Transfer (QC): 1 Assessment/Plan Assessment and Plan Assess & Plan/Chief Complaint Assessment: s/p right hip fracture s/p uncomplicated repair DM HTN CAD Dementia Post op anemia from acute blood loss Delirium Incision bleeding holding Lovenox due to risks outweigh benefits Mild leukocytosis with abnormal UA starting on Omnicef Plan: Home meds Monitor BP and BS Aggressive PT OT 04/19/2023: Iron infusion B12 supplement 04/20/2023: Iron and B12 empirically Monitor closely SNF at risk 04/21/2023: Supportive care Aggressive therapy 04/22/2023: Pain control Hold Lovenox for saturation of the incision 04/23/2023: Continue holding Lovenox Monitor incision 04/24/2023: Monitor closely Fall risk SNF? 04/25/2023: Continue to hold Lovenox due to bleeding Monitor BP 04/26/2023: Doing well No issues Improved but slow recovery 04/27/2023: Continue to hold Lovenox due to bleeding risk Supportive care 04/28/2023: Check labs in a.m. Reviewed meds and labs 04/29/2023: Started on Omnicef Continue aggressive therapy 04/30/2023: Abx Monitor closely 05/01/2023: Complete UTI treatment (1) Closed right hip fracture Status: Acute (2) History of cerebrovascular disease Status: Acute (3) History of ST elevation myocardial infarction (STEMI) Status: Acute (4) HTN (hypertension) Status: Acute (5) Dementia Status: Acute (6) Compression fracture of L1 vertebra Status: Acute SAHLY VILLEGAS DO May 01, 2023 13:35
[2023-05-01 19:23] VITALS: BP 110/59
[2023-05-01] MEDS: MIRTAZAPINE 15 MG TABLET PO SCH (20:50)
[2023-05-01] MEDS: OLANZapine 5 MG ODT TABLET PO SCH (20:50)
[2023-05-01] MEDS: HYDROcodone/ACETAMINOPHEN 7.5 MG/325 MG TABLET PO PRN (20:50)
[2023-05-01] MEDS: DONEPEZIL 10 MG TABLET PO SCH (20:51)
[2023-05-02] MEDS ORDERED: CYAN-41 PO (05:09)
[2023-05-02] MEDS ORDERED: SENN-271 PO (05:09)
[2023-05-02] MEDS ORDERED: MICO90PO TOP (05:09)
[2023-05-02] MEDS ORDERED: CLOP75TA28 PO (05:09)
[2023-05-02] MEDS ORDERED: FLUC100T10 PO (05:09)
[2023-05-02] MEDS ORDERED: NYST15CR35 TP (05:09)
[2023-05-02] MEDS ORDERED: HYDR-3820 PO (05:09)
--- NOTE | 2023-05-02 05:11 | D/C HH Face to Face Order ---
D/C Face to Face Orders Reconcile Patient Problems Problems Reviewed?: Yes Instructions for Patient Via [facility], Patient Instructions/FollowUp: PCP [place] rounds Physician to follow Patient: PCP Discharge Diet for Home: ADA Diet Patient Problems: Hip fracture Patient Data-Allergies,Ht & Wt Patient Allergies: Coded Allergies: No Known Drug Allergies (Unverified , 02/04/21) Home Health Need/Face to Face Date of Face to Face: May 02, 2023 Clinical Findings: Generalized weakness and fatigue, Instability, Muscle weakness I have seen Pt [id number]: Yes Discharged To: Home Diagnosis/Conditions: Hip fx Patient is Homebound due to: CognItive deficits, [place] fall risk due to instabilty, Muscle weakness, Pain w/ambulation Homebound Status Due to the above stated illness, injury or surgical procedure (medical condition or diagnosis) and associated clinical findings, the patient is homebound because of his/her inability to leave home except with aid of a supportive device and/or person AND leaving the home requires a considerable and taxing effort or is medically contraindicated. Pt req the following assistanc: Walker, Wheelchair Home Health Nursing Orders Home Health Services Order: Nursing Services, Registered Public Surveyor-Evaluate & Treat, Physical Therapy-Evaluate & Treat Home Health Infusion Therapy Line Start Date: Apr 21, 2023 Certify Stmt I certify that this patient is under my care and that I, a nurse practitioner or a physician; a service center assistant working with me, had a face to face encounter that - meets the physician face to face encounter requirements with this patient as dated. ASHLY VILLEGAS DO May 02, 2023 05:11
--- NOTE | 2023-05-02 05:12 | Discharge Summary ---
Diagnosis/Chief Complaint Date of Admission Apr 18, 2023 at 14:45 Date of Discharge Discharge Date: May 02, 2023 Discharge Diagnosis Assessment: s/p right hip fracture s/p uncomplicated repair DM HTN CAD Dementia Post op anemia from acute blood loss Delirium Incision bleeding holding Lovenox due to risks outweigh benefits Mild leukocytosis with abnormal UA starting on Omnicef Plan: Home meds Monitor BP and BS Aggressive PT OT 04/19/2023: Iron infusion B12 supplement 04/20/2023: Iron and B12 empirically Monitor closely SNF at risk 04/21/2023: Supportive care Aggressive therapy 04/22/2023: Pain control Hold Lovenox for saturation of the incision 04/23/2023: Continue holding Lovenox Monitor incision 04/24/2023: Monitor closely Fall risk SNF? 04/25/2023: Continue to hold Lovenox due to bleeding Monitor BP 04/26/2023: Doing well No issues Improved but slow recovery 04/27/2023: Continue to hold Lovenox due to bleeding risk Supportive care 04/28/2023: Check labs in a.m. Reviewed meds and labs 04/29/2023: Started on Omnicef Continue aggressive therapy 04/30/2023: Abx Monitor closely 05/01/2023: Complete UTI treatment (1) Closed right hip fracture Status: Acute (2) History of cerebrovascular disease Status: Acute (3) History of ST elevation myocardial infarction (STEMI) Status: Acute (4) HTN (hypertension) Status: Acute (5) Dementia Status: Acute (6) Compression fracture of L1 vertebra Status: Acute Discharge Summary Discharge Physical Examination Allergies: Coded Allergies: No Known Drug Allergies (Unverified , 02/04/21) Vitals & I&Os Vital Signs Date Time Temp Pulse Resp B/P (MAP) Pulse Ox O2 Delivery O2 Flow Rate FiO2 05/02/23 17:51 36.0 78 20 121/62 96 Room Air 05/01/23 19:23 0.00 0.00 04/27/23 09:21 21 General Appearance: Alert, Oriented X3, Cooperative Respiratory: Clear to Auscultation Cardiovascular: Regular Rate Psych/Mental Status: Mental Status NL Hospital Course Was the Problem List Reviewed?: Yes Uneventful but lengthy course after she was moved from 4th floor after hip fracture. Her baseline dementia was a challenge during course. Pain was well controlled. Bowel regimen initiated. Yeast UTI was treated with diflucan. Labs remained stable. Incision bleeding was an issue requiring Plavix and Lovenox to be held since bleeding outweighed benefits. Overall she was doing well enough to return back to [facility] and she was DC on HH. Labs (last 24 hrs) Laboratory Tests 04/18/23 14:45: Lab Scanned Report Referred Lab Report 04/18/23 17:21: Glucometer 75 04/18/23 20:49: Glucometer 100 04/19/23 05:28: White Blood Count 10.9, Red Blood Count 2.93L, Hemoglobin 8.6L, Hematocrit 26L, Mean Corpuscular Volume 88, Mean Corpuscular Hemoglobin 29, Mean Corpuscular Hemoglobin Concent 34, Red Cell Distribution Width 13.9, Platelet Count 226, Mean Platelet Volume 10.6, Immature Granulocyte % (Auto) 1, Neutrophils (%) (Auto) 75, Lymphocytes (%) (Auto) 11L, Monocytes (%) (Auto) 11, Eosinophils (%) (Auto) 2, Basophils (%) (Auto) 0, Neutrophils # (Auto) 8.2H, Lymphocytes # (Auto) 1.2, Monocytes # (Auto) 1.2H, Eosinophils # (Auto) 0.2, Basophils # (Auto) 0.0, Immature Granulocyte # (Auto) 0.1, Sodium Level 135, Potassium Level 3.1L, Chloride Level 106, Carbon Dioxide Level 21, Anion Gap 8, Blood Urea Nitrogen 16, Creatinine 0.57L, Estimat Glomerular Filtration Rate 90, BUN/Creatinine Ratio 28, Glucose Level 92, Calcium Level 7.7L, Corrected Calcium 9.0, Iron Level 40, Total Bilirubin 1.0, Aspartate Amino Transf (AST/SGOT) 18, Alanine Aminotransferase (ALT/SGPT) 14, Alkaline Phosphatase 84, Total Protein 4.8L, Albumin 2.4L, Vitamin B12 Level 299 04/19/23 11:03: Glucometer 113H 04/19/23 15:52: Glucometer 114H 04/19/23 20:51: Glucometer 104 04/20/23 05:25: Glucometer 75 04/20/23 08:42: Glucometer 129H 04/20/23 11:22: Glucometer 113H 04/20/23 15:16: Glucometer 157H 04/20/23 20:59: Glucometer 129H 04/21/23 05:24: Glucometer 88 04/21/23 11:05: Glucometer 145H 04/21/23 15:33: Glucometer 158H 04/21/23 20:23: Glucometer 150H 04/22/23 06:04: Glucometer 85 04/22/23 11:12: Glucometer 149H 04/22/23 15:20: Glucometer 144H 04/22/23 20:46: Glucometer 156H 04/23/23 05:29: Glucometer 103 04/23/23 07:20: White Blood Count 12.1H, Red Blood Count 3.11L, Hemoglobin 9.0L, Hematocrit 28L, Mean Corpuscular Volume 89, Mean Corpuscular Hemoglobin 29, Mean Corpuscular Hemoglobin Concent 33, Red Cell Distribution Width 14.7H, Platelet Count 344, Mean Platelet Volume 9.7, Sodium Level 134L, Potassium Level 3.4L, Chloride Level 106, Carbon Dioxide Level 22, Anion Gap 6, Blood Urea Nitrogen 8, Creatinine 0.55L, Estimat Glomerular Filtration Rate 90, BUN/Creatinine Ratio 15, Glucose Level 110H, Calcium Level 7.9L, Corrected Calcium 9.1, Total Bilirubin 1.0, Aspartate Amino Transf (AST/SGOT) 20, Alanine Aminotransferase (ALT/SGPT) 15, Alkaline Phosphatase 115, Total Protein 5.1L, Albumin 2.5L 04/23/23 11:09: Glucometer 170H 04/23/23 15:33: Glucometer 157H 04/23/23 20:40: Glucometer 142H 04/24/23 06:05: Glucometer 114H 04/24/23 10:23: Glucometer 165H 04/24/23 15:41: Glucometer 166H 04/24/23 20:32: Glucometer 166H 04/25/23 05:06: White Blood Count 11.8H, Red Blood Count 3.15L, Hemoglobin 9.3L, Hematocrit 28L, Mean Corpuscular Volume 90, Mean Corpuscular Hemoglobin 30, Mean Corpuscular Hemoglobin Concent 33, Red Cell Distribution Width 15.8H, Platelet Count 387, Mean Platelet Volume 9.7, Immature Granulocyte % (Auto) 3, Neutrophils (%) (Auto) 73, Lymphocytes (%) (Auto) 12, Monocytes (%) (Auto) 9, Eosinophils (%) (Auto) 3, Basophils (%) (Auto) 1, Neutrophils # (Auto) 8.6H, Lymphocytes # (Auto) 1.4, Monocytes # (Auto) 1.0, Eosinophils # (Auto) 0.4H, Basophils # (Auto) 0.1, Immature Granulocyte # (Auto) 0.3H, Sodium Level 138, Potassium Level 4.1, Chloride Level 110H, Carbon Dioxide Level 22, Anion Gap 6, Blood Urea Nitrogen 9, Creatinine 0.57L, Estimat Glomerular Filtration Rate 90, BUN/Creatinine Ratio 16, Glucose Level 128H, Calcium Level 8.1L, Corrected Calcium 9.3, Total Bilirubin 0.7, Aspartate Amino Transf (AST/SGOT) 21, Alanine Aminotransferase (ALT/SGPT) 17, Alkaline Phosphatase 113, Total Protein 5.1L, Albumin 2.5L 04/25/23 11:01: Glucometer 167H 04/25/23 15:30: Glucometer 121H 04/25/23 20:35: Glucometer 202H 04/26/23 06:02: Glucometer 138H 04/26/23 10:44: Glucometer 206H 04/26/23 15:42: Glucometer 153H 04/26/23 20:02: Glucometer 182H 04/27/23 05:39: Glucometer 118H 04/27/23 09:42: Glucometer 181H 04/27/23 15:19: Glucometer 154H 04/27/23 20:31: Glucometer 202H 04/28/23 05:45: Glucometer 124H 04/28/23 10:52: Glucometer 146H 04/28/23 15:57: Glucometer 155H 04/28/23 20:57: Glucometer 143H 04/29/23 05:57: White Blood Count 14.5H, Red Blood Count 3.65L, Hemoglobin 11.0L, Hematocrit 34L , Mean Corpuscular Volume 93, Mean Corpuscular Hemoglobin 30, Mean Corpuscular Hemoglobin Concent 33, Red Cell Distribution Width 17.3H, Platelet Count 535H, Mean Platelet Volume 9.5, Immature Granulocyte % (Auto) 1, Neutrophils (%) (Auto) 83H, Lymphocytes (%) (Auto) 9L, Monocytes (%) (Auto) 7, Eosinophils (%) (Auto) 0, Basophils (%) (Auto) 0, Neutrophils # (Auto) 12.1H, Lymphocytes # (Auto) 1.3, Monocytes # (Auto) 1.0, Eosinophils # (Auto) 0.0, Basophils # (Auto) 0.1, Immature Granulocyte # (Auto) 0.1, Neutrophils % (Manual) 87, Lymphocytes % (Manual) 9, Monocytes % (Manual) 3, Eosinophils % (Manual) 1, Anisocytosis SLIGHT, Sodium Level 135, Potassium Level 4.5, Chloride Level 105, Carbon Dioxide Level 21, Anion Gap 9, Blood Urea Nitrogen 11, Creatinine 0.63, Estimat Glomerular Filtration Rate 87, BUN/Creatinine Ratio 17, Glucose Level 132H, Calcium Level 8.2L, Corrected Calcium 9.1, Total Bilirubin 0.8, Aspartate Amino Transf (AST/SGOT) 17, Alanine Aminotransferase (ALT/SGPT) 15, Alkaline Phosphatase 132, Total Protein 6.0L, Albumin 2.9L 04/29/23 10:31: Glucometer 76 04/29/23 11:00: Urine Color YELLOW, Urine Clarity CLOUDY, Urine pH 6.0, Urine Specific [place] 1.025H, Urine Protein 1+H, Urine Glucose (UA) 3+H, Urine Ketones 2+H, Urine Nitrite NEGATIVE, Urine Bilirubin 1+H, Urine Urobilinogen 0.2, Urine Leukocyte Esterase TRACEH, Urine RBC (Auto) 2+H, Urine RBC 10-25H, Urine WBC 10-25H, Urine Squamous Epithelial Cells NONE, Urine Crystals NONE, Urine Bacteria FEWH, Urine Casts NONE, Urine Mucus NEGATIVE, Urine Yeast LARGEH, Urine Culture Indicated YES 04/29/23 13:56: Glucometer 178H 04/29/23 15:31: Glucometer 129H 04/29/23 20:28: Glucometer 166H 04/30/23 05:57: Glucometer 104 04/30/23 11:24: Glucometer 115H 04/30/23 15:49: Glucometer 116H 04/30/23 20:29: Glucometer 131H 05/01/23 05:16: Glucometer 97 05/01/23 11:02: Glucometer 115H 05/01/23 15:50: Glucometer 141H 05/01/23 21:16: Glucometer 125H 05/02/23 05:23: White Blood Count 9.0, Red Blood Count 3.58L, Hemoglobin 10.8L, Hematocrit 34L, Mean Corpuscular Volume 94, Mean Corpuscular Hemoglobin 30, Mean Corpuscular Hemoglobin Concent 32, Red Cell Distribution Width 17.1H, Platelet Count 443H, M emery Platelet Volume 9.8, Immature Granulocyte % (Auto) 0, Neutrophils (%) (Auto) 78H, Lymphocytes (%) (Auto) 10L, Monocytes (%) (Auto) 8, Eosinophils (%) (Auto) 2, Basophils (%) (Auto) 1, Neutrophils # (Auto) 7.0, Lymphocytes # (Auto) 0.9L, Monocytes # (Auto) 0.8, Eosinophils # (Auto) 0.2, Basophils # (Auto) 0.1, Immatu re Granulocyte # (Auto) 0.0, Sodium Level 135, Potassium Level 4.1, Chloride Level 106, Carbon Dioxide Level 22, Anion Gap 7, Blood Urea Nitrogen 12, Creatinine 0.64, Estimat Glomerular Filtration Rate 87, BUN/Creatinine Ratio 19, Glucose Level 125H, Calcium Level 8.2L, Corrected Calcium 9.1, Total Bilirubin 0.4, Aspartate Amino Transf (AST/SGOT) 18, Alanine Aminotransferase (ALT/SGPT) 10, Alkaline Phosphatase 131, Total Protein 5.8L, Albumin 2.9L 05/02/23 11:41: Glucometer 155H 05/02/23 15:33: Glucometer 152H Microbiology 04/29/23 Urine Culture - Final, Complete YEAST See Comments Pending Labs Microbiology Date/Time Source Procedure Growth Status 04/29/23 11:00 Urine Straight Cath, In/Out Urine Culture - Final YEAST See Comments Complete Laboratory Tests 04/18/23 14:45: Lab Scanned Report Referred Lab Report 04/18/23 17:21: Glucometer 75 04/18/23 20:49: Glucometer 100 04/19/23 05:28: White Blood Count 10.9, Red Blood Count 2.93, Hemoglobin 8.6, Hematocrit 26, Mean Corpuscular Volume 88, Mean Corpuscular Hemoglobin 29, Mean Corpuscular Hemoglobin Concent 34, Red Cell Distribution Width 13.9, Platelet Count 226, Mean Platelet Volume 10.6, Immature Granulocyte % (Auto) 1, Neutrophils (%) (Auto) 75, Lymphocytes (%) (Auto) 11, Monocytes (%) (Auto) 11, Eosinophils (%) (Auto) 2, Basophils (%) (Auto) 0, Neutrophils # (Auto) 8.2, Lymphocytes # (Auto) 1.2, Monocytes # (Auto) 1.2, Eosinophils # (Auto) 0.2, Basophils # (Auto) 0.0, Immature Granulocyte # (Auto) 0.1, Sodium Level 135, Potassium Level 3.1, Chloride Level 106, Carbon Dioxide Level 21, Anion Gap 8, Blood Urea Nitrogen 16, Creatinine 0.57, Estimat Glomerular Filtration Rate 90, BUN/Creatinine Ratio 28, Glucose Level 92, Calcium Level 7.7, Corrected Calcium 9.0, Iron Level 40, Total Bilirubin 1.0, Aspartate Amino Transf (AST/SGOT) 18, Alanine Aminotransferase (ALT/SGPT) 14, Alkaline Phosphatase 84, Total Protein 4.8, Albumin 2.4, Vitamin B12 Level 299 04/19/23 11:03: Glucometer 113 04/19/23 15:52: Glucometer 114 04/19/23 20:51: Glucometer 104 04/20/23 05:25: Glucometer 75 04/20/23 08:42: Glucometer 129 04/20/23 11:22: Glucometer 113 04/20/23 15:16: Glucometer 157 04/20/23 20:59: Glucometer 129 04/21/23 05:24: Glucometer 88 04/21/23 11:05: Glucometer 145 04/21/23 15:33: Glucometer 158 04/21/23 20:23: Glucometer 150 04/22/23 06:04: Glucometer 85 04/22/23 11:12: Glucometer 149 04/22/23 15:20: Glucometer 144 04/22/23 20:46: Glucometer 156 04/23/23 05:29: Glucometer 103 04/23/23 07:20: White Blood Count 12.1, Red Blood Count 3.11, Hemoglobin 9.0, Hematocrit 28, Mean Corpuscular Volume 89, Mean Corpuscular Hemoglobin 29, Mean Corpuscular Hemoglobin Concent 33, Red Cell Distribution Width 14.7, Platelet Count 344, Mean Platelet Volume 9.7, Sodium Level 134, Potassium Level 3.4, Chloride Level 106, Carbon Dioxide Level 22, Anion Gap 6, Blood Urea Nitrogen 8, Creatinine 0.55, Estimat Glomerular Filtration Rate 90, BUN/Creatinine Ratio 15, Glucose Level 110, Calcium Level 7.9, Corrected Calcium 9.1, Total Bilirubin 1.0, Aspartate Amino Transf (AST/SGOT) 20, Alanine Aminotransferase (ALT/SGPT) 15, Alkaline Phosphatase 115, Total Protein 5.1, Albumin 2.5 04/23/23 11:09: Glucometer 170 04/23/23 15:33: Glucometer 157 04/23/23 20:40: Glucometer 142 04/24/23 06:05: Glucometer 114 04/24/23 10:23: Glucometer 165 04/24/23 15:41: Glucometer 166 04/24/23 20:32: Glucometer 166 04/25/23 05:06: White Blood Count 11.8, Red Blood Count 3.15, Hemoglobin 9.3, Hematocrit 28, Mean Corpuscular Volume 90, Mean Corpuscular Hemoglobin 30, Mean Corpuscular Hemoglobin Concent 33, Red Cell Distribution Width 15.8, Platelet Count 387, Mean Platelet Volume 9.7, Immature Granulocyte % (Auto) 3, Neutrophils (%) (Auto) 73, Lymphocytes (%) (Auto) 12, Monocytes (%) (Auto) 9, Eosinophils (%) (Auto) 3, Basophils (%) (Auto) 1, Neutrophils # (Auto) 8.6, Lymphocytes # (Auto) 1.4, Monocytes # (Auto) 1.0, Eosinophils # (Auto) 0.4, Basophils # (Auto) 0.1, Immature Granulocyte # (Auto) 0.3, Sodium Level 138, Potassium Level 4.1, Chloride Level 110, Carbon Dioxide Level 22, Anion Gap 6, Blood Urea Nitrogen 9, Creatinine 0.57, Estimat Glomerular Filtration Rate 90, BUN/Creatinine Ratio 16, Glucose Level 128, Calcium Level 8.1, Corrected Calcium 9.3, Total Bilirubin 0.7, Aspartate Amino Transf (AST/SGOT) 21, Alanine Aminotransferase (ALT/SGPT) 17, Alkaline Phosphatase 113, Total Protein 5.1, Albumin 2.5 04/25/23 11:01: Glucometer 167 04/25/23 15:30: Glucometer 121 04/25/23 20:35: Glucometer 202 04/26/23 06:02: Glucometer 138 04/26/23 10:44: Glucometer 206 04/26/23 15:42: Glucometer 153 04/26/23 20:02: Glucometer 182 04/27/23 05:39: Glucometer 118 04/27/23 09:42: Glucometer 181 04/27/23 15:19: Glucometer 154 04/27/23 20:31: Glucometer 202 04/28/23 05:45: Glucometer 124 04/28/23 10:52: Glucometer 146 04/28/23 15:57: Glucometer 155 04/28/23 20:57: Glucometer 143 04/29/23 05:57: White Blood Count 14.5, Red Blood Count 3.65, Hemoglobin 11.0, Hematocrit 34, Mean Corpuscular Volume 93, Mean Corpuscular Hemoglobin 30, Mean Corpuscular Hemoglobin Concent 33, Red Cell Distribution Width 17.3, Platelet Count 535, Mean Platelet Volume 9.5, Immature Granulocyte % (Auto) 1, Neutrophils (%) (Auto) 83, Lymphocytes (%) (Auto) 9, Monocytes (%) (Auto) 7, Eosinophils (%) (Auto) 0, Basophils (%) (Auto) 0, Neutrophils # (Auto) 12.1, Lymphocytes # (Auto) 1.3, Monocytes # (Auto) 1.0, Eosinophils # (Auto) 0.0, Basophils # (Auto) 0.1, Immature Granulocyte # (Auto) 0.1, Neutrophils % (Manual) 87, Lymphocytes % (Manual) 9, Monocytes % (Manual) 3, Eosinophils % (Manual) 1, Anisocytosis SLIGHT, Sodium Level 135, Potassium Level 4.5, Chloride Level 105, Carbon Dioxide Level 21, Anion Gap 9, Blood Urea Nitrogen 11, Creatinine 0.63, Estimat Glomerular Filtration Rate 87, BUN/Creatinine Ratio 17, Glucose Level 132, Calcium Level 8.2, Corrected Calcium 9.1, Total Bilirubin 0.8, Aspartate Amino Transf (AST/SGOT) 17, Alanine Aminotransferase (ALT/SGPT) 15, Alkaline Phosphatase 132, Total Protein 6.0, Albumin 2.9 04/29/23 10:31: Glucometer 76 04/29/23 11:00: Urine Color YELLOW, Urine Clarity CLOUDY, Urine pH 6.0, Urine Specific [place] 1.025, Urine Protein 1+, Urine Glucose (UA) 3+, Urine Ketones 2+, Urine Nitrite NEGATIVE, Urine Bilirubin 1+, Urine Urobilinogen 0.2, Urine Leukocyte Esterase TRACE, Urine RBC (Auto) 2+, Urine RBC 10-25, Urine WBC 10-25, Urine Squamous Epithelial Cells NONE, Urine Crystals NONE, Urine Bacteria FEW, Urine Casts NONE, Urine Mucus NEGATIVE, Urine Yeast LARGE, Urine Culture Indicated YES 04/29/23 13:56: Glucometer 178 04/29/23 15:31: Glucometer 129 04/29/23 20:28: Glucometer 166 04/30/23 05:57: Glucometer 104 04/30/23 11:24: Glucometer 115 04/30/23 15:49: Glucometer 116 04/30/23 20:29: Glucometer 131 05/01/23 05:16: Glucometer 97 05/01/23 11:02: Glucometer 115 05/01/23 15:50: Glucometer 141 05/01/23 21:16: Glucometer 125 05/02/23 05:23: White Blood Count 9.0, Red Blood Count 3.58, Hemoglobin 10.8, Hematocrit 34, Mean Corpuscular Volume 94, Mean Corpuscular Hemoglobin 30, Mean Corpuscular Hemoglobin Concent 32, Red Cell Distribution Width 17.1, Platelet Count 443, Mean Platelet Volume 9.8, Immature Granulocyte % (Auto) 0, Neutrophils (%) (Auto) 78, Lymphocytes (%) (Auto) 10, Monocytes (%) (Auto) 8, Eosinophils (%) (Auto) 2, Basophils (%) (Auto) 1, Neutrophils # (Auto) 7.0, Lymphocytes # (Auto) 0.9, Monocytes # (Auto) 0.8, Eosinophils # (Auto) 0.2, Basophils # (Auto) 0.1, Immature Granulocyte # (Auto) 0.0, Sodium Level 135, Potassium Level 4.1, Chloride Level 106, Carbon Dioxide Level 22, Anion Gap 7, Blood Urea Nitrogen 12, Creatinine 0.64, Estimat Glomerular Filtration Rate 87, BUN/Creatinine Ratio 19, Glucose Level 125, Calcium Level 8.2, Corrected Calcium 9.1, Total Bilirubin 0.4, Aspartate Amino Transf (AST/SGOT) 18, Alanine Aminotransferase (ALT/SGPT) 10, Alkaline Phosphatase 131, Total Protein 5.8, Albumin 2.9 05/02/23 11:41: Glucometer 155 05/02/23 15:33: Glucometer 152 Discharge Home Medications: Active Scripts Active Vitamin B-12 (Cyanocobalamin (Vitamin B-12)) 1,000 Mcg Tablet 1,000 Mcg PO DAILY@0700 Nystatin 100,000 Unit/Gram Cream..g. 0 Gm TP TID three times daily Lotrimin AF (Miconazole Nitrate) 2 % Powder 0 Gm TOP BID twice daily Stool Softener-Laxative Tablet (Sennosides/Docusate Sodium) 8.6 Mg-50 Mg Tablet 1 Ea PO BID Fluconazole 100 Mg Tablet 100 Mg PO DAILY Hydrocodone-Acetamin 10-325 mg (Hydrocodone/Acetaminophen) 10 Mg-325 Mg Tablet 1 Ea PO Q6H PRN Clopidogrel (Clopidogrel Bisulfate) 75 Mg Tablet 75 Mg PO DAILY 14 Days hold for 2 weeks Reported Ibuprofen 200 Mg Tablet 200-400 Mg PO Q6H PRN Ativan (Lorazepam) 0.5 Mg Tablet 0.5 Mg PO TID PRN Tylenol Extra Strength (Acetaminophen) 500 Mg Tablet 1,000 Mg PO Q6H PRN Olanzapine 5 Mg Tablet 5 Mg PO HS Mirtazapine 30 Mg Tablet 30 Mg PO HS Atorvastatin Calcium 40 Mg Tablet 40 Mg PO HS Furosemide 40 Mg Tablet 40 Mg PO DAILY Klor-Con M15 (Potassium Chloride) 15 Meq Tab.er.prt 15 Meq PO DAILY Carvedilol 3.125 Mg Tablet 3.125 Mg PO BID WITH MEALS Donepezil HCl 10 Mg Tablet 10 Mg PO HS Lisinopril 2.5 Mg Tablet 2.5 Mg PO DAILY Farxiga (Dapagliflozin Propanediol) 10 Mg Tablet 10 Mg PO DAILY Glipizide 5 Mg Tablet 2.5 Mg PO DAILY TAKES OF A 5MG Trulicity (Dulaglutide) 4.5 Mg/0.5 Ml Pen.injctr 4.5 Mg SQ MON Instructions to patient/family Please see electronic discharge instructions given to patient. Diagnosis/Problems Diagnosis/Problems (1) Closed right hip fracture Status: Acute (2) History of cerebrovascular disease Status: Acute (3) History of ST elevation myocardial infarction (STEMI) Status: Acute (4) HTN (hypertension) Status: Acute (5) Dementia Status: Acute (6) Compression fracture of L1 vertebra Status: Acute ASHLY VILLEGAS DO May 02, 2023 05:12
[2023-05-02 06:06] LABS: BASOPHILS # (AUTO) 0.1 10^3/uL (0.0-0.1); BASOPHILS % (AUTO) 1 % (0-10); EOSINOPHILS # (AUTO) 0.2 10^3/uL (0.0-0.3); EOSINOPHILS % (AUTO) 2 % (0-10); HEMATOCRIT 34 % (35-52); HEMOGLOBIN 10.8 g/dL (11.5-16.0); LYMPHOCYTES # (AUTO) 0.9 10^3/uL (1.0-4.0); LYMPHOCYTES % (AUTO) 10 % (12-44); MEAN CORPUSCULAR HEMOGLOBIN 30 pg (25-34); MEAN CORPUSCULAR HGB CONC 32 g/dL (32-36); MEAN CORPUSCULAR VOLUME 94 fL (80-99); MEAN PLATELET VOLUME 9.8 fL (9.0-12.2); MONOCYTES # (AUTO) 0.8 10^3/uL (0.0-1.0); MONOCYTES % (AUTO) 8 % (0-12); NEUTROPHILS % (AUTO) 78 % (42-75); PLATELET COUNT 443 10^3/uL (130-400)
[2023-05-02] MEDS: glipiZIDE 5 MG TABLET PO SCH (06:17)
[2023-05-02] MEDS: HYDROcodone/ACETAMINOPHEN 7.5 MG/325 MG TABLET PO PRN (06:17)
[2023-05-02] MEDS: CYANOCOBALAMIN 1,000 MCG TABLET PO SCH (06:17)
[2023-05-02] MEDS: POTASSIUM CHLORIDE 10 MEQ TABLET PO SCH ×2 (06:17→16:39)
[2023-05-02 06:27] LABS: ALBUMIN 2.9 GM/DL (3.2-4.5); POTASSIUM 4.1 MMOL/L (3.6-5.0)
[2023-05-02 06:29] LABS: CALCIUM 8.2 MG/DL (8.5-10.1)
[2023-05-02 06:30] LABS: TOTAL PROTEIN 5.8 GM/DL (6.4-8.2)
[2023-05-02] MEDS: inSUlin ASPART 1 UNIT/0.01 ML (PER UNIT) SC SCH ×3 (06:31→16:39)
[2023-05-02 06:32] LABS: BILIRUBIN,TOTAL 0.4 MG/DL (0.1-1.0)
[2023-05-02 06:33] LABS: CREATININE SERUM 0.64 MG/DL (0.60-1.30)
[2023-05-02 08:00] VITALS: BP 114/58
--- NOTE | 2023-05-02 08:32 | Occupational Ther Daily Note ---
OT Current Status-Daily Note Subjective Pt. asleep in recliner woke up to name. No c/o pain. Pt. agreed to therapy. Mental Status/Objective Patient Orientation: Person, Place, Time, Situation ADL-Treatment Pt. agreed to sponge bath while sitting in recliner. Pt. takes increased time to complete LBD to utilize AE. Mod A with sit to stands with v/c to push up from chair and to reach for walker once standing (pt is inconsistent with amount of assistance needed per fatigue level). CGA with SPT from recliner to/from w/c. After session, pt in recliner with call light and phone in reach and chair alarm set and all needs met. Therapy Code Descriptions/Definitions Functional [place] Measure: 0=Not Assessed/NA 4=Minimal Assistance 1=Total Assistance 5=Supervision or Setup 2=Maximal Assistance 6=Modified [place] 3=Moderate Assistance 7=Complete IndependenceSCALE: Activities may be completed with or without assistive devices. 6-Gouvxujicu-pbgiifr completes the activity by him/herself with no assistance from a helper. 5-Set-up or Clean-up Assistance-helper sets up or cleans up; patient completes activity. [place] assists only prior to or following the activity. 4-Supervision or Touching Assistance-helper provides verbal cues and/or touching/steadying and/or contact guard assistance as patient completes activity. Assistance may be provided throughout the activity or intermittently. 3-Partial/Moderate Assistance-helper does LESS THAN HALF the effort. [place] lifts, holds or supports trunk or limbs, but provides less than half the effort. 2-Substantial/Maximal Assistance-helper does MORE THAN HALF the effort. [place] lifts or holds trunk or limbs and provides more than half the effort. 3-Jbshsvwod-sczdgp does ALL the effort. Patient does none of the effort to complete the activity. Or, the assistance of 2 or more helpers is required for the patient to complete the activity. If activity was not attempted, code reason: 7-Patient Refused. 9-Not Applicable-not attempted and the patient did not perform the activity before the current illness, exacerbation or injury. 10-Not Attempted due to Environmental Limitations-(lack of equipment, weather restraints, etc.). 88-Not Attempted due to Medical Conditions or Safety Concerns. Eating (QC): 6 (Pt. IND with eating. ) Oral Hygiene (QC): 6 (Pt. able to complete grooming/oral hygiene while sitting at sink.) Bathing Location: L Arm, R Arm, L Upper Leg, R Upper Leg, L Lower Leg (including foot), R Lower Leg (including foot), Chest, Abdomen, Buttocks, Perineal Area Shower/Bathe Self (QC): 3 (Pt. able to bath all areas while sitting. Pt. able to lift legs to clean LE. Mod A for sit to stand, min A in standing while pt cleans buttocks and dominick area by self.) Upper Body Dressing (QC): 5 (Pt. able to don/doff UB clothing by self after set up. ) Lower Body Dressing (QC): 3 (Pt. able to don pants while alternating lifting B LE's to thread. Mod A for sit to stand, min A in standing to steady using FWW to stabilize to hike by self.) On/Off Footwear: 5 (Pt. able to doff using dressing stick and don using sock aide by self. ) Toileting Hygiene (QC): 3 (Pt. able to complete clothing manipulation in standing with min A/vc for sequencing and cleanses dominick area in sitting by self.) Toilet Transfer (QC): 3 (Pt. able to complete toilet transfer mod A using FWW and grabbars with v/c to keep pivoting until feel seat behind legs and to reach back. ) Education OT Patient Education: Safety issues, Transfer techniques Teaching Recipient: Patient Teaching Methods: Demonstration, Discussion Response to Teaching: Verbalize Understanding, Return Demonstration BIMS CAM BIMS Expression of Ideas and Wants: Without Difficulty Understanding Verbal Content: Understands Brief Interview/Mental Status: No IRF MIRYAM BIMS: IRF MIRYAM BIMS Response (Comments) Value Repitition of Three Words Three 3 Recalls Socks Yes, After Cueing (Wear) 1 Recalls Blue Yes, After Cueing (Color) 1 Recalls Bed Yes, After Cueing 1 Year Correct 3 Month Accurate Within 5 Days 2 Day Correct 1 Total 12 Patient Normally Able to Recal: Current Session, Location of own room, Staff Names and faces, That he/she in a [facility] Should Staff Asses. Mental St.: No Memory/Recall Ability: Current Season, Location of Own Room, Staff Names and F aces, That He/She in Hospit[facility] CAM Mental Status Change/Baseline: 0 Inattention: 0 Disorganized thinkin Altered level of consciousness: 0 OT Short Term Goals Short Term Goals Time Frame: Apr 29, 2023 Eatin Oral hygiene: 5 Toileting hygiene: 3 Shower/bathe self: 3 Upper body dressin Lower body dressin Putting on/taking off footwear: 3 OT [facility]ci Goals Fci Goals Time Frame: May 06, 2023 Acute change in mental status: 0 Inattention: 0 Disorganized thinkin Altered level of consciousness: 0 Eating (QC): 6 (met) Oral Hygiene (QC): 5 (met) Toileting Hygiene (QC): 4 (not met) Shower/Bathe Self (QC): 4 (not met) Upper Body Dressing (QC): 4 (met) Lower Body Dressing (QC): 4 (not met) On/Off Footwear (QC): 4 (met) 1=Demonstrate adherence to instructed precautions during ADL tasks. 2=Patient will verbalize/demonstrate understanding of assistive devices/modifications for ADL. 3=Patient will improve strength/tolerance for activity to enable patient to perform ADL's. OT Education/Plan Problem List/Assessment Assessment: Decreased Activ Tolerance, Decreased Safety Aware, Decreased UE Strength, Impaired Cognition, Impaired Funct Balance, Impaired I ADL's, Impaired Self-Care Skills decreased functional strength, decrease ADL independence Discharge Recommendations Plan/Recommendations: Continue POC Treatment Plan/Plan of Care Patient would benefit from OT for education, treatment and training to promote independence in ADL's, mobility, safety and/or upper extremity function for ADL's. Plan of Care: ADL Retraining, Cognitive Retraining, Concurrent Therapy, Functional Mobility Treatment Duration: Apr 19, 2023 Frequency: 5 times per week Estimated Hrs Per Day: 1.5 hours per day Agreement: Yes Rehab Potential: Fair Time Start Time: 07:30 Stop Time: 08:30 DATE: May 02, 2023 Total Time Billed (hr/min): 60 Billed Treatment Time 1 visit- ADL 4 (60 mins) PEREZ CHAUDHRY May 02, 2023 08:31
[2023-05-02] MEDS: EMPAGLIFLOZIN 10 MG TABLET PO SCH (08:47)
[2023-05-02] MEDS: NYSTATIN CREAM 30 GM TUBE TP SCH ×2 (08:48→12:20)
[2023-05-02] MEDS: MICONAZOLE 2% POWDER 90 GM TOP SCH (08:48)
--- NOTE | 2023-05-02 11:19 | Therapy Team Discharge Summary ---
Therapy Discharge Summary Discharge Recommendations Date of Discharge Physical Therapy Roll Left to Right (QC): 3 (mod (A) /c max cues and assist to place hands on bed rails. Rolling (R)/(L) to don Depends and pants. ) Sit to Lying (QC): 1 (Mod A x2 for max cuing for sequencing & safety & lifting B LE into bed) Lying to Sitting/Side of Bed(Q: 3 (min-mod (A) with use of bed rail) Sit to Stand (QC): 3 (mod (A) of 1 /c max cues from w/c) Chair/Qeq-kb-Tcsae Xfer(QC): 2 (max (A) of 1 to stand pivot (no walker.) Toilet Transfer (QC): 2 Car Transfer (QC): 88 Does the Patient Walk: Yes Mode of Locomotion: Both Anticipated Mode of Locomotion: Both Walk 10 feet (QC): 88 (unable to make 10' distance) Walk 50 ft with 2 Turns(QC): 88 Walk 150 ft (QC): 88 Walking 10ft on uneven surface: 88 Gait Assistive Device: FWW Does the Pt Use a Wheelchair: Yes Wheelchair Distance: 2 feet Wheel 50 ft with 2 turns (QC): 4 (max cues for UE use and to avoid (R) obstac les and complete turns) Wheel 150 ft (QC): 88 Type of Wheelchair: Manual 1 Step (curb) (QC): 88 4 Steps (QC): 88 12 Steps (QC): 88 Balance Sitting Static: Fair Balance Sitting Dynamic: Poor Balance-Standing Static: Poor Picking up an Object (QC): 88 Occupational Therapy Decreased Activ Tolerance, Decreased Safety Aware, Decreased UE Strength, Impaired Cognition, Impaired Funct Balance, Impaired I ADL's, Impaired Self-Care Skills Eating (QC): 6 (Pt. IND with eating. ) Oral Hygiene (QC): 6 (Pt. able to complete grooming/oral hygiene while sitting at sink.) Shower/Bathe Self (QC): 4 (Pt. able to bath all areas while sitting. Pt. able to lift legs to clean LE. Stands CGA while pt cleans buttocks and dominick area by self.) Upper Body Dressing (QC): 5 (Pt. able to don/doff UB clothing by self after set up. ) Lower Body Dressing (QC): 4 (Pt. able to don pants while lifting leg to thread then stands with CGA to steady using FWW to stabilize to hike by self after set up.) On/Off Footwear (QC): 5 (Pt. able to doff using dressing stick and don using sock aide by self. ) Toileting Hygiene (QC): 4 (Pt. able to complete clothing manipulation CGA with v/c for sequencing and cleanses dominick area by self.) Speech-Language Pathology Pt was admitted for R hip fracture s/p fall. Goals focused on using spaced retrieval to increase recall of where to look to find orientation information, location of call light, and hip precautions. Pt demonstrates good recall of location of orientation information (board in room and typed paper placed on bedside table). Pt continued to demonstrate poor recall of location of call light and location of hip precautions. PT Care Home Goals Cat Skinner Goals PT Care Home Goals Time Frame: May 09, 2023 Roll Left to Right (QC): 4 Sit to Lying (QC): 4 Lying-Sitting on Side/Bed(QC): 4 Sit to Stand (QC): 3 Chair/Dgh-ns-Jxflh Xfer(QC): 3 Toilet/Commode Transfer (QC): 3 Car Transfer (QC): 3 Does the Patient Walk: Yes Walk 10 feet (QC): 3 Walk 10ft-Uneven Surface(QC): 3 Walk 50ft with 2 Turns (QC): 3 Walk 150 ft (QC): 9 Does the Pt use WC or Scooter?: Yes Wheel 50 feet with 2 turns (QC: 4 Type: Manual Wheel 150 feet: 4 1 Step (curb) (QC): 3 4 Steps (QC): 9 12 Steps (QC): 9 Picking up an Object (QC): 3 OT Care Home Goals Care Home Goals Time Frame: May 06, 2023 Acute change in mental status: 0 Inattention: 0 Disorganized thinkin Altered level of consciousness: 0 Eating (QC): 6 Oral Hygiene (QC): 5 Toileting Hygiene (QC): 4 Shower/Bathe Self (QC): 4 Upper Body Dressing (QC): 4 Lower Body Dressing (QC): 4 On/Off Footwear (QC): 4 1=Demonstrate adherence to instructed precautions during ADL tasks. 2=Patient will verbalize/demonstrate understanding of assistive devices/modifications for ADL. 3=Patient will improve strength/tolerance for activity to enable patient to perform ADL's. Speech Care Home Goals Care Home Goals Pt will utilize environmental cues for orientation to place and time with 80% accuracy. Pt will demonstrate appropriate use of call light with 90% accuracy. Pt will use environmental cues for safety precautions for hip with 80% accuracy. Lin Osborne May 02, 2023 11:19
[2023-05-02] MEDS: SENNA W/DOCUSATE TABLET PO SCH (11:21)
[2023-05-02] MEDS: DOCUSATE SODIUM 100 MG CAPSULE PO SCH (11:21)
[2023-05-02 12:40] VITALS: BP 121/62
[2023-05-02] MEDS: ACETAMINOPHEN 500 MG TABLET PO PRN ×2 (13:16→17:34)
--- NOTE | 2023-05-02 15:26 | Physical Therapy Daily Note ---
PT Daily Note-Current Subjective Pt presents sitting in recliner with B feet on floor. Pt denies pain. Pt states she is "very sleepy". Pt agreeable to PT tx. Pain Section J - Health Conditions 1. Rarely or not at all 2. Occasionally 3. Frequently 4. Almost constantly 8. Unable to answer Pain Effect on Sleep: 1 Pain Interference with Therapy: 1 Pain Interference w/Day-to-Day: 1 Transfers SCALE: Activities may be completed with or without assistive devices. 4-Zvwwzsargv-pnicpiv completes the activity by him/herself with no assistance from a helper. 5-Set-up or Clean-up Assistance-helper sets up or cleans up; patient completes activity. [place] assists only prior to or following the activity. 4-Supervision or Touching Assistance-helper provides verbal cues and/or touching/steadying and/or contact guard assistance as patient completes activity. Assistance may be provided throughout the activity or intermittently. 3-Partial/Moderate Assistance-helper does LESS THAN HALF the effort. [place] lifts, holds or supports trunk or limbs, but provides less than half the effort. 2-Substantial/Maximal Assistance-helper does MORE THAN HALF the effort. [place] lifts or holds trunk or limbs and provides more than half the effort. 1-Csoojrtpi-oukivg does ALL the effort. Patient does none of the effort to complete the activity. Or, the assistance of 2 or more helpers is required for the patient to complete the activity. If activity was not attempted, code reason: 7-Patient Refused. 9-Not Applicable-not attempted and the patient did not perform the activity before the current illness, exacerbation or injury. 10-Not Attempted due to Environmental Limitations-(lack of equipment, weather restraints, etc.). 88-Not Attempted due to Medical Conditions or Safety Concerns. Roll Left & Right (QC): 3 Sit to Lying (QC): 2 (modA x 2, max cues for sequencing, lifting B LE into bed, safety) Lying to Sitting/Side of Bed(Q: 3 Sit to Stand (QC): 3 Chair/Kkh-df-Uxdbx Xfer(QC): 2 Toilet Transfer (QC): 2 Car Transfer (QC): 88 Weight Bearing Right Lower Extremity: Right Weight Bearing/Tolerated Left Lower Extremity: Left Weight Bearing/Tolerated Gait Training Does the Patient Walk?: Yes Walk 10 feet (QC): 88 Walk 50 ft with 2 Turns(QC): 88 Walk 150 ft (QC): 9 Walking 10ft/uneven surface-QC: 88 Gait Assistive Device: FWW Pt amb 6' with FWW, modA x 2 for max cues and safety. Wheelchair Training Does the Pt Use a Wheelchair?: Yes Wheel 50 ft with 2 turns (QC): 3 (min-mod A, with max cues for UE and LE use) Wheel 150 ft (QC): 88 Type of Wheelchair: Manual Pt performed W/C mobility x 50', min-modA for max cues and safety. Stair Training 1 Step (curb) (QC): 88 4 Steps (QC): 9 12 Steps (QC): 9 Balance Picking up an Object (QC): 3 Special Test Comments Pt picked up object off floor with paper stacker and L UE on FWW, modA for safety. Treatments Pt conducted Quality Code checks during tx. Pt's muscle weakness and willingness to participate limits her ability to perform most tasks. Post tx with pt in bed with mod-maxA x 2, call light within reach and all needs met. Assessment Current Status: Poor Progress Pt's muscle weakness and willingness to participate limits her ability to perform most tasks. PT Senior Care Goals Finding Fastener Goals PT Senior Care Goals Time Frame: May 09, 2023 Roll Left & Right (QC): 4 Sit to Lying (QC): 4 Lying-Sitting on Side/Bed(QC): 4 Sit to Stand (QC): 3 Chair/Rxt-ia-Jqols Xfer(QC): 3 Toilet Transfer (QC): 3 Car Transfer (QC): 3 Does the Patient Walk: Yes Walk 10 feet (QC): 3 Walk 50ft with 2 Turns (QC): 3 Walk 150 ft (QC): 9 Walking 10ft on Uneven Surface: 3 1 Step (curb) (QC): 3 4 Steps (QC): 9 12 Steps (QC): 9 Picking up an Object (QC): 3 Does the Pt use WC or Scooter?: Yes Wheel 50 feet with 2 turns (QC: 4 Type: Manual Wheel 150 feet: 4 PT Plan Problem List Problem List: Activity Tolerance, Functional Strength, Safety, Gait, Transfer, Bed Mobility Treatment/Plan Treatment Plan: Continue Plan of Care Treatment Plan: Bed Mobility, Education, Functional Activity [place], Functional Strength, Group Therapy, Gait, Safety, Therapeutic Exercise, Transfers Treatment Duration: May 09, 2023 Frequency: At least 5 of 7 days/Wk (IRF) Estimated Hrs Per Day: 1.5 hours per day Patient and/or Family Agrees t: Yes Discharge Recommendations Plan Pt to D/C 05/02/23. Time Time In: 0900 Time Out: 0930 DATE: May 02, 2023 Total Billed Treatment Time: 30 Total Billed Treatment 1, FA (15m), WC (15m) ALVA VARGHESE PTA May 02, 2023 15:26
[2023-05-02 17:51] VITALS: BP 121/62
--- NOTE | 2023-05-03 12:04 | Therapy Team Discharge Summary ---
Therapy Discharge Summary Discharge Recommendations Date of Discharge May 02, 2023 at 18:00 Therapy D/C Recommendations: Occupational Therapy Home Care Physical Therapy Roll Left to Right (QC): 3 Sit to Lying (QC): 2 (modA x 2, max cues for sequencing, lifting B LE into bed, safety) Lying to Sitting/Side of Bed(Q: 3 Sit to Stand (QC): 3 Chair/Luv-he-Fxdfq Xfer(QC): 2 Toilet Transfer (QC): 1 Car Transfer (QC): 88 Does the Patient Walk: Yes Mode of Locomotion: Both Anticipated Mode of Locomotion: Both Walk 10 feet (QC): 88 Walk 50 ft with 2 Turns(QC): 88 Walk 150 ft (QC): 9 Walking 10ft on uneven surface: 88 Gait Assistive Device: FWW Does the Pt Use a Wheelchair: Yes Wheelchair Distance: 2 feet Wheel 50 ft with 2 turns (QC): 3 (min-mod A, with max cues for UE and LE use) Wheel 150 ft (QC): 88 Type of Wheelchair: Manual 1 Step (curb) (QC): 88 4 Steps (QC): 9 12 Steps (QC): 9 Balance Sitting Static: Fair Balance Sitting Dynamic: Poor Balance-Standing Static: Poor Picking up an Object (QC): 3 Occupational Therapy Pt admitted to [facility] s/p R [facility]. At [facility], pt was independent with ADLS. Upon initial evaluation, pt required set up with eating, CGA-SUP with oral care, max A showering, parital assist UBD, and total assist LBD, footwear and toileting. OT tx focused on increasing BUE Strength and activity tolerance, and increasing safety and independence with ADLS and functional mobility. Pt made good progress towards goals, attaining LTGs for eating, oral care, UBD, and footwear. Pt discharged to [facility], d/c from OT. Decreased Activ Tolerance, Decreased Safety Aware, Decreased UE Strength, Impaired Cognition, Impaired Funct Balance, Impaired I ADL's, Impaired Self-Care Skills Eating (QC): 6 (Pt. IND with eating. ) Oral Hygiene (QC): 6 (Pt. able to complete grooming/oral hygiene while sitting at sink.) Shower/Bathe Self (QC): 3 (Pt. able to bath all areas while sitting. Pt. able to lift legs to clean LE. Mod A for sit to stand, min A in standing while pt cleans buttocks and dominick area by self.) Upper Body Dressing (QC): 5 (Pt. able to don/doff UB clothing by self after set up. ) Lower Body Dressing (QC): 3 (Pt. able to don pants while alternating lifting B LE's to thread. Mod A for sit to stand, min A in standing to steady using FWW to stabilize to hike by self.) On/Off Footwear (QC): 5 (Pt. able to doff using dressing stick and don using sock aide by self. ) Toileting Hygiene (QC): 3 (Pt. able to complete clothing manipulation in standing with min A/vc for sequencing and cleanses dominick area in sitting by self.) PT Rn Telephone Triage Goals Rn Telephone Triage Goals PT Jail Goals Time Frame: May 09, 2023 Roll Left to Right (QC): 4 Sit to Lying (QC): 4 Lying-Sitting on Side/Bed(QC): 4 Sit to Stand (QC): 3 Chair/Vye-kw-Swigu Xfer(QC): 3 Toilet/Commode Transfer (QC): 3 Car Transfer (QC): 3 Does the Patient Walk: Yes Walk 10 feet (QC): 3 Walk 10ft-Uneven Surface(QC): 3 Walk 50ft with 2 Turns (QC): 3 Walk 150 ft (QC): 9 Does the Pt use WC or Scooter?: Yes Wheel 50 feet with 2 turns (QC: 4 Type: Manual Wheel 150 feet: 4 1 Step (curb) (QC): 3 4 Steps (QC): 9 12 Steps (QC): 9 Picking up an Object (QC): 3 OT Jail Goals Rn Telephone Triage Goals Time Frame: May 06, 2023 Acute change in mental status: 0 Inattention: 0 Disorganized thinkin Altered level of consciousness: 0 Eating (QC): 6 (met) Oral Hygiene (QC): 5 (met) Toileting Hygiene (QC): 4 (not met) Shower/Bathe Self (QC): 4 (not met) Upper Body Dressing (QC): 4 (met) Lower Body Dressing (QC): 4 (not met) On/Off Footwear (QC): 4 (met) 1=Demonstrate adherence to instructed precautions during ADL tasks. 2=Patient will verbalize/demonstrate understanding of assistive devices/modifications for ADL. 3=Patient will improve strength/tolerance for activity to enable patient to perform ADL's. Speech Jail Goals Rn Telephone Triage Goals Pt will utilize environmental cues for orientation to place and time with 80% accuracy. Pt will demonstrate appropriate use of call light with 90% accuracy. Pt will use environmental cues for safety precautions for hip with 80% accuracy. RENEE BINGHAM OT May 03, 2023 12:04
--- NOTE | 2023-05-03 14:28 | Therapy Team Discharge Summary ---
Therapy Discharge Summary Discharge Recommendations Date of Discharge May 02, 2023 at 18:00 Therapy D/C Recommendations: Occupational Therapy Home Care Physical Therapy Patient admitted to ARU 04/18/23 after have a (R) THR on 04/15/23. Patient's dementia was main limiting factor with functional progress. At the time of D/C she was SBA to propel her w/c 50' /c max cues for turns, she required increased time to complete this task. She was (A) of 2 for gait /c FWW for a max distance of 5' (flexed knee gait, assist and cues for upright posture, very short stride length (B)). She was partial assist (3) for rolling and supine>sit, and sit>stand. She required (A) of 2 for sit>supine - patient unable to initiate. She required mod-max (A) (2) for functional transfers. She was discharged back to [facility] on 05/02. Roll Left to Right (QC): 3 Sit to Lying (QC): 1 (modA x 2, max cues for sequencing, lifting B LE into bed, safety) Lying to Sitting/Side of Bed(Q: 3 Sit to Stand (QC): 3 Chair/Hol-lm-Fcjrn Xfer(QC): 2 Toilet Transfer (QC): 1 Car Transfer (QC): 88 Does the Patient Walk: Yes Mode of Locomotion: Both Anticipated Mode of Locomotion: Both Walk 10 feet (QC): 88 Walk 50 ft with 2 Turns(QC): 88 Walk 150 ft (QC): 9 Walking 10ft on uneven surface: 88 Gait Assistive Device: FWW Does the Pt Use a Wheelchair: Yes Wheelchair Distance: 50' Wheel 50 ft with 2 turns (QC): 4 (max v.c. for UE use, requires increased time to complete) Wheel 150 ft (QC): 88 Type of Wheelchair: Manual 1 Step (curb) (QC): 88 4 Steps (QC): 9 12 Steps (QC): 9 Balance Sitting Static: Fair Balance Sitting Dynamic: Poor Balance-Standing Static: Poor Picking up an Object (QC): 88 Occupational Therapy Decreased Activ Tolerance, Decreased Safety Aware, Decreased UE Strength, Impaired Cognition, Impaired Funct Balance, Impaired I ADL's, Impaired Self-Care Skills Eating (QC): 6 (Pt. IND with eating. ) Oral Hygiene (QC): 6 (Pt. able to complete grooming/oral hygiene while sitting at sink.) Shower/Bathe Self (QC): 3 (Pt. able to bath all areas while sitting. Pt. able to lift legs to clean LE. Mod A for sit to stand, min A in standing while pt cleans buttocks and dominick area by self.) Upper Body Dressing (QC): 5 (Pt. able to don/doff UB clothing by self after set up. ) Lower Body Dressing (QC): 3 (Pt. able to don pants while alternating lifting B LE's to thread. Mod A for sit to stand, min A in standing to steady using FWW to stabilize to hike by self.) On/Off Footwear (QC): 5 (Pt. able to doff using dressing stick and don using sock aide by self. ) Toileting Hygiene (QC): 3 (Pt. able to complete clothing manipulation in standing with min A/vc for sequencing and cleanses dominick area in sitting by self.) PT Stopper Maker Goals Jail Goals PT Stopper Maker Goals Time Frame: May 09, 2023 Roll Left to Right (QC): 4 Sit to Lying (QC): 4 Lying-Sitting on Side/Bed(QC): 4 Sit to Stand (QC): 3 Chair/Nve-eg-Ifcdp Xfer(QC): 3 Toilet/Commode Transfer (QC): 3 Car Transfer (QC): 3 Does the Patient Walk: Yes Walk 10 feet (QC): 3 Walk 10ft-Uneven Surface(QC): 3 Walk 50ft with 2 Turns (QC): 3 Walk 150 ft (QC): 9 Does the Pt use WC or Scooter?: Yes Wheel 50 feet with 2 turns (QC: 4 Type: Manual Wheel 150 feet: 4 1 Step (curb) (QC): 3 4 Steps (QC): 9 12 Steps (QC): 9 Picking up an Object (QC): 3 OT Stopper Maker Goals Jail Goals Time Frame: May 06, 2023 Acute change in mental status: 0 Inattention: 0 Disorganized thinkin Altered level of consciousness: 0 Eating (QC): 6 (met) Oral Hygiene (QC): 5 (met) Toileting Hygiene (QC): 4 (not met) Shower/Bathe Self (QC): 4 (not met) Upper Body Dressing (QC): 4 (met) Lower Body Dressing (QC): 4 (not met) On/Off Footwear (QC): 4 (met) 1=Demonstrate adherence to instructed precautions during ADL tasks. 2=Patient will verbalize/demonstrate understanding of assistive devices/modifications for ADL. 3=Patient will improve strength/tolerance for activity to enable patient to perform ADL's. Speech Jail Goals Stopper Maker Goals Pt will utilize environmental cues for orientation to place and time with 80% accuracy. Pt will demonstrate appropriate use of call light with 90% accuracy. Pt will use environmental cues for safety precautions for hip with 80% accuracy. Natalie Little PT May 03, 2023 14:28
== END 2023-05-02 18:00 | disposition home health service (06) | DRG 560 ==
PROVIDERS: ADMIT Internal Medicine; ATTEND Internal Medicine
DX: Z47.1 Aftercare following joint replacement surgery (principal); B37.49 Other urogenital candidiasis; D62 Acute posthemorrhagic anemia; F05 Delirium due to known physiological condition; L76.22 Postprocedural hemorrhage of skin and subcutaneous tissue following other procedure; R32 Unspecified urinary incontinence; Z96.641 Presence of right artificial hip joint; F03.90 Unspecified dementia, unspecified severity, without behavioral disturbance, psychotic disturbance, mood disturbance, and anxiety; E11.9 Type 2 diabetes mellitus without complications; I10 Essential (primary) hypertension; E78.5 Hyperlipidemia, unspecified; S32.019D Unspecified fracture of first lumbar vertebra, subsequent encounter for fracture with routine healing; I25.10 Atherosclerotic heart disease of native coronary artery without angina pectoris; I25.2 Old myocardial infarction; Z95.5 Presence of coronary angioplasty implant and graft; Z86.73 Personal history of transient ischemic attack (TIA), and cerebral infarction without residual deficits; Z79.899 Other long term (current) drug therapy; Z79.84 Long term (current) use of oral hypoglycemic drugs; Z79.891 Long term (current) use of opiate analgesic; Z79.1 Long term (current) use of non-steroidal anti-inflammatories (NSAID); T45.515A Adverse effect of anticoagulants, initial encounter
CPT/HCPCS: 36410; 36415; 76937; 80053; 81000; 82607; 82947; 83540; 85007; 85025; 85027; 87088; 94760